=== PATIENT | female | born 1940 ===

== ENCOUNTER 2017-06-01 14:31 | Emergency (ER) | payer MEDICARE, OTHER ==
[2017-06-01 14:39] VITALS: BP 162/76; PULSE 76; RESP 18; TEMP 97.4; O2SAT 98
--- NOTE | 2017-06-01 15:31 | C.PDOC ---
History Of Present Illness A 77 year old female, whose past medical history includes hypertension, asthma, mitral valve prolapse, CHF, COPD, and who denies any chronic kidney disease, presents to the emergency department for ecchymosis and tenderness to the left lateral side of leg. The patient admits to falling from the bed 2 days ago. She denies any fever, chest pain, abdominal pain, or any other complaints at this time. - HPI Time Seen by Provider: 06/01/17 15:23 Chief Complaint (Nursing): Trauma History Per: Patient History/Exam Limitations: no limitations Onset/Duration Of Symptoms: Days (x 2 days ) Past Medical History Vital Signs: Last Vital Signs Temp 97.4 F L 06/01/17 14:35 Pulse 76 06/01/17 14:35 Resp 18 06/01/17 14:35 BP 162/76 H 06/01/17 14:35 Pulse Ox 98 06/01/17 18:50 - Medical History PMH: Asthma, CHF, COPD, HTN, Mitral Valve Prolapse Denies: Chronic Kidney Disease Surgical History: Cholecystectomy, Pacemaker (2008) Family History: States: Unknown Family Hx - Social History Hx Alcohol Use: No Hx Substance Use: No - Immunization History Hx Tetanus Toxoid Vaccination: Yes Hx Influenza Vaccination: Yes Hx Pneumococcal Vaccination: Yes Review Of Systems Except As Marked, All Systems Reviewed And Found Negative. Constitutional: Negative for: Fever Cardiovascular: Negative for: Chest Pain Gastrointestinal: Negative for: Abdominal Pain Skin: Positive for: Other (ecchymosis to left lateral leg ) Physical Exam - Physical Exam Appears: Well, No Acute Distress Skin: Normal Color, Warm, Dry Head: Atraumatic, Normacephalic Eye(s): bilateral: Normal Inspection, PERRL, EOMI Nose: Normal Throat: Normal Neck: Normal Cardiovascular: Rhythm Regular Respiratory: Normal Breath Sounds Gastrointestinal/Abdominal: Normal Exam Back: Normal Inspection, No CVA Tenderness Extremity: Normal ROM, Other (10x20 left ecchymosis on the left lateral high without fluctance ) Neurological/Psych: Oriented x3, Normal Speech, Normal Cognition Gait: Steady ED Course And Treatment O2 Sat by Pulse Oximetry: 98 Medical Decision Making Medical Decision Making: L lateral thigh contusion 2 nights ago normal gait has been maintained. no hip/back tenderness ASA only s/p CABG Defers w/u w informed consent. LOW susp of fx. Disposition Doctor Will See Patient In The: Office Counseled Patient/Family Regarding: Studies Performed, Diagnosis - Disposition Referrals: Tobi Yang Jr., MD [Medical Doctor] - Disposition: HOME/ ROUTINE Disposition Time: 15:31 Condition: GOOD Additional Instructions: bolsa de hielo encima del musculo del pienra, 1/2 hora por hora. nada caliente Sigue con Dr. Yang jules necessario. Instructions: Contusion in Adults (ED) Forms: MDCapsule (Persian) Print Language: YORUBA - Clinical Impression Clinical Impression: Thigh contusion - Scribe Statement The provider has reviewed the documentation as recorded by the Scribe Estrella Aldridge All medical record entries made by the Scribe were at my direction and personally dictated by me. I have reviewed the chart and agree that the record accurately reflects my personal performance of the history, physical exam, medical decision making, and the department course for this patient. I have also personally directed, reviewed, and agree with the discharge instructions and disposition.
== END 2017-06-01 15:42 | disposition home or self-care (01) ==
LOC: C.ER 14:31
DX: S70.12XA Contusion of left thigh, initial encounter (principal); W06.XXXA Fall from bed, initial encounter

== ENCOUNTER 2018-03-11 13:58 | Inpatient (IN) | payer MEDICARE, OTHER ==
[2018-03-11 14:36] VITALS: BMI 26.0
[2018-03-11] MEDS ORDERED: Albuterol-Ipratrop 3 mg / 0.5 (3 ml) UD ONE ×3 (14:43→16:26)
[2018-03-11] MEDS ORDERED: Albuterol-Ipratrop 3 mg / 0.5 (3 ml) UD INH STA ×3 (15:14→16:14)
[2018-03-11] MEDS ORDERED: MethylPREDNISolone 40 mg Vial IVP STA (15:14)
[2018-03-11] MEDS ORDERED: MethylPREDNISolone 40 mg Vial ONE (15:32)
[2018-03-11 15:59] LABS: BASO # 0.1 K/uL (0.0-0.2); BASO % 1.2 % (0.0-2.0); EOS # 0.2 K/uL (0.0-0.7); EOS % 3.4 % (0.0-4.0); HEMOGLOBIN 13.1 g/dL (11.0-16.0); LYMPH # 1.7 K/uL (1.0-4.3); LYMPH % 27.2 % (20.0-40.0); MEAN CELL VOLUME 82.3 fL (81.0-99.0); MEAN CORPUSCULAR HEMOGLOBIN 26.4 pg (27.0-31.0); MEAN CORPUSCULAR HGB CONC 32.1 g/dL (33.0-37.0); MEAN PLATELET VOLUME 10.3 fL (7.2-11.7); MONO # 0.8 K/uL (0.0-0.8); MONO % 11.9 % (0.0-10.0); NEUT # 3.6 K/uL (1.8-7.0); NEUT % 56.3 % (50.0-75.0); NRBC % 0.1 % (0.0-2.0); RBC 4.98 Mil/uL (3.80-5.20); RED CELL DISTRIBUTION WIDTH 16.1 % (11.5-14.5); WHITE BLOOD COUNT 6.4 K/uL (4.8-10.8)
[2018-03-11 16:46] LABS: ALB/GLOB RATIO 1.3 (1.0-2.1); ALBUMIN 3.5 g/dL (3.5-5.0); ALT/SGPT 64 U/L (9-52); AST/SGOT 63 U/L (14-36); BLOOD UREA NITROGEN 15 mg/dL (7-17); CALCIUM 8.7 mg/dl (8.6-10.4); GFR AFRICAN-AMERICAN > 60; GFR NON-AFRICAN AMERICAN 53
[2018-03-11 16:59] LABS: B-TYPE NATRIURETIC PEPTIDE 1240 pg/mL (0-900); CK-MB 1.99 ng/mL (0.0-3.38)
--- NOTE | 2018-03-11 17:05 | C.PDOC ---
History Of Present Illness 78yo female, with history of CHF, hypertension, asthma, AICD placement, presents to ED with complaints of shortness of breath and back pain for the past 5 days. Patient also reports occasional cough and states she used her nebulizer with no relief of cough. Notes the back pain is chronic, no new trauma. Worsens with movement. She denies any fever, palpiations, abdominal pain , n/v, headache, weakness, chest pain. Daughter translated. Time Seen by Provider: 03/11/18 14:57 Chief Complaint (Nursing): Chest Pain History Per: Patient History/Exam Limitations: no limitations Onset/Duration Of Symptoms: Days (5) Current Symptoms Are (Timing): Still Present Additional History Per: Patient Past Medical History Reviewed: Historical Data, Nursing Documentation, Vital Signs Vital Signs: Last Vital Signs Temp 97.4 F L 03/12/18 07:45 Pulse 68 03/12/18 07:45 Resp 20 03/12/18 07:45 BP 160/69 H 03/12/18 09:35 Pulse Ox 97 03/12/18 07:45 - Medical History PMH: Asthma, Bronchitis, CHF, COPD, HTN, Mitral Valve Prolapse Denies: Chronic Kidney Disease Surgical History: Cholecystectomy, Pacemaker (2009) Family History: States: Stroke - Social History Hx Tobacco Use: No Hx Alcohol Use: No Hx Substance Use: No - Immunization History Hx Tetanus Toxoid Vaccination: Yes Hx Influenza Vaccination: Yes Hx Pneumococcal Vaccination: Yes Review Of Systems Except As Marked, All Systems Reviewed And Found Negative. Constitutional: Negative for: Fever, Chills, Weakness Cardiovascular: Negative for: Chest Pain Respiratory: Positive for: Cough, Shortness of Breath Musculoskeletal: Positive for: Back Pain Physical Exam - Physical Exam Appears: Non-toxic, No Acute Distress Skin: Warm, Dry Head: Atraumatic, Normacephalic Eye(s): bilateral: Normal Inspection, EOMI Nose: Normal Oral Mucosa: Moist Neck: Normal ROM, Supple Chest: Symmetrical Cardiovascular: Rhythm Regular Respiratory: Wheezing (bilaterally) Gastrointestinal/Abdominal: Normal Exam, Soft, No Tenderness Back: No Vertebral Tenderness, Paraspinal Tenderness (parathoracic tenderness) Extremity: Normal ROM, No Pedal Edema, No Deformity Neurological/Psych: Oriented x3, Normal Speech, Normal Cognition ED Course And Treatment - Laboratory Results Result Diagrams: 03/12/18 07:22 03/12/18 07:22 ECG: Interpreted By Me, Viewed By Me ECG Rhythm: Sinus Rhythm, R BBB Interpretation Of ECG: Bifascicular block, unchanged from previous EKG on Rate From EC O2 Sat by Pulse Oximetry: 100 (RA) Pulse Ox Interpretation: Normal - Radiology CXR: Viewed By Me CXR Interpretation: No: Infiltrates Progress Note: Labs, CXR and EKG ordered. Patient given Duoneb 3ml INH and solumedrol 80mg IVP. On re-evaluation, patient reports persistent shortness of breath, Duoneb 3ml INH given. On reevaluation, wheezing persists. Case discussed with Dr. Yang and patient admitted under his service. Disposition - Disposition Disposition: HOSPITALIZED Disposition Time: 10:03 Condition: STABLE - Clinical Impression Clinical Impression: SOB (shortness of breath), Back pain - PA / [employer] / Resident Statement MD/DO has reviewed & agrees with the documentation as recorded. - Scribe Statement The provider has reviewed the documentation as recorded by the Scribe (Chloe Huertas) Provider Attestation: All medical record entries made by the Scribe were at my direction and personally dictated by me. I have reviewed the chart and agree that the record accurately reflects my personal performance of the history, physical exam, medical decision making, and the department course for this patient. I have also personally directed, reviewed, and agree with the discharge instructions and disposition.
[2018-03-11] MEDS ORDERED: MELOXICAM PO PRN (19:31)
--- NOTE | 2018-03-11 19:33 | CP.PCM.HP ---
History of Present Illness - History of Present Illness History of Present Illness: Patient is a 78 year old female with a history of asthma, mitral valve replacement, AICD, CHF, gout, arthritis, and DM, who presents with complains of difficulty breathing and dry cough for 5 days. She says she uses her inhaler ( symbicort) 4-5 times per day and 3 nebulizer treatments per day for the past 5 days without much relief. She also complains of chronic back pain, knee pain, and pain with walking. She currently denies chest pain, palpitations, abdominal pain, nausea, vomiting, fevers, headaches, dysuria, hematuria, constipation, diarrhea. PMD: Dr. Yang Messenger Floorperson: Dr. Villalobos PMHX: asthma, mitral valve replacement, AICD, CHF, gout, arthritis, and DM SurgHx: MV replacement 2008, AICD, cholecystectomy over 30 years ago FamHx: mother/father- [place], stroke; Brother- stroke, kidney cancer SocHx: denies alcohol, tobacco, and drug use; lives with daughter in [facility]. Allergies: PCN (respiratory distress, dizzy) Medications: meloxicam 7.5mg po bid, symbicort 160/4.5 daily, gabapentin 100mg 2 tabs HS, certavite senior daily, janumet 50-500mg daily, montelukast 10mg daily, memantine 5mg HS, aspirin 81mg po daily, colcrys 0.6mg BID, diltiazem 30mg BID, lasix 20mg po bid. Present on Admission - Present on Admission Any Indicators Present on Admission: No Review of Systems - Constitutional Constitutional: Weakness. absent: Chills, Fever, Headache - EENT Eyes: absent: Blurred Vision Ears: absent: Dizziness - Respiratory Respiratory: Cough, Dyspnea, Wheezing, Pain on Inspiration, Pain with Coughing ( back pain). absent: Excessive Mucous Production, Change in Mucous Color - Gastrointestinal Gastrointestinal: absent: Abdominal Pain, Constipation, Diarrhea, Hematemesis, Melena, Nausea, Vomiting - Genitourinary Genitourinary: absent: Dysuria, Hematuria, Pyuria - Musculoskeletal Musculoskeletal: Arthralgias, Back Pain - Integumentary Integumentary: absent: Rash - Neurological Neurological: absent: Dizziness, Frequent Falls, Headaches - Endocrine Endocrine: Fatigue. absent: Palpitations Past Patient History - Infectious Disease Hx of Infectious Diseases: None - Past Medical History & Family History Past Medical History?: Yes - Past Social History Smoking Status: Never Smoked - CARDIAC Hx Congestive Heart Failure: Yes Hx Hypertension: Yes Hx Mitral Valve Prolapse: Yes Hx Pacemaker: Yes (2008) - PULMONARY Hx Asthma: Yes Hx Bronchitis: Yes Hx Chronic Obstructive Pulmonary Disease (COPD): Yes - NEUROLOGICAL Hx Neurological Disorder: No - HEENT Hx HEENT Problems: No - RENAL Hx Chronic Kidney Disease: No - ENDOCRINE/METABOLIC Hx Diabetes Mellitus Type 2: Yes - HEMATOLOGICAL/ONCOLOGICAL Hx Blood Disorders: No - INTEGUMENTARY Hx Dermatological Problems: No - MUSCULOSKELETAL/RHEUMATOLOGICAL Hx Falls: Yes - GASTROINTESTINAL Hx Colitis: Yes - GENITOURINARY/GYNECOLOGICAL Hx Genitourinary Disorders: No - PSYCHIATRIC Hx Substance Use: No - SURGICAL HISTORY Hx Cholecystectomy: Yes - ANESTHESIA Hx Anesthesia: Yes Hx Anesthesia Reactions: No Meds Allergies/Adverse Reactions: Allergies Allergy/AdvReac Type Severity Reaction Status Date / Time Penicillins Allergy Severe ANAPHYLAXIS Verified 03/11/18 14:36 Physical Exam - Constitutional Appears: No Acute Distress - Head Exam Head Exam: ATRAUMATIC, NORMAL INSPECTION - Eye Exam Eye Exam: EOMI, PERRL - ENT Exam ENT Exam: Mucous Membranes Moist - Respiratory Exam Respiratory Exam: Decreased Breath Sounds, Prolonged Expiratory Phase, Wheezes. absent: Clear to Auscultation Bilateral - Cardiovascular Exam Cardiovascular Exam: REGULAR RHYTHM, +S1, +S2 Additional comments: AICD placed left chest; midline scar s/p MV replacement - GI/Abdominal Exam GI & Abdominal Exam: Normal Bowel Sounds, Soft. absent: Distended, Firm, Mass, Tenderness - Extremities Exam Extremities exam: Positive for: pedal pulses present. Negative for: calf tenderness, full ROM (decreased ROM (flexion/extension at the knee b/l) due pain ; crepitus b/l knees), pedal edema - Back Exam Back exam: muscle spasm (thoracic), paraspinal tenderness (thoracic). absent: CVA tenderness (L), CVA tenderness (R) - Neurological Exam Neurological exam: Alert, Oriented x3 - Psychiatric Exam Psychiatric exam: Normal Mood - Skin Skin Exam: Dry, Intact, Normal Color, Warm Results - Vital Signs Recent Vital Signs: Last Vital Signs Temp 97.9 F 03/11/18 19:22 Pulse 75 03/11/18 19:22 Resp 18 03/11/18 19:22 BP 142/73 03/11/18 19:22 Pulse Ox 99 03/11/18 19:22 - Labs Result Diagrams: 03/11/18 15:56 03/11/18 15:56 Labs: Laboratory Results - last 24 hr 03/11/18 03/11/18 15:56 15:56 WBC 6.4 RBC 4.98 Hgb 13.1 Hct 41.0 MCV 82.3 MCH 26.4 L MCHC 32.1 L RDW 16.1 H Plt Count 137 MPV 10.3 Neut % (Auto) 56.3 Lymph % (Auto) 27.2 [place] % (Auto) 11.9 H Eos % (Auto) 3.4 Baso % (Auto) 1.2 Neut # (Auto) 3.6 Lymph # (Auto) 1.7 [place] # (Auto) 0.8 Eos # (Auto) 0.2 Baso # (Auto) 0.1 Sodium 143 Potassium 4.2 Chloride 106 Carbon Dioxide 26 Anion Gap 15 BUN 15 Creatinine 1.0 Est GFR ( Amer) > 60 Est GFR (Non-Af Amer) 53 Random Glucose 93 Calcium 8.7 Total Bilirubin 0.7 AST 63 H ALT 64 H Alkaline Phosphatase 149 H D Total Creatine Kinase 250 H CK-MB (Mass) 1.99 Troponin I < 0.0120 NT-Pro-B Natriuret Pep 1240 H Total Protein 6.2 L Albumin 3.5 Globulin 2.7 Albumin/Globulin Ratio 1.3 Assessment & Plan (1) Exacerbation of asthma Assessment and Plan: Patient has been using symbicort 160/4.5 4-5 times daily and nebulizer 3 times daily x5days. Chest xray: f/u report Sputum cx: f/u report Negative for influenza Pulmonology consulted, Dr. Cortes; help appreciated Medications: - Duonebs Q4h - Solumedrol 40mg IV Q8h - Continue home medication Symbicort 160/4.5 - Continue home medication Singulair 10mg PO HS Status: Acute (2) CHF (congestive heart failure) Assessment and Plan: History of MV replacement, AICD, and CHF Admitted to telemetry Chest xray: f/u report BNP 1240, trop negative Continue home medications: - Lasix 20mg PO BID - Cardizem 30mg PO BID - Aspirin 81mg PO daily Status: Chronic (3) Diabetes mellitus Assessment and Plan: Accuchecks Hypoglycemic protocol ISS Status: Acute (4) Arthritis Assessment and Plan: Continue home medication: Meloxicam 7.5mg PO BID, Gabapentin 100mg 2tabs PO HS Status: Acute (5) Gout Assessment and Plan: Continue home medication: Colcrys 0.6mg PO BID Status: Chronic (6) Prophylactic measure Assessment and Plan: DVT: Heparin 5000u SC Q8h, SCDs Heart healthy diet O2 via nc prn Status: Acute
[2018-03-11] MEDS: Albuterol-Ipratrop 3 mg / 0.5 (3 ml) UD INH SCH (19:57)
[2018-03-11] MEDS: (Novolin R) Insulin Human Regular 100 units/ml vial SC SCH (21:38)
[2018-03-12] MEDS: MethylPREDNISolone 40 mg Vial IV SCH ×3 (00:27→16:49)
[2018-03-12] MEDS ORDERED: DiphenhydrAMINE 50 mg/ml Inj IVP STA (02:33)
[2018-03-12] MEDS: Albuterol-Ipratrop 3 mg / 0.5 (3 ml) UD INH SCH ×5 (06:19→19:41)
[2018-03-12 07:36] LABS: BASO % 0.4 % (0.0-2.0); EOS % 0.3 % (0.0-4.0); HEMOGLOBIN 12.9 g/dL (11.0-16.0); LYMPH # 0.5 K/uL (1.0-4.3); LYMPH % 10.2 % (20.0-40.0); MEAN CELL VOLUME 82.2 fL (81.0-99.0); MEAN CORPUSCULAR HEMOGLOBIN 26.6 pg (27.0-31.0); MEAN CORPUSCULAR HGB CONC 32.4 g/dL (33.0-37.0); MEAN PLATELET VOLUME 10.6 fL (7.2-11.7); MONO # 0.1 K/uL (0.0-0.8); NEUT # 4.7 K/uL (1.8-7.0); NEUT % 88.1 % (50.0-75.0); RBC 4.84 Mil/uL (3.80-5.20); RED CELL DISTRIBUTION WIDTH 16.1 % (11.5-14.5); WHITE BLOOD COUNT 5.3 K/uL (4.8-10.8)
--- NOTE | 2018-03-12 07:46 | RAD ---
Chest x-ray single frontal view History: Shortness of breath. Comparison: 08/11/2017 Findings: Biapical pleural thickening. Mild venous congestion. Cardiomegaly. Calcification at the aortic knob. Status post median sternotomy. Tortuous ectatic aorta. Left-sided pacemaker. Degenerative changes in the spine and shoulders. Impression: Biapical pleural thickening. Mild venous congestion. Cardiomegaly. Calcification at the aortic knob. Status post median sternotomy. Tortuous ectatic aorta. Left-sided pacemaker. Degenerative changes in the spine and shoulders.
[2018-03-12 07:52] LABS: ALB/GLOB RATIO 1.4 (1.0-2.1); ALBUMIN 3.9 g/dL (3.5-5.0); ALT/SGPT 47 U/L (9-52); AST/SGOT 56 U/L (14-36); BLOOD UREA NITROGEN 17 mg/dL (7-17); CALCIUM 9.3 mg/dl (8.6-10.4); GFR AFRICAN-AMERICAN > 60; GFR NON-AFRICAN AMERICAN > 60
[2018-03-12] MEDS: (Novolin R) Insulin Human Regular 100 units/ml vial SC SCH ×4 (08:16→22:22)
[2018-03-12] MEDS ORDERED: Home Med 1 UNIT (Budesonide/Formoterol Fumarate [Symbicort 160-4.5 Mcg Inhaler] 1 AER) IH SCH (10:00)
--- NOTE | 2018-03-12 12:53 | CP.PCM.CON ---
History of Present Illness - History of Present Illness History of Present Illness: Reason for Consult - Asthma Patient is a 78 year old female with past medical history of asthma, mitral valve replacement, AICD placement, CHF, gout, arthritis and DM who presents to the ED on 03/11 with complaints of SOB of 5 days' duration. Patient seen and examined in bed and is comfortably conversational, despite complaining of shortness of breath. Patient states she has a chronic cough, which is always there and never productive of sputum. Patient states she feels better and is saturating between 97-100% on 3L oxygen per nasal cannula. Patient states she has a home nebulizer, which she uses often but states she "doesn't always use her Prednisone." Assessment/Plan 1. Asthma Patient has poorly controlled asthma; Exam reveals wheezing in all lung shaver. CXR 03/11 shows pleural thickening, but no other lung disease. Continue Duonebs q4H, Solu-Medrol 40 mg IV q8H and Singulair 10 mg PO QD. . Past Patient History - Infectious Disease Hx of Infectious Diseases: None - Past Medical History & Family History Past Medical History?: Yes - Past Social History Smoking Status: Never Smoked - CARDIAC Hx Congestive Heart Failure: Yes Hx Hypertension: Yes Hx Mitral Valve Prolapse: Yes Hx Pacemaker: Yes (2008) - PULMONARY Hx Asthma: Yes Hx Bronchitis: Yes Hx Chronic Obstructive Pulmonary Disease (COPD): Yes - NEUROLOGICAL Hx Neurological Disorder: No - HEENT Hx HEENT Problems: No - RENAL Hx Chronic Kidney Disease: No - ENDOCRINE/METABOLIC Hx Diabetes Mellitus Type 2: Yes - HEMATOLOGICAL/ONCOLOGICAL Hx Blood Disorders: No - INTEGUMENTARY Hx Dermatological Problems: No - MUSCULOSKELETAL/RHEUMATOLOGICAL Hx Falls: Yes - GASTROINTESTINAL Hx Colitis: Yes - GENITOURINARY/GYNECOLOGICAL Hx Genitourinary Disorders: No - PSYCHIATRIC Hx Substance Use: No - SURGICAL HISTORY Hx Cholecystectomy: Yes - ANESTHESIA Hx Anesthesia: Yes Hx Anesthesia Reactions: No Meds Allergies/Adverse Reactions: Allergies Allergy/AdvReac Type Severity Reaction Status Date / Time Penicillins Allergy Severe ANAPHYLAXIS Verified 03/11/18 14:36 - Medications Medications: Current Medications Albuterol/Ipratropium (Duoneb 3 Mg/0.5 Mg (3 Ml) Ud) 3 ml INH RQ4 TEN Last Admin: 03/12/18 07:35 Dose: 3 ml Aspirin (Ecotrin) 81 mg PO DAILY TEN Last Admin: 03/12/18 09:35 Dose: 81 mg Colchicine (Colocrys) 0.6 mg PO BID [facility] Last Admin: 03/12/18 09:35 Dose: 0.6 mg Diltiazem HCl (Cardizem) 30 mg PO BID [facility] Last Admin: 03/12/18 09:35 Dose: 30 mg Furosemide (Lasix) 20 mg PO BID [facility] Last Admin: 03/12/18 09:35 Dose: 20 mg Gabapentin (Neurontin) 100 mg PO DAILY [facility] Last Admin: 03/12/18 09:36 Dose: 100 mg Heparin Sodium (Porcine) (Heparin) 5,000 units SC Q8 [facility] Last Admin: 03/12/18 06:30 Dose: 5,000 units Home Med (Budesonide/Formoterol Fumarate [Symbicort 160-4.5 Mcg Inhaler]) 1 aer IH DAILY [facility] Home Med (Meloxicam [Mobic]) 1 tab PO BID PRN PRN Reason: Pain, moderate (4-7) Ibuprofen (Motrin Tab) 400 mg PO Q6 PRN PRN Reason: Pain, moderate (4-7) Insulin Human Regular (Novolin R) 0 unit SC ACHS [facility] PRN Reason: Protocol Last Admin: 03/12/18 12:22 Dose: Not Given Memantine (Namenda) 5 mg PO HS [facility] Last Admin: 03/11/18 21:34 Dose: 5 mg Methylprednisolone (Solu-Medrol) 40 mg IV Q8H [facility] Last Admin: 03/12/18 08:20 Dose: 40 mg Montelukast Sodium (Singulair) 10 mg PO DAILY [facility] Results - Vital Signs Recent Vital Signs: Last Vital Signs Temp 97.4 F L 03/12/18 07:45 Pulse 68 03/12/18 07:45 Resp 20 03/12/18 07:45 BP 160/69 H 03/12/18 09:35 Pulse Ox 100 03/12/18 10:05 - Labs Result Diagrams: 03/12/18 07:22 03/12/18 07:22 Labs: Laboratory Results - last 24 hr 03/11/18 03/11/18 03/11/18 15:56 15:56 21:13 WBC 6.4 RBC 4.98 Hgb 13.1 Hct 41.0 MCV 82.3 MCH 26.4 L MCHC 32.1 L RDW 16.1 H Plt Count 137 MPV 10.3 Neut % (Auto) 56.3 Lymph % (Auto) 27.2 [place] % (Auto) 11.9 H Eos % (Auto) 3.4 Baso % (Auto) 1.2 Neut # (Auto) 3.6 Lymph # (Auto) 1.7 [place] # (Auto) 0.8 Eos # (Auto) 0.2 Baso # (Auto) 0.1 Sodium 143 Potassium 4.2 Chloride 106 Carbon Dioxide 26 Anion Gap 15 BUN 15 Creatinine 1.0 Est GFR ( Amer) > 60 Est GFR (Non-Af Amer) 53 POC Glucose (mg/dL) Random Glucose 93 Calcium 8.7 Phosphorus Magnesium Total Bilirubin 0.7 AST 63 H ALT 64 H Alkaline Phosphatase 149 H D Total Creatine Kinase 250 H CK-MB (Mass) 1.99 Troponin I < 0.0120 NT-Pro-B Natriuret Pep 1240 H Total Protein 6.2 L Albumin 3.5 Globulin 2.7 Albumin/Globulin Ratio 1.3 Influenza Typ A,B (EIA) Negative for flu a/b 03/11/18 03/12/18 03/12/18 21:38 06:44 07:22 WBC 5.3 RBC 4.84 Hgb 12.9 Hct 39.8 MCV 82.2 MCH 26.6 L MCHC 32.4 L RDW 16.1 H Plt Count 140 MPV 10.6 Neut % (Auto) 88.1 H Lymph % (Auto) 10.2 L [place] % (Auto) 1.0 Eos % (Auto) 0.3 Baso % (Auto) 0.4 Neut # (Auto) 4.7 Lymph # (Auto) 0.5 L [place] # (Auto) 0.1 Eos # (Auto) 0.0 Baso # (Auto) 0.0 Sodium Potassium Chloride Carbon Dioxide Anion Gap BUN Creatinine Est GFR ( Amer) Est GFR (Non-Af Amer) POC Glucose (mg/dL) 261 H 133 H Random Glucose Calcium Phosphorus Magnesium Total Bilirubin AST ALT Alkaline Phosphatase Total Creatine Kinase CK-MB (Mass) Troponin I NT-Pro-B Natriuret Pep Total Protein Albumin Globulin Albumin/Globulin Ratio Influenza Typ A,B (EIA) 03/12/18 03/12/18 07:22 11:22 WBC RBC Hgb Hct MCV MCH MCHC RDW Plt Count MPV Neut % (Auto) Lymph % (Auto) [place] % (Auto) Eos % (Auto) Baso % (Auto) Neut # (Auto) Lymph # (Auto) [place] # (Auto) Eos # (Auto) Baso # (Auto) Sodium 141 Potassium 5.2 Chloride 105 Carbon Dioxide 26 Anion Gap 15 BUN 17 Creatinine 0.8 Est GFR ( Amer) > 60 Est GFR (Non-Af Amer) > 60 POC Glucose (mg/dL) 149 H Random Glucose 138 H Calcium 9.3 Phosphorus 3.2 Magnesium 1.3 L Total Bilirubin 0.4 AST 56 H ALT 47 Alkaline Phosphatase 105 Total Creatine Kinase CK-MB (Mass) Troponin I NT-Pro-B Natriuret Pep Total Protein 6.7 Albumin 3.9 Globulin 2.9 Albumin/Globulin Ratio 1.4 Influenza Typ A,B (EIA)
--- NOTE | 2018-03-12 13:38 | CP.PCM.PN ---
Subjective - Date & Time of Evaluation Date of Evaluation: 03/12/18 Time of Evaluation: 07:19 - Subjective Subjective: PGY1 Medicine Note for Dr. Yang Patient seen and examined at bedside this morning. No acute events overnight. Patient states that she is still experiencing wheezing. Patient admits to not taking her medications appropriately. She has no other complaints at this time. Denies fevers, chills, nausea, vomiting, diarrhea, constipation, chest pain, abdominal pain, numbness or tingling. Objective - Vital Signs/Intake and Output Vital Signs (last 24 hours): Temp Pulse Resp BP Pulse Ox 97.4 F L 68 20 160/69 H 100 03/12/18 07:45 03/12/18 07:45 03/12/18 07:45 03/12/18 09:35 03/12/18 10:05 Intake and Output: 03/12/18 03/12/18 06:59 18:59 Intake Total 120 Balance 120 - Medications Medications: Current Medications Albuterol/Ipratropium (Duoneb 3 Mg/0.5 Mg (3 Ml) Ud) 3 ml INH RQ4 [facility] Last Admin: 03/12/18 13:15 Dose: 3 ml Aspirin (Ecotrin) 81 mg PO DAILY [facility] Last Admin: 03/12/18 09:35 Dose: 81 mg Colchicine (Colocrys) 0.6 mg PO BID [facility] Last Admin: 03/12/18 09:35 Dose: 0.6 mg Diltiazem HCl (Cardizem) 30 mg PO BID [facility] Last Admin: 03/12/18 09:35 Dose: 30 mg Furosemide (Lasix) 20 mg PO BID [facility] Last Admin: 03/12/18 09:35 Dose: 20 mg Gabapentin (Neurontin) 100 mg PO DAILY [facility] Last Admin: 03/12/18 09:36 Dose: 100 mg Heparin Sodium (Porcine) (Heparin) 5,000 units SC Q8 [facility] Last Admin: 03/12/18 06:30 Dose: 5,000 units Home Med (Budesonide/Formoterol Fumarate [Symbicort 160-4.5 Mcg Inhaler]) 1 aer IH DAILY [facility] Home Med (Meloxicam [Mobic]) 1 tab PO BID PRN PRN Reason: Pain, moderate (4-7) Ibuprofen (Motrin Tab) 400 mg PO Q6 PRN PRN Reason: Pain, moderate (4-7) Insulin Human Regular (Novolin R) 0 unit SC ACHS [facility] PRN Reason: Protocol Last Admin: 03/12/18 12:22 Dose: Not Given Memantine (Namenda) 5 mg PO HS [facility] Last Admin: 03/11/18 21:34 Dose: 5 mg Methylprednisolone (Solu-Medrol) 40 mg IV Q8H [facility] Last Admin: 03/12/18 08:20 Dose: 40 mg Montelukast Sodium (Singulair) 10 mg PO DAILY [facility] - Labs Labs: 03/12/18 07:22 03/12/18 07:22 - Constitutional Appears: Non-toxic, No Acute Distress - Head Exam Head Exam: ATRAUMATIC, NORMOCEPHALIC - Eye Exam Eye Exam: Normal appearance - ENT Exam ENT Exam: Mucous Membranes Moist - Neck Exam Neck Exam: absent: Lymphadenopathy, Tenderness - Respiratory Exam Respiratory Exam: Decreased Breath Sounds, Prolonged Expiratory Phase, Wheezes. absent: Accessory Muscle Use, Clear to Ausculation Bilateral, Rales, Rhonchi, Respiratory Distress, NORMAL BREATHING PATTERN - Cardiovascular Exam Cardiovascular Exam: REGULAR RHYTHM, +S1, +S2 - GI/Abdominal Exam GI & Abdominal Exam: Soft. absent: Distended, Firm, Guarding, Rigid, Tenderness , Hyperactive Bowel Sounds - Extremities Exam Extremities Exam: absent: Calf Tenderness, Pedal Edema - Neurological Exam Neurological Exam: Alert, Awake, CN II-XII Intact, Oriented x3 - Psychiatric Exam Psychiatric exam: Normal Affect, Normal Mood - Skin Skin Exam: Dry, Warm Assessment and Plan - Assessment and Plan (Free Text) Plan: Exacerbation of asthma Patient has been using symbicort 160/4.5 4-5 times daily and nebulizer 3 times daily x5days. Chest xray: Biapical pleural thickening. Mild venous congestion. Cardiomegaly. Calcification at the aortic knob. Status post median sternotomy. Tortuous ectatic aorta. Left-sided pacemaker. Degenerative changes in the spine and shoulders Sputum cx: f/u report Negative for influenza Pulmonology consulted, Dr. Cortes; help appreciated Medications: - Duonebs Q4h - Solumedrol 40mg IV Q8h - Continue home medication Symbicort 160/4.5 - Continue home medication Singulair 10mg PO HS CHF (congestive heart failure) History of MV replacement, AICD, and CHF Admitted to telemetry Chest xray: f/u report BNP 1240, trop negative Continue home medications: - Lasix 20mg PO BID - Cardizem 30mg PO BID - Aspirin 81mg PO daily Diabetes mellitus Accuchecks Hypoglycemic protocol ISS Arthritis Continue home medication: Meloxicam 7.5mg PO BID, Gabapentin 100mg PO HS Gout Continue home medication: Colchicine 0.6mg PO BID Prophylactic measure DVT: Heparin 5000u SC Q8h, SCDs Heart healthy diet O2 via nc prn Case discussed with Dr. Trey Ramos Rosalva PGY1
[2018-03-13] MEDS: Albuterol-Ipratrop 3 mg / 0.5 (3 ml) UD INH SCH ×6 (00:05→19:22)
--- NOTE | 2018-03-13 00:57 | CP.PCM.PN ---
Subjective - Date & Time of Evaluation Date of Evaluation: 03/13/18 Time of Evaluation: 00:54 - Subjective Subjective: Medicine progress note for Dr. Yang Patient was seen and examined at bedside in no acute distress. Patient reports her breathing has improved, as well as her back and knee pain. She complains of difficulty sleeping overnight. She states she had a normal BM and is tolerating her diet, however, has little appetite. Patient denies chest pain, dyspnea, abdominal pain, nausea, vomiting, fevers, headaches, dysuria, diarrhea, constipation. Objective - Vital Signs/Intake and Output Vital Signs (last 24 hours): Temp Pulse Resp BP Pulse Ox 97.8 F 76 20 136/63 98 03/12/18 23:10 03/12/18 23:10 03/12/18 23:10 03/12/18 23:10 03/12/18 23:10 Intake and Output: 03/12/18 03/13/18 18:59 06:59 Intake Total 240 Balance 240 - Medications Medications: Current Medications Albuterol/Ipratropium (Duoneb 3 Mg/0.5 Mg (3 Ml) Ud) 3 ml INH RQ4 [facility] Last Admin: 03/12/18 19:41 Dose: 3 ml Aspirin (Ecotrin) 81 mg PO DAILY [facility] Last Admin: 03/12/18 09:35 Dose: 81 mg Colchicine (Colocrys) 0.6 mg PO BID [facility] Last Admin: 03/12/18 17:50 Dose: 0.6 mg Diltiazem HCl (Cardizem) 30 mg PO BID [facility] Last Admin: 03/12/18 17:50 Dose: 30 mg Furosemide (Lasix) 20 mg PO BID [facility] Last Admin: 03/12/18 17:50 Dose: 20 mg Gabapentin (Neurontin) 100 mg PO DAILY [facility] Last Admin: 03/12/18 09:36 Dose: 100 mg Heparin Sodium (Porcine) (Heparin) 5,000 units SC Q8 [facility] Last Admin: 03/12/18 21:30 Dose: 5,000 units Home Med (Budesonide/Formoterol Fumarate [Symbicort 160-4.5 Mcg Inhaler]) 1 aer IH DAILY [facility] Home Med (Meloxicam [Mobic]) 1 tab PO BID PRN PRN Reason: Pain, moderate (4-7) Ibuprofen (Motrin Tab) 400 mg PO Q6 PRN PRN Reason: Pain, moderate (4-7) Insulin Human Regular (Novolin R) 0 unit SC ACHS [facility] PRN Reason: Protocol Last Admin: 03/12/18 22:22 Dose: Not Given Memantine (Namenda) 5 mg PO HS [facility] Last Admin: 03/12/18 21:30 Dose: 5 mg Methylprednisolone (Solu-Medrol) 40 mg IV Q8H [facility] Last Admin: 03/12/18 16:49 Dose: 40 mg Montelukast Sodium (Singulair) 10 mg PO DAILY [facility] Last Admin: 03/12/18 13:53 Dose: 10 mg - Labs Labs: 03/12/18 07:22 03/12/18 07:22 - Additional Findings Additional findings: - Constitutional Appears: No Acute Distress - Head Exam Head Exam: ATRAUMATIC, NORMAL INSPECTION - Eye Exam Eye Exam: EOMI, PERRL - ENT Exam ENT Exam: Mucous Membranes Moist - Respiratory Exam Respiratory Exam: Decreased Breath Sounds, Prolonged Expiratory Phase, Wheezes. absent: Clear to Auscultation Bilateral - Cardiovascular Exam Cardiovascular Exam: REGULAR RHYTHM, +S1, +S2 Additional comments: AICD placed left chest; midline scar s/p MV replacement - GI/Abdominal Exam GI & Abdominal Exam: Normal Bowel Sounds, Soft. absent: Distended, Firm, Mass, Tenderness - Extremities Exam Extremities exam: Positive for: pedal pulses present. Negative for: calf tenderness, full ROM (decreased ROM (flexion/extension at the knee b/l) due pain ; crepitus b/l knees), pedal edema - Back Exam Back exam: muscle spasm (thoracic), paraspinal tenderness (thoracic). absent: CVA tenderness (L), CVA tenderness (R) - Neurological Exam Neurological exam: Alert, Oriented x3 - Psychiatric Exam Psychiatric exam: Normal Mood - Skin Skin Exam: Dry, Intact, Normal Color, Warm Assessment and Plan (1) Exacerbation of asthma Status: Acute (2) CHF (congestive heart failure) Status: Chronic (3) Diabetes mellitus Status: Acute (4) Arthritis Status: Acute (5) Gout Status: Chronic (6) Prophylactic measure Status: Acute - Assessment and Plan (Free Text) Plan: Exacerbation of asthma Patient has been using symbicort 160/4.5 4-5 times daily and nebulizer 3 times daily x5days. Chest xray: Biapical pleural thickening. Mild venous congestion. Cardiomegaly. Calcification at the aortic knob. Status post median sternotomy. Tortuous ectatic aorta. Left-sided pacemaker. Degenerative changes in the spine and shoulders Negative for influenza Pulmonology consulted, Dr. Cortes; help appreciated Medications: - Duonebs Q4h - Solumedrol 40mg IV Q8h - Continue home medication Symbicort 160/4.5 - Continue home medication Singulair 10mg PO HS CHF (congestive heart failure) History of MV replacement, AICD, and CHF Admitted to telemetry Chest xray: Biapical pleural thickening. Mild venous congestion. Cardiomegaly. Calcification at the aortic knob. Status post median sternotomy. Tortuous ectatic aorta. Left-sided pacemaker. Degenerative changes in the spine and shoulders BNP 1240, trop negative Continue home medications: - Lasix 20mg PO BID - Cardizem 30mg PO BID - Aspirin 81mg PO daily Diabetes mellitus Accuchecks Hypoglycemic protocol ISS Arthritis Continue home medication: Meloxicam 7.5mg PO BID, Gabapentin 100mg PO HS Gout Continue home medication: Colchicine 0.6mg PO BID Prophylactic measure DVT: Heparin 5000u SC Q8h, SCDs Heart healthy diet O2 via nc prn
[2018-03-13] MEDS: MethylPREDNISolone 40 mg Vial IV SCH ×3 (01:15→18:04)
[2018-03-13 07:43] LABS: BASO # 0.1 K/uL (0.0-0.2); BASO % 0.6 % (0.0-2.0); EOS # 0.1 K/uL (0.0-0.7); EOS % 0.9 % (0.0-4.0); HEMOGLOBIN 12.3 g/dL (11.0-16.0); LYMPH # 0.4 K/uL (1.0-4.3); LYMPH % 3.8 % (20.0-40.0); MEAN CELL VOLUME 82.2 fL (81.0-99.0); MEAN CORPUSCULAR HEMOGLOBIN 26.3 pg (27.0-31.0); MEAN PLATELET VOLUME 10.6 fL (7.2-11.7); MONO # 0.2 K/uL (0.0-0.8); MONO % 2.1 % (0.0-10.0); NEUT # 8.8 K/uL (1.8-7.0); NEUT % 92.6 % (50.0-75.0); PLATELET COUNT 129 K/uL (130-400); RBC 4.69 Mil/uL (3.80-5.20); WHITE BLOOD COUNT 9.5 K/uL (4.8-10.8)
[2018-03-13 08:12] LABS: ALB/GLOB RATIO 1.4 (1.0-2.1); ALBUMIN 3.7 g/dL (3.5-5.0); ALT/SGPT 51 U/L (9-52); AST/SGOT 40 U/L (14-36); BLOOD UREA NITROGEN 27 mg/dL (7-17); CALCIUM 9.1 mg/dl (8.6-10.4); GFR AFRICAN-AMERICAN > 60; GFR NON-AFRICAN AMERICAN > 60
[2018-03-13] MEDS: (Novolin R) Insulin Human Regular 100 units/ml vial SC SCH ×4 (08:30→21:31)
[2018-03-13 08:32] LABS: LYMPHOCYTE 2 % (20-40); MONOCYTE 2 % (0-10); NEUTROPHIL 96 % (50-75); PLATELET ESTIMATE NORMAL (NORMAL); TOTAL CELLS COUNTED 100
[2018-03-13 08:33] LABS: LARGE PLATELETS PRESENT
[2018-03-13 08:34] LABS: ANISOCYTOSIS SLIGHT
[2018-03-13 08:35] LABS: HYPOCHROMIC SLIGHT; OVALOCYTES SLIGHT; POLYCHROMIC SLIGHT
--- NOTE | 2018-03-13 12:09 | CARD ---
APPROVED REPORT EKG Measurement Heart [id number] <Conclusion> Normal sinus rhythm with sinus arrhythmia Right bundle branch block Left anterior fascicular block Bifascicular block Voltage criteria for left ventricular hypertrophy Cannot rule out Septal infarct, age undetermined Abnormal ECG
--- NOTE | 2018-03-13 12:20 | CP.PCM.PN ---
Subjective - Date & Time of Evaluation Date of Evaluation: 03/13/18 Time of Evaluation: 10:40 - Subjective Subjective: Patient seen and examined Patient states breathing is slightly better but still wheezing Denies cough, denies fever chills No chest pain Continue IV steroids Continue nebulizer treatment Objective - Vital Signs/Intake and Output Vital Signs (last 24 hours): Temp Pulse Resp BP Pulse Ox 97.5 F L 72 20 127/69 96 03/13/18 08:35 03/13/18 08:35 03/13/18 08:35 03/13/18 10:39 03/13/18 08:35 Intake and Output: 03/13/18 03/13/18 06:59 18:59 Intake Total 240 Balance 240 - Medications Medications: Current Medications Albuterol/Ipratropium (Duoneb 3 Mg/0.5 Mg (3 Ml) Ud) 3 ml INH RQ4 [facility] Last Admin: 03/13/18 11:29 Dose: 3 ml Aspirin (Ecotrin) 81 mg PO DAILY [facility] Last Admin: 03/13/18 10:27 Dose: 81 mg Colchicine (Colocrys) 0.6 mg PO BID [facility] Last Admin: 03/13/18 10:27 Dose: 0.6 mg Diltiazem HCl (Cardizem) 30 mg PO BID [facility] Last Admin: 03/13/18 10:30 Dose: 30 mg Furosemide (Lasix) 20 mg PO BID [facility] Last Admin: 03/13/18 10:39 Dose: 20 mg Gabapentin (Neurontin) 100 mg PO DAILY [facility] Last Admin: 03/13/18 10:26 Dose: 100 mg Heparin Sodium (Porcine) (Heparin) 5,000 units SC Q8 [facility] Last Admin: 03/13/18 06:05 Dose: 5,000 units Home Med (Budesonide/Formoterol Fumarate [Symbicort 160-4.5 Mcg Inhaler]) 1 aer IH DAILY [facility] Home Med (Meloxicam [Mobic]) 1 tab PO BID PRN PRN Reason: Pain, moderate (4-7) Ibuprofen (Motrin Tab) 400 mg PO Q6 PRN PRN Reason: Pain, moderate (4-7) Insulin Human Regular (Novolin R) 0 unit SC ACHS [facility] PRN Reason: Protocol Last Admin: 03/12/18 22:22 Dose: Not Given Memantine (Namenda) 5 mg PO HS [facility] Last Admin: 03/12/18 21:30 Dose: 5 mg Methylprednisolone (Solu-Medrol) 40 mg IV Q8H [facility] Last Admin: 03/13/18 08:26 Dose: 40 mg Montelukast Sodium (Singulair) 10 mg PO DAILY [facility] Last Admin: 03/13/18 10:31 Dose: 10 mg - Labs Labs: 03/13/18 07:25 03/13/18 07:25
[2018-03-13] MEDS ORDERED: Promethazine DM 6.25 mg-15 mg/5 ml Syrup PO PRN (16:22)
[2018-03-14] MEDS: MethylPREDNISolone 40 mg Vial IV SCH (00:15)
[2018-03-14] MEDS: Albuterol-Ipratrop 3 mg / 0.5 (3 ml) UD INH SCH ×6 (00:52→20:22)
[2018-03-14 07:40] LABS: BASO % 0.2 % (0.0-2.0); EOS % 0.2 % (0.0-4.0); HEMOGLOBIN 12.2 g/dL (11.0-16.0); LYMPH # 0.5 K/uL (1.0-4.3); LYMPH % 4.5 % (20.0-40.0); MEAN CELL VOLUME 82.1 fL (81.0-99.0); MEAN CORPUSCULAR HEMOGLOBIN 26.6 pg (27.0-31.0); MEAN CORPUSCULAR HGB CONC 32.4 g/dL (33.0-37.0); MEAN PLATELET VOLUME 10.5 fL (7.2-11.7); MONO # 0.4 K/uL (0.0-0.8); NEUT # 9.5 K/uL (1.8-7.0); NEUT % 91.1 % (50.0-75.0); NRBC % 0.1 % (0.0-2.0); PLATELET COUNT 154 K/uL (130-400); RBC 4.57 Mil/uL (3.80-5.20); RED CELL DISTRIBUTION WIDTH 16.1 % (11.5-14.5); WHITE BLOOD COUNT 10.4 K/uL (4.8-10.8)
[2018-03-14 08:11] LABS: ALB/GLOB RATIO 1.2 (1.0-2.1); ALBUMIN 3.3 g/dL (3.5-5.0); ALT/SGPT 58 U/L (9-52); AST/SGOT 39 U/L (14-36); BLOOD UREA NITROGEN 32 mg/dL (7-17); CALCIUM 8.4 mg/dl (8.6-10.4); GFR AFRICAN-AMERICAN > 60; GFR NON-AFRICAN AMERICAN 53
[2018-03-14] MEDS: (Novolin R) Insulin Human Regular 100 units/ml vial SC SCH ×4 (08:20→22:00)
[2018-03-14 08:49] LABS: LYMPHOCYTE 7 % (20-40); MONOCYTE 5 % (0-10); NEUTROPHIL 88 % (50-75); TOTAL CELLS COUNTED 100
[2018-03-14 08:50] LABS: ANISOCYTOSIS SLIGHT; PLATELET ESTIMATE NORMAL (NORMAL)
--- NOTE | 2018-03-14 09:33 | CP.PCM.CON ---
History of Present Illness - History of Present Illness History of Present Illness: Patient seen and evaluated States feels better in terms of dyspnea and back pain Hx of Chronic systolic CHF s/p AICD HTN S/P MVR (Bio) Patient was told there was some thing in her heart Will check ECHO Past Patient History - Infectious Disease Hx of Infectious Diseases: None - Past Medical History & Family History Past Medical History?: Yes - Past Social History Smoking Status: Never Smoked - CARDIAC Hx Congestive Heart Failure: Yes Hx Hypertension: Yes Hx Mitral Valve Prolapse: Yes Hx Pacemaker: Yes (2008) - PULMONARY Hx Asthma: Yes Hx Bronchitis: Yes Hx Chronic Obstructive Pulmonary Disease (COPD): Yes - NEUROLOGICAL Hx Neurological Disorder: No - HEENT Hx HEENT Problems: No - RENAL Hx Chronic Kidney Disease: No - ENDOCRINE/METABOLIC Hx Diabetes Mellitus Type 2: Yes - HEMATOLOGICAL/ONCOLOGICAL Hx Blood Disorders: No - INTEGUMENTARY Hx Dermatological Problems: No - MUSCULOSKELETAL/RHEUMATOLOGICAL Hx Falls: Yes - GASTROINTESTINAL Hx Colitis: Yes - GENITOURINARY/GYNECOLOGICAL Hx Genitourinary Disorders: No - PSYCHIATRIC Hx Substance Use: No - SURGICAL HISTORY Hx Cholecystectomy: Yes - ANESTHESIA Hx Anesthesia: Yes Hx Anesthesia Reactions: No Meds Allergies/Adverse Reactions: Allergies Allergy/AdvReac Type Severity Reaction Status Date / Time Penicillins Allergy Severe ANAPHYLAXIS Verified 03/11/18 14:36 - Medications Medications: Current Medications Albuterol/Ipratropium (Duoneb 3 Mg/0.5 Mg (3 Ml) Ud) 3 ml INH RQ4 [facility] Last Admin: 03/14/18 08:44 Dose: 3 ml Aspirin (Ecotrin) 81 mg PO DAILY [facility] Last Admin: 03/13/18 10:27 Dose: 81 mg Colchicine (Colocrys) 0.6 mg PO BID [facility] Last Admin: 03/13/18 18:04 Dose: 0.6 mg Diltiazem HCl (Cardizem) 30 mg PO BID [facility] Last Admin: 03/13/18 18:04 Dose: 30 mg Furosemide (Lasix) 20 mg PO BID [facility] Last Admin: 03/13/18 18:03 Dose: 20 mg Gabapentin (Neurontin) 100 mg PO DAILY [facility] Last Admin: 03/13/18 10:26 Dose: 100 mg Heparin Sodium (Porcine) (Heparin) 5,000 units SC Q8 [facility] Last Admin: 03/13/18 22:06 Dose: 5,000 units Home Med (Budesonide/Formoterol Fumarate [Symbicort 160-4.5 Mcg Inhaler]) 1 aer IH DAILY [facility] Home Med (Meloxicam [Mobic]) 1 tab PO BID PRN PRN Reason: Pain, moderate (4-7) Ibuprofen (Motrin Tab) 400 mg PO Q6 PRN PRN Reason: Pain, moderate (4-7) Insulin Human Regular (Novolin R) 0 unit SC ACHS [facility] PRN Reason: Protocol Last Admin: 03/13/18 21:31 Dose: Not Given Memantine (Namenda) 5 mg PO HS [facility] Last Admin: 03/13/18 22:06 Dose: 5 mg Methylprednisolone (Solu-Medrol) 40 mg IV Q12 [facility] Montelukast Sodium (Singulair) 10 mg PO DAILY [facility] Last Admin: 03/13/18 10:31 Dose: 10 mg Promethazine HCl/Dextromethorphan (Phenergan Dm Syrup) 5 ml PO Q6H PRN PRN Reason: Cough Last Admin: 03/13/18 18:03 Dose: 5 ml Results - Vital Signs Recent Vital Signs: Last Vital Signs Temp 98.1 F 03/14/18 08:37 Pulse 80 03/14/18 08:37 Resp 20 03/14/18 08:37 BP 152/89 H 03/14/18 08:37 Pulse Ox 99 03/14/18 08:37 - Labs Result Diagrams: 03/14/18 07:34 03/14/18 07:34 Labs: Laboratory Results - last 24 hr 03/13/18 03/13/18 03/13/18 11:30 16:46 21:01 WBC RBC Hgb Hct MCV MCH MCHC RDW Plt Count MPV Neut % (Auto) Lymph % (Auto) [place] % (Auto) Eos % (Auto) Baso % (Auto) Neut # (Auto) Lymph # (Auto) [place] # (Auto) Eos # (Auto) Baso # (Auto) Neutrophils % (Manual) Lymphocytes % (Manual) Monocytes % (Manual) Platelet Estimate Basophilic Stippling Anisocytosis (manual) Sodium Potassium Chloride Carbon Dioxide Anion Gap BUN Creatinine Est GFR ( Amer) Est GFR (Non-Af Amer) POC Glucose (mg/dL) 175 H 174 H 269 H Random Glucose Calcium Total Bilirubin AST ALT Alkaline Phosphatase Total Protein Albumin Globulin Albumin/Globulin Ratio 06/10/18 06/10/18 07:34 07:34 WBC 10.4 RBC 4.57 Hgb 12.2 Hct 37.5 MCV 82.1 MCH 26.6 L MCHC 32.4 L RDW 16.1 H Plt Count 154 MPV 10.5 Neut % (Auto) 91.1 H Lymph % (Auto) 4.5 L [place] % (Auto) 4.0 Eos % (Auto) 0.2 Baso % (Auto) 0.2 Neut # (Auto) 9.5 H Lymph # (Auto) 0.5 L [place] # (Auto) 0.4 Eos # (Auto) 0.0 Baso # (Auto) 0.0 Neutrophils % (Manual) 88 H Lymphocytes % (Manual) 7 L Monocytes % (Manual) 5 Platelet Estimate Normal Basophilic Stippling Slight Anisocytosis (manual) Slight Sodium 141 Potassium 4.1 Chloride 107 Carbon Dioxide 25 Anion Gap 14 BUN 32 H Creatinine 1.0 Est GFR ( Amer) > 60 Est GFR (Non-Af Amer) 53 POC Glucose (mg/dL) Random Glucose 168 H Calcium 8.4 L Total Bilirubin 0.4 AST 39 H ALT 58 H Alkaline Phosphatase 133 H D Total Protein 6.1 L Albumin 3.3 L Globulin 2.8 Albumin/Globulin Ratio 1.2
[2018-03-14] MEDS ORDERED: MethylPREDNISolone 40 mg Vial IV SCH (10:00)
--- NOTE | 2018-03-14 10:10 | CP.PCM.PN ---
Subjective - Date & Time of Evaluation Date of Evaluation: 03/14/18 Time of Evaluation: 10:01 - Subjective Subjective: PGY2 progress note for Dr. Yang Pt seen and examined at bedside. No acute events overnight. Patient is sitting comfortably in chair. Denies having any SOB, CP, abd pain, N/V/D/C, F/ C. Patient is c/o persistent productive coughing throughout the night. Tolerating diet. Objective - Vital Signs/Intake and Output Vital Signs (last 24 hours): Temp Pulse Resp BP Pulse Ox 98.1 F 80 20 155/80 H 99 03/14/18 08:37 03/14/18 08:37 03/14/18 08:37 03/14/18 09:40 03/14/18 08:37 - Medications Medications: Current Medications Albuterol/Ipratropium (Duoneb 3 Mg/0.5 Mg (3 Ml) Ud) 3 ml INH RQ4 [facility] Last Admin: 03/14/18 08:44 Dose: 3 ml Aspirin (Ecotrin) 81 mg PO DAILY [facility] Last Admin: 03/14/18 09:41 Dose: 81 mg Colchicine (Colocrys) 0.6 mg PO BID [facility] Last Admin: 03/14/18 09:40 Dose: 0.6 mg Diltiazem HCl (Cardizem) 30 mg PO BID [facility] Last Admin: 03/14/18 09:41 Dose: 30 mg Furosemide (Lasix) 20 mg PO BID [facility] Last Admin: 03/14/18 09:40 Dose: 20 mg Gabapentin (Neurontin) 100 mg PO DAILY [facility] Last Admin: 03/14/18 09:42 Dose: 100 mg Heparin Sodium (Porcine) (Heparin) 5,000 units SC Q8 [facility] Last Admin: 03/13/18 22:06 Dose: 5,000 units Home Med (Budesonide/Formoterol Fumarate [Symbicort 160-4.5 Mcg Inhaler]) 1 aer IH DAILY [facility] Home Med (Meloxicam [Mobic]) 1 tab PO BID PRN PRN Reason: Pain, moderate (4-7) Ibuprofen (Motrin Tab) 400 mg PO Q6 PRN PRN Reason: Pain, moderate (4-7) Insulin Human Regular (Novolin R) 0 unit SC ACHS [facility] PRN Reason: Protocol Last Admin: 06/10/18 08:20 Dose: 2 unit Memantine (Namenda) 5 mg PO HS [facility] Last Admin: 03/13/18 22:06 Dose: 5 mg Methylprednisolone (Solu-Medrol) 40 mg IV Q12 [facility] Last Admin: 03/14/18 09:43 Dose: 40 mg Montelukast Sodium (Singulair) 10 mg PO DAILY [facility] Last Admin: 03/14/18 09:41 Dose: 10 mg Promethazine HCl/Dextromethorphan (Phenergan Dm Syrup) 5 ml PO Q6H PRN PRN Reason: Cough Last Admin: 03/13/18 18:03 Dose: 5 ml - Labs Labs: 03/14/18 07:34 03/14/18 07:34 - Constitutional Appears: Non-toxic, No Acute Distress - Head Exam Head Exam: ATRAUMATIC, NORMOCEPHALIC - ENT Exam ENT Exam: Mucous Membranes Moist - Respiratory Exam Respiratory Exam: Clear to Ausculation Bilateral. absent: Accessory Muscle Use , Rales, Rhonchi, Wheezes, Respiratory Distress - Cardiovascular Exam Cardiovascular Exam: REGULAR RHYTHM, +S1, +S2. absent: Gallop, Rubs, Murmur - GI/Abdominal Exam GI & Abdominal Exam: Soft, Normal Bowel Sounds. absent: Distended, Firm, Guarding, Rigid, Tenderness, Organomegaly - Extremities Exam Extremities Exam: absent: Pedal Edema, Tenderness - Neurological Exam Neurological Exam: Alert, Awake, Oriented x3 - Psychiatric Exam Psychiatric exam: Normal Affect, Normal Mood - Skin Skin Exam: Dry, Intact, Normal Color, Warm Assessment and Plan - Assessment and Plan (Free Text) Assessment: COPD exacerbation Improving Patient has been using symbicort 160/4.5 4-5 times daily and nebulizer 3 times daily x5days. Chest xray: Biapical pleural thickening. Mild venous congestion. Cardiomegaly. Calcification at the aortic knob. Status post median sternotomy. Tortuous ectatic aorta. Left-sided pacemaker. Degenerative changes in the spine and shoulders Negative for influenza Pulmonology consulted, Dr. Cortes; help appreciated Medications: - Duonebs Q4h - Solumedrol 40mg IV daily. Will titrate down daily - Continue home medication Symbicort 160/4.5 - Continue home medication Singulair 10mg PO HS CHF (congestive heart failure) History of MV replacement, AICD, and CHF Admitted to telemetry Chest xray: Biapical pleural thickening. Mild venous congestion. Cardiomegaly. Calcification at the aortic knob. Status post median sternotomy. Tortuous ectatic aorta. Left-sided pacemaker. Degenerative changes in the spine and shoulders BNP 1240, trop negative Cardiology, Dr. Villalobos is consulted. Echo ordered Continue home medications: - Lasix 20mg PO BID - Cardizem 30mg PO BID - Aspirin 81mg PO daily Diabetes mellitus Accuchecks Hypoglycemic protocol ISS Will check HgbA1c and lipid panel Gabapentin for neuropathy Arthritis Continue home medication: Meloxicam 7.5mg PO BID Gout Continue home medication: Colchicine 0.6mg PO BID D[facility] Continue home medication: Namenda Prophylactic measure DVT: Heparin 5000u SC Q8h, SCDs Heart healthy diet Protonix O2 via nc prn Case will be discussed with attending, Dr. Yang
[2018-03-14] MEDS ORDERED: Pantoprazole 40 mg EC Tab PO SCH (10:15)
[2018-03-14 12:15] LABS: HDL CHOLESTEROL 66 mg/dL (30-70)
[2018-03-14 12:26] LABS: LDL CHOLESTEROL 80 mg/dL (0-129)
--- NOTE | 2018-03-14 17:05 | CP.PCM.PN ---
Subjective - Date & Time of Evaluation Date of Evaluation: 03/14/18 Time of Evaluation: 14:00 - Subjective Subjective: patient seen and examined Complaining of productive cough Still wheezing Afebrile no chest pain Continue nebulizer treatment Continue steroids Objective - Vital Signs/Intake and Output Vital Signs (last 24 hours): Temp Pulse Resp BP Pulse Ox 98.1 F 71 20 155/80 H 99 03/14/18 08:37 03/14/18 11:16 03/14/18 08:37 03/14/18 09:40 03/14/18 08:37 - Medications Medications: Current Medications Albuterol/Ipratropium (Duoneb 3 Mg/0.5 Mg (3 Ml) Ud) 3 ml INH RQ4 [facility] Last Admin: 03/14/18 15:57 Dose: 3 ml Aspirin (Ecotrin) 81 mg PO DAILY [facility] Last Admin: 03/14/18 09:41 Dose: 81 mg Colchicine (Colocrys) 0.6 mg PO BID [facility] Last Admin: 03/14/18 09:40 Dose: 0.6 mg Diltiazem HCl (Cardizem) 30 mg PO BID [facility] Last Admin: 03/14/18 09:41 Dose: 30 mg Famotidine (Pepcid) 20 mg PO ONCE ONE Stop: 03/14/18 17:16 Furosemide (Lasix) 20 mg PO BID [facility] Last Admin: 03/14/18 09:40 Dose: 20 mg Gabapentin (Neurontin) 100 mg PO DAILY [facility] Last Admin: 03/14/18 09:42 Dose: 100 mg Heparin Sodium (Porcine) (Heparin) 5,000 units SC Q8 [facility] Last Admin: 03/14/18 13:43 Dose: 5,000 units Home Med (Budesonide/Formoterol Fumarate [Symbicort 160-4.5 Mcg Inhaler]) 1 aer IH DAILY [facility] Home Med (Meloxicam [Mobic]) 1 tab PO BID PRN PRN Reason: Pain, moderate (4-7) Insulin Human Regular (Novolin R) 0 unit SC ACHS [facility] PRN Reason: Protocol Last Admin: 03/14/18 12:10 Dose: Not Given Memantine (Namenda) 5 mg PO HS [facility] Last Admin: 03/13/18 22:06 Dose: 5 mg Methylprednisolone (Solu-Medrol) 40 mg IV DAILY [facility] Montelukast Sodium (Singulair) 10 mg PO DAILY [facility] Last Admin: 03/14/18 09:41 Dose: 10 mg Pantoprazole Sodium (Protonix Ec Tab) 40 mg PO DAILY [facility] Last Admin: 03/14/18 10:55 Dose: 40 mg Promethazine HCl/Dextromethorphan (Phenergan Dm Syrup) 5 ml PO Q6H PRN PRN Reason: Cough Last Admin: 03/13/18 18:03 Dose: 5 ml - Labs Labs: 03/14/18 07:34 03/14/18 07:34
[2018-03-14] MEDS ORDERED: Acetaminophen-Codeine 300/30 mg Tab PO PRN (18:29)
[2018-03-14] MEDS ORDERED: Promethazine/Cod 6.25mg-10mg/5ml Syr UD PO PRN (18:45)
--- NOTE | 2018-03-14 22:08 | CP.PCM.PN ---
Subjective - Date & Time of Evaluation Date of Evaluation: 03/14/18 Time of Evaluation: 16:10 - Subjective Subjective: Patient seen and evaluated Denies chest pain and dyspnea ECHO pending Objective - Vital Signs/Intake and Output Vital Signs (last 24 hours): Temp Pulse Resp BP Pulse Ox 97.6 F 78 18 140/70 96 03/14/18 15:40 03/14/18 15:40 03/14/18 15:40 03/14/18 17:23 03/14/18 15:40 - Medications Medications: Current Medications Albuterol/Ipratropium (Duoneb 3 Mg/0.5 Mg (3 Ml) Ud) 3 ml INH RQ4 [facility] [place] Last Admin: 03/14/18 20:22 Dose: 3 ml Aspirin (Ecotrin) 81 mg PO DAILY [facility] [place] Last Admin: 03/14/18 09:41 Dose: 81 mg Colchicine (Colocrys) 0.6 mg PO BID [facility] [place] Last Admin: 03/14/18 17:23 Dose: 0.6 mg Diltiazem HCl (Cardizem) 30 mg PO BID [facility] Last Admin: 03/14/18 17:23 Dose: 30 mg Furosemide (Lasix) 20 mg PO BID [facility] Last Admin: 03/14/18 17:23 Dose: 20 mg Gabapentin (Neurontin) 100 mg PO DAILY [facility] [place] Last Admin: 03/14/18 09:42 Dose: 100 mg Heparin Sodium (Porcine) (Heparin) 5,000 units SC Q8 [facility] Last Admin: 03/14/18 13:43 Dose: 5,000 units Home Med (Budesonide/Formoterol Fumarate [Symbicort 160-4.5 Mcg Inhaler]) 1 aer IH DAILY [facility] [place] Home Med (Meloxicam [Mobic]) 1 tab PO BID PRN PRN Reason: Pain, moderate (4-7) Insulin Human Regular (Novolin R) 0 unit SC ACHS [facility] [place] PRN Reason: Protocol Last Admin: 03/14/18 12:10 Dose: Not Given Memantine (Namenda) 5 mg PO HS [facility] Last Admin: 03/13/18 22:06 Dose: 5 mg Methylprednisolone (Solu-Medrol) 40 mg IV DAILY [facility] Montelukast Sodium (Singulair) 10 mg PO DAILY [facility] [place] Last Admin: 03/14/18 09:41 Dose: 10 mg Pantoprazole Sodium (Protonix Ec Tab) 40 mg PO DAILY [facility] Last Admin: 03/14/18 10:55 Dose: 40 mg Promethazine HCl/Codeine (Phenergan/Codeine Oral Syrup) 5 ml PO Q4 PRN PRN Reason: Cough - Labs Labs: 03/14/18 07:34 03/14/18 07:34
[2018-03-15] MEDS: Albuterol-Ipratrop 3 mg / 0.5 (3 ml) UD INH SCH ×7 (00:50→23:46)
[2018-03-15] MEDS: (Novolin R) Insulin Human Regular 100 units/ml vial SC SCH ×4 (07:54→21:37)
[2018-03-15 07:56] LABS: BASO % 0.2 % (0.0-2.0); EOS % 0.1 % (0.0-4.0); HEMOGLOBIN 12.1 g/dL (11.0-16.0); LYMPH # 0.5 K/uL (1.0-4.3); LYMPH % 4.4 % (20.0-40.0); MEAN CORPUSCULAR HEMOGLOBIN 26.3 pg (27.0-31.0); MEAN CORPUSCULAR HGB CONC 32.1 g/dL (33.0-37.0); MEAN PLATELET VOLUME 11.1 fL (7.2-11.7); MONO # 1.3 K/uL (0.0-0.8); MONO % 10.9 % (0.0-10.0); NEUT # 9.8 K/uL (1.8-7.0); NEUT % 84.4 % (50.0-75.0); PLATELET COUNT 139 K/uL (130-400); RBC 4.59 Mil/uL (3.80-5.20); RED CELL DISTRIBUTION WIDTH 16.4 % (11.5-14.5); WHITE BLOOD COUNT 11.5 K/uL (4.8-10.8)
[2018-03-15 08:24] LABS: ANISOCYTOSIS SLIGHT; LYMPHOCYTE 5 % (20-40); MONOCYTE 8 % (0-10); NEUTROPHIL 87 % (50-75); PLATELET ESTIMATE NORMAL (NORMAL); POIKILOCYTOSIS SLIGHT; TOTAL CELLS COUNTED 100
[2018-03-15 08:36] LABS: ALB/GLOB RATIO 1.2 (1.0-2.1); ALBUMIN 3.1 g/dL (3.5-5.0); ALT/SGPT 65 U/L (9-52); AST/SGOT 42 U/L (14-36); BLOOD UREA NITROGEN 27 mg/dL (7-17); CALCIUM 7.6 mg/dl (8.6-10.4); GFR AFRICAN-AMERICAN > 60; GFR NON-AFRICAN AMERICAN > 60
[2018-03-15] MEDS: MethylPREDNISolone 40 mg Vial IV SCH (10:27)
--- NOTE | 2018-03-15 13:53 | CP.PCM.PN ---
Subjective - Date & Time of Evaluation Date of Evaluation: 03/15/18 Time of Evaluation: 13:53 - Subjective Subjective: patient seen and examined at bedside. Doing well. Breathing improved but still wheezing. OOB to chair today. tolerating diet without difficulty. Objective - Vital Signs/Intake and Output Vital Signs (last 24 hours): Temp Pulse Resp BP Pulse Ox 97.4 F L 87 20 123/73 98 03/15/18 07:50 03/15/18 12:21 03/15/18 07:50 03/15/18 10:23 03/15/18 07:50 - Medications Medications: Current Medications Albuterol/Ipratropium (Duoneb 3 Mg/0.5 Mg (3 Ml) Ud) 3 ml INH RQ4 [facility] Last Admin: 03/15/18 11:14 Dose: Not Given Aspirin (Ecotrin) 81 mg PO DAILY [facility] Last Admin: 03/15/18 10:23 Dose: 81 mg Colchicine (Colocrys) 0.6 mg PO BID [facility] Last Admin: 03/15/18 12:16 Dose: 0.6 mg Diltiazem HCl (Cardizem) 30 mg PO BID [facility] Last Admin: 03/15/18 10:27 Dose: 30 mg Furosemide (Lasix) 20 mg PO BID [facility] Last Admin: 03/15/18 10:23 Dose: 20 mg Gabapentin (Neurontin) 100 mg PO DAILY [facility] Last Admin: 03/15/18 10:27 Dose: 100 mg Heparin Sodium (Porcine) (Heparin) 5,000 units SC Q8 [facility] Last Admin: 03/15/18 13:52 Dose: 5,000 units Home Med (Budesonide/Formoterol Fumarate [Symbicort 160-4.5 Mcg Inhaler]) 1 aer IH DAILY [facility] Home Med (Meloxicam [Mobic]) 1 tab PO BID PRN PRN Reason: Pain, moderate (4-7) Insulin Human Regular (Novolin R) 0 unit SC ACHS [facility] PRN Reason: Protocol Last Admin: 03/15/18 12:09 Dose: Not Given Memantine (Namenda) 5 mg PO HS [facility] Last Admin: 03/14/18 23:00 Dose: 5 mg Methylprednisolone (Solu-Medrol) 40 mg IV DAILY [facility] Last Admin: 03/15/18 10:27 Dose: 40 mg Montelukast Sodium (Singulair) 10 mg PO DAILY [facility] Last Admin: 03/15/18 10:23 Dose: 10 mg Promethazine HCl/Codeine (Phenergan/Codeine Oral Syrup) 5 ml PO Q4 PRN PRN Reason: Cough - Labs Labs: 03/15/18 07:51 03/15/18 07:51 - Constitutional Appears: Well - Head Exam Head Exam: ATRAUMATIC, NORMAL INSPECTION, NORMOCEPHALIC - Eye Exam Eye Exam: EOMI, Normal appearance, PERRL Pupil Exam: NORMAL ACCOMODATION, PERRL - ENT Exam ENT Exam: Mucous Membranes Moist, Normal Exam - Neck Exam Neck Exam: Full ROM, Normal Inspection. absent: Lymphadenopathy - Respiratory Exam Respiratory Exam: Wheezes, NORMAL BREATHING PATTERN - Cardiovascular Exam Cardiovascular Exam: REGULAR RHYTHM, +S1, +S2. absent: Murmur - GI/Abdominal Exam GI & Abdominal Exam: Soft, Normal Bowel Sounds. absent: Tenderness - Extremities Exam Extremities Exam: Full ROM, Normal Capillary Refill, Normal Inspection. absent : Joint Swelling, Pedal Edema - Back Exam Back Exam: NORMAL INSPECTION - Neurological Exam Neurological Exam: Alert, Awake, CN II-XII Intact, Normal Gait, Oriented x3 - Psychiatric Exam Psychiatric exam: Normal Affect, Normal Mood - Skin Skin Exam: Dry, Intact, Normal Color, Warm Assessment and Plan (1) Asthma exacerbation Assessment & Plan: patient still wheezing. Will continue breathing treatments and IV steroids at this time. Her breathing is much improved compared to her inital presentation. Dr. Cortes is the facility manager histology. Dr. Villalobos is the service attendant. She had EKG that showed RBBB. TTE may be show vegetations. Will follow up Cardio reccs. Patient on ASA, cardizem, lasix, singulair, and promethazine. Status: Acute
--- NOTE | 2018-03-15 17:25 | CP.PCM.PN ---
Subjective - Date & Time of Evaluation Date of Evaluation: 03/15/18 Time of Evaluation: 09:00 - Subjective Subjective: Patient seen and examined. Patient still coughing and wheezing, but clinically improved. Assessment/Plan 1. Asthma Patient poorly controlled at admission, but currently improved saturating 98% on RA. Continue Duonebs q4H, Solu-medrol 40mg IV QD and Singulair 10 mg PO QD. Importance of follow up with outpatient record librarian stressed. Objective - Vital Signs/Intake and Output Vital Signs (last 24 hours): Temp Pulse Resp BP Pulse Ox 98.0 F 76 20 152/77 H 98 03/15/18 15:10 03/15/18 15:10 03/15/18 15:10 03/15/18 15:10 03/15/18 15:10 Intake and Output: 03/15/18 03/15/18 06:59 18:59 Intake Total 600 Output Total 0 Balance 600 - Medications Medications: Current Medications Albuterol/Ipratropium (Duoneb 3 Mg/0.5 Mg (3 Ml) Ud) 3 ml INH RQ4 [facility] Last Admin: 03/15/18 11:14 Dose: Not Given Aspirin (Ecotrin) 81 mg PO DAILY [facility] Last Admin: 03/15/18 10:23 Dose: 81 mg Colchicine (Colocrys) 0.6 mg PO BID [facility] Last Admin: 03/15/18 12:16 Dose: 0.6 mg Diltiazem HCl (Cardizem) 30 mg PO BID [facility] Last Admin: 03/15/18 10:27 Dose: 30 mg Furosemide (Lasix) 20 mg PO BID [facility] Last Admin: 03/15/18 10:23 Dose: 20 mg Gabapentin (Neurontin) 100 mg PO DAILY [facility] Last Admin: 03/15/18 10:27 Dose: 100 mg Heparin Sodium (Porcine) (Heparin) 5,000 units SC Q8 [facility] Last Admin: 03/15/18 13:52 Dose: 5,000 units Home Med (Budesonide/Formoterol Fumarate [Symbicort 160-4.5 Mcg Inhaler]) 1 aer IH DAILY [facility] Home Med (Meloxicam [Mobic]) 1 tab PO BID PRN PRN Reason: Pain, moderate (4-7) Insulin Human Regular (Novolin R) 0 unit SC ACHS [facility] PRN Reason: Protocol Last Admin: 03/15/18 12:09 Dose: Not Given Memantine (Namenda) 5 mg PO HS [facility] Last Admin: 03/14/18 23:00 Dose: 5 mg Methylprednisolone (Solu-Medrol) 40 mg IV DAILY [facility] Last Admin: 03/15/18 10:27 Dose: 40 mg Montelukast Sodium (Singulair) 10 mg PO DAILY [facility] Last Admin: 03/15/18 10:23 Dose: 10 mg Promethazine HCl/Codeine (Phenergan/Codeine Oral Syrup) 5 ml PO Q4 PRN PRN Reason: Cough - Labs Labs: 03/15/18 07:51 03/15/18 07:51
--- NOTE | 2018-03-15 17:55 | CP.PCM.PN ---
Subjective - Date & Time of Evaluation Date of Evaluation: 03/15/18 Time of Evaluation: 17:54 - Subjective Subjective: ? LV mass for ANGUS in am Objective - Vital Signs/Intake and Output Vital Signs (last 24 hours): Temp Pulse Resp BP Pulse Ox 98.0 F 76 20 152/77 H 98 03/15/18 15:10 03/15/18 15:10 03/15/18 15:10 03/15/18 15:10 03/15/18 15:10 Intake and Output: 03/15/18 03/15/18 06:59 18:59 Intake Total 600 Output Total 0 Balance 600 - Medications Medications: Current Medications Albuterol/Ipratropium (Duoneb 3 Mg/0.5 Mg (3 Ml) Ud) 3 ml INH RQ4 [facility] Last Admin: 03/15/18 11:14 Dose: Not Given Aspirin (Ecotrin) 81 mg PO DAILY [facility] Last Admin: 03/15/18 10:23 Dose: 81 mg Colchicine (Colocrys) 0.6 mg PO BID [facility] Last Admin: 03/15/18 12:16 Dose: 0.6 mg Diltiazem HCl (Cardizem) 30 mg PO BID [facility] Last Admin: 03/15/18 10:27 Dose: 30 mg Furosemide (Lasix) 20 mg PO BID [facility] Last Admin: 03/15/18 10:23 Dose: 20 mg Gabapentin (Neurontin) 100 mg PO DAILY [facility] Last Admin: 03/15/18 10:27 Dose: 100 mg Heparin Sodium (Porcine) (Heparin) 5,000 units SC Q8 [facility] Last Admin: 03/15/18 13:52 Dose: 5,000 units Home Med (Budesonide/Formoterol Fumarate [Symbicort 160-4.5 Mcg Inhaler]) 1 aer IH DAILY [facility] Home Med (Meloxicam [Mobic]) 1 tab PO BID PRN PRN Reason: Pain, moderate (4-7) Insulin Human Regular (Novolin R) 0 unit SC ACHS [facility] PRN Reason: Protocol Last Admin: 03/15/18 12:09 Dose: Not Given Memantine (Namenda) 5 mg PO HS [facility] Last Admin: 03/14/18 23:00 Dose: 5 mg Methylprednisolone (Solu-Medrol) 40 mg IV DAILY [facility] Last Admin: 03/15/18 10:27 Dose: 40 mg Montelukast Sodium (Singulair) 10 mg PO DAILY [facility] Last Admin: 03/15/18 10:23 Dose: 10 mg Promethazine HCl/Codeine (Phenergan/Codeine Oral Syrup) 5 ml PO Q4 PRN PRN Reason: Cough - Labs Labs: 03/15/18 07:51 03/15/18 07:51
[2018-03-15] MEDS ORDERED: Bisacodyl 5mg EC Tab PO ONE (19:25)
[2018-03-15] MEDS ORDERED: POLYETHYLENE GLYCOL 3350 17 GM/Dose PACKET PO ONE (19:26)
[2018-03-15] MEDS ORDERED: DiphenhydrAMINE 12.5 mg/5 ml LIQ UD (5 ml) PO STA (22:32)
[2018-03-16] MEDS: Albuterol-Ipratrop 3 mg / 0.5 (3 ml) UD INH SCH ×4 (03:20→15:47)
[2018-03-16 07:37] LABS: BASO % 0.2 % (0.0-2.0); EOS % 0.2 % (0.0-4.0); HEMOGLOBIN 12.2 g/dL (11.0-16.0); LYMPH # 0.6 K/uL (1.0-4.3); LYMPH % 5.4 % (20.0-40.0); MEAN CELL VOLUME 81.7 fL (81.0-99.0); MEAN CORPUSCULAR HEMOGLOBIN 26.5 pg (27.0-31.0); MEAN CORPUSCULAR HGB CONC 32.4 g/dL (33.0-37.0); MEAN PLATELET VOLUME 10.7 fL (7.2-11.7); MONO % 8.9 % (0.0-10.0); NEUT # 9.7 K/uL (1.8-7.0); NEUT % 85.3 % (50.0-75.0); NRBC % 0.1 % (0.0-2.0); PLATELET COUNT 145 K/uL (130-400); RED CELL DISTRIBUTION WIDTH 16.2 % (11.5-14.5); WHITE BLOOD COUNT 11.3 K/uL (4.8-10.8)
[2018-03-16] MEDS: (Novolin R) Insulin Human Regular 100 units/ml vial SC SCH ×2 (07:49→11:30)
[2018-03-16 07:53] LABS: INR 1.1
[2018-03-16 08:10] LABS: ALB/GLOB RATIO 1.3 (1.0-2.1); ALBUMIN 3.1 g/dL (3.5-5.0); ALT/SGPT 65 U/L (9-52); AST/SGOT 38 U/L (14-36); BLOOD UREA NITROGEN 25 mg/dL (7-17); CALCIUM 7.3 mg/dl (8.6-10.4); GFR AFRICAN-AMERICAN > 60; GFR NON-AFRICAN AMERICAN > 60
[2018-03-16 08:58] LABS: ANISOCYTOSIS SLIGHT; LYMPHOCYTE 7 % (20-40); MICROCYTOSIS SLIGHT; MONOCYTE 9 % (0-10); NEUTROPHIL 84 % (50-75); PLATELET ESTIMATE NORMAL (NORMAL); POIKILOCYTOSIS SLIGHT; TOTAL CELLS COUNTED 100
--- NOTE | 2018-03-16 09:26 | CARD ---
APPROVED REPORT EXAM: Two-dimensional and M-mode echocardiogram with Doppler and color Doppler. Other Information Quality : GoodRhythm : INDICATION Congestive Heart Failure Surgery/Intervention Bioprosthetic Type: Annular Ring ICD/Pacemaker: CABD DIMENSIONS IVSd1.2 (0.7-1.1cm)LVDd5.1 (3.9-5.9cm) LVOT Diameter1.7 (1.8-2.4cm)PWd1.2 (0.7-1.1cm) LVDs3.8 (2.5-4.0cm)FS (%) 24.4 % LVEF (%)30.0 (>50%) M-Mode DIMENSIONS Left Atrium (MM)3.35 (2.5-4.0cm)IVSd1.35 (0.7-1.1cm) Aortic Root3.53 (2.2-3.7cm)LVDd5.01 (4.0-5.6cm) Aortic Cusp Exc.1.64 (1.5-2.0cm)PWd1.05 (0.7-1.1cm) FS (%) 18 %LVDs4.10 (2.0-3.8cm) LVEF (%)37 (>50%) Aortic Valve AI P 1/2 [id number] Mitral Valve MV E Sdcwvgbr327.9cm/sMV E Peak Gr.11mmHgMV A Nmgjmnue684.1cm/s MV E Mean Gr.6mmHgMV [id number]/A ratio1.0 MVA (PHT)2.70cm2 TDI E/Lateral E'0.0E/Medial E'0.0 Tricuspid Valve TR Peak Liuimlmc096sd/sTR Peak Gr.[id number] LEFT VENTRICLE The left ventricle is normal size. There is mild concentric left ventricular hypertrophy. Left ventricle systolic function is moderately impaired. The Ejection Fraction is 35-40%. Significant regional wall motion abnormalities noted most profound in the posterior wall. The left ventricular diastolic function is normal. RIGHT VENTRICLE The right ventricle is normal size. There is normal right ventricular wall thickness. Systolic function is moderately reduced. ATRIA The left atrium size is normal. The right atrium size is normal. The interatrial septum is intact with no evidence for an atrial septal defect. AORTIC VALVE The aortic valve is normal in structure. There is mild to moderate aortic regurgitation. There is no aortic valvular stenosis. MITRAL VALVE Mitral regurgitation is mild. There is a bioprosthetic mitral valve. TRICUSPID VALVE The tricuspid valve is normal in structure. There is mild tricuspid regurgitation. Right ventricular systolic pressure is estimated at 30-40 mmHg. There is mild pulmonary hypertension. PULMONIC VALVE The pulmonic valve is not well visualized. There is mild pulmonic valvular regurgitation. GREAT VESSELS The aortic root is normal in size. <Conclusion> Left ventricle systolic function is moderately impaired. The Ejection Fraction is 35-40%. Hypertensive heart disease. There is mild to moderate aortic regurgitation. There is a bioprosthetic mitral valve. Mitral regurgitation is mild. There is mild tricuspid regurgitation. There is mild pulmonary hypertension. There is mild pulmonic valvular regurgitation.
[2018-03-16] MEDS: MethylPREDNISolone 40 mg Vial IV SCH (09:51)
--- NOTE | 2018-03-16 09:59 | CP.PCM.PN ---
Subjective - Date & Time of Evaluation Date of Evaluation: 03/16/18 Time of Evaluation: 14:00 - Subjective Subjective: Pulm Progress Note- Dr. Cortes's service Patient seen and examined in no apparent acute distress. Patient's daughters available bedside. Patient's daughters communicated that patient feels better. They inquired about discharge planning. Objective - Vital Signs/Intake and Output Vital Signs (last 24 hours): Temp Pulse Resp BP Pulse Ox 98.0 F 94 H 20 138/72 100 03/16/18 08:20 03/16/18 08:20 03/16/18 08:20 03/16/18 09:42 03/16/18 08:20 - Medications Medications: Current Medications Albuterol/Ipratropium (Duoneb 3 Mg/0.5 Mg (3 Ml) Ud) 3 ml INH RQ4 [facility] Last Admin: 03/16/18 07:16 Dose: 3 ml Aspirin (Ecotrin) 81 mg PO DAILY [facility] Last Admin: 03/16/18 09:42 Dose: 81 mg Colchicine (Colocrys) 0.6 mg PO BID [facility] Last Admin: 03/16/18 09:41 Dose: 0.6 mg Diltiazem HCl (Cardizem) 30 mg PO BID [facility] Last Admin: 03/16/18 09:46 Dose: 30 mg Furosemide (Lasix) 20 mg PO BID [facility] Last Admin: 03/16/18 09:42 Dose: 20 mg Gabapentin (Neurontin) 100 mg PO DAILY [facility] Last Admin: 03/16/18 09:41 Dose: 100 mg Heparin Sodium (Porcine) (Heparin) 5,000 units SC Q8 [facility] Last Admin: 03/16/18 05:09 Dose: Not Given Home Med (Budesonide/Formoterol Fumarate [Symbicort 160-4.5 Mcg Inhaler]) 1 aer IH DAILY [facility] Home Med (Meloxicam [Mobic]) 1 tab PO BID PRN PRN Reason: Pain, moderate (4-7) Insulin Human Regular (Novolin R) 0 unit SC ACHS [facility] PRN Reason: Protocol Last Admin: 03/16/18 07:49 Dose: Not Given Memantine (Namenda) 5 mg PO HS [facility] Last Admin: 03/15/18 22:08 Dose: 5 mg Methylprednisolone (Solu-Medrol) 40 mg IV DAILY [facility] Last Admin: 03/16/18 09:51 Dose: 40 mg Montelukast Sodium (Singulair) 10 mg PO DAILY [facility] Last Admin: 03/16/18 09:46 Dose: 10 mg Promethazine HCl/Codeine (Phenergan/Codeine Oral Syrup) 5 ml PO Q4 PRN PRN Reason: Cough - Labs Labs: 03/16/18 07:31 03/16/18 07:31 PT 12.0 SECONDS (9.7-12.2) 03/16/18 07:31 INR 1.1 03/16/18 07:31 - Constitutional Appears: Non-toxic, No Acute Distress - Head Exam Head Exam: ATRAUMATIC, NORMAL INSPECTION - Eye Exam Eye Exam: EOMI, Normal appearance - ENT Exam ENT Exam: Mucous Membranes Moist - Neck Exam Neck Exam: Full ROM - Respiratory Exam Respiratory Exam: Wheezes - Cardiovascular Exam Cardiovascular Exam: +S1, +S2 - GI/Abdominal Exam GI & Abdominal Exam: Soft - Extremities Exam Extremities Exam: Full ROM - Back Exam Back Exam: Full ROM - Neurological Exam Neurological Exam: Alert, Awake, Oriented x3 - Psychiatric Exam Psychiatric exam: Normal Affect, Normal Mood - Skin Skin Exam: Normal Color, Warm Assessment and Plan (1) Asthma exacerbation Assessment & Plan: Continue Solumedrol, nebulizer treatments, singulair and symbicort as well. Continue to monitor Recommendations for outpatient followup and medication compliance Status: Acute
[2018-03-16] MEDS ORDERED: Lidocaine 4% (Laryng-O-Jet) Kit MM ONE (10:52)
[2018-03-16] MEDS ORDERED: Midazolam 2 MG/2 ML VIAL ONE (12:00)
[2018-03-16] MEDS ORDERED: Etomidate 20 mg/10ml Inj IV ONE (12:03)
[2018-03-16 16:16] VITALS: BP 134/71; PULSE 73; RESP 18; TEMP 97.4; O2SAT 98
--- NOTE | 2018-03-16 16:31 | CP.PCM.DIS ---
Provider - Provider Date of Admission: 03/11/18 17:06 Attending physician: Tobi Yang Jr, MD Primary care physician: Trey Consults: Pulm: Sebastian Cards: Wilfredo Time Spent in preparation of Discharge (in minutes): 45 Diagnosis - Discharge Diagnosis (1) Asthma exacerbation Status: Acute Hospital Course - Lab Results Lab Results: Most Recent Lab Values WBC 11.3 K/uL (4.8-10.8) H 03/16/18 07:31 RBC 4.60 Mil/uL (3.80-5.20) 03/16/18 07:31 Hgb 12.2 g/dL (11.0-16.0) 03/16/18 07:31 Hct 37.6 % (34.0-47.0) 03/16/18 07:31 MCV 81.7 fL (81.0-99.0) 03/16/18 07:31 MCH 26.5 pg (27.0-31.0) L 03/16/18 07:31 MCHC 32.4 g/dL (33.0-37.0) L 03/16/18 07:31 RDW 16.2 % (11.5-14.5) H 03/16/18 07:31 Plt Count 145 K/uL (130-400) 03/16/18 07:31 MPV 10.7 fL (7.2-11.7) 03/16/18 07:31 Neut % (Auto) 85.3 % (50.0-75.0) H 03/16/18 07:31 Lymph % (Auto) 5.4 % (20.0-40.0) L 03/16/18 07:31 [place] % (Auto) 8.9 % (0.0-10.0) 03/16/18 07:31 Eos % (Auto) 0.2 % (0.0-4.0) 03/16/18 07:31 Baso % (Auto) 0.2 % (0.0-2.0) 03/16/18 07:31 Neut # (Auto) 9.7 K/uL (1.8-7.0) H 03/16/18 07:31 Lymph # (Auto) 0.6 K/uL (1.0-4.3) L 03/16/18 07:31 [place] # (Auto) 1.0 K/uL (0.0-0.8) H 03/16/18 07:31 Eos # (Auto) 0.0 K/uL (0.0-0.7) 03/16/18 07:31 Baso # (Auto) 0.0 K/uL (0.0-0.2) 03/16/18 07:31 Neutrophils % (Manual) 84 % (50-75) H 03/16/18 07:31 Lymphocytes % (Manual) 7 % (20-40) L 03/16/18 07:31 Monocytes % (Manual) 9 % (0-10) 03/16/18 07:31 Platelet Estimate Normal (NORMAL) 03/16/18 07:31 Large Platelets Present 03/13/18 07:25 Polychromasia Slight 03/13/18 07:25 Hypochromasia (manual) Slight 03/13/18 07:25 Poikilocytosis (manual Slight 03/16/18 07:31 Basophilic Stippling Slight 03/14/18 07:34 Anisocytosis (manual) Slight 03/16/18 07:31 Microcytosis (manual) Slight 03/16/18 07:31 Ovalocytes Slight 03/13/18 07:25 PT 12.0 SECONDS (9.7-12.2) 03/16/18 07:31 INR 1.1 03/16/18 07:31 Sodium 139 mmol/L (132-148) 03/16/18 07:31 Potassium 4.0 mmol/L (3.6-5.2) 03/16/18 07:31 Chloride 102 mmol/L (98-107) 03/16/18 07:31 Carbon Dioxide 28 mmol/L (22-30) 03/16/18 07:31 Anion Gap 12 (10-20) 03/16/18 07:31 BUN 25 mg/dL (7-17) H 03/16/18 07:31 Creatinine 0.8 mg/dL (0.7-1.2) 03/16/18 07:31 Est GFR ( Amer) > 60 03/16/18 07:31 Est GFR (Non-Af Amer) > 60 03/16/18 07:31 POC Glucose (mg/dL) 236 mg/dL (65-110) H 03/16/18 16:06 Random Glucose 124 mg/dL (65-105) H 03/16/18 07:31 Hemoglobin A1c 5.8 % (4.2-6.5) 03/14/18 11:51 Calcium 7.3 mg/dl (8.6-10.4) L 03/16/18 07:31 Phosphorus 3.2 mg/dL (2.5-4.5) 03/12/18 07:22 Magnesium 1.3 mg/dL (1.6-2.3) L 03/12/18 07:22 Total Bilirubin 0.5 mg/dL (0.2-1.3) 03/16/18 07:31 AST 38 U/L (14-36) H 03/16/18 07:31 ALT 65 U/L (9-52) H 03/16/18 07:31 Alkaline Phosphatase 151 U/L (38-126) H 03/16/18 07:31 Total Creatine Kinase 250 U/L (30-135) H 03/11/18 15:56 CK-MB (Mass) 1.99 ng/mL (0.0-3.38) 03/11/18 15:56 Troponin I < 0.0120 ng/mL (0.00-0.120) 03/11/18 15:56 NT-Pro-B Natriuret Pep 1240 pg/mL (0-900) H 03/11/18 15:56 Total Protein 5.6 g/dL (6.3-8.3) L 03/16/18 07:31 Albumin 3.1 g/dL (3.5-5.0) L 03/16/18 07:31 Globulin 2.5 gm/dL (2.2-3.9) 03/16/18 07:31 Albumin/Globulin Ratio 1.3 (1.0-2.1) 03/16/18 07:31 Triglycerides 68 mg/dL (0-149) D 03/14/18 11:51 Cholesterol 158 mg/dL (0-199) 03/14/18 11:51 LDL Cholesterol Direct 80 mg/dL (0-129) 03/14/18 11:51 HDL Cholesterol 66 mg/dL (30-70) 03/14/18 11:51 Influenza Typ A,B (EIA) Negative for flu a/b (NEGATIVE) 03/11/18 21:13 - Hospital Course Hospital Course: On Admission: Patient is a 78 year old female with a history of asthma, mitral valve replacement, AICD, CHF, gout, arthritis, and DM, who presents with complains of difficulty breathing and dry cough for 5 days. She says she uses her inhaler ( symbicort) 4-5 times per day and 3 nebulizer treatments per day for the past 5 days without much relief. She also complains of chronic back pain, knee pain, and pain with walking. She currently denies chest pain, palpitations, abdominal pain, nausea, vomiting, fevers, headaches, dysuria, hematuria, constipation, diarrhea. Hospital Course: Patient treated with IV steroids and duonebs. No infection. No abx needed. Breathing status quickly resolved. Echo was done showed possible vegetations. Dr. Villalobos did ANGUS. Negative for endocarditis. Patient instructed to follow up with Dr. Cortes as outpatient. Discharge Exam - Head Exam Head Exam: ATRAUMATIC, NORMAL INSPECTION - Eye Exam Eye Exam: EOMI, Normal appearance, PERRL Pupil Exam: NORMAL ACCOMODATION, PERRL - Respiratory Exam Respiratory Exam: Clear to PA & Lateral, UNREMARKABLE. absent: Wheezes - Cardiovascular Exam Cardiovascular Exam: REGULAR RHYTHM. absent: Tachycardia - GI/Abdominal Exam GI & Abdominal Exam: Normal Bowel Sounds, Soft, Unremarkable. absent: Tenderness - Neurological Exam Neurological exam: Alert, CN II-XII Intact, Normal Gait, Oriented x3, Reflexes Normal - Psychiatric Exam Psychiatric exam: Normal Affect, Normal Mood - Skin Skin Exam: Dry, Intact, Normal Color, Warm Discharge Plan - Follow Up Plan Condition: STABLE Disposition: HOME/ ROUTINE Instructions: Heart Healthy Diet, Diabetes Exchange Diet, Asthma, Adult (DC), Heart Failure, Adult (DC), Cardiac Catheterization (DC), Diabetes and Diet, Back Pain (GEN) Additional Instructions: Please follow up with Dr. Cortes in one week after discharge. It is imperative that you follow up with a med surg rn for control of your asthma. I have attached his office information. Please call to make an appointment. Please follow up with Dr. Yang in one week. Please come back to ED if symptoms return. Referrals: Vamshi Cortes MD [Staff Provider] - Tobi Yang Jr., MD [Medical Doctor] -
--- NOTE | 2018-03-16 18:03 | CP.PCM.PN ---
Subjective - Date & Time of Evaluation Date of Evaluation: 03/16/18 Time of Evaluation: 07:00 - Subjective Subjective: Pulmonary Follow up, Covering Dr. Cortes The patient was Seen and examined by me at the bedside, Events reviewed Patient feeling better, Cough and Dyspnea improved, She currently denies chest pain, palpitations. Patient stable from respiratory status for discharge, Please follow up with Dr. Cortes as outpatient in one week. Objective - Vital Signs/Intake and Output Vital Signs (last 24 hours): Temp Pulse Resp BP Pulse Ox 97.4 F L 73 18 134/71 98 03/16/18 15:16 03/16/18 15:16 03/16/18 15:16 03/16/18 15:16 03/16/18 15:16 - Labs Labs: 03/16/18 07:31 03/16/18 07:31 PT 12.0 SECONDS (9.7-12.2) 03/16/18 07:31 INR 1.1 03/16/18 07:31 - Head Exam Head Exam: ATRAUMATIC, NORMAL INSPECTION - Eye Exam Eye Exam: absent: Conjunctival injection - ENT Exam ENT Exam: Mucous Membranes Moist - Neck Exam Neck Exam: Full ROM - Respiratory Exam Respiratory Exam: Clear to Ausculation Bilateral, Prolonged Expiratory Phase. absent: Wheezes - Cardiovascular Exam Cardiovascular Exam: REGULAR RHYTHM, RRR, +S1, +S2. absent: JVD - GI/Abdominal Exam GI & Abdominal Exam: Normal Bowel Sounds - Rectal Exam Rectal Exam: NORMAL INSPECTION - Neurological Exam Neurological Exam: Alert, Awake Assessment and Plan (1) Asthma exacerbation Status: Acute (2) Cough Status: Acute (3) Leucocytosis Status: Acute (4) CHF (congestive heart failure) Status: Chronic
--- NOTE | 2018-03-17 23:18 | CARD ---
APPROVED REPORT EXAM: Transesophageal echocardiogram with color flow Doppler. INDICATION Infection : Rule out subacute bacterial endocarditis Mitral Valve E/A ratio0.0 TDI E/Lateral E'0.0E/Medial E'0.0 Reason For Test : Rule out endocarditis. PROCEDURE After obtaining informed consent, patient underwent transesophageal echo in the [facility]. Type of Sedation : Conscious Sedation Sedation was achieved with intravenously. The ANGUS was performed complications. Throughout the procedure, the blood pressure, pulse oximetry, cardiac rhythm, and rate were monitored. The patient tolerated the procedure without adverse effects. Recovery from conscious sedation was uneventful and vital signs were stable. LEFT VENTRICLE The left ventricle is normal size. There is normal left ventricular wall thickness. Left ventricle systolic function is mildly to moderately impaired. The Ejection Fraction is 35-40%. No left ventricle thrombus noted on this study. There is no ventricular septal defect visualized. There is no left ventricular aneurysm. RIGHT VENTRICLE The right ventricle is normal size. The right ventricular systolic function is normal. ATRIA The left atrium size is normal. The right atrium size is normal. The interatrial septum is intact with no evidence for an atrial septal defect. AORTIC VALVE Aortic valve is fibrosclerotic There is mild to moderate aortic regurgitation. There is mild to moderate valvular aortic stenosis. There is no aortic valvular vegetation. MITRAL VALVE Bioprosthetic Mitral valve There is no mitral valve stenosis. There is no mitral valve regurgitation noted. TRICUSPID VALVE The tricuspid valve is normal in structure. There is mild tricuspid regurgitation. There is no tricuspid valve stenosis. PULMONIC VALVE The pulmonary valve is normal in structure. There is no pulmonic valvular stenosis. GREAT VESSELS The aortic root is normal in size. <Conclusion> Left ventricle systolic function is mildly to moderately impaired. The Ejection Fraction is 35-40%. Aortic valve is fibrosclerotic There is mild to moderate aortic regurgitation. There is mild to moderate valvular aortic stenosis. Bioprosthetic Mitral valve There is no mitral valve stenosis. There is no mitral valve regurgitation noted. No vegetations noted Thoracic aorta has maild atherosclerosis
== END 2018-03-16 16:50 | disposition home or self-care (01) | DRG 289 ==
LOC: C.ER 13:58 → C.9E 17:06 → C.6T 19:02
PROVIDERS: ADMIT Internal Medicine; ATTEND Internal Medicine
DX: I33.0 Acute and subacute infective endocarditis (principal); J44.1 Chronic obstructive pulmonary disease with (acute) exacerbation; J45.901 Unspecified asthma with (acute) exacerbation; I50.22 Chronic systolic (congestive) heart failure; I11.0 Hypertensive heart disease with heart failure; I34.1 Nonrheumatic mitral (valve) prolapse; E11.9 Type 2 diabetes mellitus without complications; D72.829 Elevated white blood cell count, unspecified; G89.29 Other chronic pain; M10.9 Gout, unspecified; M19.90 Unspecified osteoarthritis, unspecified site; Z95.0 Presence of cardiac pacemaker; Z95.2 Presence of prosthetic heart valve; Z95.810 Presence of automatic (implantable) cardiac defibrillator

== ENCOUNTER 2018-04-05 18:20 | Emergency (ER) | payer MEDICARE, OTHER ==
[2018-04-05 18:20] VITALS: BMI 26.0
[2018-04-05] MEDS ORDERED: Sodium Chloride 0.9% 1,000 ML IV ONE (20:03)
--- NOTE | 2018-04-05 20:05 | C.PDOC ---
Chief Complaint (Nursing): Dizziness/Lightheaded Past Medical History Vital Signs: Last Vital Signs Temp 98.1 F 04/05/18 18:30 Pulse 92 H 04/05/18 18:30 Resp 16 04/05/18 18:30 BP 146/74 04/05/18 18:30 Pulse Ox 98 04/05/18 18:30 - Medical History PMH: Asthma, Bronchitis, CHF, COPD, HTN, Mitral Valve Prolapse Denies: Chronic Kidney Disease Surgical History: Cholecystectomy, Pacemaker (2008) Family History: States: Unknown Family Hx, Stroke - Social History Hx Tobacco Use: No Hx Alcohol Use: No Hx Substance Use: No - Immunization History Hx Tetanus Toxoid Vaccination: Yes Hx Influenza Vaccination: Yes Hx Pneumococcal Vaccination: Yes ED Course And Treatment O2 Sat by Pulse Oximetry: 98 Disposition - Disposition
--- NOTE | 2018-04-05 20:06 | C.PDOC ---
History Of Present Illness 78 y/o female presents to ED for complaints of dizziness that began last night. Patient also reports lightheadedness sensation and mild headache. Denies nausea , vomiting or any other physical complaints. Chief Complaint (Nursing): Dizziness/Lightheaded History Per: Patient History/Exam Limitations: no limitations Onset/Duration Of Symptoms: Days (1) Current Symptoms Are (Timing): Still Present Activity At Onset Of Symptoms: Sitting, Standing Associated Symptoms Preceding Syncopal Episode: denies: No Predromal Symptoms ( Sudden Onset) Seizure Or Post-ictal Symptoms: None Fall Associated With With Symptoms: No - Symptoms Of CVA Associated Symptoms: denies: Impaired Speech, Seizure Activity, New Vision Deficit(Left), New Vision Deficit(Right), Decreased Ability To Walk, New Confusion Recent Aspirin Use: Unknown Current Coumadin Use?: Unknown Recent Head Trauma: No Past Medical History Reviewed: Historical Data, Nursing Documentation, Vital Signs Vital Signs: Last Vital Signs Temp 98.9 F 04/05/18 22:57 Pulse 83 04/05/18 22:46 Resp 16 04/05/18 22:46 BP 122/66 04/05/18 22:46 Pulse Ox 98 04/05/18 22:59 - Medical History PMH: Asthma, Bronchitis, CHF, COPD, HTN, Mitral Valve Prolapse Surgical History: Cholecystectomy, Pacemaker (2008) Family History: States: Unknown Family Hx, Stroke - Social History Hx Tobacco Use: No Hx Alcohol Use: No Hx Substance Use: No - Immunization History Hx Tetanus Toxoid Vaccination: Yes Hx Influenza Vaccination: Yes Hx Pneumococcal Vaccination: Yes Review Of Systems Constitutional: Negative for: Fever, Chills Gastrointestinal: Negative for: Nausea, Vomiting, Abdominal Pain, Diarrhea Skin: Negative for: Rash Neurological: Positive for: Headache (Mild), Dizziness. Negative for: Weakness , Numbness Physical Exam - Physical Exam Appears: Well, Non-toxic, No Acute Distress Skin: Normal Color, Warm, Dry Head: Atraumatic, Normacephalic Eye(s): bilateral: Other (Nystagmus) Nose: Normal, No Discharge Oral Mucosa: Moist Neck: Normal, Normal ROM, Trachea Midline, No Midline Cervical Tenderness, No Paracervical Tenderness, Supple Chest: Symmetrical, No Tenderness Cardiovascular: Rhythm Regular, No Murmur Respiratory: Normal Breath Sounds, No Decreased Breath Sounds, No Rales, No Rhonchi, No Wheezing Gastrointestinal/Abdominal: Soft, No Tenderness Extremity: Normal ROM, No Deformity Extremity: Bilateral: Atraumatic, Normal Color And Temperature, Normal ROM Neurological/Psych: Oriented x3 (Awake and alert), Normal Speech (Speaking in full sentences ), Other (No focal deficits ) Gait: Steady ED Course And Treatment - Laboratory Results Result Diagrams: 04/05/18 20:13 04/05/18 20:13 O2 Sat by Pulse Oximetry: 98 (RA) Pulse Ox Interpretation: Normal - CT Scan/US Head CT Other Rad Studies (CT/US): Read By Radiologist, Radiology Report Reviewed CT/US Interpretation: EXAM: CT Head Without Intravenous Contrast. CLINICAL HISTORY: 78 years old, female; Condition or disease; Headache; Headache not. specified. TECHNIQUE: Axial computed tomography images of the head/brain without intravenous contrast. All CT scans at this facility use at least one of these dose optimization techniques: automated. exposure control; mA and/or kV adjustment per patient size (includes targeted exams where dose is. matched to clinical indication); or iterative reconstruction. COMPARISON: No relevant prior studies available. FINDINGS: Brain: Mild cerebral and cerebellar atrophy. Mild small vessel ischemic/degenerative changes. Physiologic basal ganglia calcifications. No hemorrhage. Ventricles: Unremarkable. No ventriculomegaly. Bones/joints: Unremarkable. No acute fracture. Soft tissues : Unremarkable. Vasculature: Intracranial arterial calcifications. Sinuses: Unremarkable as visualized. No acute sinusitis. Mastoid air cells: Unremarkable as visualized. No mastoid effusion. IMPRESSION: 1. Mild cerebral and cerebellar atrophy. 2. Mild small vessel ischemic/degenerative changes. Medical Decision Making Medical Decision Making: Administered Antivert, Ativan and IV fluids. Ordered blood work, EKG, Head CT. Re-evaluation: - Patient states she feels better and is no longer having vertigo - Patient is stable for discharge Disposition Counseled Patient/Family Regarding: Diagnosis - Disposition Referrals: Tobi Yang Jr., MD [Medical Doctor] - Disposition: HOME/ ROUTINE Disposition Time: 22:57 Condition: IMPROVED Prescriptions: Meclizine [Antivert] 12.5 mg PO Q6 #20 tab Instructions: Vertigo (a Type of Dizziness) (DC) Forms: [facility] (Swedish), Gen Discharge Inst Greek Print Language: THAI - POA Present On Arrival: None - Clinical Impression Clinical Impression: Vertigo, Dizziness - Scribe Statement The provider has reviewed the documentation as recorded by the Binaibharshil Briseno All medical record entries made by the Binaibharshil were at my direction and personally dictated by me. I have reviewed the chart and agree that the record accurately reflects my personal performance of the history, physical exam, medical decision making, and the department course for this patient. I have also personally directed, reviewed, and agree with the discharge instructions and disposition.
[2018-04-05 20:24] LABS: BASO # 0.1 K/uL (0.0-0.2); BASO % 1.3 % (0.0-2.0); EOS # 0.5 K/uL (0.0-0.7); EOS % 7.3 % (0.0-4.0); HEMOGLOBIN 11.7 g/dL (11.0-16.0); LYMPH # 1.2 K/uL (1.0-4.3); LYMPH % 18.9 % (20.0-40.0); MEAN CELL VOLUME 81.8 fL (81.0-99.0); MEAN CORPUSCULAR HEMOGLOBIN 26.4 pg (27.0-31.0); MEAN CORPUSCULAR HGB CONC 32.3 g/dL (33.0-37.0); MEAN PLATELET VOLUME 10.4 fL (7.2-11.7); MONO # 0.9 K/uL (0.0-0.8); MONO % 13.6 % (0.0-10.0); NEUT # 3.8 K/uL (1.8-7.0); NEUT % 58.9 % (50.0-75.0); NRBC % 0.1 % (0.0-2.0); RBC 4.43 Mil/uL (3.80-5.20); RED CELL DISTRIBUTION WIDTH 17.1 % (11.5-14.5); WHITE BLOOD COUNT 6.4 K/uL (4.8-10.8)
[2018-04-05 20:53] LABS: ALB/GLOB RATIO 1.3 (1.0-2.1); ALBUMIN 3.5 g/dL (3.5-5.0); ALT/SGPT 46 U/L (9-52); AST/SGOT 40 U/L (14-36); BLOOD UREA NITROGEN 14 mg/dL (7-17); CALCIUM 9.2 mg/dl (8.6-10.4); GFR AFRICAN-AMERICAN > 60; GFR NON-AFRICAN AMERICAN > 60
[2018-04-05 22:47] VITALS: BP 122/66; PULSE 83; RESP 16
[2018-04-05 22:58] VITALS: TEMP 98.9
[2018-04-05 22:59] VITALS: O2SAT 98
--- NOTE | 2018-04-06 07:33 | CT ---
PROCEDURE: CT HEAD WITHOUT CONTRAST. HISTORY: Headache COMPARISON: None available. TECHNIQUE: Axial computed tomography images were obtained through the head/brain without intravenous contrast. Radiation dose: Total exam DLP = 746 mGy-cm. This CT exam was performed using one or more of the following dose reduction techniques: Automated exposure control, adjustment of the mA and/or kV according to patient size, and/or use of iterative reconstruction technique. FINDINGS: HEMORRHAGE: No intracranial hemorrhage. BRAIN: Mild cerebral and cerebellar atrophy. Mild small vessel ischemic/degenerative changes. Physiologic basal ganglia calcifications. Mild bifrontal prominence of the CSF extra-axial spaces. VENTRICLES: Unremarkable. No hydrocephalus. CALVARIUM: Unremarkable. Small bony protuberance emanating from the right frontal cortex on series 2, image 16. PARANASAL SINUSES: Unremarkable as visualized. No significant inflammatory changes. MASTOID AIR CELLS: Unremarkable as visualized. No inflammatory changes. OTHER FINDINGS: Intracranial arterial calcifications. IMPRESSION: Mild cerebral and cerebellar atrophy. Chronic microvascular ischemic changes. If symptoms persists, consider correlation with MRI. These findings were preliminarily reported at 8:44 p.[address]. on 04/05/[address] Lio Gonsalez from [facility].
--- NOTE | 2018-04-06 23:24 | CARD ---
APPROVED REPORT EKG Measurement Heart [id number] <Conclusion> Normal sinus rhythm with sinus arrhythmia Right bundle branch block Left anterior fascicular block Bifascicular block Left ventricular hypertrophy with repolarization abnormality Abnormal ECG
== END 2018-04-05 23:27 | disposition home or self-care (01) ==
LOC: C.ER 18:20
DX: R42 Dizziness and giddiness (principal); I50.9 Heart failure, unspecified; I10 Essential (primary) hypertension
CPT/HCPCS: 70450; 80053; 85025; 93005; 96374; 99285; J2060; J7030

== ENCOUNTER 2018-06-17 21:01 | Emergency (ER) | payer MEDICARE, OTHER ==
[2018-06-17 21:21] VITALS: BMI 25.0
[2018-06-17 21:24] VITALS: O2SAT 100
--- NOTE | 2018-06-17 21:30 | C.PDOC ---
History Of Present Illness 78 y/o female presents to the ED complaining of ongoing left foot pain for one day localized to the proximal foot. She admits to having a Hx of gout and she states the pain now is similar to previous gout attacks. The patient denies any trauma, injury, skin change to foot, fever, weakness or numbness. She reports being compliant with her medication but she says she has not taken any new medication for her recent foot pain. Time Seen by Provider: 06/17/18 21:24 Chief Complaint (Nursing): Lower Extremity Problem/Injury History Per: Patient History/Exam Limitations: no limitations Onset/Duration Of Symptoms: Days Current Symptoms Are (Timing): Still Present Recent travel outside of the [place]: No Past Medical History Reviewed: Historical Data, Nursing Documentation, Vital Signs Vital Signs: Last Vital Signs Temp 98 F 06/17/18 23:06 Pulse 89 06/17/18 23:06 Resp 17 06/17/18 23:06 BP 120/80 06/17/18 23:06 Pulse Ox 100 06/17/18 23:06 - Medical History PMH: Asthma, Bronchitis, CHF, COPD, HTN, Mitral Valve Prolapse Denies: Chronic Kidney Disease Surgical History: Cholecystectomy, Pacemaker (2008) Family History: States: Unknown Family Hx, Stroke - Social History Hx Tobacco Use: No Hx Alcohol Use: No Hx Substance Use: No - Immunization History Hx Tetanus Toxoid Vaccination: Yes Hx Influenza Vaccination: Yes Hx Pneumococcal Vaccination: Yes Review Of Systems Constitutional: Negative for: Fever Musculoskeletal: Positive for: Foot Pain (left foot pain) Skin: Negative for: Other (skin changes ) Neurological: Negative for: Weakness, Numbness Physical Exam - Physical Exam Appears: Non-toxic, Other (acute painful distress, mild) Extremity: Tenderness (to palpatation of dorsum left foot below ankle), Capillary Refill (>2 seconds), No Deformity (to left foot ), No Swelling, No Other (Impression: foot pain) Extremity: Bilateral: Other (plantar and dorsal flexion intact. B/l knees are normal) Pulses: Left Dorsalis Pedis: Normal, Right Dorsalis Pedis: Normal ED Course And Treatment O2 Sat by Pulse Oximetry: 100 (RA) Pulse Ox Interpretation: Normal - Other Rad Foot X-Ray X-Ray: Interpreted by Me Interpretation: No acute findings Medical Decision Making Medical Decision Making: Impression: foot pain Differential diagnosis include but are not limited to: gout, arthritis or foot strain 6236- LEFT foot xray: no fx/dislocation. DW family findings and plan of care. HEMALATHA wrap to LEFT foot. NSAIDs prescribed. Patient is stable for discharge and advised to follow up with PMD. 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 - Scribe Statement The provider has reviewed the documentation as recorded by the Scribe (Dahiana Mcpherson) All medical record entries made by the Scribe were at my direction and personally dictated by me. I have reviewed the chart and agree that the record accurately reflects my personal performance of the history, physical exam, medical decision making, and the department course for this patient. I have also personally directed, reviewed, and agree with the discharge instructions and disposition.
[2018-06-17 23:07] VITALS: BP 120/80; PULSE 89; RESP 17; TEMP 98
--- NOTE | 2018-06-18 08:35 | RAD ---
Date of service: 06/17/2018 PROCEDURE: Left Foot Radiographs. HISTORY: Pain COMPARISON: None. FINDINGS: BONES: Bone alignment and mineralization are normal. There is no acute displaced fracture or bone destruction. JOINTS: Normal. SOFT TISSUES: Normal. OTHER FINDINGS: There are atherosclerotic vascular calcifications. IMPRESSION: No acute fracture or dislocation.
== END 2018-06-17 23:06 | disposition home or self-care (01) ==
LOC: C.ER 21:01
DX: M19.072 Primary osteoarthritis, left ankle and foot (principal); I50.9 Heart failure, unspecified; J44.9 Chronic obstructive pulmonary disease, unspecified; I10 Essential (primary) hypertension
CPT/HCPCS: 73630; 96372; 99283; J1885

== ENCOUNTER 2018-07-02 16:53 | Inpatient (IN) | payer MEDICARE, OTHER ==
[2018-07-02 17:02] VITALS: BMI 24.0
[2018-07-02 17:45] LABS: BASO # 0.1 K/uL (0.0-0.2); BASO % 1.3 % (0.0-2.0); EOS # 0.2 K/uL (0.0-0.7); EOS % 2.5 % (0.0-4.0); HEMOGLOBIN 11.8 g/dL (11.0-16.0); LYMPH # 1.4 K/uL (1.0-4.3); LYMPH % 18.3 % (20.0-40.0); MEAN CELL VOLUME 81.9 fL (81.0-99.0); MEAN CORPUSCULAR HEMOGLOBIN 26.2 pg (27.0-31.0); MEAN PLATELET VOLUME 10.3 fL (7.2-11.7); MONO # 0.8 K/uL (0.0-0.8); MONO % 11.2 % (0.0-10.0); NEUT # 4.9 K/uL (1.8-7.0); NEUT % 66.7 % (50.0-75.0); RBC 4.5 Mil/uL (3.80-5.20); RED CELL DISTRIBUTION WIDTH 17.2 % (11.5-14.5); WHITE BLOOD COUNT 7.4 K/uL (4.8-10.8)
--- NOTE | 2018-07-02 17:49 | C.PDOC ---
History Of Present Illness 78 y/o F p/w shortness of breath x 3 days. States worse when laying down. Also reports an "odd" feeling in the chest for the same duration. Denies fever, chills, cough, vomiting, recent travel. PMD Trey Villalobos Time Seen by Provider: 07/02/18 17:12 Chief Complaint (Nursing): Shortness Of Breath Past Medical History Vital Signs: Last Vital Signs Temp 98 F 07/02/18 17:15 Pulse 91 H 07/02/18 17:14 Resp 22 07/02/18 17:34 BP 126/53 L 07/02/18 17:14 Pulse Ox 97 07/02/18 17:34 - Medical History PMH: Asthma, Bronchitis, CHF, COPD, HTN, Mitral Valve Prolapse Denies: Chronic Kidney Disease Surgical History: Cholecystectomy, Pacemaker (2008) Family History: States: Unknown Family Hx, Stroke - Social History Hx Tobacco Use: No Hx Alcohol Use: No Hx Substance Use: No - Immunization History Hx Tetanus Toxoid Vaccination: Yes Hx Influenza Vaccination: Yes Hx Pneumococcal Vaccination: Yes Review Of Systems Except As Marked, All Systems Reviewed And Found Negative. Constitutional: Negative for: Fever Gastrointestinal: Negative for: Vomiting Physical Exam - Physical Exam Additional Physical Exam Comments: Constitutional: No acute distress. Head: Normocephalic. Atraumatic. Eyes: PERRL. ENT: Moist mucous membranes. Neck: Supple. Cardiovascular: Regular rate. Radial pulse 2+ bilaterally. Chest: No tenderness. Respiratory: Mild end expiratory wheeze. GI: Soft. Nontender. Nondistended. Back: No CVA tenderness. Musculoskeletal: No tenderness or swelling of extremities. Bilateral pitting edema. Skin: No rash. Neurologic: Alert, no focal deficit. ED Course And Treatment - Laboratory Results Result Diagrams: 07/02/18 17:42 07/02/18 17:42 O2 Sat by Pulse Oximetry: 97 Medical Decision Making Medical Decision Making: EKG Sinus rhythm, RBBB, no ST elevations CXR FINDINGS: LUNGS: Any vascular congestion. No focal consolidation. PLEURA: No significant pleural effusion identified, no pneumothorax apparent. CARDIOVASCULAR: Left subclavian access AICD/pacemaker redemonstrated. Prior sternotomy with sternal wires and surgical clips redemonstrated. Atherosclerotic aortic calcifications. Cardiomediastinal silhouette stably enlarged OSSEOUS STRUCTURES: Unchanged. VISUALIZED UPPER ABDOMEN: Normal. OTHER FINDINGS: None. IMPRESSION: Pulmonary vascular congestion. No focal consolidation or pleural effusion. Lasix administered. accepts to his service. resident services director hand off given. Disposition - Disposition Disposition: HOSPITALIZED Disposition Time: 00:17 Condition: FAIR - Clinical Impression Clinical Impression: CHF exacerbation
[2018-07-02 17:58] LABS: ALB/GLOB RATIO 1.4 (1.0-2.1); ALBUMIN 3.9 g/dL (3.5-5.0); ALT/SGPT 54 U/L (9-52); AST/SGOT 55 U/L (14-36); BLOOD UREA NITROGEN 18 mg/dL (7-17); CALCIUM 9.8 mg/dl (8.6-10.4); GFR NON-AFRICAN AMERICAN > 60
[2018-07-02 18:06] LABS: B-TYPE NATRIURETIC PEPTIDE 6790 pg/mL (0-900)
[2018-07-02 18:10] LABS: CK-MB 2.36 ng/mL (0.0-3.38); TROPONIN I 0.035 ng/mL (0.00-0.120)
--- NOTE | 2018-07-02 18:12 | RAD ---
Date of service: 07/02/2018 HISTORY: R/O CHF COMPARISON: Chest radiograph dated 03/11/2018. FINDINGS: LUNGS: Any vascular congestion. No focal consolidation. PLEURA: No significant pleural effusion identified, no pneumothorax apparent. CARDIOVASCULAR: Left subclavian access AICD/pacemaker redemonstrated. Prior sternotomy with sternal wires and surgical clips redemonstrated. Atherosclerotic aortic calcifications. Cardiomediastinal silhouette stably enlarged OSSEOUS STRUCTURES: Unchanged. VISUALIZED UPPER ABDOMEN: Normal. OTHER FINDINGS: None. IMPRESSION: Pulmonary vascular congestion. No focal consolidation or pleural effusion.
[2018-07-02] MEDS ORDERED: Iodixanol 320 MG/ML 100 ML BOTTLE IV ONE (18:42)
--- NOTE | 2018-07-02 23:32 | CP.PCM.HP ---
History of Present Illness - History of Present Illness History of Present Illness: Patient is a 78 year old female with PMHx asthma, MVP w/ replacement, AICD, CHF, gout, arthritis, and DM2, who presents to ED w/ complaints of chest pressure, discomfort and shortness of breath for the past 3 days. Patient reports chest pain is worse with exertion and non-positional. She said these symptoms were inconsistent with other episodes she's had in the past, and did not use her nebulizers, but has been using oxygen with some relief. She currently denies chest pain, palpitations, abdominal pain, nausea, vomiting, fevers, headaches, dysuria, hematuria, constipation, diarrhea. PMD: Dr. Yang Cardio: Dr. Villalobos PMHX: asthma, MVP w/ replacement, AICD, CHF, gout, arthritis, and DM2 SurgHx: MV replacement 2008, AICD, cholecystectomy over 30 years ago FamHx: mother/father- [place], stroke; Brother- stroke, kidney cancer SocHx: denies alcohol, tobacco, and drug use; lives with daughter in [facility]. Allergies: PCN-anaphylaxis Present on Admission - Present on Admission Any Indicators Present on Admission: No Review of Systems - Constitutional Constitutional: Fatigue, Weakness - EENT Eyes: absent: Change in Vision Nose/Mouth/Throat: absent: Sore Throat - Cardiovascular Cardiovascular: Chest Pain, Dyspnea. absent: Claudication, Pedal Edema - Respiratory Respiratory: Dyspnea. absent: Chest Congestion - Gastrointestinal Gastrointestinal: absent: Diarrhea, Nausea, Vomiting - Genitourinary Genitourinary: absent: Dysuria - Neurological Neurological: absent: Dizziness Past Patient History - Infectious Disease Hx of Infectious Diseases: None - Past Medical History & Family History Past Medical History?: Yes - Past Social History Smoking Status: Never Smoked - CARDIAC Hx Congestive Heart Failure: Yes Hx Hypertension: Yes Hx Mitral Valve Prolapse: Yes Hx Pacemaker: Yes (2008) - PULMONARY Hx Asthma: Yes Hx Bronchitis: Yes Hx Chronic Obstructive Pulmonary Disease (COPD): Yes - NEUROLOGICAL Hx Neurological Disorder: No - HEENT Hx HEENT Problems: No - RENAL Hx Chronic Kidney Disease: No - ENDOCRINE/METABOLIC Hx Diabetes Mellitus Type 2: Yes - HEMATOLOGICAL/ONCOLOGICAL Hx Blood Disorders: No - INTEGUMENTARY Hx Dermatological Problems: No - MUSCULOSKELETAL/RHEUMATOLOGICAL Hx Falls: Yes Hx Gout: Yes - GASTROINTESTINAL Hx Colitis: Yes - GENITOURINARY/GYNECOLOGICAL Hx Genitourinary Disorders: No - PSYCHIATRIC Hx Substance Use: No - SURGICAL HISTORY Hx Cholecystectomy: Yes - ANESTHESIA Hx Anesthesia: Yes Hx Anesthesia Reactions: No Meds Allergies/Adverse Reactions: Allergies Allergy/AdvReac Type Severity Reaction Status Date / Time Penicillins Allergy Severe ANAPHYLAXIS Verified 07/02/18 17:01 Physical Exam - Constitutional Appears: Non-toxic, No Acute Distress - Head Exam Head Exam: ATRAUMATIC, NORMAL INSPECTION, NORMOCEPHALIC - Eye Exam Eye Exam: EOMI, Normal appearance - ENT Exam ENT Exam: Mucous Membranes Moist, Normal Exam - Neck Exam Neck exam: Positive for: Normal Inspection. Negative for: Lymphadenopathy - Respiratory Exam Respiratory Exam: Clear to Auscultation Bilateral, NORMAL BREATHING PATTERN. absent: Rales, Rhonchi, Wheezes - Cardiovascular Exam Cardiovascular Exam: REGULAR RHYTHM, Systolic Murmur. absent: Tachycardia - GI/Abdominal Exam GI & Abdominal Exam: Normal Bowel Sounds, Soft. absent: Distended, Tenderness - Extremities Exam Extremities exam: Positive for: normal capillary refill, normal inspection, pedal pulses present. Negative for: calf tenderness, pedal edema - Neurological Exam Neurological exam: Alert, Oriented x3 - Psychiatric Exam Psychiatric exam: Normal Affect, Normal Mood - Skin Skin Exam: Dry, Intact, Normal Color, Warm Results - Vital Signs Recent Vital Signs: Last Vital Signs Temp 98.1 F 07/02/18 22:10 Pulse 92 H 07/02/18 22:10 Resp 20 07/02/18 22:10 BP 150/75 07/02/18 22:10 Pulse Ox 94 L 07/02/18 22:10 - Labs Result Diagrams: 07/02/18 17:42 07/02/18 17:42 Labs: Laboratory Results - last 24 hr 07/02/18 07/02/18 07/02/18 17:24 17:42 17:42 WBC 7.4 RBC 4.50 Hgb 11.8 Hct 36.9 MCV 81.9 MCH 26.2 L MCHC 32.0 L RDW 17.2 H Plt Count 215 MPV 10.3 Neut % (Auto) 66.7 Lymph % (Auto) 18.3 L [place] % (Auto) 11.2 H Eos % (Auto) 2.5 Baso % (Auto) 1.3 Neut # (Auto) 4.9 Lymph # (Auto) 1.4 [place] # (Auto) 0.8 Eos # (Auto) 0.2 Baso # (Auto) 0.1 D-Dimer, Quantitative Sodium 138 Potassium 4.4 Chloride 105 Carbon Dioxide 23 Anion Gap 15 BUN 18 H Creatinine 0.9 Est GFR ( Amer) > 60 Est GFR (Non-Af Amer) > 60 POC Glucose (mg/dL) 98 Random Glucose 94 Calcium 9.8 Total Bilirubin 0.7 AST 55 H D ALT 54 H Alkaline Phosphatase 207 H Total Creatine Kinase CK-MB (Mass) Troponin I NT-Pro-B Natriuret Pep 6790 H Total Protein 6.6 Albumin 3.9 Globulin 2.8 Albumin/Globulin Ratio 1.4 Influenza Typ A,B (EIA) 07/02/18 07/02/18 07/02/18 17:47 17:52 17:52 WBC RBC Hgb Hct MCV MCH MCHC RDW Plt Count MPV Neut % (Auto) Lymph % (Auto) [place] % (Auto) Eos % (Auto) Baso % (Auto) Neut # (Auto) Lymph # (Auto) [place] # (Auto) Eos # (Auto) Baso # (Auto) D-Dimer, Quantitative 287 H Sodium Potassium Chloride Carbon Dioxide Anion Gap BUN Creatinine Est GFR ( Amer) Est GFR (Non-Af Amer) POC Glucose (mg/dL) Random Glucose Calcium Total Bilirubin AST ALT Alkaline Phosphatase Total Creatine Kinase 147 H CK-MB (Mass) 2.36 Troponin I 0.0350 NT-Pro-B Natriuret Pep Total Protein Albumin Globulin Albumin/Globulin Ratio Influenza Typ A,B (EIA) Negative for flu a/b Assessment & Plan - Assessment and Plan (Free Text) Assessment: 78 yo F admitted w/ SOB, chest discomfort x3 days r/o ACS -CE negative to date -EKG unchanged from prior visit 03/22 r/o PE -D-dimer 287 -f/u CTA per protocol CHF -pBNP 6790 -echo 03/22 LVEF 30-35% -lasix 40mg q12 -cardizem 30mg BID -ASA 81mg COPD -duonebs q6 -solu-medrol 40mg iv q12 DM2 -accuichecks achs -ISS high risk Ppx -protonix 40mg -heparin 5000 sc q8 -HH diet
--- NOTE | 2018-07-03 02:52 | CP.PCM.PN ---
Subjective - Date & Time of Evaluation Date of Evaluation: 07/03/18 Time of Evaluation: 02:50 - Subjective Subjective: Pt examined at bedside. No acute events. Pt reports her chest pain has improved since admission, as well as her shortness of breath. Objective - Vital Signs/Intake and Output Vital Signs (last 24 hours): Temp Pulse Resp BP Pulse Ox 98.0 F 87 20 137/81 97 07/02/18 23:15 07/02/18 23:50 07/02/18 23:15 07/02/18 23:15 07/03/18 00:18 - Medications Medications: Current Medications Albuterol/Ipratropium (Duoneb 3 Mg/0.5 Mg (3 Ml) Ud) 3 ml INH RQ6 TEN Aspirin (Ecotrin) 81 mg PO DAILY TEN Diltiazem HCl (Cardizem) 30 mg PO BID TEN Furosemide (Lasix) 40 mg IVP Q12 TEN Heparin Sodium (Porcine) (Heparin) 5,000 units SC Q8 [facility] Home Med (Budesonide/Formoterol Fumarate [Symbicort 160-4.5 Mcg Inhaler]) 1 aer IH PRN PRN PRN Reason: asthma Insulin Aspart (Novolog) 0 unit SC ACHS [facility]; Protocol Memantine (Namenda) 5 mg PO HS TEN Methylprednisolone (Solu-Medrol) 40 mg IVP Q12 TEN Pantoprazole Sodium (Protonix Inj) 40 mg IVP DAILY TEN Temazepam (Restoril) 15 mg PO HS TEN - Labs Labs: 07/02/18 17:42 07/02/18 17:42 - Constitutional Appears: Non-toxic - Head Exam Head Exam: ATRAUMATIC, NORMAL INSPECTION, NORMOCEPHALIC - Eye Exam Eye Exam: EOMI, Normal appearance - ENT Exam ENT Exam: Mucous Membranes Moist, Normal Exam - Neck Exam Neck Exam: Normal Inspection - Respiratory Exam Respiratory Exam: Clear to Ausculation Bilateral, NORMAL BREATHING PATTERN. absent: Rhonchi, Wheezes - Cardiovascular Exam Cardiovascular Exam: REGULAR RHYTHM, +S1, +S2. absent: Tachycardia - GI/Abdominal Exam GI & Abdominal Exam: Soft, Normal Bowel Sounds. absent: Distended, Tenderness - Extremities Exam Extremities Exam: Normal Capillary Refill, Normal Inspection. absent: Calf Tenderness, Pedal Edema - Psychiatric Exam Psychiatric exam: Normal Affect, Normal Mood - Skin Skin Exam: Dry, Intact, Normal Color, Warm Assessment and Plan - Assessment and Plan (Free Text) Assessment: 78 yo F admitted w/ SOB, chest discomfort x3 days r/o ACS -CE negative to date -EKG unchanged from prior visit 03/22 r/o PE -D-dimer 287 -f/u CTA per protocol CHF -pBNP 6790 -echo 03/22 LVEF 30-35% -lasix 40mg q12 -cardizem 30mg BID -ASA 81mg COPD -2L NC -duonebs q6 -solu-medrol 40mg iv q12 DM2 -accuichecks achs -ISS high risk Ppx -protonix 40mg -heparin 5000 sc q8 -HH diet
[2018-07-03] MEDS ORDERED: Influenza Vaccine 60 MCG/0.5 ML SYR (3 yr & up) IM ONE (03:31)
[2018-07-03 07:06] LABS: BASO # 0.1 K/uL (0.0-0.2); BASO % 1.6 % (0.0-2.0); EOS # 0.3 K/uL (0.0-0.7); EOS % 4.9 % (0.0-4.0); HEMOGLOBIN 12.1 g/dL (11.0-16.0); LYMPH # 1.3 K/uL (1.0-4.3); LYMPH % 23.3 % (20.0-40.0); MEAN CELL VOLUME 81.4 fL (81.0-99.0); MEAN CORPUSCULAR HEMOGLOBIN 26.3 pg (27.0-31.0); MEAN CORPUSCULAR HGB CONC 32.4 g/dL (33.0-37.0); MONO # 0.8 K/uL (0.0-0.8); MONO % 13.5 % (0.0-10.0); NEUT # 3.2 K/uL (1.8-7.0); NEUT % 56.7 % (50.0-75.0); RBC 4.59 Mil/uL (3.80-5.20); RED CELL DISTRIBUTION WIDTH 17.2 % (11.5-14.5); WHITE BLOOD COUNT 5.6 K/uL (4.8-10.8)
[2018-07-03 07:08] LABS: ALB/GLOB RATIO 1.3 (1.0-2.1); ALBUMIN 3.8 g/dL (3.5-5.0); ALT/SGPT 59 U/L (9-52); AST/SGOT 57 U/L (14-36); BLOOD UREA NITROGEN 16 mg/dL (7-17); CALCIUM 9.8 mg/dl (8.6-10.4); GFR NON-AFRICAN AMERICAN > 60
[2018-07-03] MEDS: (Novolog) Insulin Aspart, Recombinant 100 u/ml 10 ml vial SC SCH ×4 (07:34→23:07)
[2018-07-03] MEDS: Albuterol-Ipratrop 3 mg / 0.5 (3 ml) UD INH SCH ×3 (07:57→19:28)
[2018-07-03] MEDS: MethylPREDNISolone 40 mg Vial IVP SCH ×2 (09:41→22:31)
[2018-07-03] MEDS ORDERED: Fluticasone-Vilanterol 100/25mcg Diskus INH SCH (10:00)
--- NOTE | 2018-07-03 10:45 | CT ---
Date of service: 07/02/2018 PROCEDURE: CT Chest with contrast (Pulmonary Angiogram) HISTORY: Dyspnea COMPARISON: Comparison made with chest radiograph dated 07/02/2018. TECHNIQUE: Contiguous helical/transaxial computed tomography images were obtained of the chest in the pulmonary arterial phase of enhancement. Coronal and sagittal reformatted images were created and reviewed. Intravenous contrast dose: 100 cc Visipaque 320 Radiation dose: Total exam DLP = 335.17 mGy-cm. This CT exam was performed using one or more of the following dose reduction techniques: Automated exposure control, adjustment of the mA and/or kV according to patient size, and/or use of iterative reconstruction technique. FINDINGS: PULMONARY ARTERIES: Pulmonary trunk measures approximately 3.36 cm. Visualized pulmonary trunk, right and left main, lobar, segmental and proximal subsegmental branches of the pulmonary arteries are well opacified with no definitive filling defects seen to suggest acute central pulmonary embolus. AORTA: There is aneurysmal dilatation of the ascending thoracic aorta measuring approximately 4.5 cm in transverse dimension. Descending thoracic aorta measures approximately 2.25 cm. LUNGS: There are diffuse ground-glass opacity seen throughout the upper and lower lobes which may represent a pulmonary venous congestive changes. Common air trapping may contribute. PLEURAL SPACES: Bilateral small to medium-sized effusions right larger than left. HEART: Heart remains enlarged with multi chamber dilatation.. No significant pericardial effusion. LYMPH NODES: Few small nonspecific mediastinal lymph nodes are present. No significant hilar adenopathy. BONES, CHEST WALL: Mild multilevel degenerative spondylosis of the thoracic spine most notably affecting the T11 and T12 level. There is also slight kyphotic angulation deformities centered at this level. No acute compression fractures no retropulsed fragments. OTHER FINDINGS: Unremarkable. IMPRESSION: No evidence of central pulmonary embolus. Marked cardiomegaly with multi chamber dilatation.. There is aneurysmal dilatation of the ascending thoracic aorta.
[2018-07-04] MEDS: Albuterol-Ipratrop 3 mg / 0.5 (3 ml) UD INH SCH ×4 (02:46→19:29)
[2018-07-04] MEDS ORDERED: Promethazine DM 6.25 mg-15 mg/5 ml Syrup PO STA (03:21)
--- NOTE | 2018-07-04 07:17 | CP.PCM.CON ---
History of Present Illness - History of Present Illness History of Present Illness: Patient is a 78 year old female with PMHx asthma, MVP w/ replacement, AICD, CHF, gout, arthritis, and DM2, who presents to ED w/ complaints of chest pressure, discomfort and shortness of breath for the past 3 days. Patient reports chest pain is worse with exertion and non-positional. She said these symptoms were inconsistent with other episodes she's had in the past, and did not use her nebulizers, but has been using oxygen with some relief. She currently denies chest pain, palpitations, abdominal pain, nausea, vomiting, fevers, headaches, dysuria, hematuria, constipation, diarrhea. PMD: Dr. Yang Cardio: Dr. Villalobos PMHX: asthma, MVP w/ replacement, AICD, CHF, gout, arthritis, and DM2 SurgHx: MV replacement 2008, AICD, cholecystectomy over 30 years ago FamHx: mother/father- [place], stroke; Brother- stroke, kidney cancer SocHx: denies alcohol, tobacco, and drug use; lives with daughter in [facility]. Allergies: PCN-anaphylaxis Present on Admission - Present on Admission Any Indicators Present on Admission: No Review of Systems - Constitutional Constitutional: Fatigue, Weakness - EENT Eyes: absent: Change in Vision Nose/Mouth/Throat: absent: Sore Throat - Cardiovascular Cardiovascular: Chest Pain, Dyspnea. absent: Claudication, Pedal Edema - Respiratory Respiratory: Dyspnea. absent: Chest Congestion - Gastrointestinal Gastrointestinal: absent: Diarrhea, Nausea, Vomiting - Genitourinary Genitourinary: absent: Dysuria - Neurological Neurological: absent: Dizziness Past Patient History - Infectious Disease Hx of Infectious Diseases: None - Past Medical History & Family History Past Medical History?: Yes - Past Social History Smoking Status: Never Smoked - CARDIAC Hx Congestive Heart Failure: Yes Hx Hypertension: Yes Hx Mitral Valve Prolapse: Yes Hx Pacemaker: Yes (2008) - PULMONARY Hx Asthma: Yes Hx Bronchitis: Yes Hx Chronic Obstructive Pulmonary Disease (COPD): Yes - NEUROLOGICAL Hx Neurological Disorder: No - HEENT Hx HEENT Problems: No - RENAL Hx Chronic Kidney Disease: No - ENDOCRINE/METABOLIC Hx Diabetes Mellitus Type 2: Yes - HEMATOLOGICAL/ONCOLOGICAL Hx Blood Disorders: No - INTEGUMENTARY Hx Dermatological Problems: No - MUSCULOSKELETAL/RHEUMATOLOGICAL Hx Falls: Yes Hx Gout: Yes - GASTROINTESTINAL Hx Colitis: Yes - GENITOURINARY/GYNECOLOGICAL Hx Genitourinary Disorders: No - PSYCHIATRIC Hx Substance Use: No - SURGICAL HISTORY Hx Cholecystectomy: Yes - ANESTHESIA Hx Anesthesia: Yes Hx Anesthesia Reactions: No Meds Allergies/Adverse Reactions: Allergies Allergy/AdvReac Type Severity Reaction Status Date / Time Penicillins Allergy Severe ANAPHYLAXIS Verified 07/02/18 17:01 Physical Exam - Constitutional Appears: Non-toxic, No Acute Distress - Head Exam Head Exam: ATRAUMATIC, NORMAL INSPECTION, NORMOCEPHALIC - Eye Exam Eye Exam: EOMI, Normal appearance - ENT Exam ENT Exam: Mucous Membranes Moist, Normal Exam - Neck Exam Neck exam: Positive for: Normal Inspection. Negative for: Lymphadenopathy - Respiratory Exam Respiratory Exam: Clear to Auscultation Bilateral, NORMAL BREATHING PATTERN. absent: Rales, Rhonchi, Wheezes - Cardiovascular Exam Cardiovascular Exam: REGULAR RHYTHM, Systolic Murmur. absent: Tachycardia - GI/Abdominal Exam GI & Abdominal Exam: Normal Bowel Sounds, Soft. absent: Distended, Tenderness - Extremities Exam Extremities exam: Positive for: normal capillary refill, normal inspection, pedal pulses present. Negative for: calf tenderness, pedal edema - Neurological Exam Neurological exam: Alert, Oriented x3 - Psychiatric Exam Psychiatric exam: Normal Affect, Normal Mood - Skin Skin Exam: Dry, Intact, Normal Color, Warm Past Patient History - Infectious Disease Hx of Infectious Diseases: None - Past Medical History & Family History Past Medical History?: Yes - Past Social History Smoking Status: Never Smoked - CARDIAC Hx Congestive Heart Failure: Yes Hx Hypertension: Yes - PULMONARY Hx Chronic Obstructive Pulmonary Disease (COPD): Yes - NEUROLOGICAL Hx Neurological Disorder: No - HEENT Hx HEENT Problems: No - RENAL Hx Chronic Kidney Disease: No - ENDOCRINE/METABOLIC Hx Diabetes Mellitus Type 2: Yes - HEMATOLOGICAL/ONCOLOGICAL Hx Blood Disorders: No - INTEGUMENTARY Hx Dermatological Problems: No - MUSCULOSKELETAL/RHEUMATOLOGICAL Hx Falls: Yes Hx Gout: Yes - GASTROINTESTINAL Hx Colitis: Yes - GENITOURINARY/GYNECOLOGICAL Hx Genitourinary Disorders: No - PSYCHIATRIC Hx Substance Use: No - SURGICAL HISTORY Hx Cholecystectomy: Yes - ANESTHESIA Hx Anesthesia: Yes Hx Anesthesia Reactions: No Meds Allergies/Adverse Reactions: Allergies Allergy/AdvReac Type Severity Reaction Status Date / Time Penicillins Allergy Severe ANAPHYLAXIS Verified 07/02/18 17:01 - Medications Medications: Current Medications Albuterol/Ipratropium (Duoneb 3 Mg/0.5 Mg (3 Ml) Ud) 3 ml INH RQ6 [facility] Last Admin: 07/04/18 02:46 Dose: Not Given Aspirin (Ecotrin) 81 mg PO DAILY [facility] Last Admin: 07/03/18 09:40 Dose: 81 mg Diltiazem HCl (Cardizem) 30 mg PO BID [facility] Last Admin: 07/03/18 20:23 Dose: 30 mg Furosemide (Lasix) 40 mg IVP Q12 [facility] Last Admin: 07/03/18 22:34 Dose: 40 mg Heparin Sodium (Porcine) (Heparin) 5,000 units SC Q8 [facility] Last Admin: 07/04/18 06:10 Dose: 5,000 units Influenza Virus Vaccine (Fluzone Quad [id number]) 60 mcg IM .ONCE ONE Stop: 07/04/18 14:01 Insulin Aspart (Novolog) 0 unit SC [facility]; Protocol Last Admin: 07/03/18 23:07 Dose: Not Given Memantine (Namenda) 5 mg PO HS [facility] Last Admin: 07/03/18 22:34 Dose: 5 mg Methylprednisolone (Solu-Medrol) 40 mg IVP Q12 [facility] Last Admin: 07/03/18 22:31 Dose: 40 mg Pantoprazole Sodium (Protonix Inj) 40 mg IVP DAILY [facility] Last Admin: 07/03/18 09:40 Dose: 40 mg Temazepam (Restoril) 15 mg PO HS [facility] Last Admin: 07/03/18 22:30 Dose: 15 mg Results - Vital Signs Recent Vital Signs: Last Vital Signs Temp 97.9 F 07/04/18 04:05 Pulse 81 07/04/18 04:05 Resp 20 07/04/18 04:05 BP 128/88 07/04/18 04:05 Pulse Ox 96 07/04/18 04:05 - Labs Result Diagrams: 07/03/18 06:46 07/03/18 06:46 Labs: Laboratory Results - last 24 hr 07/03/18 07/03/18 07/03/18 06:24 11:09 17:05 POC Glucose (mg/dL) 75 172 H 205 H Assessment & Plan - Assessment and Plan (Free Text) Assessment: 78 yo F admitted w/ SOB, chest discomfort x3 days Negative for Pulmonary Embolism Acute on Chronic systolic CHF s/p AICD s/p MVR (Bio) Hx of COPD and Pulmonary HTN Continue IV Lasix as needed Cardizem for rate control
[2018-07-04 07:35] LABS: BASO % 0.2 % (0.0-2.0); LYMPH # 0.4 K/uL (1.0-4.3); LYMPH % 6.5 % (20.0-40.0); MEAN CELL VOLUME 81.7 fL (81.0-99.0); MEAN CORPUSCULAR HEMOGLOBIN 26.3 pg (27.0-31.0); MEAN CORPUSCULAR HGB CONC 32.2 g/dL (33.0-37.0); MEAN PLATELET VOLUME 10.9 fL (7.2-11.7); MONO # 0.1 K/uL (0.0-0.8); MONO % 1.5 % (0.0-10.0); NEUT # 5.5 K/uL (1.8-7.0); NEUT % 91.8 % (50.0-75.0); PLATELET COUNT 191 K/uL (130-400); RBC 4.57 Mil/uL (3.80-5.20); RED CELL DISTRIBUTION WIDTH 17.1 % (11.5-14.5)
--- NOTE | 2018-07-04 07:38 | CP.PCM.PN ---
Subjective - Date & Time of Evaluation Date of Evaluation: 07/04/18 Time of Evaluation: 05:00 - Subjective Subjective: Pt examined at bedside. No acute events overnight. Patient reports that she has been been coughing a bit. She is requesting her own home inhalers however does not recall the name, or a cough suppressant. As it was time for her neb t reatment, I suggested she have that and gave her a 1x dose of phengan DM. S/p treatment and medication, patient reports feeling much better. She denies chest pain, cough, SOB, nausea, diarrhea. Objective - Vital Signs/Intake and Output Vital Signs (last 24 hours): Temp Pulse Resp BP Pulse Ox 97.9 F 81 20 128/88 96 07/04/18 04:05 07/04/18 04:05 07/04/18 04:05 07/04/18 04:05 07/04/18 04:05 - Medications Medications: Current Medications Albuterol/Ipratropium (Duoneb 3 Mg/0.5 Mg (3 Ml) Ud) 3 ml INH RQ6 [facility] Last Admin: 07/04/18 07:33 Dose: 3 ml Aspirin (Ecotrin) 81 mg PO DAILY [facility] Last Admin: 07/03/18 09:40 Dose: 81 mg Diltiazem HCl (Cardizem) 30 mg PO BID [facility] Last Admin: 07/03/18 20:23 Dose: 30 mg Furosemide (Lasix) 40 mg IVP Q12 [facility] Last Admin: 07/03/18 22:34 Dose: 40 mg Heparin Sodium (Porcine) (Heparin) 5,000 units SC Q8 [facility] Last Admin: 07/04/18 06:10 Dose: 5,000 units Influenza Virus Vaccine (Fluzone Quad [id number]) 60 mcg IM .ONCE ONE Stop: 07/04/18 14:01 Insulin Aspart (Novolog) 0 unit SC ACHS [facility]; Protocol Last Admin: 07/03/18 23:07 Dose: Not Given Memantine (Namenda) 5 mg PO HS [facility] Last Admin: 07/03/18 22:34 Dose: 5 mg Methylprednisolone (Solu-Medrol) 40 mg IVP Q12 [facility] Last Admin: 07/03/18 22:31 Dose: 40 mg Pantoprazole Sodium (Protonix Inj) 40 mg IVP DAILY [facility] Last Admin: 07/03/18 09:40 Dose: 40 mg Temazepam (Restoril) 15 mg PO HS [facility] Last Admin: 07/03/18 22:30 Dose: 15 mg - Labs Labs: 07/03/18 06:46 07/03/18 06:46 - Constitutional Appears: Non-toxic, No Acute Distress - Head Exam Head Exam: ATRAUMATIC, NORMAL INSPECTION, NORMOCEPHALIC - Eye Exam Eye Exam: EOMI, Normal appearance - ENT Exam ENT Exam: Mucous Membranes Moist, Normal Exam - Neck Exam Neck Exam: Normal Inspection - Respiratory Exam Respiratory Exam: Wheezes, NORMAL BREATHING PATTERN. absent: Rales, Respiratory Distress - Cardiovascular Exam Cardiovascular Exam: REGULAR RHYTHM, +S1, +S2, Murmur. absent: Tachycardia - GI/Abdominal Exam GI & Abdominal Exam: Soft, Normal Bowel Sounds. absent: Distended, Tenderness - Extremities Exam Extremities Exam: Normal Inspection. absent: Calf Tenderness, Pedal Edema - Neurological Exam Neurological Exam: Alert, Awake, Oriented x3 - Psychiatric Exam Psychiatric exam: Normal Affect, Normal Mood - Skin Skin Exam: Dry, Intact, Normal Color, Warm Assessment and Plan - Assessment and Plan (Free Text) Assessment: 78 yo F admitted w/ CHF exacerbation CHF -pBNP 6790 -echo 03/22 LVEF 30-35% -lasix 40mg q12 -cardizem 30mg BID -ASA 81mg -cardio consult Dr. Villalobos-recommends cardizem for rate control and lasix for volume control COPD -2L NC -duonebs q6 -solu-medrol 40mg iv q12 -pulmonology consult Dr. Cortes DM2 -accuichevu achs -ISS high risk Ppx -protonix 40mg iv qd -heparin 5000 sc q8 -HH diet -OT/PT
[2018-07-04] MEDS ORDERED: Fluticasone-Salmeterol 250-50mcg Diskus INH SCH (08:00)
[2018-07-04] MEDS: (Novolog) Insulin Aspart, Recombinant 100 u/ml 10 ml vial SC SCH ×4 (08:17→21:04)
[2018-07-04 08:28] LABS: ALB/GLOB RATIO 1.3 (1.0-2.1); ALBUMIN 3.9 g/dL (3.5-5.0); CALCIUM 9.9 mg/dl (8.6-10.4)
[2018-07-04 10:16] LABS: BANDS 1 % (0-2); LYMPHOCYTE 8 % (20-40); MONOCYTE 1 % (0-10); NEUTROPHIL 90 % (50-75); PLATELET ESTIMATE NORMAL (NORMAL); TOTAL CELLS COUNTED 100
[2018-07-04 10:17] LABS: ANISOCYTOSIS SLIGHT; HYPOCHROMIC SLIGHT; OVALOCYTES SLIGHT; POIKILOCYTOSIS SLIGHT
[2018-07-04] MEDS ORDERED: POLYETHYLENE GLYCOL 3350 17 GM/Dose PACKET PO ONE (11:12)
[2018-07-04] MEDS: MethylPREDNISolone 40 mg Vial IVP SCH ×2 (11:38→21:02)
[2018-07-04] MEDS ORDERED: Influenza Vaccine 60 MCG/0.5 ML SYR (3 yr & up) IM ONE (14:00)
--- NOTE | 2018-07-04 21:40 | CP.PCM.PN ---
Subjective - Date & Time of Evaluation Date of Evaluation: 07/04/18 Time of Evaluation: 11:30 - Subjective Subjective: Patient seen and evaluated Denies chest pain and dyspnea some cough Review of Systems - Constitutional Constitutional: Fatigue, Weakness - EENT Eyes: absent: Change in Vision Nose/Mouth/Throat: absent: Sore Throat - Cardiovascular Cardiovascular: Chest Pain, Dyspnea. absent: Claudication, Pedal Edema - Respiratory Respiratory: Dyspnea. absent: Chest Congestion - Gastrointestinal Gastrointestinal: absent: Diarrhea, Nausea, Vomiting - Genitourinary Genitourinary: absent: Dysuria - Neurological Neurological: absent: Dizziness Physical Exam - Constitutional Appears: Non-toxic, No Acute Distress - Head Exam Head Exam: ATRAUMATIC, NORMAL INSPECTION, NORMOCEPHALIC - Eye Exam Eye Exam: EOMI, Normal appearance - ENT Exam ENT Exam: Mucous Membranes Moist, Normal Exam - Neck Exam Neck exam: Positive for: Normal Inspection. Negative for: Lymphadenopathy - Respiratory Exam Respiratory Exam: Clear to Auscultation Bilateral, NORMAL BREATHING PATTERN. absent: Rales, Rhonchi, Wheezes - Cardiovascular Exam Cardiovascular Exam: REGULAR RHYTHM, Systolic Murmur. absent: Tachycardia - GI/Abdominal Exam GI & Abdominal Exam: Normal Bowel Sounds, Soft. absent: Distended, Tenderness - Extremities Exam Extremities exam: Positive for: normal capillary refill, normal inspection, pedal pulses present. Negative for: calf tenderness, pedal edema - Neurological Exam Neurological exam: Alert, Oriented x3 - Psychiatric Exam Psychiatric exam: Normal Affect, Normal Mood - Skin Skin Exam: Dry, Intact, Normal Color, Warm Assessment & Plan - Assessment and Plan (Free Text) Assessment: 78 yo F admitted w/ SOB, chest discomfort x3 days Negative for Pulmonary Embolism Acute on Chronic systolic CHF s/p AICD s/p MVR (Bio) Hx of COPD and Pulmonary HTN Continue IV Lasix as needed Cardizem for rate control Objective - Vital Signs/Intake and Output Vital Signs (last 24 hours): Temp Pulse Resp BP Pulse Ox 98 F 101 H 20 140/70 95 07/04/18 15:30 07/04/18 16:38 07/04/18 15:30 07/04/18 21:02 07/04/18 15:30 Intake and Output: 07/04/18 07/05/18 18:59 06:59 Intake Total 510 Balance 510 - Medications Medications: Current Medications Albuterol/Ipratropium (Duoneb 3 Mg/0.5 Mg (3 Ml) Ud) 3 ml INH RQ6 TEN Last Admin: 07/04/18 19:29 Dose: 3 ml Aspirin (Ecotrin) 81 mg PO DAILY [facility] Last Admin: 07/04/18 09:58 Dose: 81 mg Diltiazem HCl (Cardizem) 30 mg PO BID [facility] Last Admin: 07/04/18 17:48 Dose: 30 mg Furosemide (Lasix) 40 mg IVP Q12 [facility]EN Last Admin: 07/04/18 21:02 Dose: 40 mg Heparin Sodium (Porcine) (Heparin) 5,000 units SC Q8 [facility]EN Last Admin: 07/04/18 21:02 Dose: 5,000 units Insulin Aspart (Novolog) 0 unit SC ACHS [facility]; Protocol Last Admin: 07/04/18 21:04 Dose: Not Given Memantine (Namenda) 5 mg PO HS [facility] Last Admin: 07/04/18 21:04 Dose: 5 mg Methylprednisolone (Solu-Medrol) 40 mg IVP Q12 [facility] Last Admin: 07/04/18 21:02 Dose: 40 mg Pantoprazole Sodium (Protonix Inj) 40 mg IVP DAILY [facility] Last Admin: 07/04/18 09:58 Dose: 40 mg Temazepam (Restoril) 15 mg PO HS [facility] Last Admin: 07/04/18 21:01 Dose: 15 mg - Labs Labs: 07/04/18 07:23 07/04/18 07:23
[2018-07-05] MEDS: Albuterol-Ipratrop 3 mg / 0.5 (3 ml) UD INH SCH ×4 (03:00→19:42)
[2018-07-05 06:44] LABS: BASO % 0.1 % (0.0-2.0); LYMPH # 0.5 K/uL (1.0-4.3); LYMPH % 5.1 % (20.0-40.0); MEAN CELL VOLUME 81.4 fL (81.0-99.0); MEAN CORPUSCULAR HEMOGLOBIN 26.3 pg (27.0-31.0); MEAN CORPUSCULAR HGB CONC 32.3 g/dL (33.0-37.0); MEAN PLATELET VOLUME 10.1 fL (7.2-11.7); MONO # 0.3 K/uL (0.0-0.8); MONO % 2.6 % (0.0-10.0); NEUT # 9.3 K/uL (1.8-7.0); NEUT % 92.2 % (50.0-75.0); PLATELET COUNT 205 K/uL (130-400); RBC 4.58 Mil/uL (3.80-5.20); RED CELL DISTRIBUTION WIDTH 17.7 % (11.5-14.5); WHITE BLOOD COUNT 10.1 K/uL (4.8-10.8)
[2018-07-05 07:36] LABS: ALB/GLOB RATIO 1.3 (1.0-2.1); ALBUMIN 3.8 g/dL (3.5-5.0); CALCIUM 9.9 mg/dl (8.6-10.4)
[2018-07-05] MEDS: (Novolog) Insulin Aspart, Recombinant 100 u/ml 10 ml vial SC SCH ×4 (07:37→23:01)
[2018-07-05] MEDS ORDERED: Albuterol-Ipratrop 3 mg / 0.5 (3 ml) UD INH PRN (08:19)
[2018-07-05] MEDS ORDERED: Promethazine DM 6.25 mg-15 mg/5 ml Syrup PO ONE (08:20)
[2018-07-05 08:30] LABS: BANDS 1 % (0-2); LYMPHOCYTE 8 % (20-40); MONOCYTE 3 % (0-10); NEUTROPHIL 88 % (50-75); PLATELET ESTIMATE NORMAL (NORMAL); TOTAL CELLS COUNTED 100
[2018-07-05 08:31] LABS: ANISOCYTOSIS SLIGHT; POIKILOCYTOSIS SLIGHT
[2018-07-05] MEDS ORDERED: POLYETHYLENE GLYCOL 3350 17 GM/Dose PACKET PO ONE (08:38)
--- NOTE | 2018-07-05 10:07 | CARD ---
APPROVED REPORT Date of service: 07/02/2018 EKG Measurement Heart [id number] ME 80P [id number] <Conclusion> Sinus rhythm with short ME with premature supraventricular complexes Right bundle branch block Left anterior fascicular block Bifascicular block Voltage criteria for left ventricular hypertrophy Cannot rule out Septal infarct, age undetermined T wave abnormality, consider lateral ischemia Abnormal ECG
[2018-07-05] MEDS: MethylPREDNISolone 40 mg Vial IVP SCH ×2 (10:30→22:02)
--- NOTE | 2018-07-05 15:45 | CP.PCM.CON ---
History of Present Illness - History of Present Illness History of Present Illness: Darren Calderon is a 78 year old female with a PMHx of asthma, MVP with replacement, AICD, CHF, gout, arthritis, and DM type II who presented to the ED with complaints of chest pain, difficulty and shortness of breath and cough for the past 5 days. Patient reports the cough is constant and nonproductive. She reports she has been using her nebulizers and oxygen with some relief. She currently denies chest pain. Admits to wheezing and cough. PMHx: Asthma, MVP with replacement, AICD, CHF, gout, arthritis, and DM type II Surg Hx: MV replacement 2008, AICD, cholecystectomy over 30 years ago FamHx: mother/father [place], stroke; Brother stroke and kidney cancer Social Hx: Denies alcohol, tobacco, and drug use; lives with daughter in [place] Allergies: Penicillin Anaphylaxis Review of Systems - Review of Systems All systems: reviewed and no additional remarkable complaints except (shortness of breath and cough) Past Patient History - Infectious Disease Hx of Infectious Diseases: None - Past Medical History & Family History Past Medical History?: Yes - Past Social History Smoking Status: Never Smoked - CARDIAC Hx Congestive Heart Failure: Yes Hx Hypertension: Yes - PULMONARY Hx Chronic Obstructive Pulmonary Disease (COPD): Yes - NEUROLOGICAL Hx Neurological Disorder: No - HEENT Hx HEENT Problems: No - RENAL Hx Chronic Kidney Disease: No - ENDOCRINE/METABOLIC Hx Diabetes Mellitus Type 2: Yes - HEMATOLOGICAL/ONCOLOGICAL Hx Blood Disorders: No - INTEGUMENTARY Hx Dermatological Problems: No - MUSCULOSKELETAL/RHEUMATOLOGICAL Hx Arthritis: Yes - GASTROINTESTINAL Hx Colitis: Yes - GENITOURINARY/GYNECOLOGICAL Hx Genitourinary Disorders: No - PSYCHIATRIC Hx Substance Use: No - SURGICAL HISTORY Hx Cholecystectomy: Yes - ANESTHESIA Hx Anesthesia: Yes Hx Anesthesia Reactions: No Meds Allergies/Adverse Reactions: Allergies Allergy/AdvReac Type Severity Reaction Status Date / Time Penicillins Allergy Severe ANAPHYLAXIS Verified 07/02/18 17:01 - Medications Medications: Current Medications Albuterol/Ipratropium (Duoneb 3 Mg/0.5 Mg (3 Ml) Ud) 3 ml INH RQ6 TEN Last Admin: 07/05/18 13:37 Dose: 3 ml Albuterol/Ipratropium (Duoneb 3 Mg/0.5 Mg (3 Ml) Ud) 3 ml INH RQ4 PRN PRN Reason: Shortness of Breath Aspirin (Ecotrin) 81 mg PO DAILY [facility] Last Admin: 07/05/18 10:29 Dose: 81 mg Diltiazem HCl (Cardizem) 30 mg PO BID [facility] Last Admin: 07/05/18 10:29 Dose: 30 mg Furosemide (Lasix) 40 mg PO DAILY [facility] Heparin Sodium (Porcine) (Heparin) 5,000 units SC Q8 [facility] Last Admin: 07/05/18 13:10 Dose: 5,000 units Insulin Aspart (Novolog) 0 unit SC ACHS [facility]; Protocol Last Admin: 07/05/18 11:43 Dose: Not Given Memantine (Namenda) 5 mg PO HS [facility] Last Admin: 07/04/18 21:04 Dose: 5 mg Methylprednisolone (Solu-Medrol) 40 mg IVP Q12 [facility] Last Admin: 07/05/18 10:30 Dose: 40 mg Pantoprazole Sodium (Protonix Inj) 40 mg IVP DAILY [facility] Last Admin: 07/05/18 10:30 Dose: 40 mg Temazepam (Restoril) 15 mg PO HS [facility] Last Admin: 07/04/18 21:01 Dose: 15 mg Physical Exam - Head Exam Head Exam: ATRAUMATIC, NORMOCEPHALIC - ENT Exam ENT Exam: Mucous Membranes Moist - Neck Exam Neck exam: Positive for: Normal Inspection - Respiratory Exam Respiratory Exam: Decreased Breath Sounds - Cardiovascular Exam Cardiovascular Exam: REGULAR RHYTHM - GI/Abdominal Exam GI & Abdominal Exam: Normal Bowel Sounds, Soft Results - Vital Signs Recent Vital Signs: Last Vital Signs Temp 98.4 F 07/05/18 10:01 Pulse 69 07/05/18 10:01 Resp 20 07/05/18 10:01 BP 131/65 07/05/18 10:30 Pulse Ox 98 07/05/18 10:01 - Labs Result Diagrams: 07/05/18 06:35 07/05/18 06:35 Labs: Laboratory Results - last 24 hr 07/04/18 07/04/18 07/05/18 16:31 20:55 06:32 WBC RBC Hgb Hct MCV MCH MCHC RDW Plt Count MPV Neut % (Auto) Lymph % (Auto) [place] % (Auto) Eos % (Auto) Baso % (Auto) Neut # (Auto) Lymph # (Auto) [place] # (Auto) Eos # (Auto) Baso # (Auto) Neutrophils % (Manual) Band Neutrophils % Lymphocytes % (Manual) Monocytes % (Manual) Platelet Estimate Poikilocytosis (manual Anisocytosis (manual) Sodium Potassium Chloride Carbon Dioxide Anion Gap BUN Creatinine Est GFR ( Amer) Est GFR (Non-Af Amer) POC Glucose (mg/dL) 148 H 283 H 144 H Random Glucose Calcium Phosphorus Magnesium Total Bilirubin AST ALT Alkaline Phosphatase Total Protein Albumin Globulin Albumin/Globulin Ratio 07/05/18 07/05/18 07/05/18 06:35 06:35 11:21 WBC 10.1 D RBC 4.58 Hgb 12.0 Hct 37.3 MCV 81.4 MCH 26.3 L MCHC 32.3 L RDW 17.7 H Plt Count 205 MPV 10.1 Neut % (Auto) 92.2 H Lymph % (Auto) 5.1 L [place] % (Auto) 2.6 Eos % (Auto) 0.0 Baso % (Auto) 0.1 Neut # (Auto) 9.3 H Lymph # (Auto) 0.5 L [place] # (Auto) 0.3 Eos # (Auto) 0.0 Baso # (Auto) 0.0 Neutrophils % (Manual) 88 H Band Neutrophils % 1 Lymphocytes % (Manual) 8 L Monocytes % (Manual) 3 Platelet Estimate Normal Poikilocytosis (manual Slight Anisocytosis (manual) Slight Sodium 140 Potassium 4.6 Chloride 99 Carbon Dioxide 28 Anion Gap 18 BUN 46 H Creatinine 1.6 H Est GFR ( Amer) 38 Est GFR (Non-Af Amer) 31 POC Glucose (mg/dL) 108 Random Glucose 149 H Calcium 9.9 Phosphorus 5.1 H Magnesium 1.6 Total Bilirubin 0.4 AST 28 ALT 48 Alkaline Phosphatase 152 H Total Protein 6.6 Albumin 3.8 Globulin 2.8 Albumin/Globulin Ratio 1.3 Assessment & Plan (1) Exacerbation of asthma Status: Acute Comment: agree with nebulizer treatment and steroids. ccardiology workup (2) CHF exacerbation Status: Acute
--- NOTE | 2018-07-05 19:32 | CP.PCM.PN ---
Subjective - Date & Time of Evaluation Date of Evaluation: 07/05/18 Time of Evaluation: 11:00 - Subjective Subjective: Saman Lieberman PGY-1, Medicine progress note for Dr. Yang Pt was seen and examined at bedside. No acute events overnight. Pt is resting comfortably. She reports that her SOb is al little better but still has a cough that is not productive. Pt states that she has pain in the left side of ribs when she cough. Pt would like a cough suppressant, like she takes at time. Pt denies fever, chills, chest pain, palpitations, abdominal pain, n/v/d, dizziness, lightheadedness. Objective - Vital Signs/Intake and Output Vital Signs (last 24 hours): Temp Pulse Resp BP Pulse Ox 97.9 F 82 20 131/67 98 07/05/18 16:00 07/05/18 16:34 07/05/18 16:00 07/05/18 16:00 07/05/18 16:00 - Medications Medications: Current Medications Albuterol/Ipratropium (Duoneb 3 Mg/0.5 Mg (3 Ml) Ud) 3 ml INH RQ6 TEN Last Admin: 07/05/18 13:37 Dose: 3 ml Albuterol/Ipratropium (Duoneb 3 Mg/0.5 Mg (3 Ml) Ud) 3 ml INH RQ4 PRN PRN Reason: Shortness of Breath Aspirin (Ecotrin) 81 mg PO DAILY [facility] Last Admin: 07/05/18 10:29 Dose: 81 mg Diltiazem HCl (Cardizem) 30 mg PO BID [facility] Last Admin: 07/05/18 18:19 Dose: 30 mg Furosemide (Lasix) 40 mg PO DAILY [facility] Heparin Sodium (Porcine) (Heparin) 5,000 units SC Q8 [facility] Last Admin: 07/05/18 13:10 Dose: 5,000 units Insulin Aspart (Novolog) 0 unit SC ACHS [facility]; Protocol Last Admin: 07/05/18 18:18 Dose: 2 u Memantine (Namenda) 5 mg PO HS [facility] Last Admin: 07/04/18 21:04 Dose: 5 mg Methylprednisolone (Solu-Medrol) 40 mg IVP Q12 [facility] Last Admin: 07/05/18 10:30 Dose: 40 mg Pantoprazole Sodium (Protonix Inj) 40 mg IVP DAILY [facility] Last Admin: 07/05/18 10:30 Dose: 40 mg Temazepam (Restoril) 15 mg PO HS [facility] Last Admin: 07/04/18 21:01 Dose: 15 mg - Labs Labs: 07/05/18 06:35 07/05/18 06:35 - Constitutional Appears: Non-toxic, No Acute Distress - Head Exam Head Exam: NORMAL INSPECTION, NORMOCEPHALIC - Eye Exam Eye Exam: EOMI, Normal appearance - ENT Exam ENT Exam: Mucous Membranes Moist - Neck Exam Neck Exam: Normal Inspection - Respiratory Exam Respiratory Exam: Chest Wall Tenderness (left sided rib pain on palpation), W heezes (scattered), NORMAL BREATHING PATTERN. absent: Rales, Rhonchi, Respiratory Distress - Cardiovascular Exam Cardiovascular Exam: REGULAR RHYTHM, +S1, +S2 - GI/Abdominal Exam GI & Abdominal Exam: Soft, Tenderness (mild diffuse abdominal pain), Normal Bowel Sounds - Extremities Exam Extremities Exam: Normal Inspection. absent: Calf Tenderness, Pedal Edema, Tenderness - Back Exam Back Exam: NORMAL INSPECTION - Neurological Exam Neurological Exam: Alert, Awake, Oriented x3 - Psychiatric Exam Psychiatric exam: Normal Affect, Normal Mood - Skin Skin Exam: Dry, Normal Color, Warm Assessment and Plan - Assessment and Plan (Free Text) Assessment: This is a 78 year old female with a PMHx of asthma, MVP with replacement, AICD, CHF, gout, arthritis, and DM type II who presented to the ED with complaints of chest pain, difficulty and shortness of breath and cough for the past 5 days. Patient reports the cough is constant and nonproductive. She reports she has been using her nebulizers and oxygen with some relief. She currently denies chest pain. Admits to wheezing and cough. Plan: CHF exacerbation -pBNP 6790 -echo 03/22 LVEF 30-35% -Lasix 40 mg PO daily - down from 40 mg IVP Q12 -cardizem 30mg BID -ASA 81mg -cardio consult marcie Roper appreciated -recommends cardizem for rate control and lasix for volume control COPD exacerbation -2L NC prn -duonebs q6h, duonebs q4 prn -solu-medrol 40mg iv q12 -pulmonology consult marcie Ojeda appreciated - phenergan x 1 given for cough LESLIE -BUN/Cr is 46/1.6, up from 29/1.2 yesterday (07/04) -likely due to lasix -lasix regimen was changes as per above Constipation - miralax 1 packet given once - will continue to monitor TAA - chest ct done on admission due to ddimer of 287 on adimission - negative for PE, marked cardiomegaly with multichamber dilatation - 4.5 cm ascending thoracic arotic dilatation DM2 -accuchecks achs -ISS SC high PPX/Diet -protonix 40mg iv qd -heparin 5000 sc q8 -HH diet -OT/PT Case discussed and reviewed with attending physician, Dr. Yang All medical management as per Dr. Trey Lieberman PGY-1
--- NOTE | 2018-07-06 00:07 | CP.PCM.PN ---
Subjective - Date & Time of Evaluation Date of Evaluation: 07/05/18 Time of Evaluation: 15:00 - Subjective Subjective: Patient seen and evaluated Feels better improved breathing Objective - Vital Signs/Intake and Output Vital Signs (last 24 hours): Temp Pulse Resp BP Pulse Ox 97.9 F 98 H 20 131/67 98 07/05/18 16:00 07/05/18 20:22 07/05/18 16:00 07/05/18 16:00 07/05/18 16:00 - Medications Medications: Current Medications Albuterol/Ipratropium (Duoneb 3 Mg/0.5 Mg (3 Ml) Ud) 3 ml INH RQ6 TEN Last Admin: 07/05/18 19:42 Dose: 3 ml Albuterol/Ipratropium (Duoneb 3 Mg/0.5 Mg (3 Ml) Ud) 3 ml INH RQ4 PRN PRN Reason: Shortness of Breath Aspirin (Ecotrin) 81 mg PO DAILY [facility] Last Admin: 07/05/18 10:29 Dose: 81 mg Diltiazem HCl (Cardizem) 30 mg PO BID [facility] Last Admin: 07/05/18 18:19 Dose: 30 mg Furosemide (Lasix) 40 mg PO DAILY [facility] Heparin Sodium (Porcine) (Heparin) 5,000 units SC Q8 [facility] Last Admin: 07/05/18 22:02 Dose: 5,000 units Insulin Aspart (Novolog) 0 unit SC ACHS [facility]; Protocol Last Admin: 07/05/18 23:01 Dose: Not Given Memantine (Namenda) 5 mg PO HS [facility] Last Admin: 07/05/18 22:02 Dose: 5 mg Methylprednisolone (Solu-Medrol) 40 mg IVP Q12 [facility] Last Admin: 07/05/18 22:02 Dose: 40 mg Pantoprazole Sodium (Protonix Inj) 40 mg IVP DAILY [facility] Last Admin: 07/05/18 10:30 Dose: 40 mg Temazepam (Restoril) 15 mg PO HS [facility] Last Admin: 07/05/18 22:02 Dose: 15 mg - Labs Labs: 07/05/18 06:35 07/05/18 06:35
[2018-07-06] MEDS: Albuterol-Ipratrop 3 mg / 0.5 (3 ml) UD INH SCH ×4 (02:22→19:52)
[2018-07-06 07:18] LABS: BASO % 0.2 % (0.0-2.0); HEMOGLOBIN 11.4 g/dL (11.0-16.0); LYMPH # 0.5 K/uL (1.0-4.3); MEAN CELL VOLUME 81.3 fL (81.0-99.0); MEAN CORPUSCULAR HEMOGLOBIN 26.6 pg (27.0-31.0); MEAN CORPUSCULAR HGB CONC 32.8 g/dL (33.0-37.0); MEAN PLATELET VOLUME 10.3 fL (7.2-11.7); MONO # 0.3 K/uL (0.0-0.8); MONO % 3.3 % (0.0-10.0); NEUT # 8.4 K/uL (1.8-7.0); NEUT % 91.5 % (50.0-75.0); PLATELET COUNT 182 K/uL (130-400); RBC 4.29 Mil/uL (3.80-5.20); RED CELL DISTRIBUTION WIDTH 17.6 % (11.5-14.5); WHITE BLOOD COUNT 9.2 K/uL (4.8-10.8)
[2018-07-06 08:12] LABS: ALB/GLOB RATIO 1.3 (1.0-2.1); ALBUMIN 3.4 g/dL (3.5-5.0); CALCIUM 9.4 mg/dl (8.6-10.4)
[2018-07-06 08:26] LABS: ANISOCYTOSIS SLIGHT; LYMPHOCYTE 5 % (20-40); MONOCYTE 3 % (0-10); NEUTROPHIL 92 % (50-75); PLATELET ESTIMATE NORMAL (NORMAL); TOTAL CELLS COUNTED 100
[2018-07-06 08:27] LABS: HYPOCHROMIC SLIGHT; OVALOCYTES SLIGHT; POIKILOCYTOSIS SLIGHT; TEARDROP CELLS SLIGHT
[2018-07-06] MEDS: (Novolog) Insulin Aspart, Recombinant 100 u/ml 10 ml vial SC SCH ×4 (08:41→21:21)
[2018-07-06] MEDS: MethylPREDNISolone 40 mg Vial IVP SCH ×2 (09:37→23:02)
--- NOTE | 2018-07-06 11:40 | CP.PCM.PN ---
Subjective - Date & Time of Evaluation Date of Evaluation: 07/06/18 Time of Evaluation: 11:40 - Subjective Subjective: Saman Lieberman PGY-1, Medicine progress note for Dr. Yang Pt was seen and examined at bedside. No acute events overnight. Pt is resting comfortably. She reports that her SOB is much improved, as well as her cough. Pt denies fever, chills, chest pain, sob, palpitations, abdominal pain, n/v/d, dizziness, lightheadedness. Objective - Vital Signs/Intake and Output Vital Signs (last 24 hours): Temp Pulse Resp BP Pulse Ox 98.3 F 78 18 124/61 96 07/06/18 07:00 07/06/18 07:00 07/06/18 07:00 07/06/18 09:37 07/06/18 07:00 - Medications Medications: Current Medications Albuterol/Ipratropium (Duoneb 3 Mg/0.5 Mg (3 Ml) Ud) 3 ml INH RQ6 [facility] Last Admin: 07/06/18 08:52 Dose: 3 ml Albuterol/Ipratropium (Duoneb 3 Mg/0.5 Mg (3 Ml) Ud) 3 ml INH RQ4 PRN PRN Reason: Shortness of Breath Aspirin (Ecotrin) 81 mg PO DAILY [facility] Last Admin: 07/06/18 09:37 Dose: 81 mg Diltiazem HCl (Cardizem) 30 mg PO BID [facility] Last Admin: 07/06/18 09:37 Dose: 30 mg Furosemide (Lasix) 40 mg PO DAILY [facility] Last Admin: 07/06/18 09:37 Dose: 40 mg Heparin Sodium (Porcine) (Heparin) 5,000 units SC Q8 [facility] Last Admin: 07/06/18 05:29 Dose: 5,000 units Insulin Aspart (Novolog) 0 unit SC ACHS [facility]; Protocol Last Admin: 07/06/18 08:41 Dose: 4 u Memantine (Namenda) 5 mg PO HS [facility] Last Admin: 07/05/18 22:02 Dose: 5 mg Methylprednisolone (Solu-Medrol) 40 mg IVP Q12 [facility] Last Admin: 07/06/18 09:37 Dose: 40 mg Pantoprazole Sodium (Protonix Inj) 40 mg IVP DAILY [facility] Last Admin: 07/06/18 09:37 Dose: 40 mg Temazepam (Restoril) 15 mg PO HS [facility] Last Admin: 07/05/18 22:02 Dose: 15 mg - Labs Labs: 07/06/18 07:11 07/06/18 07:11 - Constitutional Appears: Non-toxic, No Acute Distress - Head Exam Head Exam: NORMAL INSPECTION, NORMOCEPHALIC - Eye Exam Eye Exam: EOMI, Normal appearance - ENT Exam ENT Exam: Mucous Membranes Moist - Neck Exam Neck Exam: Normal Inspection - Respiratory Exam Respiratory Exam: Clear to Ausculation Bilateral, NORMAL BREATHING PATTERN. absent: Rales, Rhonchi, Wheezes, Respiratory Distress - Cardiovascular Exam Cardiovascular Exam: REGULAR RHYTHM, +S1, +S2 - GI/Abdominal Exam GI & Abdominal Exam: Soft, Normal Bowel Sounds. absent: Firm, Guarding, Rigid, Tenderness - Extremities Exam Extremities Exam: Normal Inspection. absent: Calf Tenderness, Pedal Edema, Tenderness - Back Exam Back Exam: NORMAL INSPECTION - Neurological Exam Neurological Exam: Awake, Oriented x3 - Psychiatric Exam Psychiatric exam: Normal Affect, Normal Mood - Skin Skin Exam: Dry, Normal Color, Warm Assessment and Plan - Assessment and Plan (Free Text) Assessment: This is a 78 year old female with a PMHx of asthma, MVP with replacement, AICD, CHF, gout, arthritis, and DM type II who presented to the ED with complaints of chest pain, difficulty and shortness of breath and cough for the past 5 days. Patient reports the cough is constant and nonproductive. She reports she has been using her nebulizers and oxygen with some relief. She currently denies chest pain. Admits to wheezing and cough. Plan: CHF exacerbation -pBNP 6790 -echo 03/22 LVEF 30-35% -Lasix 40 mg PO daily (07/05) - down from 40 mg IVP Q12 -cardizem 30mg BID -ASA 81mg -cardio consult marcie Roper appreciated -recommends cardizem for rate control and lasix for volume control COPD exacerbation - 2L NC prn - duonebs q6h, duonebs q4 prn - solu-medrol 40mg iv q12 - pulmonology consult marcie Ojeda appreciated - phenergan x 1 given for cough - improvement of cough LESLIE - BUN/Cr is downtrending - continue to monitor Constipation - continue miralax 17 gm PO daily - will continue to monitor TAA (incidental finding) - chest CTA done on admission due to ddimer of 287 - negative for PE, marked cardiomegaly with multichamber dilatation - 4.5 cm ascending thoracic aortic dilatation - Coreg 3.125 mg PO BID started (07/06) - Crestor 5 mg PO QHS started (07/06) - cardiology is aware, will follow up outpatient DM2 - accuchecks achs - ISS SC high - will start crestor as above PPX/Diet - protonix 40mg iv qd - heparin 5000 sc q8 - HH diet - OT/PT Case discussed and reviewed with attending physician, Dr. Yang All medical management as per Dr. Trey Lieberman PGY-1
[2018-07-06 16:40] VITALS: RESP 20
[2018-07-06] MEDS: POLYETHYLENE GLYCOL 3350 17 GM/Dose PACKET PO SCH (17:52)
--- NOTE | 2018-07-06 23:18 | CP.PCM.PN ---
Subjective - Date & Time of Evaluation Date of Evaluation: 07/06/18 Time of Evaluation: 14:15 - Subjective Subjective: Patient seen and evaluated denies chest pain and dyspnea Review of Systems - Constitutional Constitutional: Fatigue, Weakness - EENT Eyes: absent: Change in Vision Nose/Mouth/Throat: absent: Sore Throat - Cardiovascular Cardiovascular: Chest Pain, Dyspnea. absent: Claudication, Pedal Edema - Respiratory Respiratory: Dyspnea. absent: Chest Congestion - Gastrointestinal Gastrointestinal: absent: Diarrhea, Nausea, Vomiting - Genitourinary Genitourinary: absent: Dysuria - Neurological Neurological: absent: Dizziness Physical Exam - Constitutional Appears: Non-toxic, No Acute Distress - Head Exam Head Exam: ATRAUMATIC, NORMAL INSPECTION, NORMOCEPHALIC - Eye Exam Eye Exam: EOMI, Normal appearance - ENT Exam ENT Exam: Mucous Membranes Moist, Normal Exam - Neck Exam Neck exam: Positive for: Normal Inspection. Negative for: Lymphadenopathy - Respiratory Exam Respiratory Exam: Clear to Auscultation Bilateral, NORMAL BREATHING PATTERN. absent: Rales, Rhonchi, Wheezes - Cardiovascular Exam Cardiovascular Exam: REGULAR RHYTHM, Systolic Murmur. absent: Tachycardia - GI/Abdominal Exam GI & Abdominal Exam: Normal Bowel Sounds, Soft. absent: Distended, Tenderness - Extremities Exam Extremities exam: Positive for: normal capillary refill, normal inspection, pedal pulses present. Negative for: calf tenderness, pedal edema - Neurological Exam Neurological exam: Alert, Oriented x3 - Psychiatric Exam Psychiatric exam: Normal Affect, Normal Mood - Skin Skin Exam: Dry, Intact, Normal Color, Warm Assessment & Plan - Assessment and Plan (Free Text) Assessment: 78 yo F admitted w/ SOB, chest discomfort x3 days Negative for Pulmonary Embolism Acute on Chronic systolic CHF s/p AICD s/p MVR (Bio) Hx of COPD and Pulmonary HTN Continue IV Lasix as needed Cardizem for rate control Objective - Vital Signs/Intake and Output Vital Signs (last 24 hours): Temp Pulse Resp BP Pulse Ox 98.2 F 92 H 20 144/76 96 07/06/18 15:00 07/06/18 15:45 07/06/18 15:00 07/06/18 15:00 07/06/18 15:00 - Medications Medications: Current Medications Albuterol/Ipratropium (Duoneb 3 Mg/0.5 Mg (3 Ml) Ud) 3 ml INH RQ6 TEN Last Admin: 07/06/18 19:52 Dose: 3 ml Albuterol/Ipratropium (Duoneb 3 Mg/0.5 Mg (3 Ml) Ud) 3 ml INH RQ4 PRN PRN Reason: Shortness of Breath Aspirin (Ecotrin) 81 mg PO DAILY [facility] Last Admin: 07/06/18 09:37 Dose: 81 mg Carvedilol (Coreg) 3.125 mg PO BID [facility] Last Admin: 07/06/18 17:52 Dose: 3.125 mg Diltiazem HCl (Cardizem) 30 mg PO BID [facility] Last Admin: 07/06/18 17:52 Dose: 30 mg Furosemide (Lasix) 40 mg PO DAILY [facility] Last Admin: 07/06/18 09:37 Dose: 40 mg Heparin Sodium (Porcine) (Heparin) 5,000 units SC Q8 [facility] Last Admin: 07/06/18 21:50 Dose: 5,000 units Insulin Aspart (Novolog) 0 unit SC ACHS [facility]; Protocol Last Admin: 07/06/18 21:21 Dose: Not Given Memantine (Namenda) 5 mg PO HS [facility] Last Admin: 07/06/18 21:50 Dose: 5 mg Methylprednisolone (Solu-Medrol) 40 mg IVP Q12 [facility] Last Admin: 07/06/18 23:02 Dose: 40 mg Pantoprazole Sodium (Protonix Inj) 40 mg IVP DAILY [facility] Last Admin: 07/06/18 09:37 Dose: 40 mg Polyethylene Glycol (Miralax) 17 gm PO DAILY [facility] Last Admin: 07/06/18 17:52 Dose: 17 gm Rosuvastatin Calcium (Crestor) 5 mg PO HS [facility] Last Admin: 07/06/18 21:50 Dose: 5 mg Temazepam (Restoril) 15 mg PO HS [facility] Last Admin: 07/06/18 21:50 Dose: 15 mg - Labs Labs: 07/06/18 07:11 07/06/18 07:11
[2018-07-07] MEDS: Albuterol-Ipratrop 3 mg / 0.5 (3 ml) UD INH SCH ×3 (05:31→13:51)
[2018-07-07 06:50] LABS: HEMOGLOBIN 11.2 g/dL (11.0-16.0)
[2018-07-07 07:00] LABS: BASO % 0.2 % (0.0-2.0); LYMPH # 0.3 K/uL (1.0-4.3); LYMPH % 3.5 % (20.0-40.0); MEAN CORPUSCULAR HEMOGLOBIN 26.6 pg (27.0-31.0); MEAN CORPUSCULAR HGB CONC 32.9 g/dL (33.0-37.0); MONO # 0.3 K/uL (0.0-0.8); MONO % 3.5 % (0.0-10.0); NEUT # 8.8 K/uL (1.8-7.0); NEUT % 92.8 % (50.0-75.0); PLATELET COUNT 171 K/uL (130-400); RED CELL DISTRIBUTION WIDTH 17.1 % (11.5-14.5); WHITE BLOOD COUNT 9.5 K/uL (4.8-10.8)
[2018-07-07] MEDS: (Novolog) Insulin Aspart, Recombinant 100 u/ml 10 ml vial SC SCH ×3 (07:40→17:46)
[2018-07-07 08:00] VITALS: TEMP 97.9
[2018-07-07 08:21] LABS: ALB/GLOB RATIO 1.2 (1.0-2.1); ALBUMIN 3.2 g/dL (3.5-5.0); CALCIUM 9.4 mg/dl (8.6-10.4)
[2018-07-07 08:27] LABS: LYMPHOCYTE 4 % (20-40); MONOCYTE 4 % (0-10); NEUTROPHIL 92 % (50-75); PLATELET ESTIMATE NORMAL (NORMAL); TOTAL CELLS COUNTED 100
[2018-07-07 08:28] LABS: ANISOCYTOSIS SLIGHT; HYPOCHROMIC SLIGHT; MICROCYTOSIS SLIGHT; OVALOCYTES SLIGHT; POIKILOCYTOSIS SLIGHT
[2018-07-07] MEDS: POLYETHYLENE GLYCOL 3350 17 GM/Dose PACKET PO SCH (10:03)
[2018-07-07] MEDS: MethylPREDNISolone 40 mg Vial IVP SCH (10:04)
--- NOTE | 2018-07-07 13:34 | CP.PCM.DIS ---
Provider - Provider Date of Admission: 07/02/18 20:22 Attending physician: Tobi Yang Jr, MD Time Spent in preparation of Discharge (in minutes): 35 Diagnosis - Discharge Diagnosis (1) CHF exacerbation Status: Acute (2) COPD exacerbation Status: Acute (3) Thoracic ascending aortic aneurysm Status: Acute (4) Acute kidney injury Status: Resolved (5) Constipation Status: Chronic (6) Diabetes mellitus Status: Chronic Hospital Course - Lab Results Lab Results: Most Recent Lab Values WBC 9.5 K/uL (4.8-10.8) 07/07/18 06:40 RBC 4.20 Mil/uL (3.80-5.20) 07/07/18 06:40 Hgb 11.2 g/dL (11.0-16.0) 07/07/18 06:40 Hct 34.0 % (34.0-47.0) 07/07/18 06:40 MCV 81.0 fL (81.0-99.0) 07/07/18 06:40 MCH 26.6 pg (27.0-31.0) L 07/07/18 06:40 MCHC 32.9 g/dL (33.0-37.0) L 07/07/18 06:40 RDW 17.1 % (11.5-14.5) H 07/07/18 06:40 Plt Count 171 K/uL (130-400) 07/07/18 06:40 MPV 11.0 fL (7.2-11.7) 07/07/18 06:40 Neut % (Auto) 92.8 % (50.0-75.0) H 07/07/18 06:40 Lymph % (Auto) 3.5 % (20.0-40.0) L 07/07/18 06:40 [place] % (Auto) 3.5 % (0.0-10.0) 07/07/18 06:40 Eos % (Auto) 0.0 % (0.0-4.0) 07/07/18 06:40 Baso % (Auto) 0.2 % (0.0-2.0) 07/07/18 06:40 Neut # (Auto) 8.8 K/uL (1.8-7.0) H 07/07/18 06:40 Lymph # (Auto) 0.3 K/uL (1.0-4.3) L 07/07/18 06:40 [place]bon # (Auto) 0.3 K/uL (0.0-0.8) 07/07/18 06:40 Eos # (Auto) 0.0 K/uL (0.0-0.7) 07/07/18 06:40 Baso # (Auto) 0.0 K/uL (0.0-0.2) 07/07/18 06:40 Neutrophils % (Manual) 92 % (50-75) H 07/07/18 06:40 Band Neutrophils % 1 % (0-2) 07/05/18 06:35 Lymphocytes % (Manual) 4 % (20-40) L 07/07/18 06:40 Monocytes % (Manual) 4 % (0-10) 07/07/18 06:40 Platelet Estimate Normal (NORMAL) 07/07/18 06:40 Hypochromasia (manual) Slight 07/07/18 06:40 Poikilocytosis (manual Slight 07/07/18 06:40 Anisocytosis (manual) Slight 07/07/18 06:40 Microcytosis (manual) Slight 07/07/18 06:40 Tear Drop Cells Slight 07/06/18 07:11 Ovalocytes Slight 07/07/18 06:40 D-Dimer, Quantitative 287 ng/mlDDU (0-243) H 07/02/18 17:52 Sodium 139 mmol/L (132-148) 07/07/18 06:40 Potassium 4.2 mmol/L (3.6-5.2) 07/07/18 06:40 Chloride 101 mmol/L (98-107) 07/07/18 06:40 Carbon Dioxide 27 mmol/L (22-30) 07/07/18 06:40 Anion Gap 15 (10-20) 07/07/18 06:40 BUN 58 mg/dL (7-17) H 07/07/18 06:40 Creatinine 1.2 mg/dL (0.7-1.2) 07/07/18 06:40 Est GFR ( Amer) 52 07/07/18 06:40 Est GFR (Non-Af Amer) 43 07/07/18 06:40 POC Glucose (mg/dL) 134 mg/dL (65-110) H 07/07/18 11:47 Random Glucose 241 mg/dL (65-105) H 07/07/18 06:40 Calcium 9.4 mg/dl (8.6-10.4) 07/07/18 06:40 Phosphorus 3.7 mg/dL (2.5-4.5) 07/07/18 06:40 Magnesium 1.8 mg/dL (1.6-2.3) 07/07/18 06:40 Total Bilirubin 0.3 mg/dL (0.2-1.3) 07/07/18 06:40 AST 16 U/L (14-36) 07/07/18 06:40 ALT 41 U/L (9-52) 07/07/18 06:40 Alkaline Phosphatase 169 U/L (38-126) H 07/07/18 06:40 Total Creatine Kinase 147 U/L (30-135) H 07/02/18 17:47 CK-MB (Mass) 2.36 ng/mL (0.0-3.38) 07/02/18 17:47 Troponin I 0.0520 ng/mL (0.00-0.120) 07/03/18 01:38 NT-Pro-B Natriuret Pep 6790 pg/mL (0-900) H 07/02/18 17:42 Total Protein 5.7 g/dL (6.3-8.3) L 07/07/18 06:40 Albumin 3.2 g/dL (3.5-5.0) L 07/07/18 06:40 Globulin 2.6 gm/dL (2.2-3.9) 07/07/18 06:40 Albumin/Globulin Ratio 1.2 (1.0-2.1) 07/07/18 06:40 Influenza Typ A,B (EIA) Negative for flu a/b (NEGATIVE) 07/02/18 17:52 - Hospital Course Hospital Course: On admission: Patient is a 78 year old female with PMHx asthma, MVP w/ replacement, AICD, CHF, gout, arthritis, and DM2, who presents to ED w/ complaints of chest pressure, discomfort and shortness of breath for the past 3 days. Patient reports chest pain is worse with exertion and non-positional. She said these symptoms were inconsistent with other episodes she's had in the past, and did not use her nebulizers, but has been using oxygen with some relief. She currently denies chest pain, palpitations, abdominal pain, nausea, vomiting, fevers, headaches, dysuria, hematuria, constipation, diarrhea. Hospital course: Pt admitted for CHF exacerbation. Started on Lasix 40 mg IV Q12, and continuation of home medications for hx of COPD, DM2. Pt was started on Solu- medrol 40 mg 12 IVP Q12. Cardiology, Dr. Villalobos, was consulted for CHF. Pulmonology, Dr. Cortes, was consulted for COPD. DDimer was elevated in the ED, and since pt presented with CP and SOB, Chest CTA was ordered. Chest CTA was negative for PE but showed marked cardiomegaly with multichamber dilation, and a 4.5 cm ascending thoracic aortic aneursym. Cardiology was made aware of the aneurysm, pt was started on carvedilol 3.125 mg PO BID and Crestor 5 mg PO QHS. Pt had a cough during her stay, which caused her enough discomfort to have rib pain secondary to the coughing. Phenergan was given with relief of cough. Pt was started on miralax for constipation during her admission. Pt's shortness of breath steadily improved. Pt has been afebrile during the course of admission. On 07/07, pt's breathing was much improved with resolution of wheezing and rales. Pt was seen and examined at bedside. Pt has no complaints at this time. She denies fever, chills, headache, chest pain, SOB, abdominal pain, N/V/D, paresthesias. Pt is medically stable and safe for discharge home. This is a summary of the hospital course, please see chart for full details. Discharge Exam - Head Exam Head Exam: NORMAL INSPECTION, NORMOCEPHALIC - Eye Exam Eye Exam: EOMI, Normal appearance - ENT Exam ENT Exam: Mucous Membranes Moist - Neck Exam Neck exam: Normal Inspection - Respiratory Exam Respiratory Exam: NORMAL BREATHING PATTERN. absent: Rales, Rhonchi, Wheezes, Respiratory Distress - Cardiovascular Exam Cardiovascular Exam: REGULAR RHYTHM - GI/Abdominal Exam GI & Abdominal Exam: Normal Bowel Sounds, Soft. absent: Tenderness - Extremities Exam Extremities exam: normal inspection Additional comments: no pedal edema - Back Exam Back exam: NORMAL INSPECTION - Neurological Exam Neurological exam: Alert, Oriented x3 - Psychiatric Exam Psychiatric exam: Normal Affect, Normal Mood - Skin Skin Exam: Dry, Intact, Normal Color Discharge Plan - Discharge Medications Prescriptions: Carvedilol [Coreg] 3.125 mg PO BID 30 Days #60 tab Rosuvastatin Calcium [Crestor] 5 mg PO HS 30 Days #30 tab - Follow Up Plan Condition: FAIR Disposition: HOME/ ROUTINE Instructions: Heart Healthy Diet, Heart Failure, Adult (DC), Carvedilol, Rosuvastatin Additional Instructions: Patient is medically stable and safe for discharge home. Pt should start continue her home medications as prescribed by her primary care physician. In addition to patient's home medications, she should start: Carvedilol 3.125 mg by mouth twice daily, Crestor 5 mg by mouth once at night time. Patient should follow up with her PMD, Dr. Yang, in 1 week, her motorcycle technician, Dr. Villalobos, in 2 weeks and pulmonology, Dr. Cortes, in 2 weeks. If symptoms worsen, please return to the nearest Emergency Department for evaluation. Instructions explained to the patient, who understands and agrees with discharge plan. El paciente es mdicamente estable y seguro para el [facility] hospital[facility]. Pt debe comenzar a continuar con sudhir medicamentos en el [facility] lo prescrito por huff mdico de atencin primaria. Adems de los medicamentos caseros de la paciente, debe comenzar: Carvedilol 3.125 mg por va oral dos veces al da, Crestor 5 mg por va oral leigh vez por la noche. La paciente debe realizar un seguimiento con huff PMD, el Dr. Yang, en 1 semana, huff cardilogo, el Dr. Villalobos, en 2 semanas y la pulmonologa, el Dr. Cortes, en 2 semanas. Si los sntomas empeoran, regrese al [facility] ms cercano para huff evaluacin. Instrucciones explicadas al paciente, que entiende y est de acuerdo con el plan de [place]. Referrals: Tobi Yang Jr., MD [Medical Doctor] - Suman iVllalobos MD [Staff Provider] - Vamshi Cortes MD [Staff Provider] -
--- NOTE | 2018-07-07 15:52 | CP.PCM.PN ---
Subjective - Date & Time of Evaluation Date of Evaluation: 07/07/18 Time of Evaluation: 12:25 - Subjective Subjective: patient seen and examined Breathing much improved Afebrile No chest pain Stable from pulmonary standpoint Follow-up in the office Objective - Vital Signs/Intake and Output Vital Signs (last 24 hours): Temp Pulse Resp BP Pulse Ox 97.9 F 70 20 154/65 H 97 07/07/18 07:00 07/07/18 07:10 07/07/18 07:00 07/07/18 10:04 07/07/18 07:00 - Medications Medications: Current Medications Albuterol/Ipratropium (Duoneb 3 Mg/0.5 Mg (3 Ml) Ud) 3 ml INH RQ6 [facility] Last Admin: 07/07/18 13:51 Dose: 3 ml Albuterol/Ipratropium (Duoneb 3 Mg/0.5 Mg (3 Ml) Ud) 3 ml INH RQ4 PRN PRN Reason: Shortness of Breath Aspirin (Ecotrin) 81 mg PO DAILY [facility] Last Admin: 07/07/18 10:04 Dose: 81 mg Carvedilol (Coreg) 3.125 mg PO BID [facility] Last Admin: 07/07/18 10:04 Dose: 3.125 mg Diltiazem HCl (Cardizem) 30 mg PO BID [facility] Last Admin: 07/07/18 10:12 Dose: 30 mg Furosemide (Lasix) 40 mg PO DAILY [facility] Last Admin: 07/07/18 10:04 Dose: 40 mg Heparin Sodium (Porcine) (Heparin) 5,000 units SC Q8 [facility] Last Admin: 07/07/18 15:16 Dose: 5,000 units Insulin Aspart (Novolog) 0 unit SC ACHS [facility]; Protocol Last Admin: 07/07/18 14:54 Dose: Not Given Memantine (Namenda) 5 mg PO HS [facility] Last Admin: 07/06/18 21:50 Dose: 5 mg Methylprednisolone (Solu-Medrol) 40 mg IVP Q12 [facility] Last Admin: 07/07/18 10:04 Dose: 40 mg Pantoprazole Sodium (Protonix Inj) 40 mg IVP DAILY [facility] Last Admin: 07/07/18 10:04 Dose: 40 mg Polyethylene Glycol (Miralax) 17 gm PO DAILY [facility] Last Admin: 07/07/18 10:03 Dose: 17 gm Rosuvastatin Calcium (Crestor) 5 mg PO HS [facility] Last Admin: 07/06/18 21:50 Dose: 5 mg Temazepam (Restoril) 15 mg PO [facility] Last Admin: 07/06/18 21:50 Dose: 15 mg - Labs Labs: 07/07/18 06:40 07/07/18 06:40 Assessment and Plan (1) Exacerbation of asthma Status: Acute (2) CHF exacerbation Status: Acute
[2018-07-07 16:32] VITALS: PULSE 78
[2018-07-07 17:36] VITALS: BP 125/61; O2SAT 96
[2018-07-08] MEDS ORDERED: Pantoprazole 40 mg EC Tab PO SCH (10:00)
--- NOTE | 2018-07-09 16:15 | IP.NPCORE ---
Heart Failure Core Measure - Heart Failure Ejection Fraction: Less Than 40 % HEMALATHA Inhibitor Prescribed: No Contraindication/Reason for not providing: AICD Beta-Durga Prescribed: Carvedilol Angiotensin II Receptor Durga Prescribed: No Contraindication/Reason for not providing: AICD AnticoagulationTherapy for Atrial Fibrillation/Atrialflutter: No Contraindication/Reason for not providing: NO AFIB Aldosterone Antagonist Prescribed: No Contraindication/Reason for not providing: AICD Hydralazine Nitrate Prescribed: No Contraindication/Reason for not providing: AICD Implantable Cardioverter Defibrillator Therapy: Yes Contraindication/Reason for not providing: AICD Cardiac Resynchronization Therapy Prescribed: No Contraindication/Reason for not providing: AICD - Follow up Will be discharged to: Home Follow Up Date (must be within 7 days from discharge): 07/13/18 Follow Up Time: 09:00
== END 2018-07-07 19:07 | disposition home or self-care (01) | DRG 190 ==
LOC: C.ER 16:53 → C.9E 20:22 → C.6T 21:18
PROVIDERS: ADMIT Internal Medicine; ATTEND Internal Medicine
DX: J44.1 Chronic obstructive pulmonary disease with (acute) exacerbation (principal); I50.23 Acute on chronic systolic (congestive) heart failure; J45.901 Unspecified asthma with (acute) exacerbation; N17.9 Acute kidney failure, unspecified; I11.0 Hypertensive heart disease with heart failure; E11.9 Type 2 diabetes mellitus without complications; I27.20 Pulmonary hypertension, unspecified; I34.1 Nonrheumatic mitral (valve) prolapse; Z95.0 Presence of cardiac pacemaker; Z95.2 Presence of prosthetic heart valve; Z95.810 Presence of automatic (implantable) cardiac defibrillator; M10.9 Gout, unspecified; Z88.0 Allergy status to penicillin; I71.2 Thoracic aortic aneurysm, without rupture; K59.00 Constipation, unspecified

== ENCOUNTER 2018-07-28 15:13 | Inpatient (IN) | payer MEDICARE, OTHER ==
[2018-07-28 15:13] VITALS: BMI 24.0
[2018-07-28 16:03] LABS: BASO # 0.1 K/uL (0.0-0.2); EOS # 0.2 K/uL (0.0-0.7); EOS % 2.3 % (0.0-4.0); LYMPH # 1.2 K/uL (1.0-4.3); LYMPH % 17.8 % (20.0-40.0); MEAN CELL VOLUME 82.1 fL (81.0-99.0); MEAN CORPUSCULAR HEMOGLOBIN 26.4 pg (27.0-31.0); MEAN CORPUSCULAR HGB CONC 32.1 g/dL (33.0-37.0); MEAN PLATELET VOLUME 9.6 fL (7.2-11.7); MONO # 0.6 K/uL (0.0-0.8); MONO % 9.4 % (0.0-10.0); NEUT # 4.7 K/uL (1.8-7.0); NEUT % 69.5 % (50.0-75.0); RBC 4.19 Mil/uL (3.80-5.20); RED CELL DISTRIBUTION WIDTH 17.7 % (11.5-14.5); WHITE BLOOD COUNT 6.8 K/uL (4.8-10.8)
[2018-07-28 16:16] LABS: ALB/GLOB RATIO 1.3 (1.0-2.1); ALBUMIN 3.8 g/dL (3.5-5.0); ALT/SGPT 38 U/L (9-52); AST/SGOT 26 U/L (14-36); BLOOD UREA NITROGEN 15 mg/dL (7-17); CALCIUM 9.8 mg/dl (8.6-10.4); GFR NON-AFRICAN AMERICAN > 60
--- NOTE | 2018-07-28 16:16 | RAD ---
Date of service: 07/28/2018 PROCEDURE: CHEST RADIOGRAPH, 1 VIEW HISTORY: SOB COMPARISON: Portable chest 07/02/2018. FINDINGS: LUNGS: No interval pulmonary disease appreciated bilaterally. PLEURA: No definite right pleural effusion. No pneumothorax bilaterally. Trace of pleural effusion difficult to exclude. CARDIOVASCULAR: Cardiomegaly stable. No definite pulmonary vascular congestion. AICD/permanent cardiac pacemaker reiterated as well as sternotomy wires. OSSEOUS STRUCTURES: No significant abnormalities. VISUALIZED UPPER ABDOMEN: Normal. OTHER FINDINGS: None. IMPRESSION: Stable cardiomegaly. No definite pulmonary vascular congestion. No airspace disease bilaterally. Trace of pleural effusion in question. AICD pacemaker reiterated.
[2018-07-28 16:28] LABS: B-TYPE NATRIURETIC PEPTIDE 14400 pg/mL (0-900)
--- NOTE | 2018-07-28 16:36 | C.PDOC ---
History Of Present Illness 78 year old female with PMHx of CHF, COPD/asthma, MVP with replacement, AICD, DM2, and arthritis who presents to ED for shortness of breath and dry cough for the last 3 days. Symptoms worsen with exertion. States she has been using home oxygen on 2L at bedtime, which she usually does not use. Time Seen by Provider: 07/28/18 15:46 Chief Complaint (Nursing): Shortness Of Breath Past Medical History Vital Signs: Last Vital Signs Temp 97.5 F L 07/28/18 15:17 Pulse 98 H 07/28/18 15:17 Resp 30 H 07/28/18 15:38 BP 141/90 07/28/18 15:17 Pulse Ox 99 07/28/18 15:38 - Medical History PMH: Arthritis, Asthma, Bronchitis, CHF, COPD, HTN, Mitral Valve Prolapse Denies: Chronic Kidney Disease Surgical History: Cholecystectomy, Pacemaker (2008) Family History: States: Unknown Family Hx, Stroke - Social History Hx Tobacco Use: No Hx Alcohol Use: No Hx Substance Use: No - Immunization History Hx Tetanus Toxoid Vaccination: Yes Hx Influenza Vaccination: Yes Hx Pneumococcal Vaccination: Yes ED Course And Treatment - Laboratory Results Result Diagrams: 07/28/18 16:00 07/28/18 16:00 O2 Sat by Pulse Oximetry: 99 Medical Decision Making Medical Decision Making: Plan: CBC CMP Troponin- negative BNP: 39061 CXR: vascular congestion, blunting of costophrenic angles, cardiomegaly, AICD L chest, sternotomy EKG:Sinus rhythm with occasional PVCs and PACs, RBBB, L anterior fascicular block, LVH, T wave abnormality; EKG unchanged from 07/02/18 Disposition - Disposition
--- NOTE | 2018-07-28 16:37 | C.PDOC ---
History Of Present Illness 78 year old female with PMHx of CHF, COPD/asthma, MVP with replacement, AICD, DM2, and arthritis who presents to ED for shortness of breath and dry cough for the last 3 days. Associated with generalized weakness and vague epigastric "bothersome discomfort." Symptoms worsen with exertion. States she has been needing to use home oxygen on 2L at bedtime for the last 3 days, which she usually does not use. Patient denies fever, chills, chest pain, abdominal pain, nausea, vomiting, diaphoresis, leg swelling. <Dahiana Mario P - Last Filed: 07/28/18 17:06> <Dima Mitchell E - Last Filed: 07/28/18 16:34> <Dahiana Mario P - Last Filed: 07/28/18 17:06> Time Seen by Provider: 07/28/18 15:46 Chief Complaint (Nursing): Shortness Of Breath Past Medical History Vital Signs: Last Vital Signs Temp 97.5 F L 07/28/18 15:17 Pulse 98 H 07/28/18 15:17 Resp 30 H 07/28/18 15:38 BP 141/90 07/28/18 15:17 Pulse Ox 99 07/28/18 15:38 - Medical History PMH: Arthritis, Asthma, Bronchitis, CHF, COPD, HTN, Mitral Valve Prolapse Denies: Chronic Kidney Disease Surgical History: Cholecystectomy, Pacemaker (2008) Family History: States: Unknown Family Hx, Stroke - Social History Hx Tobacco Use: No Hx Alcohol Use: No Hx Substance Use: No - Immunization History Hx Tetanus Toxoid Vaccination: Yes Hx Influenza Vaccination: Yes Hx Pneumococcal Vaccination: Yes <Dima Mitchell E - Last Filed: 07/28/18 16:34> Vital Signs: Last Vital Signs Temp 97.9 F 07/28/18 16:36 Pulse 91 H 07/28/18 16:36 Resp 28 H 07/28/18 16:36 BP 125/82 07/28/18 16:36 Pulse Ox 99 07/28/18 16:50 <Dahiana Mario P - Last Filed: 07/28/18 17:06> Review Of Systems Constitutional: Positive for: Weakness. Negative for: Fever, Chills, Sweats ENT: Positive for: Other (nose bleed) Cardiovascular: Negative for: Chest Pain, Palpitations Respiratory: Positive for: Cough (dry), Shortness of Breath, SOB with Excertion. Negative for: Hemoptysis Gastrointestinal: Negative for: Nausea, Vomiting, Abdominal Pain, Diarrhea Genitourinary: Negative for: Dysuria, Frequency Musculoskeletal: Negative for: Neck Pain Neurological: Negative for: Weakness, Numbness, Dizziness <Dahiana Mario P - Last Filed: 07/28/18 17:06> Physical Exam - Physical Exam Appears: No Acute Distress, Other (thin) Skin: Normal Color, Warm Head: Atraumatic, Normacephalic Eye(s): bilateral: Normal Inspection (arcus senilis bilaterally), PERRL, EOMI Nose: No Flaring, Other (dry nasal mucosa) Oral Mucosa: Moist Throat: Normal Neck: Normal ROM, Supple Cardiovascular: Rhythm Regular, No Rhythm Irregular, No Edema, No Friction Rub, JVD Respiratory: Rales (bibasilar), Wheezing (expiratory, in all shaver) Gastrointestinal/Abdominal: Bowel Sounds, Soft, No Tenderness, Other (ecchymoses noted to lower abdomen) Extremity: Normal ROM, No Tenderness, No Pedal Edema, No Calf Tenderness, Capillary Refill (normal) Pulses: Left Dorsalis Pedis: Normal, Right Dorsalis Pedis: Normal Neurological/Psych: Oriented x3, Normal Speech, Normal Cognition, Normal Cranial Nerves (grossly), Normal Motor <Dahiana Mario P - Last Filed: 07/28/18 17:06> ED Course And Treatment - Laboratory Results Result Diagrams: 07/28/18 16:00 07/28/18 16:00 Lab Interpretation: Abnormal (bnp [id number], trop neg.) ECG: Interpreted By [place] ECG Rhythm: Sinus Rhythm, R BBB ECG Interpretation: Normal O2 Sat by Pulse Oximetry: 99 Pulse Ox Interpretation: Normal - Radiology CXR: Interpreted by [place] CXR Interpretation: Yes: Heart Size, Other (+ mild congestion, no pna/pnx) Progress Note: lasix IV Reevaluation Time: 16:37 Reassessment Condition: Improved - Physician Consult Information Outcome Of Conversation: 1630: d/w crystal Holcomb to admit. 1630: d/w Medicine prabha Clay for Dr Yang <Dima Mitchell E - Last Filed: 07/28/18 16:34> - Laboratory Results Result Diagrams: 07/28/18 16:00 07/28/18 16:00 <Dahiana Mario P - Last Filed: 07/28/18 17:06> Medical Decision Making Medical Decision Making: baseline chf/copd <Dima Mitchell E - Last Filed: 07/28/18 16:34> Medical Decision Making: Plan: CBC CMP Troponin- negative BNP: [id number] CXR: vascular congestion, blunting of costophrenic angles, cardiomegaly, AICD L chest, sternotomy EKG:Sinus rhythm with occasional PVCs and PACs, RBBB, L anterior fascicular block, LVH, T wave abnormality; EKG unchanged from 07/02/18 Lasix 40mg IV <Dahiana Mario P - Last Filed: 07/28/18 17:06> Disposition Doctor Will See Patient In The: Hospital Counseled Patient/Family Regarding: Studies Performed, Diagnosis - Disposition Disposition Time: 16:38 <Dima Mitchell E - Last Filed: 07/28/18 16:34> <Dahiana Mario P - Last Filed: 07/28/18 17:06> - Disposition Forms: [employer] (Chinese) - Clinical Impression Clinical Impression: COPD exacerbation, CHF exacerbation
[2018-07-28] MEDS ORDERED: Albuterol-Ipratrop 3 mg / 0.5 (3 ml) UD INH PRN ×2 (17:15→18:43)
[2018-07-28 17:20] LABS: SQUAMOUS EPITHIAL 2 /hpf (0-5); URINE BACTERIA RARE (<OCC); URINE BILIRUBIN NEGATIVE (NEGATIVE); URINE BLOOD NEGATIVE (NEGATIVE); URINE CLARITY Clear (Clear); URINE COLOR Yellow (YELLOW); URINE GLUCOSE (UA) NORMAL (Normal); URINE LEUKOCYTE ESTERASE NEG Leu/uL (Negative); URINE PROTEIN 1+ mg/dL (NEGATIVE); URINE UROBILINOGEN NORMAL mg/dL (0.2-1.0)
[2018-07-28] MEDS ORDERED: MethylPREDNISolone 40 mg Vial IVP SCH ×2 (18:00→19:00)
--- NOTE | 2018-07-28 18:02 | CP.PCM.HP ---
History of Present Illness - History of Present Illness History of Present Illness: Medicine H & P for Dr. Yang Patient is a 78 year old female with PMH of asthma, MVP s/p valve replacement, AICD, CHF, gout, arthritis, and DM2, presenting with shortness of breath for the past 3 days. She also complains of a non-productive cough that started 3 days ago. Patient states that her symptoms are worse with exertion. Patint states that she has been using her home oxygen with some relief. Patient was recently discharged from [facility] for CHF exacerbation on 07/07/2018. Patient denies chest pain, palpitations, abdominal pain, nausea, vomiting, fevers, headaches, dysuria, hematuria, constipation, diarrhea, or any other complaints. PMD: Dr. Yang Cardio: Dr. Villalobos PMHX: asthma, MVP w/ replacement, AICD, CHF, gout, arthritis, and DM2 SurgHx: MV replacement 2008, AICD, cholecystectomy over 30 years ago FamHx: mother/father- [place], stroke; Brother- stroke, kidney cancer SocHx: denies alcohol, tobacco, and drug use; lives with daughter in [facility]. Allergies: PCN-anaphylaxis Present on Admission - Present on Admission Any Indicators Present on Admission: No History of DVT/PE: No History of Uncontrolled Diabetes: No Urinary Catheter: No Decubitus Ulcer Present: No Review of Systems - Review of Systems All systems: reviewed and no additional remarkable complaints except Past Patient History - Infectious Disease Hx of Infectious Diseases: None - Past Medical History & Family History Past Medical History?: Yes - Past Social History Smoking Status: Never Smoked - CARDIAC Hx Congestive Heart Failure: Yes Hx Hypertension: Yes Hx Mitral Valve Prolapse: Yes Hx Pacemaker: Yes (2008) - PULMONARY Hx Asthma: Yes Hx Bronchitis: Yes Hx Chronic Obstructive Pulmonary Disease (COPD): Yes - NEUROLOGICAL Hx Neurological Disorder: No - HEENT Hx HEENT Problems: No - RENAL Hx Chronic Kidney Disease: No - ENDOCRINE/METABOLIC Hx Diabetes Mellitus Type 2: Yes - HEMATOLOGICAL/ONCOLOGICAL Hx Blood Disorders: No - INTEGUMENTARY Hx Dermatological Problems: No - MUSCULOSKELETAL/RHEUMATOLOGICAL Hx Arthritis: Yes - GASTROINTESTINAL Hx Colitis: Yes - GENITOURINARY/GYNECOLOGICAL Hx Genitourinary Disorders: No - PSYCHIATRIC Hx Substance Use: No - SURGICAL HISTORY Hx Cholecystectomy: Yes - ANESTHESIA Hx Anesthesia: Yes Hx Anesthesia Reactions: No Meds Allergies/Adverse Reactions: Allergies Allergy/AdvReac Type Severity Reaction Status Date / Time Penicillins Allergy Severe ANAPHYLAXIS Verified 07/28/18 15:22 Physical Exam - Constitutional Appears: Well, Non-toxic, No Acute Distress - Head Exam Head Exam: ATRAUMATIC, NORMOCEPHALIC - Eye Exam Eye Exam: Normal appearance - ENT Exam ENT Exam: Mucous Membranes Moist - Respiratory Exam Respiratory Exam: Wheezes (Expiratory wheezes bilaterally, more on the right compared to the left). absent: Accessory Muscle Use, Rales, Rhonchi, Respiratory Distress - Cardiovascular Exam Cardiovascular Exam: REGULAR RHYTHM, +S1, +S2. absent: Rubs, Systolic Murmur - GI/Abdominal Exam GI & Abdominal Exam: Normal Bowel Sounds, Soft. absent: Distended, Firm, G uarding, Tenderness - Extremities Exam Extremities exam: Positive for: normal inspection. Negative for: calf tenderness, pedal edema, tenderness - Neurological Exam Neurological exam: Alert, CN II-XII Intact, Oriented x3 - Psychiatric Exam Psychiatric exam: Normal Affect, Normal Mood - Skin Skin Exam: Dry, Intact, Normal Color, Warm Results - Vital Signs Recent Vital Signs: Last Vital Signs Temp 97.9 F 07/28/18 16:36 Pulse 91 H 07/28/18 16:36 Resp 28 H 07/28/18 16:36 BP 125/82 07/28/18 16:36 Pulse Ox 99 07/28/18 16:38 - Labs Result Diagrams: 07/28/18 16:00 07/28/18 16:00 Labs: Laboratory Results - last 24 hr 07/28/18 07/28/18 07/28/18 16:00 16:00 16:48 WBC 6.8 RBC 4.19 Hgb 11.0 Hct 34.3 MCV 82.1 MCH 26.4 L MCHC 32.1 L RDW 17.7 H Plt Count 221 MPV 9.6 Neut % (Auto) 69.5 Lymph % (Auto) 17.8 L [place] % (Auto) 9.4 Eos % (Auto) 2.3 Baso % (Auto) 1.0 Neut # (Auto) 4.7 Lymph # (Auto) 1.2 [place] # (Auto) 0.6 Eos # (Auto) 0.2 Baso # (Auto) 0.1 Sodium 141 Potassium 4.0 Chloride 107 Carbon Dioxide 24 Anion Gap 14 BUN 15 Creatinine 0.8 Est GFR ( Amer) > 60 Est GFR (Non-Af Amer) > 60 Random Glucose 98 Calcium 9.8 Total Bilirubin 0.7 AST 26 ALT 38 Alkaline Phosphatase 164 H Troponin I 0.0370 NT-Pro-B Natriuret Pep 62017 H Total Protein 6.7 Albumin 3.8 Globulin 3.0 Albumin/Globulin Ratio 1.3 Urine Color Yellow Urine Clarity Clear Urine pH 5.0 Ur Specific [place] 1.014 Urine Protein 1+ H Urine Glucose (UA) Normal Urine Ketones Negative Urine Blood Negative Urine Nitrate Negative Urine Bilirubin Negative Urine Urobilinogen Normal Ur Leukocyte Esterase Neg Urine WBC (Auto) 1 Urine RBC (Auto) 1 Ur Squamous Epith Cells 2 Urine Bacteria Rare Assessment & Plan - Assessment and Plan (Free Text) Assessment: Patient is a 78 year old female with PMH of asthma, MVP s/p valve replacement, AICD, CHF, gout, arthritis, and DM2, presenting with shortness of breath for the past 3 days. Plan: CHF exacerbation - pBNP: 90259 - CXR: vascular congestion, blunting of costophrenic angles, cardiomegaly, AICD L chest, sternotomy - Lasix 40 mg IV daily - Continue home medications: Cardizem 30mg BID, ASA 81mg - Cardiology consulted, Dr. Villalobos - Echo (03/22): LVEF 30-35% - EKG:Sinus rhythm with occasional PVCs and PACs, RBBB, L anterior fascicular block, LVH, T wave abnormality; EKG unchanged from 07/02/18 COPD exacerbation - 2L NC PRN - Started Duonebs Q6h, Duonebs Q4 PRN - Started Solu-medrol 40mg iv Q12 - Pulmonology consulted, Dr. Sebastian OSMAN2 - Accuchecks ACHS - ISS medium - Hypoglycemia protocol Insomnia - Continue home medication Restoril 15mg PO HS PPX/Diet - Protonix 40mg iv qd - Heparin 5000 sc q8 - HH diet Case discussed and reviewed with attending physician, Dr. Trey Leyva PGY-1
[2018-07-28] MEDS ORDERED: Albuterol-Ipratrop 3 mg / 0.5 (3 ml) UD ONE (18:39)
[2018-07-28] MEDS ORDERED: Glucagon Recombinant 1 mg Inj IM PRN (19:26)
[2018-07-28] MEDS ORDERED: Dextrose 50% SYRINGE Inj (50 ml) IV PRN (19:26)
[2018-07-28] MEDS: (Novolin R) Insulin Human Regular 100 units/ml vial SC SCH (22:13)
[2018-07-28] MEDS: Albuterol-Ipratrop 3 mg / 0.5 (3 ml) UD INH SCH (22:45)
[2018-07-29] MEDS: Albuterol-Ipratrop 3 mg / 0.5 (3 ml) UD INH SCH ×4 (01:44→19:20)
[2018-07-29] MEDS: (Novolin R) Insulin Human Regular 100 units/ml vial SC SCH ×4 (08:06→21:17)
[2018-07-29 08:30] LABS: BASO % 1.1 % (0.0-2.0); HEMOGLOBIN 11.1 g/dL (11.0-16.0); LYMPH # 0.6 K/uL (1.0-4.3); LYMPH % 17.6 % (20.0-40.0); MEAN CELL VOLUME 81.6 fL (81.0-99.0); MEAN CORPUSCULAR HEMOGLOBIN 26.5 pg (27.0-31.0); MEAN CORPUSCULAR HGB CONC 32.4 g/dL (33.0-37.0); MEAN PLATELET VOLUME 9.4 fL (7.2-11.7); MONO # 0.1 K/uL (0.0-0.8); MONO % 2.7 % (0.0-10.0); NEUT # 2.7 K/uL (1.8-7.0); NEUT % 78.6 % (50.0-75.0); RBC 4.21 Mil/uL (3.80-5.20); RED CELL DISTRIBUTION WIDTH 17.4 % (11.5-14.5); WHITE BLOOD COUNT 3.5 K/uL (4.8-10.8)
[2018-07-29 08:48] LABS: ALB/GLOB RATIO 1.3 (1.0-2.1); ALBUMIN 3.7 g/dL (3.5-5.0); ALT/SGPT 37 U/L (9-52); AST/SGOT 27 U/L (14-36); BLOOD UREA NITROGEN 18 mg/dL (7-17); CALCIUM 9.9 mg/dl (8.6-10.4); GFR NON-AFRICAN AMERICAN > 60
--- NOTE | 2018-07-29 11:23 | CP.PCM.PN ---
Subjective - Date & Time of Evaluation Date of Evaluation: 07/29/18 Time of Evaluation: 10:00 - Subjective Subjective: PGY-1 Medicine Progress Note for Dr. Yang Patient was seen and examined today sitting up at bedside in no acute distress. Nurse reports no overnight events. Patient reports improvement of shortness of breath, but still requires 3L O2 on NC. She hasn't coughed since last night and reports improvement of her overall condition. Denies chest pain, palpitations, abdominal pain, nausea, vomiting, constipation, diarrhea. Objective - Vital Signs/Intake and Output Vital Signs (last 24 hours): Temp Pulse Resp BP Pulse Ox 97.3 F L 80 20 133/89 100 07/29/18 08:00 07/29/18 08:00 07/29/18 08:00 07/29/18 09:45 07/29/18 08:00 Intake and Output: 07/29/18 07/29/18 06:59 18:59 Intake Total 120 Balance 120 - Medications Medications: Current Medications Albuterol/Ipratropium (Duoneb 3 Mg/0.5 Mg (3 Ml) Ud) 3 ml INH RQ6 [facility] Last Admin: 07/29/18 07:57 Dose: Not Given Albuterol/Ipratropium (Duoneb 3 Mg/0.5 Mg (3 Ml) Ud) 3 ml INH RQ4 PRN PRN Reason: Shortness of Breath Aspirin (Ecotrin) 81 mg PO DAILY [facility] Last Admin: 07/29/18 09:46 Dose: 81 mg Dextrose (Dextrose 50% Inj) 0 ml IV STAT PRN; Protocol PRN Reason: Hypoglycemia Protocol Dextrose (Glutose 15) 0 gm PO ONCE PRN; Protocol PRN Reason: Hypoglycemia Protocol Diltiazem HCl (Cardizem) 30 mg PO BID [facility] Last Admin: 07/29/18 09:46 Dose: 30 mg Furosemide (Lasix) 40 mg IVP DAILY [facility] Last Admin: 07/29/18 09:45 Dose: 40 mg Glucagon (Glucagen Diagnostic Kit) 1 mg IM STAT PRN; Protocol PRN Reason: Hypoglycemia Protocol Heparin Sodium (Porcine) (Heparin) 5,000 units SC Q8 [facility] Last Admin: 07/29/18 05:56 Dose: 5,000 units Dextrose (Dextrose 5% In Water 1000 Ml) 1,000 mls @ 0 mls/hr IV .Q0M PRN; Protocol PRN Reason: Hypoglycemia Protocol Insulin Human Regular (Novolin R) 0 unit SC ACHS [facility]; Protocol Last Admin: 07/29/18 08:06 Dose: 2 u Memantine (Namenda) 5 mg PO HS [facility] Last Admin: 07/28/18 21:52 Dose: 5 mg Methylprednisolone (Solu-Medrol) 40 mg IVP Q12H [facility] Pantoprazole Sodium (Protonix Inj) 40 mg IVP DAILY [facility] Last Admin: 07/29/18 09:46 Dose: 40 mg Temazepam (Restoril) 15 mg PO HS [facility] Last Admin: 07/28/18 21:52 Dose: 15 mg - Labs Labs: 07/29/18 08:18 07/29/18 08:18 - Constitutional Appears: Non-toxic, No Acute Distress - Head Exam Head Exam: ATRAUMATIC, NORMOCEPHALIC - Eye Exam Eye Exam: EOMI - ENT Exam ENT Exam: Mucous Membranes Moist - Respiratory Exam Respiratory Exam: Decreased Breath Sounds, Rales, Wheezes, NORMAL BREATHING PATTERN. absent: Accessory Muscle Use, Rhonchi Additional comments: diffuse expiratory wheezes (R>L) bilaterally basilar rales 3L O2 on NC - Cardiovascular Exam Cardiovascular Exam: Clicks, +S1, +S2, +S4, Murmur Additional comments: irregularly irregular audible click during systole - GI/Abdominal Exam GI & Abdominal Exam: Soft, Normal Bowel Sounds. absent: Tenderness - Extremities Exam Extremities Exam: Normal Capillary Refill. absent: Joint Swelling, Pedal Edema Additional comments: peripheral pulses palpable bilaterally (radial, DP) IV access in L hand, good flow - Neurological Exam Neurological Exam: Alert, Awake - Psychiatric Exam Psychiatric exam: Normal Affect, Normal Mood - Skin Skin Exam: Intact, Normal Color, Warm Assessment and Plan - Assessment and Plan (Free Text) Assessment: Ms. Banks is a 78 year old female with PMH of asthma, MVP s/p valve replacement, AICD, CHF, gout, arthritis, and DM2 here at [facility] for CHF vs. COPD exacerbation. Plan: CHF exacerbation - BNP: 00792 on admission (BNP on previous admission 07/02 6790) - CXR (07/28): vascular congestion, blunting of costophrenic angles, cardiomegaly, AICD L chest, sternotomy - Last ECHO (03/15/18): LVEF 30-35% - EKG on admission: Sinus rhythm with occasional PVCs and PACs, RBBB, L anterior fascicular block, LVH, T wave abnormality; EKG unchanged from 07/02/18 - Lasix 40mg IV daily - home Cardizem 30mg po bid - home ASA 81mg po daily - Cardio consulted: Dr. Villalobos - help appreciated COPD exacerbation - 2L O2 NC prn - patient is requesting 3L - Duonebs q6 jaimee, Duonebs q4 prn - Solu-medrol 40mg IV q12 - Guaifenesin 200mg po q4 prn - Pulmonology consulted: Dr. Cortes - help appreciated DM2 - Accuchecks ACHS - ISS medium - Hypoglycemia protocol Insomnia - home Restoril 15mg po HS Dementia - home Memantine 5mg po HS PPx - DVT: Heparin 5000 sc q8, SCDs CI for CHF - GI: Protonix 40mg IV daily - Diet: HHD d/w Dr. Yang. All medical management per Dr. Trey Hester PGY-1
--- NOTE | 2018-07-29 17:20 | CP.PCM.CON ---
History of Present Illness - History of Present Illness History of Present Illness: Patient is a 78 y/o female with PMHx of asthma, MVP s/p valve replacement, AICD, and CHF, who presented to the ED on 07/28/18 with complaint of shortness of breath and non-productive cough. She states the shortness of breath has been there since discharge from her last admission on 07/07/18, but her symptoms became significantly worse the past couple days. Pt. states she was unable to breathe yesterday. She states she went to the outpatient office last Lucas (07/23), but was not seen due to insurance issues. She states she uses her oxygen machine at home that gives her some relief. Currently, she complains of shortness of breath on exertion (only able to walk 3-4 steps), non-productive cough, rib pain due to coughing, and left LE pain due to gout. Denies chest pain, hemoptysis. PMHx: asthma, MVP s/p valve replacement, AICD, CHF, gout, arthritis, and DM2 SHx: MVR (2008), AICD, cholecystectomy (+30 yrs. ago) FHx: mother/father-[place], stroke; brother-stroke, kidney cancer Allergies: PCN (anaphylaxis) Social: denies tobaccco, alcohol, drug use; lives with daughter in [place] CXR (07/28): stable cardiomegaly; no definite pulmonary vascular congestion; no airspace disease bilaterally; trace of pleural effusion in question; AICD pacemaker reiterated. Review of Systems - Review of Systems All systems: reviewed and no additional remarkable complaints except Past Patient History - Infectious Disease Hx of Infectious Diseases: None - Past Medical History & Family History Past Medical History?: Yes - Past Social History Smoking Status: Never Smoked - CARDIAC Hx Cardiac Disorders: Yes Hx Congestive Heart Failure: Yes Hx Hypertension: Yes Hx Mitral Valve Prolapse: Yes Hx Pacemaker: Yes (2008) - PULMONARY Hx Respiratory Disorders: Yes Hx Asthma: Yes Hx Bronchitis: Yes Hx Chronic Obstructive Pulmonary Disease (COPD): Yes - NEUROLOGICAL Hx Neurological Disorder: No - HEENT Hx HEENT Problems: No - RENAL Hx Chronic Kidney Disease: No - ENDOCRINE/METABOLIC Hx Endocrine Disorders: Yes Hx Diabetes Mellitus Type 2: Yes - HEMATOLOGICAL/ONCOLOGICAL Hx Blood Disorders: No - INTEGUMENTARY Hx Dermatological Problems: No - MUSCULOSKELETAL/RHEUMATOLOGICAL Hx Musculoskeletal Disorders: Yes Hx Arthritis: Yes Hx Falls: Yes ("years ago") - GASTROINTESTINAL Hx Gastrointestinal Disorders: Yes Hx Colitis: Yes - GENITOURINARY/GYNECOLOGICAL Hx Genitourinary Disorders: No - PSYCHIATRIC Hx Psychophysiologic Disorder: No Hx Substance Use: No - SURGICAL HISTORY Hx Surgeries: Yes Hx Cholecystectomy: Yes - ANESTHESIA Hx Anesthesia: Yes Hx Anesthesia Reactions: No Hx Malignant Hyperthermia: No Has any member of the family had a problem w/ anesthesia?: No Meds Allergies/Adverse Reactions: Allergies Allergy/AdvReac Type Severity Reaction Status Date / Time Penicillins Allergy Severe ANAPHYLAXIS Verified 07/28/18 15:22 - Medications Medications: Current Medications Albuterol/Ipratropium (Duoneb 3 Mg/0.5 Mg (3 Ml) Ud) 3 ml INH RQ6 [facility] Last Admin: 07/29/18 13:24 Dose: 3 ml Albuterol/Ipratropium (Duoneb 3 Mg/0.5 Mg (3 Ml) Ud) 3 ml INH RQ4 PRN PRN Reason: Shortness of Breath Aspirin (Ecotrin) 81 mg PO DAILY [facility] Last Admin: 07/29/18 09:46 Dose: 81 mg Dextrose (Dextrose 50% Inj) 0 ml IV STAT PRN; Protocol PRN Reason: Hypoglycemia Protocol Dextrose (Glutose 15) 0 gm PO ONCE PRN; Protocol PRN Reason: Hypoglycemia Protocol Diltiazem HCl (Cardizem) 30 mg PO BID [facility] Last Admin: 07/29/18 09:46 Dose: 30 mg Furosemide (Lasix) 40 mg IVP DAILY [facility] Last Admin: 07/29/18 09:45 Dose: 40 mg Glucagon (Glucagen Diagnostic Kit) 1 mg IM STAT PRN; Protocol PRN Reason: Hypoglycemia Protocol Guaifenesin (Robitussin) 200 mg PO Q4H PRN PRN Reason: Cough and congestion Heparin Sodium (Porcine) (Heparin) 5,000 units SC Q8 [facility] Last Admin: 07/29/18 13:19 Dose: 5,000 units Dextrose (Dextrose 5% In Water 1000 Ml) 1,000 mls @ 0 mls/hr IV .Q0M PRN; Jenise col PRN Reason: Hypoglycemia Protocol Insulin Human Regular (Novolin R) 0 unit SC ACHS [facility]; Protocol Last Admin: 07/29/18 12:04 Dose: Not Given Memantine (Namenda) 5 mg PO HS [facility] Last Admin: 07/28/18 21:52 Dose: 5 mg Methylprednisolone (Solu-Medrol) 40 mg IVP Q12H [facility] Pantoprazole Sodium (Protonix Inj) 40 mg IVP DAILY [facility] Last Admin: 07/29/18 09:46 Dose: 40 mg Temazepam (Restoril) 15 mg PO HS [facility] Last Admin: 07/28/18 21:52 Dose: 15 mg Physical Exam - Head Exam Head Exam: ATRAUMATIC, NORMOCEPHALIC - ENT Exam ENT Exam: Mucous Membranes Moist - Neck Exam Neck exam: Positive for: Normal Inspection - Respiratory Exam Respiratory Exam: Decreased Breath Sounds - Cardiovascular Exam Cardiovascular Exam: REGULAR RHYTHM Results - Vital Signs Recent Vital Signs: Last Vital Signs Temp 97.5 F L 07/29/18 15:00 Pulse 84 07/29/18 16:00 Resp 20 07/29/18 15:00 BP 128/66 07/29/18 15:00 Pulse Ox 99 07/29/18 15:00 - Labs Result Diagrams: 07/30/18 06:32 07/30/18 06:32 Labs: Laboratory Results - last 24 hr 07/28/18 07/28/18 07/29/18 16:48 21:58 06:11 WBC RBC Hgb Hct MCV MCH MCHC RDW Plt Count MPV Neut % (Auto) Lymph % (Auto) [place] % (Auto) Eos % (Auto) Baso % (Auto) Neut # (Auto) Lymph # (Auto) [place] # (Auto) Eos # (Auto) Baso # (Auto) Sodium Potassium Chloride Carbon Dioxide Anion Gap BUN Creatinine Est GFR ( Amer) Est GFR (Non-Af Amer) POC Glucose (mg/dL) 216 H 181 H Random Glucose Calcium Phosphorus Magnesium Total Bilirubin AST ALT Alkaline Phosphatase Total Protein Albumin Globulin Albumin/Globulin Ratio Urine Color Yellow Urine Clarity Clear Urine pH 5.0 Ur Specific [place] 1.014 Urine Protein 1+ H Urine Glucose (UA) Normal Urine Ketones Negative Urine Blood Negative Urine Nitrate Negative Urine Bilirubin Negative Urine Urobilinogen Normal Ur Leukocyte Esterase Neg Urine WBC (Auto) 1 Urine RBC (Auto) 1 Ur Squamous Epith Cells 2 Urine Bacteria Rare 07/29/18 07/29/18 07/29/18 08:18 08:18 11:51 WBC 3.5 L RBC 4.21 Hgb 11.1 Hct 34.4 MCV 81.6 MCH 26.5 L MCHC 32.4 L RDW 17.4 H Plt Count 207 MPV 9.4 Neut % (Auto) 78.6 H Lymph % (Auto) 17.6 L [place] % (Auto) 2.7 Eos % (Auto) 0.0 Baso % (Auto) 1.1 Neut # (Auto) 2.7 Lymph # (Auto) 0.6 L [place] # (Auto) 0.1 Eos # (Auto) 0.0 Baso # (Auto) 0.0 Sodium 141 Potassium 4.3 Chloride 106 Carbon Dioxide 26 Anion Gap 13 BUN 18 H Creatinine 0.8 Est GFR ( Amer) > 60 Est GFR (Non-Af Amer) > 60 POC Glucose (mg/dL) 147 H Random Glucose 166 H Calcium 9.9 Phosphorus 4.8 H Magnesium 1.7 Total Bilirubin 0.5 AST 27 ALT 37 Alkaline Phosphatase 139 H Total Protein 6.6 Albumin 3.7 Globulin 2.9 Albumin/Globulin Ratio 1.3 Urine Color Urine Clarity Urine pH Ur Specific [place] Urine Protein Urine Glucose (UA) Urine Ketones Urine Blood Urine Nitrate Urine Bilirubin Urine Urobilinogen Ur Leukocyte Esterase Urine WBC (Auto) Urine RBC (Auto) Ur Squamous Epith Cells Urine Bacteria 07/29/18 16:29 WBC RBC Hgb Hct MCV MCH MCHC RDW Plt Count MPV Neut % (Auto) Lymph % (Auto) [place] % (Auto) Eos % (Auto) Baso % (Auto) Neut # (Auto) Lymph # (Auto) [place] # (Auto) Eos # (Auto) Baso # (Auto) Sodium Potassium Chloride Carbon Dioxide Anion Gap BUN Creatinine Est GFR ( Amer) Est GFR (Non-Af Amer) POC Glucose (mg/dL) 141 H Random Glucose Calcium Phosphorus Magnesium Total Bilirubin AST ALT Alkaline Phosphatase Total Protein Albumin Globulin Albumin/Globulin Ratio Urine Color Urine Clarity Urine pH Ur Specific [place] Urine Protein Urine Glucose (UA) Urine Ketones Urine Blood Urine Nitrate Urine Bilirubin Urine Urobilinogen Ur Leukocyte Esterase Urine WBC (Auto) Urine RBC (Auto) Ur Squamous Epith Cells Urine Bacteria Assessment & Plan (1) COPD exacerbation Assessment and Plan: continue IV steroids Nebulizer treatment anxiolytic Cardiology eval Status: Acute
[2018-07-29] MEDS: MethylPREDNISolone 40 mg Vial IVP SCH (18:11)
[2018-07-29] MEDS: guaiFENesin 200 mg/10 ml Syrup UD PO PRN (19:52)
--- NOTE | 2018-07-30 | CP.PCM.CON ---
History of Present Illness - History of Present Illness History of Present Illness: Patient seen and evaluated admitted for acute on Chronic systolic CHF Continue heart failure therapy Past Patient History - Infectious Disease Hx of Infectious Diseases: None - Past Medical History & Family History Past Medical History?: Yes - Past Social History Smoking Status: Never Smoked - CARDIAC Hx Cardiac Disorders: Yes Hx Congestive Heart Failure: Yes Hx Hypertension: Yes Hx Mitral Valve Prolapse: Yes Hx Pacemaker: Yes (2008) - PULMONARY Hx Respiratory Disorders: Yes Hx Asthma: Yes Hx Bronchitis: Yes Hx Chronic Obstructive Pulmonary Disease (COPD): Yes - NEUROLOGICAL Hx Neurological Disorder: No - HEENT Hx HEENT Problems: No - RENAL Hx Chronic Kidney Disease: No - ENDOCRINE/METABOLIC Hx Endocrine Disorders: Yes Hx Diabetes Mellitus Type 2: Yes - HEMATOLOGICAL/ONCOLOGICAL Hx Blood Disorders: No - INTEGUMENTARY Hx Dermatological Problems: No - MUSCULOSKELETAL/RHEUMATOLOGICAL Hx Musculoskeletal Disorders: Yes Hx Arthritis: Yes Hx Falls: Yes ("years ago") - GASTROINTESTINAL Hx Gastrointestinal Disorders: Yes Hx Colitis: Yes - GENITOURINARY/GYNECOLOGICAL Hx Genitourinary Disorders: No - PSYCHIATRIC Hx Psychophysiologic Disorder: No Hx Substance Use: No - SURGICAL HISTORY Hx Surgeries: Yes Hx Cholecystectomy: Yes - ANESTHESIA Hx Anesthesia: Yes Hx Anesthesia Reactions: No Hx Malignant Hyperthermia: No Has any member of the family had a problem w/ anesthesia?: No Meds Allergies/Adverse Reactions: Allergies Allergy/AdvReac Type Severity Reaction Status Date / Time Penicillins Allergy Severe ANAPHYLAXIS Verified 07/28/18 15:22 - Medications Medications: Current Medications Albuterol/Ipratropium (Duoneb 3 Mg/0.5 Mg (3 Ml) Ud) 3 ml INH RQ6 [facility] Last Admin: 07/29/18 19:20 Dose: 3 ml Albuterol/Ipratropium (Duoneb 3 Mg/0.5 Mg (3 Ml) Ud) 3 ml INH RQ4 PRN PRN Reason: Shortness of Breath Aspirin (Ecotrin) 81 mg PO DAILY [facility] Last Admin: 07/29/18 09:46 Dose: 81 mg Dextrose (Dextrose 50% Inj) 0 ml IV STAT PRN; Protocol PRN Reason: Hypoglycemia Protocol Dextrose (Glutose 15) 0 gm PO ONCE PRN; Protocol PRN Reason: Hypoglycemia Protocol Diltiazem HCl (Cardizem) 30 mg PO BID [facility] Last Admin: 07/29/18 18:15 Dose: 30 mg Furosemide (Lasix) 40 mg IVP DAILY [facility] Last Admin: 07/29/18 09:45 Dose: 40 mg Glucagon (Glucagen Diagnostic Kit) 1 mg IM STAT PRN; Protocol PRN Reason: Hypoglycemia Protocol Guaifenesin (Robitussin) 200 mg PO Q4H PRN PRN Reason: Cough and congestion Last Admin: 07/29/18 19:52 Dose: 200 mg Heparin Sodium (Porcine) (Heparin) 5,000 units SC Q8 [facility] Last Admin: 07/29/18 21:13 Dose: 5,000 units Dextrose (Dextrose 5% In Water 1000 Ml) 1,000 mls @ 0 mls/hr IV .Q0M PRN; Protocol PRN Reason: Hypoglycemia Protocol Insulin Human Regular (Novolin R) 0 unit SC ACHS [facility]; Protocol Last Admin: 07/29/18 21:17 Dose: Not Given Memantine (Namenda) 5 mg PO HS [facility] Last Admin: 07/29/18 21:13 Dose: 5 mg Methylprednisolone (Solu-Medrol) 40 mg IVP Q12H [facility] Last Admin: 07/29/18 18:11 Dose: 40 mg Pantoprazole Sodium (Protonix Inj) 40 mg IVP DAILY [facility] Last Admin: 07/29/18 09:46 Dose: 40 mg Temazepam (Restoril) 15 mg PO HS [facility] Last Admin: 07/29/18 21:13 Dose: 15 mg Results - Vital Signs Recent Vital Signs: Last Vital Signs Temp 97.5 F L 07/29/18 15:00 Pulse 95 H 07/29/18 18:15 Resp 20 07/29/18 15:00 BP 143/86 07/29/18 18:15 Pulse Ox 99 07/29/18 15:00 - Labs Result Diagrams: 07/29/18 08:18 07/29/18 08:18 Labs: Laboratory Results - last 24 hr 07/29/18 07/29/18 07/29/18 06:11 08:18 08:18 WBC 3.5 L RBC 4.21 Hgb 11.1 Hct 34.4 MCV 81.6 MCH 26.5 L MCHC 32.4 L RDW 17.4 H Plt Count 207 MPV 9.4 Neut % (Auto) 78.6 H Lymph % (Auto) 17.6 L [place] % (Auto) 2.7 Eos % (Auto) 0.0 Baso % (Auto) 1.1 Neut # (Auto) 2.7 Lymph # (Auto) 0.6 L [place] # (Auto) 0.1 Eos # (Auto) 0.0 Baso # (Auto) 0.0 Sodium 141 Potassium 4.3 Chloride 106 Carbon Dioxide 26 Anion Gap 13 BUN 18 H Creatinine 0.8 Est GFR ( Amer) > 60 Est GFR (Non-Af Amer) > 60 POC Glucose (mg/dL) 181 H Random Glucose 166 H Calcium 9.9 Phosphorus 4.8 H Magnesium 1.7 Total Bilirubin 0.5 AST 27 ALT 37 Alkaline Phosphatase 139 H Total Protein 6.6 Albumin 3.7 Globulin 2.9 Albumin/Globulin Ratio 1.3 07/29/18 07/29/18 07/29/18 11:51 16:29 20:54 WBC RBC Hgb Hct MCV MCH MCHC RDW Plt Count MPV Neut % (Auto) Lymph % (Auto) [place] % (Auto) Eos % (Auto) Baso % (Auto) Neut # (Auto) Lymph # (Auto) [place] # (Auto) Eos # (Auto) Baso # (Auto) Sodium Potassium Chloride Carbon Dioxide Anion Gap BUN Creatinine Est GFR ( Amer) Est GFR (Non-Af Amer) POC Glucose (mg/dL) 147 H 141 H 193 H Random Glucose Calcium Phosphorus Magnesium Total Bilirubin AST ALT Alkaline Phosphatase Total Protein Albumin Globulin Albumin/Globulin Ratio
[2018-07-30] MEDS: MethylPREDNISolone 40 mg Vial IVP SCH ×2 (06:08→17:48)
[2018-07-30 06:43] LABS: BASO % 0.5 % (0.0-2.0); HEMOGLOBIN 11.1 g/dL (11.0-16.0); LYMPH # 0.7 K/uL (1.0-4.3); LYMPH % 10.4 % (20.0-40.0); MEAN CELL VOLUME 81.6 fL (81.0-99.0); MEAN CORPUSCULAR HEMOGLOBIN 26.7 pg (27.0-31.0); MEAN CORPUSCULAR HGB CONC 32.7 g/dL (33.0-37.0); MEAN PLATELET VOLUME 9.7 fL (7.2-11.7); MONO # 0.2 K/uL (0.0-0.8); MONO % 2.1 % (0.0-10.0); NEUT # 6.2 K/uL (1.8-7.0); NRBC % 0.1 % (0.0-2.0); RBC 4.16 Mil/uL (3.80-5.20); RED CELL DISTRIBUTION WIDTH 17.2 % (11.5-14.5); WHITE BLOOD COUNT 7.1 K/uL (4.8-10.8)
[2018-07-30 07:02] LABS: ALB/GLOB RATIO 1.3 (1.0-2.1); ALBUMIN 3.6 g/dL (3.5-5.0); CALCIUM 9.6 mg/dl (8.6-10.4)
[2018-07-30] MEDS: Albuterol-Ipratrop 3 mg / 0.5 (3 ml) UD INH SCH ×3 (07:44→19:23)
[2018-07-30] MEDS: (Novolin R) Insulin Human Regular 100 units/ml vial SC SCH ×4 (08:38→22:24)
[2018-07-30] MEDS: guaiFENesin 200 mg/10 ml Syrup UD PO PRN ×2 (10:05→21:19)
--- NOTE | 2018-07-30 14:10 | CP.PCM.PN ---
Subjective - Date & Time of Evaluation Date of Evaluation: 07/30/18 Time of Evaluation: 09:20 - Subjective Subjective: Patient was seen and examined at beside, lying down comfortably. Afebrile and in no acute distress. Patient complains of bouts of strong non-productive cough and occasionally, sudden episodes of shortness of breath; r/o anxiety/panic attack--already taking temazepam 15mg PO HS If no improvement in SOB, consider BiPAP. Objective - Vital Signs/Intake and Output Vital Signs (last 24 hours): Temp Pulse Resp BP Pulse Ox 97.6 F 78 18 148/80 100 07/30/18 07:57 07/30/18 10:03 07/30/18 07:57 07/30/18 10:05 07/30/18 07:57 - Medications Medications: Current Medications Albuterol/Ipratropium (Duoneb 3 Mg/0.5 Mg (3 Ml) Ud) 3 ml INH RQ6 [facility] Last Admin: 07/30/18 13:31 Dose: 3 ml Albuterol/Ipratropium (Duoneb 3 Mg/0.5 Mg (3 Ml) Ud) 3 ml INH RQ4 PRN PRN Reason: Shortness of Breath Aspirin (Ecotrin) 81 mg PO DAILY [facility] Last Admin: 07/30/18 10:05 Dose: 81 mg Dextrose (Dextrose 50% Inj) 0 ml IV STAT PRN; Protocol PRN Reason: Hypoglycemia Protocol Dextrose (Glutose 15) 0 gm PO ONCE PRN; Protocol PRN Reason: Hypoglycemia Protocol Diltiazem HCl (Cardizem) 30 mg PO BID [facility] Last Admin: 07/30/18 10:05 Dose: 30 mg Furosemide (Lasix) 40 mg IVP DAILY [facility] Last Admin: 07/30/18 10:05 Dose: 40 mg Glucagon (Glucagen Diagnostic Kit) 1 mg IM STAT PRN; Protocol PRN Reason: Hypoglycemia Protocol Guaifenesin (Robitussin) 200 mg PO Q4H PRN PRN Reason: Cough and congestion Last Admin: 07/30/18 10:05 Dose: 200 mg Heparin Sodium (Porcine) (Heparin) 5,000 units SC Q8 [facility] Last Admin: 07/30/18 13:02 Dose: 5,000 units Dextrose (Dextrose 5% In Water 1000 Ml) 1,000 mls @ 0 mls/hr IV .Q0M PRN; Protocol PRN Reason: Hypoglycemia Protocol Insulin Human Regular (Novolin R) 0 unit SC ACHS [facility]; Protocol Last Admin: 07/30/18 13:01 Dose: 4 u Memantine (Namenda) 5 mg PO HS [facility] Last Admin: 07/29/18 21:13 Dose: 5 mg Methylprednisolone (Solu-Medrol) 40 mg IVP Q12H [facility] Last Admin: 07/30/18 06:08 Dose: 40 mg Pantoprazole Sodium (Protonix Inj) 40 mg IVP DAILY [facility] Last Admin: 07/30/18 10:05 Dose: 40 mg Temazepam (Restoril) 15 mg PO HS [facility] Last Admin: 07/29/18 21:13 Dose: 15 mg - Labs Labs: 07/30/18 06:32 07/30/18 06:32 - Head Exam Head Exam: ATRAUMATIC, NORMOCEPHALIC - ENT Exam ENT Exam: Mucous Membranes Moist - Neck Exam Neck Exam: Normal Inspection - Respiratory Exam Respiratory Exam: Rhonchi, Wheezes - Cardiovascular Exam Cardiovascular Exam: REGULAR RHYTHM - GI/Abdominal Exam GI & Abdominal Exam: Soft, Normal Bowel Sounds Assessment and Plan (1) COPD exacerbation Assessment & Plan: patient seen by cardiology Continue present treatment BiPAP if needed Status: Acute
[2018-07-30 16:06] VITALS: RESP 20
--- NOTE | 2018-07-30 16:55 | CP.PCM.PN ---
Subjective - Date & Time of Evaluation Date of Evaluation: 07/30/18 Time of Evaluation: 09:10 - Subjective Subjective: PGY-1 Medicine Progress Note for Dr. Yang Patient was seen and examined today at bedside in no acute distress in the middle of a Duoneb treatment. Nurse reports no overnight events. However, patient still complains of shortness of breath, even after Duoneb treatment finished. Denies chest pain, headache, dizziness, nausea, vomiting, c onstipation, diarrhea. Objective - Vital Signs/Intake and Output Vital Signs (last 24 hours): Temp Pulse Resp BP Pulse Ox 98.2 F 83 20 121/63 100 07/30/18 16:00 07/30/18 16:00 07/30/18 16:00 07/30/18 16:00 07/30/18 16:00 - Medications Medications: Current Medications Albuterol/Ipratropium (Duoneb 3 Mg/0.5 Mg (3 Ml) Ud) 3 ml INH RQ6 [facility] Last Admin: 07/30/18 13:31 Dose: 3 ml Albuterol/Ipratropium (Duoneb 3 Mg/0.5 Mg (3 Ml) Ud) 3 ml INH RQ4 PRN PRN Reason: Shortness of Breath Aspirin (Ecotrin) 81 mg PO DAILY [facility] Last Admin: 07/30/18 10:05 Dose: 81 mg Dextrose (Dextrose 50% Inj) 0 ml IV STAT PRN; Protocol PRN Reason: Hypoglycemia Protocol Dextrose (Glutose 15) 0 gm PO ONCE PRN; Protocol PRN Reason: Hypoglycemia Protocol Diltiazem HCl (Cardizem) 30 mg PO BID [facility] Last Admin: 07/30/18 10:05 Dose: 30 mg Furosemide (Lasix) 40 mg IVP DAILY [facility] Last Admin: 07/30/18 10:05 Dose: 40 mg Glucagon (Glucagen Diagnostic Kit) 1 mg IM STAT PRN; Protocol PRN Reason: Hypoglycemia Protocol Guaifenesin (Robitussin) 200 mg PO Q4H PRN PRN Reason: Cough and congestion Last Admin: 07/30/18 10:05 Dose: 200 mg Heparin Sodium (Porcine) (Heparin) 5,000 units SC Q8 [facility] Last Admin: 07/30/18 13:02 Dose: 5,000 units Dextrose (Dextrose 5% In Water 1000 Ml) 1,000 mls @ 0 mls/hr IV .Q0M PRN; Protocol PRN Reason: Hypoglycemia Protocol Insulin Human Regular (Novolin R) 0 unit SC ACHS [facility]; Protocol Last Admin: 07/30/18 13:01 Dose: 4 u Memantine (Namenda) 5 mg PO HS [facility] Last Admin: 07/29/18 21:13 Dose: 5 mg Methylprednisolone (Solu-Medrol) 40 mg IVP Q12H [facility] Last Admin: 07/30/18 06:08 Dose: 40 mg Pantoprazole Sodium (Protonix Inj) 40 mg IVP DAILY [facility] Last Admin: 07/30/18 10:05 Dose: 40 mg Temazepam (Restoril) 15 mg PO HS [facility] Last Admin: 07/29/18 21:13 Dose: 15 mg - Labs Labs: 07/30/18 06:32 07/30/18 06:32 - Constitutional Appears: Non-toxic, No Acute Distress - Head Exam Head Exam: ATRAUMATIC, NORMOCEPHALIC - ENT Exam ENT Exam: Mucous Membranes Moist - Respiratory Exam Respiratory Exam: Decreased Breath Sounds, Wheezes, NORMAL BREATHING PATTERN. absent: Accessory Muscle Use, Rales Additional comments: diffuse expiratory wheezes rales resolved 2L O2 on NC - Cardiovascular Exam Cardiovascular Exam: Clicks, +S1, +S2, +S4, Murmur Additional comments: irregularly irregular audible click during systole - GI/Abdominal Exam GI & Abdominal Exam: Soft, Normal Bowel Sounds. absent: Tenderness - Extremities Exam Extremities Exam: Normal Capillary Refill. absent: Joint Swelling, Pedal Edema Additional comments: peripheral pulses palpable bilaterally (radial, DP) IV access in L hand, good flow - Neurological Exam Neurological Exam: Alert, Awake - Psychiatric Exam Psychiatric exam: Normal Affect, Normal Mood - Skin Skin Exam: Intact, Normal Color, Warm Assessment and Plan - Assessment and Plan (Free Text) Assessment: Ms. Banks is a 78 year old female with PMH of asthma, MVP s/p valve replacement, AICD, CHF, gout, arthritis, and DM2 here at [facility] for CHF vs. COPD exacerbation. Plan: CHF exacerbation - BNP: 58950 on admission (BNP on previous admission 07/02 6790) - CXR (07/28): vascular congestion, blunting of costophrenic angles, cardiomegal y, AICD L chest, sternotomy - Last ECHO (03/15/18): LVEF 30-35% - EKG on admission: Sinus rhythm with occasional PVCs and PACs, RBBB, L anterior fascicular block, LVH, T wave abnormality; EKG unchanged from 07/02/18 - Lasix 40mg IV daily - home Cardizem 30mg po bid - home ASA 81mg po daily - Cardio consulted: Dr. Wilfredo jack appreciated cont HF therapy not cleared for discharge yet COPD exacerbation - 2L O2 NC prn - patient is requesting 3L - Duonebs q6 jaimee, Duonebs q4 prn - Solu-medrol 40mg IV q12 - Guaifenesin 200mg po q4 prn - Pulmonology consulted: Dr. Sebastian jack appreciated agree with current plan not cleared for discharge yet consider BiPAP if not improving DM2 - Accuchecks ACHS - ISS medium - Hypoglycemia protocol Insomnia - home Restoril 15mg po HS Dementia - home Memantine 5mg po HS PPx - DVT: Heparin 5000 sc q8, SCDs CI for CHF - GI: Protonix 40mg IV daily - Diet: HHD d/w Dr. Yang. All medical management per Dr. Trey Hester PGY-1
--- NOTE | 2018-07-30 19:42 | CP.PCM.PN ---
Subjective - Date & Time of Evaluation Date of Evaluation: 07/30/18 Time of Evaluation: 10:15 - Subjective Subjective: Patient was seen and evaluated feels better today Physical Examination - Constitutional Appears: Non-toxic, No Acute Distress - Head Exam Head Exam: ATRAUMATIC, NORMOCEPHALIC - ENT Exam ENT Exam: Mucous Membranes Moist - Respiratory Exam Respiratory Exam: Decreased Breath Sounds, Wheezes, NORMAL BREATHING PATTERN. absent: Accessory Muscle Use, Rales Additional comments: diffuse expiratory wheezes rales resolved 2L O2 on NC - Cardiovascular Exam Cardiovascular Exam: Clicks, +S1, +S2, +S4, Murmur Additional comments: irregularly irregular audible click during systole - GI/Abdominal Exam GI & Abdominal Exam: Soft, Normal Bowel Sounds. absent: Tenderness - Extremities Exam Extremities Exam: Normal Capillary Refill. absent: Joint Swelling, Pedal Edema Additional comments: peripheral pulses palpable bilaterally (radial, DP) IV access in L hand, good flow - Neurological Exam Neurological Exam: Alert, Awake - Psychiatric Exam Psychiatric exam: Normal Affect, Normal Mood - Skin Skin Exam: Intact, Normal Color, Warm Assessment and Plan - Assessment and Plan (Free Text) Assessment: Ms. Banks is a 78 year old female with PMH of asthma, MVP s/p Mitral valve replacement, AICD, CHF, gout, arthritis, and DM2 here at [facility] for CHF vs. COPD exacerbation. Plan: CHF exacerbation Patient s/p AICD Continue IV Lasix Monitor lytes CHF herapy COPD exacerbation - 2L O2 NC prn - patient is requesting 3L - Duonebs q6 jaimee, Duonebs q4 prn - Solu-medrol 40mg IV q12 - Guaifenesin 200mg po q4 prn - Pulmonology consulted: Dr. Cortes - recs appreciated agree with current plan not cleared for discharge yet consider BiPAP if not improving DM2 - Accuchecks ACHS - ISS medium - Hypoglycemia protocol Insomnia - home Restoril 15mg po HS Dementia - home Memantine 5mg po HS PPx - DVT: Heparin 5000 sc q8, SCDs CI for CHF - GI: Protonix 40mg IV daily - Diet: HHD Objective - Vital Signs/Intake and Output Vital Signs (last 24 hours): Temp Pulse Resp BP Pulse Ox 98.2 F 83 20 121/63 100 07/30/18 16:00 07/30/18 16:00 07/30/18 16:00 07/30/18 16:00 07/30/18 16:00 - Medications Medications: Current Medications Albuterol/Ipratropium (Duoneb 3 Mg/0.5 Mg (3 Ml) Ud) 3 ml INH RQ6 [facility] Last Admin: 07/30/18 19:23 Dose: 3 ml Albuterol/Ipratropium (Duoneb 3 Mg/0.5 Mg (3 Ml) Ud) 3 ml INH RQ4 PRN PRN Reason: Shortness of Breath Aspirin (Ecotrin) 81 mg PO DAILY [facility] Last Admin: 07/30/18 10:05 Dose: 81 mg Dextrose (Dextrose 50% Inj) 0 ml IV STAT PRN; Protocol PRN Reason: Hypoglycemia Protocol Dextrose (Glutose 15) 0 gm PO ONCE PRN; Protocol PRN Reason: Hypoglycemia Protocol Diltiazem HCl (Cardizem) 30 mg PO BID [facility] Last Admin: 07/30/18 17:48 Dose: 30 mg Furosemide (Lasix) 40 mg IVP DAILY [facility] Last Admin: 07/30/18 10:05 Dose: 40 mg Glucagon (Glucagen Diagnostic Kit) 1 mg IM STAT PRN; Protocol PRN Reason: Hypoglycemia Protocol Guaifenesin (Robitussin) 200 mg PO Q4H PRN PRN Reason: Cough and congestion Last Admin: 07/30/18 10:05 Dose: 200 mg Heparin Sodium (Porcine) (Heparin) 5,000 units SC Q8 [facility] Last Admin: 07/30/18 13:02 Dose: 5,000 units Dextrose (Dextrose 5% In Water 1000 Ml) 1,000 mls @ 0 mls/hr IV .Q0M PRN; Protocol PRN Reason: Hypoglycemia Protocol Insulin Human Regular (Novolin R) 0 unit SC ACHS [facility]; Protocol Last Admin: 07/30/18 17:03 Dose: Not Given Memantine (Namenda) 5 mg PO HS [facility] Last Admin: 07/29/18 21:13 Dose: 5 mg Methylprednisolone (Solu-Medrol) 40 mg IVP Q12H [facility] Last Admin: 07/30/18 17:48 Dose: 40 mg Pantoprazole Sodium (Protonix Inj) 40 mg IVP DAILY [facility] Last Admin: 07/30/18 10:05 Dose: 40 mg Temazepam (Restoril) 15 mg PO HS [facility] Last Admin: 07/29/18 21:13 Dose: 15 mg - Labs Labs: 07/30/18 06:32 07/30/18 06:32
--- NOTE | 2018-07-31 00:44 | CP.PCM.PN ---
Subjective - Date & Time of Evaluation Date of Evaluation: 07/31/18 Time of Evaluation: 00:42 - Subjective Subjective: PGY-1 Medicine Progress Note for Dr. Yang Patient was seen and examined today at bedside in no acute distress and is resting comfortably. Nurse reports no acute events. Denies chest pain, headache, dizziness, nausea, vomiting, constipation, diarrhea. Objective - Vital Signs/Intake and Output Vital Signs (last 24 hours): Temp Pulse Resp BP Pulse Ox 97.7 F 79 20 131/70 97 07/31/18 00:00 07/31/18 00:00 07/31/18 00:00 07/31/18 00:00 07/31/18 00:00 - Medications Medications: Current Medications Albuterol/Ipratropium (Duoneb 3 Mg/0.5 Mg (3 Ml) Ud) 3 ml INH RQ6 [facility] Last Admin: 07/30/18 19:23 Dose: 3 ml Albuterol/Ipratropium (Duoneb 3 Mg/0.5 Mg (3 Ml) Ud) 3 ml INH RQ4 PRN PRN Reason: Shortness of Breath Aspirin (Ecotrin) 81 mg PO DAILY [facility] Last Admin: 07/30/18 10:05 Dose: 81 mg Dextrose (Dextrose 50% Inj) 0 ml IV STAT PRN; Protocol PRN Reason: Hypoglycemia Protocol Dextrose (Glutose 15) 0 gm PO ONCE PRN; Protocol PRN Reason: Hypoglycemia Protocol Diltiazem HCl (Cardizem) 30 mg PO BID [facility] Last Admin: 07/30/18 17:48 Dose: 30 mg Furosemide (Lasix) 40 mg IVP DAILY [facility] Last Admin: 07/30/18 10:05 Dose: 40 mg Glucagon (Glucagen Diagnostic Kit) 1 mg IM STAT PRN; Protocol PRN Reason: Hypoglycemia Protocol Guaifenesin (Robitussin) 200 mg PO Q4H PRN PRN Reason: Cough and congestion Last Admin: 07/30/18 21:19 Dose: 200 mg Heparin Sodium (Porcine) (Heparin) 5,000 units SC Q8 [facility] Last Admin: 07/30/18 21:19 Dose: 5,000 units Dextrose (Dextrose 5% In Water 1000 Ml) 1,000 mls @ 0 mls/hr IV .Q0M PRN; Protocol PRN Reason: Hypoglycemia Protocol Insulin Human Regular (Novolin R) 0 unit SC ACHS [facility]; Protocol Last Admin: 07/30/18 22:24 Dose: Not Given Memantine (Namenda) 5 mg PO [facility] Last Admin: 07/30/18 21:19 Dose: 5 mg Methylprednisolone (Solu-Medrol) 40 mg IVP Q12H [facility] Last Admin: 07/30/18 17:48 Dose: 40 mg Pantoprazole Sodium (Protonix Inj) 40 mg IVP DAILY [facility] Last Admin: 07/30/18 10:05 Dose: 40 mg Temazepam (Restoril) 15 mg PO [facility] Last Admin: 07/30/18 21:19 Dose: 15 mg - Labs Labs: 07/30/18 06:32 07/30/18 06:32 - Constitutional Appears: Non-toxic, No Acute Distress - Head Exam Head Exam: ATRAUMATIC, NORMAL INSPECTION - Eye Exam Eye Exam: EOMI, Normal appearance Pupil Exam: NORMAL ACCOMODATION, PERRL - ENT Exam ENT Exam: Mucous Membranes Moist - Respiratory Exam Respiratory Exam: Decreased Breath Sounds, Wheezes, NORMAL BREATHING PATTERN Additional comments: diffuse expiratory wheezes 2L O2 on NC - Cardiovascular Exam Additional comments: irregularly irregular audible click during systole - GI/Abdominal Exam GI & Abdominal Exam: Soft, Normal Bowel Sounds. absent: Tenderness - Extremities Exam Additional comments: peripheral pulses palpable bilaterally (radial, DP) IV access in L hand, good flow - Neurological Exam Neurological Exam: Alert, Awake, CN II-XII Intact, Oriented x3 - Psychiatric Exam Psychiatric exam: Normal Affect, Normal Mood - Skin Skin Exam: Dry, Intact, Normal Color, Warm Assessment and Plan - Assessment and Plan (Free Text) Assessment: Assessment: Ms. Banks is a 78 year old female with PMH of asthma, MVP s/p valve replacement, AICD, CHF, gout, arthritis, and DM2 here at [facility] for CHF vs. COPD exacerbation. Plan: CHF exacerbation - BNP: 80879 on admission (BNP on previous admission 07/02 6790) - CXR (07/28): vascular congestion, blunting of costophrenic angles, cardiomegaly, AICD L chest, sternotomy - Last ECHO (03/15/18): LVEF 30-35% - EKG on admission: Sinus rhythm with occasional PVCs and PACs, RBBB, L anterior fascicular block, LVH, T wave abnormality; EKG unchanged from 07/02/18 - Lasix 40mg IV daily - home Cardizem 30mg po bid - home ASA 81mg po daily - Cardio consulted: Dr. Wilfredo jack appreciated cont HF therapy not cleared for discharge yet COPD exacerbation - 2L O2 NC prn - patient is requesting 3L - Duonebs q6 jaimee, Duonebs q4 prn - Solu-medrol 40mg IV q12 - Guaifenesin 200mg po q4 prn - Pulmonology consulted: Dr. Sebastian jack appreciated agree with current plan not cleared for discharge yet consider BiPAP if not improving DM2 - Accuchecks ACHS - ISS medium - Hypoglycemia protocol Insomnia - home Restoril 15mg po HS Dementia - home Memantine 5mg po HS PPx - DVT: Heparin 5000 sc q8, SCDs CI for CHF - GI: Protonix 40mg IV daily - Diet: HHD d/w Dr. Yang. All medical management per Dr. Trey Rosen PGY-1
[2018-07-31] MEDS: Albuterol-Ipratrop 3 mg / 0.5 (3 ml) UD INH SCH ×4 (01:14→20:25)
[2018-07-31] MEDS: MethylPREDNISolone 40 mg Vial IVP SCH ×4 (06:02→21:17)
[2018-07-31 07:31] LABS: BASO % 0.3 % (0.0-2.0); HEMOGLOBIN 10.6 g/dL (11.0-16.0); LYMPH # 0.7 K/uL (1.0-4.3); LYMPH % 7.4 % (20.0-40.0); MEAN CELL VOLUME 81.2 fL (81.0-99.0); MEAN CORPUSCULAR HEMOGLOBIN 26.6 pg (27.0-31.0); MEAN CORPUSCULAR HGB CONC 32.7 g/dL (33.0-37.0); MEAN PLATELET VOLUME 9.8 fL (7.2-11.7); MONO # 0.3 K/uL (0.0-0.8); MONO % 2.8 % (0.0-10.0); NEUT # 8.1 K/uL (1.8-7.0); NEUT % 89.5 % (50.0-75.0); PLATELET COUNT 231 K/uL (130-400); RED CELL DISTRIBUTION WIDTH 17.7 % (11.5-14.5)
[2018-07-31 07:48] LABS: ALB/GLOB RATIO 1.2 (1.0-2.1); ALBUMIN 3.3 g/dL (3.5-5.0); CALCIUM 9.8 mg/dl (8.6-10.4)
[2018-07-31] MEDS: (Novolin R) Insulin Human Regular 100 units/ml vial SC SCH ×4 (08:55→22:00)
--- NOTE | 2018-07-31 09:59 | CP.PCM.PN ---
Subjective - Date & Time of Evaluation Date of Evaluation: 07/31/18 Time of Evaluation: 08:20 - Subjective Subjective: patient still wheezing, shortness of breath and coughing Afebrile Could not sleep last night No chest pain Objective - Vital Signs/Intake and Output Vital Signs (last 24 hours): Temp Pulse Resp BP Pulse Ox 97.6 F 79 20 135/70 100 07/31/18 07:20 07/31/18 07:20 07/31/18 07:20 07/31/18 07:20 07/31/18 07:20 - Medications Medications: Current Medications Albuterol/Ipratropium (Duoneb 3 Mg/0.5 Mg (3 Ml) Ud) 3 ml INH RQ6 [facility] Last Admin: 07/31/18 08:57 Dose: 3 ml Albuterol/Ipratropium (Duoneb 3 Mg/0.5 Mg (3 Ml) Ud) 3 ml INH RQ4 PRN PRN Reason: Shortness of Breath Aspirin (Ecotrin) 81 mg PO DAILY [facility] Last Admin: 07/30/18 10:05 Dose: 81 mg Dextrose (Dextrose 50% Inj) 0 ml IV STAT PRN; Protocol PRN Reason: Hypoglycemia Protocol Dextrose (Glutose 15) 0 gm PO ONCE PRN; Protocol PRN Reason: Hypoglycemia Protocol Diltiazem HCl (Cardizem) 30 mg PO BID [facility] Last Admin: 07/30/18 17:48 Dose: 30 mg Furosemide (Lasix) 40 mg IVP DAILY [facility] Last Admin: 07/30/18 10:05 Dose: 40 mg Glucagon (Glucagen Diagnostic Kit) 1 mg IM STAT PRN; Protocol PRN Reason: Hypoglycemia Protocol Guaifenesin (Robitussin) 200 mg PO Q4H PRN PRN Reason: Cough and congestion Last Admin: 07/30/18 21:19 Dose: 200 mg Heparin Sodium (Porcine) (Heparin) 5,000 units SC Q8 [facility] Last Admin: 07/31/18 06:02 Dose: 5,000 units Dextrose (Dextrose 5% In Water 1000 Ml) 1,000 mls @ 0 mls/hr IV .Q0M PRN; Protocol PRN Reason: Hypoglycemia Protocol Insulin Human Regular (Novolin R) 0 unit SC ACHS [facility]; Protocol Last Admin: 07/31/18 08:55 Dose: 3 u Memantine (Namenda) 5 mg PO HS [facility] Last Admin: 07/30/18 21:19 Dose: 5 mg Pantoprazole Sodium (Protonix Inj) 40 mg IVP DAILY [facility] Last Admin: 07/30/18 10:05 Dose: 40 mg Temazepam (Restoril) 15 mg PO [facility] Last Admin: 07/30/18 21:19 Dose: 15 mg - Labs Labs: 07/31/18 07:14 07/31/18 07:14 - Head Exam Head Exam: ATRAUMATIC, NORMOCEPHALIC - ENT Exam ENT Exam: Mucous Membranes Moist - Neck Exam Neck Exam: Normal Inspection - Respiratory Exam Respiratory Exam: Rhonchi, Wheezes - Cardiovascular Exam Cardiovascular Exam: REGULAR RHYTHM - GI/Abdominal Exam GI & Abdominal Exam: Soft, Normal Bowel Sounds - Extremities Exam Extremities Exam: Normal Inspection - Neurological Exam Neurological Exam: Alert Assessment and Plan (1) COPD exacerbation Assessment & Plan: increase Solu-Medrol Nebulizer treatment spirive Continue Lasix Followup chest x-ray Status: Acute (2) CHF exacerbation Status: Acute
[2018-07-31] MEDS: guaiFENesin 200 mg/10 ml Syrup UD PO PRN ×2 (10:13→21:17)
[2018-07-31 10:52] LABS: BANDS 1 % (0-2); LYMPHOCYTE 7 % (20-40); MONOCYTE 2 % (0-10); NEUTROPHIL 90 % (50-75); TOTAL CELLS COUNTED 100
[2018-07-31 10:53] LABS: ANISOCYTOSIS SLIGHT; MICROCYTOSIS SLIGHT; PLATELET ESTIMATE NORMAL (NORMAL); POIKILOCYTOSIS SLIGHT
[2018-07-31 10:54] LABS: HYPOCHROMIC SLIGHT; OVALOCYTES SLIGHT; POLYCHROMIC SLIGHT
[2018-07-31 10:55] LABS: TEARDROP CELLS SLIGHT
--- NOTE | 2018-07-31 19:03 | CP.PCM.PN ---
Subjective - Date & Time of Evaluation Date of Evaluation: 07/31/18 Time of Evaluation: 11:20 - Subjective Subjective: Patient was seen and evaluated Feels better Objective - Vital Signs/Intake and Output Vital Signs (last 24 hours): Temp Pulse Resp BP Pulse Ox 97.7 F 79 20 131/70 97 07/31/18 00:00 07/31/18 00:00 07/31/18 00:00 07/31/18 00:00 07/31/18 00:00 - Medications Medications: Current Medications Albuterol/Ipratropium (Duoneb 3 Mg/0.5 Mg (3 Ml) Ud) 3 ml INH RQ6 [facility] Last Admin: 07/30/18 19:23 Dose: 3 ml Albuterol/Ipratropium (Duoneb 3 Mg/0.5 Mg (3 Ml) Ud) 3 ml INH RQ4 PRN PRN Reason: Shortness of Breath Aspirin (Ecotrin) 81 mg PO DAILY [facility] Last Admin: 07/30/18 10:05 Dose: 81 mg Dextrose (Dextrose 50% Inj) 0 ml IV STAT PRN; Protocol PRN Reason: Hypoglycemia Protocol Dextrose (Glutose 15) 0 gm PO ONCE PRN; Protocol PRN Reason: Hypoglycemia Protocol Diltiazem HCl (Cardizem) 30 mg PO BID [facility] Last Admin: 07/30/18 17:48 Dose: 30 mg Furosemide (Lasix) 40 mg IVP DAILY [facility] Last Admin: 07/30/18 10:05 Dose: 40 mg Glucagon (Glucagen Diagnostic Kit) 1 mg IM STAT PRN; Protocol PRN Reason: Hypoglycemia Protocol Guaifenesin (Robitussin) 200 mg PO Q4H PRN PRN Reason: Cough and congestion Last Admin: 07/30/18 21:19 Dose: 200 mg Heparin Sodium (Porcine) (Heparin) 5,000 units SC Q8 [facility] Last Admin: 07/30/18 21:19 Dose: 5,000 units Dextrose (Dextrose 5% In Water 1000 Ml) 1,000 mls @ 0 mls/hr IV .Q0M PRN; Protocol PRN Reason: Hypoglycemia Protocol Insulin Human Regular (Novolin R) 0 unit SC ACHS [facility]; Protocol Last Admin: 07/30/18 22:24 Dose: Not Given Memantine (Namenda) 5 mg PO HS [facility] Last Admin: 07/30/18 21:19 Dose: 5 mg Methylprednisolone (Solu-Medrol) 40 mg IVP Q12H [facility] Last Admin: 07/30/18 17:48 Dose: 40 mg Pantoprazole Sodium (Protonix Inj) 40 mg IVP DAILY [facility] Last Admin: 07/30/18 10:05 Dose: 40 mg Temazepam (Restoril) 15 mg PO HS [facility] Last Admin: 07/30/18 21:19 Dose: 15 mg - Labs Labs: 07/30/18 06:32 07/30/18 06:32 - Constitutional Appears: Non-toxic, No Acute Distress - Head Exam Head Exam: ATRAUMATIC, NORMAL INSPECTION - Eye Exam Eye Exam: EOMI, Normal appearance Pupil Exam: NORMAL ACCOMODATION, PERRL - ENT Exam ENT Exam: Mucous Membranes Moist - Respiratory Exam Respiratory Exam: Decreased Breath Sounds, Wheezes, NORMAL BREATHING PATTERN Additional comments: diffuse expiratory wheezes 2L O2 on NC - Cardiovascular Exam Additional comments: irregularly irregular audible click during systole - GI/Abdominal Exam GI & Abdominal Exam: Soft, Normal Bowel Sounds. absent: Tenderness - Extremities Exam Additional comments: peripheral pulses palpable bilaterally (radial, DP) IV access in L hand, good flow - Neurological Exam Neurological Exam: Alert, Awake, CN II-XII Intact, Oriented x3 - Psychiatric Exam Psychiatric exam: Normal Affect, Normal Mood - Skin Skin Exam: Dry, Intact, Normal Color, Warm Assessment and Plan Objective - Vital Signs/Intake and Output Vital Signs (last 24 hours): Temp Pulse Resp BP Pulse Ox 97.8 F 89 20 137/67 100 07/31/18 15:15 07/31/18 17:33 07/31/18 15:15 07/31/18 17:33 07/31/18 15:15 - Medications Medications: Current Medications Albuterol/Ipratropium (Duoneb 3 Mg/0.5 Mg (3 Ml) Ud) 3 ml INH RQ6 [facility] Last Admin: 07/31/18 13:47 Dose: 3 ml Albuterol/Ipratropium (Duoneb 3 Mg/0.5 Mg (3 Ml) Ud) 3 ml INH RQ4 PRN PRN Reason: Shortness of Breath Aspirin (Ecotrin) 81 mg PO DAILY [facility] Last Admin: 07/31/18 10:13 Dose: 81 mg Dextrose (Dextrose 50% Inj) 0 ml IV STAT PRN; Protocol PRN Reason: Hypoglycemia Protocol Dextrose (Glutose 15) 0 gm PO ONCE PRN; Protocol PRN Reason: Hypoglycemia Protocol Diltiazem HCl (Cardizem) 30 mg PO BID [facility] Last Admin: 07/31/18 17:34 Dose: 30 mg Furosemide (Lasix) 20 mg IVP DAILY [facility] Glucagon (Glucagen Diagnostic Kit) 1 mg IM STAT PRN; Protocol PRN Reason: Hypoglycemia Protocol Guaifenesin (Robitussin) 200 mg PO Q4H PRN PRN Reason: Cough and congestion Last Admin: 07/31/18 10:13 Dose: 200 mg Heparin Sodium (Porcine) (Heparin) 5,000 units SC Q8 [facility] Last Admin: 07/31/18 13:28 Dose: 5,000 units Dextrose (Dextrose 5% In Water 1000 Ml) 1,000 mls @ 0 mls/hr IV .Q0M PRN; Protocol PRN Reason: Hypoglycemia Protocol Insulin Human Regular (Novolin R) 0 unit SC ACHS [facility]; Protocol Last Admin: 07/31/18 12:19 Dose: 6 u Memantine (Namenda) 5 mg PO HS [facility] Last Admin: 07/30/18 21:19 Dose: 5 mg Methylprednisolone (Solu-Medrol) 40 mg IVP Q8 [facility] Montelukast Sodium (Singulair) 10 mg PO HS [facility] Pantoprazole Sodium (Protonix Inj) 40 mg IVP DAILY [facility] Last Admin: 07/31/18 10:14 Dose: 40 mg Temazepam (Restoril) 15 mg PO HS [facility] Last Admin: 07/30/18 21:19 Dose: 15 mg Tiotropium [place] (Spiriva) 18 mcg INH RQ24 [facility] - Labs Labs: 07/31/18 07:14 07/31/18 07:14 Assessment and Plan - Assessment and Plan (Free Text) Assessment: Ms. Banks is a 78 year old female with PMH of asthma, MVP s/p Mitral valve replacement, AICD, CHF, gout, arthritis, and DM2 here at [facility] for CHF vs. COPD exacerbation. Plan: CHF exacerbation Patient s/p AICD Continue IV Lasix Monitor lytes CHF herapy COPD exacerbation - 2L O2 [place] prn - patient is requesting 3L - Duonebs q6 jaimee, Duonebs q4 prn - Solu-medrol 40mg IV q12 - Guaifenesin 200mg po q4 prn - Pulmonology consulted: Dr. Cortes - recs appreciated agree with current plan not cleared for discharge yet consider BiPAP if not improving DM2 - Accuchecks ACHS - ISS medium - Hypoglycemia protocol Insomnia - home Restoril 15mg po HS Dementia - home Memantine 5mg po HS PPx - DVT: Heparin 5000 sc q8, SCDs CI for CHF - GI: Protonix 40mg IV daily - Diet: HHD
[2018-08-01] MEDS: Albuterol-Ipratrop 3 mg / 0.5 (3 ml) UD INH SCH ×4 (02:40→19:13)
[2018-08-01] MEDS: MethylPREDNISolone 40 mg Vial IVP SCH ×3 (05:37→21:50)
[2018-08-01 07:32] LABS: BASO % 0.3 % (0.0-2.0); HEMOGLOBIN 10.6 g/dL (11.0-16.0); LYMPH # 0.4 K/uL (1.0-4.3); LYMPH % 4.7 % (20.0-40.0); MEAN CELL VOLUME 81.7 fL (81.0-99.0); MEAN CORPUSCULAR HEMOGLOBIN 26.2 pg (27.0-31.0); MONO # 0.3 K/uL (0.0-0.8); MONO % 3.5 % (0.0-10.0); NEUT # 7.7 K/uL (1.8-7.0); NEUT % 91.5 % (50.0-75.0); NRBC % 0.1 % (0.0-2.0); PLATELET COUNT 213 K/uL (130-400); RBC 4.05 Mil/uL (3.80-5.20); RED CELL DISTRIBUTION WIDTH 17.2 % (11.5-14.5); WHITE BLOOD COUNT 8.4 K/uL (4.8-10.8)
[2018-08-01 07:50] LABS: ALB/GLOB RATIO 1.2 (1.0-2.1); ALBUMIN 3.1 g/dL (3.5-5.0); CALCIUM 9.4 mg/dl (8.6-10.4)
[2018-08-01] MEDS: Tiotropium 18 mcg Cap For Inhalation INH SCH (08:41)
[2018-08-01] MEDS: (Novolin R) Insulin Human Regular 100 units/ml vial SC SCH ×4 (09:06→21:49)
[2018-08-01 09:11] LABS: TOTAL CELLS COUNTED 100
[2018-08-01 09:12] LABS: ANISOCYTOSIS SLIGHT; BANDS 1 % (0-2); LYMPHOCYTE 5 % (20-40); MONOCYTE 3 % (0-10); NEUTROPHIL 91 % (50-75); PLATELET ESTIMATE NORMAL (NORMAL)
[2018-08-01 09:13] LABS: HYPOCHROMIC SLIGHT; MICROCYTOSIS SLIGHT; OVALOCYTES SLIGHT; POIKILOCYTOSIS SLIGHT; POLYCHROMIC SLIGHT; SCHISTOCYTES SLIGHT
[2018-08-01 09:14] LABS: SPHEROCYTES SLIGHT
[2018-08-01] MEDS: guaiFENesin 200 mg/10 ml Syrup UD PO PRN (09:14)
--- NOTE | 2018-08-01 11:55 | CP.PCM.PN ---
Subjective - Date & Time of Evaluation Date of Evaluation: 08/01/18 Time of Evaluation: 11:54 - Subjective Subjective: Pulmonary Follow up, Covering Dr Cortes The patient was Seen/interviewed and examined by me at the bedside, Medical records reviewed and Management issues were discussed and formulated with the house staff. Events reviewed 78 Years old female with PMHx of DM2, asthma, CHF, AICD, gout, arthritis, and MVP s/p valve replacement Who presented to the ED on 07/28/18 with complaint of shortness of breath and non-productive cough, she states the shortness of breath has been there since discharge from her last admission on 07/07/18, but her symptoms became significantly worse the past couple days. Pt. states she uses her oxygen machine at home that gives her some relief. CXR (07/28): stable cardiomegaly; no definite pulmonary vascular congestion; no airspace disease bilaterally; trace of pleural effusion in question; AICD pacemaker reiterated. Admitted for COPD exacerbation Felling better today, sitting comfortable in chair, NAD Less shortness of breath Denies chest pain, hemoptysis. Afebrile This morning labs revealed worsening renal function BUN/Cr up to 61/1.7 PMHx: as per H&P SHx: MVR (2008), AICD, cholecystectomy (+30 yrs. ago) FHx: mother/father-[place], stroke; brother-stroke, kidney cancer Allergies: PCN (anaphylaxis) Social: denies tobaccco, alcohol, drug use; lives with daughter in [place] Improved respiratory status Off Antibiotics D/C Lasix Afebrile Continue PRN nebulizer treatment. Continue Singulair 10 mg PO HS Continue Spiriva 18 mcg INH RQ24 Discontinue Oxygen keep SaO2 >94% Objective - Vital Signs/Intake and Output Vital Signs (last 24 hours): Temp Pulse Resp BP Pulse Ox 97.6 F 90 20 154/70 H 98 08/01/18 08:00 08/01/18 09:12 08/01/18 08:00 08/01/18 09:14 08/01/18 08:00 - Medications Medications: Current Medications Albuterol/Ipratropium (Duoneb 3 Mg/0.5 Mg (3 Ml) Ud) 3 ml INH RQ6 [facility] Last Admin: 08/01/18 08:41 Dose: Not Given Albuterol/Ipratropium (Duoneb 3 Mg/0.5 Mg (3 Ml) Ud) 3 ml INH RQ4 PRN PRN Reason: Shortness of Breath Aspirin (Ecotrin) 81 mg PO DAILY [facility] Last Admin: 08/01/18 09:13 Dose: 81 mg Dextrose (Dextrose 50% Inj) 0 ml IV STAT PRN; Protocol PRN Reason: Hypoglycemia Protocol Dextrose (Glutose 15) 0 gm PO ONCE PRN; Protocol PRN Reason: Hypoglycemia Protocol Diltiazem HCl (Cardizem) 30 mg PO BID [facility] Last Admin: 08/01/18 09:14 Dose: 30 mg Furosemide (Lasix) 20 mg IVP DAILY [facility] Last Admin: 08/01/18 09:14 Dose: 20 mg Glucagon (Glucagen Diagnostic Kit) 1 mg IM STAT PRN; Protocol PRN Reason: Hypoglycemia Protocol Guaifenesin (Robitussin) 200 mg PO Q4H PRN PRN Reason: Cough and congestion Last Admin: 08/01/18 09:14 Dose: 200 mg Heparin Sodium (Porcine) (Heparin) 5,000 units SC Q8 [facility] Last Admin: 08/01/18 05:38 Dose: 5,000 units Dextrose (Dextrose 5% In Water 1000 Ml) 1,000 mls @ 0 mls/hr IV .Q0M PRN; Protocol PRN Reason: Hypoglycemia Protocol Insulin Human Regular (Novolin R) 0 unit SC ACHS [facility]; Protocol Last Admin: 08/01/18 09:06 Dose: 3 u Memantine (Namenda) 5 mg PO HS [facility] Last Admin: 07/31/18 21:18 Dose: 5 mg Methylprednisolone (Solu-Medrol) 40 mg IVP Q8 [facility] Last Admin: 08/01/18 05:37 Dose: 40 mg Montelukast Sodium (Singulair) 10 mg PO HS [facility] Last Admin: 07/31/18 21:18 Dose: 10 mg Pantoprazole Sodium (Protonix Inj) 40 mg IVP DAILY [facility] Last Admin: 08/01/18 09:13 Dose: 40 mg Temazepam (Restoril) 15 mg PO HS [facility] Last Admin: 07/31/18 21:18 Dose: 15 mg Tiotropium [place] (Spiriva) 18 mcg INH RQ24 [facility] Last Admin: 08/01/18 08:41 Dose: Not Given - Labs Labs: 08/01/18 07:19 08/01/18 07:19 - Constitutional Appears: Well, Non-toxic - Head Exam Head Exam: ATRAUMATIC, NORMAL INSPECTION - Eye Exam Eye Exam: EOMI, Normal appearance. absent: Conjunctival injection - ENT Exam ENT Exam: Mucous Membranes Moist - Respiratory Exam Respiratory Exam: Decreased Breath Sounds, Clear to Ausculation Bilateral, NORMAL BREATHING PATTERN. absent: Accessory Muscle Use, Chest Wall Tenderness, Rales, Rhonchi, Wheezes - Cardiovascular Exam Cardiovascular Exam: REGULAR RHYTHM, RRR, +S1, +S2. absent: JVD - GI/Abdominal Exam GI & Abdominal Exam: Soft, Normal Bowel Sounds - Neurological Exam Neurological Exam: Alert, Awake, CN II-XII Intact, Oriented x3 Assessment and Plan (1) COPD exacerbation Status: Resolved (2) Pleural effusion Status: Acute (3) Dyspnea Status: Acute
[2018-08-01] MEDS: Sodium Chloride 0.45% 1,000 ML IV SCH (12:35)
[2018-08-01 13:32] VITALS: O2SAT 100
--- NOTE | 2018-08-01 17:27 | CP.PCM.PN ---
Subjective - Date & Time of Evaluation Date of Evaluation: 08/01/18 Time of Evaluation: 13:10 - Subjective Subjective: Patient was seen and evaluated Denies chest pain and dyspnea Family at bedside Physical Examination - Constitutional Appears: Non-toxic, No Acute Distress - Head Exam Head Exam: ATRAUMATIC, NORMAL INSPECTION - Eye Exam Eye Exam: EOMI, Normal appearance Pupil Exam: NORMAL ACCOMODATION, PERRL - ENT Exam ENT Exam: Mucous Membranes Moist - Respiratory Exam Respiratory Exam: Decreased Breath Sounds, Wheezes, NORMAL BREATHING PATTERN Additional comments: diffuse expiratory wheezes 2L O2 on NC - Cardiovascular Exam Additional comments: irregularly irregular audible click during systole - GI/Abdominal Exam GI & Abdominal Exam: Soft, Normal Bowel Sounds. absent: Tenderness - Extremities Exam Additional comments: peripheral pulses palpable bilaterally (radial, DP) IV access in L hand, good flow - Neurological Exam Neurological Exam: Alert, Awake, CN II-XII Intact, Oriented x3 - Psychiatric Exam Psychiatric exam: Normal Affect, Normal Mood - Skin Skin Exam: Dry, Intact, Normal Color, Warm Assessment and Plan - Assessment and Plan (Free Text) Assessment: Ms. Banks is a 78 year old female with PMH of asthma, MVP s/p Mitral valve replacement, AICD, CHF, gout, arthritis, and DM2 here at [facility] for CHF vs. COPD exacerbation. Plan: CHF exacerbation Patient s/p AICD Continue IV Lasix Monitor lytes CHF herapy COPD exacerbation - 2L O2 [place] prn - patient is requesting 3L - Duonebs q6 jaimee, Duonebs q4 prn - Solu-medrol 40mg IV q12 - Guaifenesin 200mg po q4 prn - Pulmonology consulted: Dr. Cortes - recs appreciated agree with current plan not cleared for discharge yet consider BiPAP if not improving DM2 - Accuchecks ACHS - ISS medium - Hypoglycemia protocol Insomnia - home Restoril 15mg po HS Dementia - home Memantine 5mg po HS PPx - DVT: Heparin 5000 sc q8, SCDs CI for CHF - GI: Protonix 40mg IV daily - Diet: HHD Objective - Vital Signs/Intake and Output Vital Signs (last 24 hours): Temp Pulse Resp BP Pulse Ox 97.6 F 77 20 132/71 100 08/01/18 08:00 08/01/18 15:54 08/01/18 08:00 08/01/18 13:22 08/01/18 13:22 Intake and Output: 08/01/18 08/01/18 06:59 18:59 Intake Total 200 Balance 200 - Medications Medications: Current Medications Albuterol/Ipratropium (Duoneb 3 Mg/0.5 Mg (3 Ml) Ud) 3 ml INH RQ6 [facility] Last Admin: 08/01/18 14:04 Dose: 3 ml Albuterol/Ipratropium (Duoneb 3 Mg/0.5 Mg (3 Ml) Ud) 3 ml INH RQ4 PRN PRN Reason: Shortness of Breath Aspirin (Ecotrin) 81 mg PO DAILY [facility] Last Admin: 08/01/18 09:13 Dose: 81 mg Dextrose (Dextrose 50% Inj) 0 ml IV STAT PRN; Protocol PRN Reason: Hypoglycemia Protocol Dextrose (Glutose 15) 0 gm PO ONCE PRN; Protocol PRN Reason: Hypoglycemia Protocol Diltiazem HCl (Cardizem) 30 mg PO BID [facility] Last Admin: 08/01/18 09:14 Dose: 30 mg Furosemide (Lasix) 20 mg IVP DAILY [facility] Last Admin: 08/01/18 09:14 Dose: 20 mg Glucagon (Glucagen Diagnostic Kit) 1 mg IM STAT PRN; Protocol PRN Reason: Hypoglycemia Protocol Guaifenesin (Robitussin) 200 mg PO Q4H PRN PRN Reason: Cough and congestion Last Admin: 08/01/18 09:14 Dose: 200 mg Heparin Sodium (Porcine) (Heparin) 5,000 units SC Q8 [facility] Last Admin: 08/01/18 13:20 Dose: 5,000 units Dextrose (Dextrose 5% In Water 1000 Ml) 1,000 mls @ 0 mls/hr IV .Q0M PRN; Protocol PRN Reason: Hypoglycemia Protocol Sodium Chloride (Sodium Chloride 0.45%) 1,000 mls @ 80 mls/hr IV .[id number] [facility] Last Admin: 08/01/18 12:35 Dose: 80 mls/hr Insulin Human Regular (Novolin R) 0 unit SC ACHS [facility]; Protocol Last Admin: 08/01/18 12:31 Dose: 4 u Memantine (Namenda) 5 mg PO HS [facility] Last Admin: 07/31/18 21:18 Dose: 5 mg Methylprednisolone (Solu-Medrol) 40 mg IVP Q8 [facility] Last Admin: 08/01/18 13:20 Dose: 40 mg Montelukast Sodium (Singulair) 10 mg PO HS [facility] Last Admin: 07/31/18 21:18 Dose: 10 mg Pantoprazole Sodium (Protonix Inj) 40 mg IVP DAILY [facility] Last Admin: 08/01/18 09:13 Dose: 40 mg Temazepam (Restoril) 15 mg PO HS [facility] Last Admin: 07/31/18 21:18 Dose: 15 mg Tiotropium [place] (Spiriva) 18 mcg INH RQ24 [facility] Last Admin: 08/01/18 08:41 Dose: Not Given - Labs Labs: 08/01/18 07:19 08/01/18 07:19
--- NOTE | 2018-08-01 18:42 | CP.PCM.PN ---
Subjective - Date & Time of Evaluation Date of Evaluation: 08/01/18 Time of Evaluation: 18:42 - Subjective Subjective: Medicine Progress Note for Dr. Yang Patient was seen and examined at bedside in no acute distress. Patient reports feeling better today. She denies chest pain, palpitations, dyspnea, wheezing, coughing, nausea, vomiting, fevers, headaches, dizziness, dysuria, constipation, and diarrhea. Objective - Vital Signs/Intake and Output Vital Signs (last 24 hours): Temp Pulse Resp BP Pulse Ox 97.6 F 92 H 20 123/82 100 08/01/18 08:00 08/01/18 18:05 08/01/18 08:00 08/01/18 18:05 08/01/18 13:22 Intake and Output: 08/01/18 08/01/18 06:59 18:59 Intake Total 200 Balance 200 - Medications Medications: Current Medications Albuterol/Ipratropium (Duoneb 3 Mg/0.5 Mg (3 Ml) Ud) 3 ml INH RQ6 [facility] Last Admin: 08/01/18 14:04 Dose: 3 ml Albuterol/Ipratropium (Duoneb 3 Mg/0.5 Mg (3 Ml) Ud) 3 ml INH RQ4 PRN PRN Reason: Shortness of Breath Aspirin (Ecotrin) 81 mg PO DAILY [facility] Last Admin: 08/01/18 09:13 Dose: 81 mg Dextrose (Dextrose 50% Inj) 0 ml IV STAT PRN; Protocol PRN Reason: Hypoglycemia Protocol Dextrose (Glutose 15) 0 gm PO ONCE PRN; Protocol PRN Reason: Hypoglycemia Protocol Diltiazem HCl (Cardizem) 30 mg PO BID [facility] Last Admin: 08/01/18 18:09 Dose: 30 mg Furosemide (Lasix) 20 mg IVP DAILY [facility] Last Admin: 08/01/18 09:14 Dose: 20 mg Glucagon (Glucagen Diagnostic Kit) 1 mg IM STAT PRN; Protocol PRN Reason: Hypoglycemia Protocol Guaifenesin (Robitussin) 200 mg PO Q4H PRN PRN Reason: Cough and congestion Last Admin: 08/01/18 09:14 Dose: 200 mg Heparin Sodium (Porcine) (Heparin) 5,000 units SC Q8 [facility] Last Admin: 08/01/18 13:20 Dose: 5,000 units Dextrose (Dextrose 5% In Water 1000 Ml) 1,000 mls @ 0 mls/hr IV .Q0M PRN; Protocol PRN Reason: Hypoglycemia Protocol Sodium Chloride (Sodium Chloride 0.45%) 1,000 mls @ 80 mls/hr IV .[id number] [facility] Last Admin: 08/01/18 12:35 Dose: 80 mls/hr Insulin Human Regular (Novolin R) 0 unit SC ACHS [facility]; Protocol Last Admin: 08/01/18 18:09 Dose: 2 u Memantine (Namenda) 5 mg PO HS [facility] Last Admin: 07/31/18 21:18 Dose: 5 mg Montelukast Sodium (Singulair) 10 mg PO HS [facility] Last Admin: 07/31/18 21:18 Dose: 10 mg Pantoprazole Sodium (Protonix Inj) 40 mg IVP DAILY [facility] Last Admin: 08/01/18 09:13 Dose: 40 mg Temazepam (Restoril) 15 mg PO HS [facility] Last Admin: 07/31/18 21:18 Dose: 15 mg Tiotropium [place] (Spiriva) 18 mcg INH RQ24 [facility] Last Admin: 08/01/18 08:41 Dose: Not Given - Labs Labs: 08/01/18 07:19 08/01/18 07:19 - Constitutional Appears: No Acute Distress - Head Exam Head Exam: ATRAUMATIC, NORMAL INSPECTION - Eye Exam Eye Exam: EOMI - ENT Exam ENT Exam: Mucous Membranes Moist - Respiratory Exam Respiratory Exam: NORMAL BREATHING PATTERN. absent: Rales, Rhonchi, Wheezes, Respiratory Distress - Cardiovascular Exam Cardiovascular Exam: REGULAR RHYTHM, +S1, +S2 - GI/Abdominal Exam GI & Abdominal Exam: Soft, Normal Bowel Sounds. absent: Distended, Firm, Guarding, Tenderness - Extremities Exam Extremities Exam: Normal Inspection - Neurological Exam Neurological Exam: Alert, Awake, Oriented x3 - Psychiatric Exam Psychiatric exam: Normal Affect, Normal Mood - Skin Skin Exam: Dry, Intact, Normal Color, Warm Assessment and Plan - Assessment and Plan (Free Text) Plan: 78 year old female with PMH of asthma, MVP s/p valve replacement, AICD, CHF, gout, arthritis, and DM2 here at [facility] for CHF vs. COPD exacerbation. Plan: CHF exacerbation - BNP: [id number] on admission (BNP on previous admission 07/02 [id number]) - CXR (07/28): vascular congestion, blunting of costophrenic angles, cardiomegaly, AICD L chest, sternotomy - Last ECHO (03/15/18): LVEF 30-35% - EKG on admission: Sinus rhythm with occasional PVCs and PACs, RBBB, L anterior fascicular block, LVH, T wave abnormality; EKG unchanged from 07/02/18 - Discontinued Lasix 40mg IV daily * discontinued due to increasing BUN/Cr--> started 0.45NS @80cc/hr. - home Cardizem 30mg po bid - home ASA 81mg po daily - Cardio consulted: Dr. Wilfredo jack appreciated COPD exacerbation - 2L O2 [place] prn - patient is requesting 3L - Duonebs q6 jaimee, Duonebs q4 prn - Solu-medrol 40mg IV q12 - Guaifenesin 200mg po q4 prn - Pulmonology consulted: Dr. Sebastian jack appreciated DM2 - Accuchecks ACHS - ISS medium - Hypoglycemia protocol Insomnia - home Restoril 15mg po HS Dementia - home Memantine 5mg po HS PPx - DVT: Heparin 5000 sc q8, SCDs CI for CHF - GI: Protonix 40mg IV daily - Diet: HHD All orders and management per Dr. Yang
[2018-08-02] MEDS: Albuterol-Ipratrop 3 mg / 0.5 (3 ml) UD INH SCH ×2 (02:34→07:20)
[2018-08-02] MEDS: Sodium Chloride 0.45% 1,000 ML IV SCH (04:52)
[2018-08-02] MEDS: Tiotropium 18 mcg Cap For Inhalation INH SCH (07:25)
--- NOTE | 2018-08-02 07:36 | CARD ---
APPROVED REPORT Date of service: 07/28/2018 EKG Measurement Heart [id number] <Conclusion> Sinus rhythm with occasional premature ventricular complexes and premature atrial complexes Right bundle branch block Left anterior fascicular block Bifascicular block Voltage criteria for left ventricular hypertrophy T wave abnormality, consider lateral ischemia Abnormal ECG
--- NOTE | 2018-08-02 07:36 | CP.PCM.DIS ---
Provider - Provider Date of Admission: 07/28/18 16:34 Attending physician: Tobi Yang Jr, MD Time Spent in preparation of Discharge (in minutes): 45 Diagnosis - Discharge Diagnosis (1) CHF exacerbation Status: Resolved (2) COPD exacerbation Status: Resolved (3) Asthma exacerbation Status: Resolved (4) ICD (implantable cardioverter-defibrillator) battery depletion Status: Resolved Hospital Course - Lab Results Lab Results: Most Recent Lab Values WBC 8.4 K/uL (4.8-10.8) 08/01/18 07:19 RBC 4.05 Mil/uL (3.80-5.20) 08/01/18 07:19 Hgb 10.6 g/dL (11.0-16.0) L 08/01/18 07:19 Hct 33.1 % (34.0-47.0) L 08/01/18 07:19 MCV 81.7 fL (81.0-99.0) 08/01/18 07:19 MCH 26.2 pg (27.0-31.0) L 08/01/18 07:19 MCHC 32.0 g/dL (33.0-37.0) L 08/01/18 07:19 RDW 17.2 % (11.5-14.5) H 08/01/18 07:19 Plt Count 213 K/uL (130-400) 08/01/18 07:19 MPV 10.0 fL (7.2-11.7) 08/01/18 07:19 Neut % (Auto) 91.5 % (50.0-75.0) H 08/01/18 07:19 Lymph % (Auto) 4.7 % (20.0-40.0) L 08/01/18 07:19 [place] % (Auto) 3.5 % (0.0-10.0) 08/01/18 07:19 Eos % (Auto) 0.0 % (0.0-4.0) 08/01/18 07:19 Baso % (Auto) 0.3 % (0.0-2.0) 08/01/18 07:19 Neut # (Auto) 7.7 K/uL (1.8-7.0) H 08/01/18 07:19 Lymph # (Auto) 0.4 K/uL (1.0-4.3) L 08/01/18 07:19 [place] # (Auto) 0.3 K/uL (0.0-0.8) 08/01/18 07:19 Eos # (Auto) 0.0 K/uL (0.0-0.7) 08/01/18 07:19 Baso # (Auto) 0.0 K/uL (0.0-0.2) 08/01/18 07:19 Neutrophils % (Manual) 91 % (50-75) H 08/01/18 07:19 Band Neutrophils % 1 % (0-2) 08/01/18 07:19 Lymphocytes % (Manual) 5 % (20-40) L 08/01/18 07:19 Monocytes % (Manual) 3 % (0-10) 08/01/18 07:19 Platelet Estimate Normal (NORMAL) 08/01/18 07:19 Polychromasia Slight 08/01/18 07:19 Hypochromasia (manual) Slight 08/01/18 07:19 Poikilocytosis (manual Slight 08/01/18 07:19 Anisocytosis (manual) Slight 08/01/18 07:19 Microcytosis (manual) Slight 08/01/18 07:19 Spherocytes Slight 08/01/18 07:19 Tear Drop Cells Slight 07/31/18 07:14 Ovalocytes Slight 08/01/18 07:19 Schistocytes Slight 08/01/18 07:19 Sodium 139 mmol/L (132-148) 08/01/18 07:19 Potassium 3.9 mmol/L (3.6-5.2) 08/01/18 07:19 Chloride 104 mmol/L (98-107) 08/01/18 07:19 Carbon Dioxide 26 mmol/L (22-30) 08/01/18 07:19 Anion Gap 13 (10-20) 08/01/18 07:19 BUN 61 mg/dL (7-17) H 08/01/18 07:19 Creatinine 1.7 mg/dL (0.7-1.2) H 08/01/18 07:19 Est GFR ( Amer) 35 08/01/18 07:19 Est GFR (Non-Af Amer) 29 08/01/18 07:19 POC Glucose (mg/dL) 249 mg/dL (65-110) H 07/30/18 21:14 Random Glucose 238 mg/dL (65-105) H 08/01/18 07:19 Calcium 9.4 mg/dl (8.6-10.4) 08/01/18 07:19 Phosphorus 4.4 mg/dL (2.5-4.5) 08/01/18 07:19 Magnesium 1.8 mg/dL (1.6-2.3) 08/01/18 07:19 Total Bilirubin 0.3 mg/dL (0.2-1.3) 08/01/18 07:19 AST 11 U/L (14-36) L 08/01/18 07:19 ALT 34 U/L (9-52) 08/01/18 07:19 Alkaline Phosphatase 137 U/L (38-126) H 08/01/18 07:19 Troponin I 0.0370 ng/mL (0.00-0.120) 07/28/18 16:00 NT-Pro-B Natriuret Pep 72075 pg/mL (0-900) H 07/28/18 16:00 Total Protein 5.6 g/dL (6.3-8.3) L 08/01/18 07:19 Albumin 3.1 g/dL (3.5-5.0) L 08/01/18 07:19 Globulin 2.6 gm/dL (2.2-3.9) 08/01/18 07:19 Albumin/Globulin Ratio 1.2 (1.0-2.1) 08/01/18 07:19 Urine Color Yellow (YELLOW) 07/28/18 16:48 Urine Clarity Clear (Clear) 07/28/18 16:48 Urine pH 5.0 (5.0-8.0) 07/28/18 16:48 Ur Specific [place] 1.014 (1.003-1.030) 07/28/18 16:48 Urine Protein 1+ mg/dL (NEGATIVE) H 07/28/18 16:48 Urine Glucose (UA) Normal mg/dL (Normal) 07/28/18 16:48 Urine Ketones Negative mg/dL (NEGATIVE) 07/28/18 16:48 Urine Blood Negative (NEGATIVE) 07/28/18 16:48 Urine Nitrate Negative (NEGATIVE) 07/28/18 16:48 Urine Bilirubin Negative (NEGATIVE) 07/28/18 16:48 Urine Urobilinogen Normal mg/dL (0.2-1.0) 07/28/18 16:48 Ur Leukocyte Esterase Neg [place]/uL (Negative) 07/28/18 16:48 Urine WBC (Auto) 1 /hpf (0-5) 07/28/18 16:48 Urine RBC (Auto) 1 /hpf (0-3) 07/28/18 16:48 Ur Squamous Epith Cells 2 /hpf (0-5) 07/28/18 16:48 Urine Bacteria Rare (<OCC) 07/28/18 16:48 - Hospital Course Hospital Course: HPI Patient is a 78 year old female with PMH of asthma, MVP s/p valve replacement, AICD, CHF, gout, arthritis, and DM2, presenting with complaints of shortness of breath for the past 3 days. She also complains of a non-productive cough that started 3 days ago. Patient states that her symptoms are worse with exertion. Patient states that she has been using her home oxygen with some relief. Patient was recently discharged from [facility] for CHF exacerbation on 07/07/2018. Patient denies chest pain, palpitations, abdominal pain, nausea, vomiting, fevers, headaches, dysuria, hematuria, constipation, diarrhea, or any other complaints. Hosptial Course Pt is to be discharged home with the following instructions: Pt is to take the Medrol Dose pack as prescribed Pt is to take the Spiriva inhaler as prescribed Pt is to follow up with Dr Yang in office [address] [place] [address], [address], [place] [address] in 7 days call Pt is to follow up with Dr Cortes Pulmonology within 7 days Pt is to follow up with Dr Villalobos Cardiology in office within 7 days Take Care and be well Salazar Hassan DO Discharge Exam - Head Exam Head Exam: ATRAUMATIC, NORMAL INSPECTION Discharge Plan - Discharge Medications Prescriptions: Methylprednisolone [Medrol Dose Pack (21 tabs)] 4 mg PO ASDIR #21 mg Tiotropium [Spiriva] 18 mcg INH RQ24 30 Days #30 cap Tiotropium [place] Inhaler [Spiriva Inhalation Handihaler Device] 1 inhaler INH ONCE #1 inhaler - Follow Up Plan Condition: FAIR Disposition: HOME/ ROUTINE Instructions: Heart Failure, Adult (DC), Exacerbation of COPD (DC) Additional Instructions: Pt is to be discharged home with the following instructions: Pt is to take the Medrol Dose pack as prescribed Pt is to take the Spiriva inhaler as prescribed Pt is to follow up with Dr Yang in office [address] [place] [address], [address] [facility], [place] [address] in 7 days call Pt is to follow up with Dr Cortes Pulmonology within 7 days Pt is to follow up with Dr Villalobos Cardiology in office within 7 days Take Care and be well C Sonya SOLANO Referrals: Vamshi Cortes MD [Staff Provider] - Suman Villalobos MD [Staff Provider] - Tobi Yang Jr., MD [Medical Doctor] -
[2018-08-02 07:47] VITALS: BP 124/64; TEMP 97.4
[2018-08-02 08:17] LABS: BASO % 0.2 % (0.0-2.0); HEMOGLOBIN 10.3 g/dL (11.0-16.0); LYMPH # 0.3 K/uL (1.0-4.3); LYMPH % 4.1 % (20.0-40.0); MEAN CELL VOLUME 81.7 fL (81.0-99.0); MEAN CORPUSCULAR HEMOGLOBIN 26.3 pg (27.0-31.0); MEAN CORPUSCULAR HGB CONC 32.2 g/dL (33.0-37.0); MONO # 0.4 K/uL (0.0-0.8); MONO % 5.6 % (0.0-10.0); NEUT # 6.1 K/uL (1.8-7.0); NEUT % 90.1 % (50.0-75.0); NRBC % 0.1 % (0.0-2.0); PLATELET COUNT 208 K/uL (130-400); RBC 3.92 Mil/uL (3.80-5.20); RED CELL DISTRIBUTION WIDTH 17.3 % (11.5-14.5); WHITE BLOOD COUNT 6.8 K/uL (4.8-10.8)
[2018-08-02 08:24] VITALS: PULSE 79
[2018-08-02 08:38] LABS: ALB/GLOB RATIO 1.2 (1.0-2.1); CALCIUM 9.1 mg/dl (8.6-10.4)
[2018-08-02] MEDS: (Novolin R) Insulin Human Regular 100 units/ml vial SC SCH ×2 (08:48→12:55)
[2018-08-02 09:15] LABS: ANISOCYTOSIS SLIGHT; LYMPHOCYTE 10 % (20-40); MONOCYTE 2 % (0-10); NEUTROPHIL 88 % (50-75); PLATELET ESTIMATE NORMAL (NORMAL); TOTAL CELLS COUNTED 100
[2018-08-02 09:16] LABS: HYPOCHROMIC SLIGHT; POLYCHROMIC SLIGHT
[2018-08-02] MEDS ORDERED: Pantoprazole 40 mg EC Tab PO SCH (10:00)
[2018-08-02] MEDS: MethylPREDNISolone 40 mg Vial IVP SCH (11:10)
--- NOTE | 2018-08-02 14:53 | PCM.HF ---
Heart Failure Core Measure - Heart Failure Ejection Fraction: 40 % or Greater HEMALATHA Inhibitor Prescribed: No Contraindication/Reason for not providing: renal insufficiency Beta-Durga Prescribed: Carvedilol Angiotensin II Receptor Durga Prescribed: No Contraindication/Reason for not providing: renal insufficienecy AnticoagulationTherapy for Atrial Fibrillation/Atrialflutter: No Contraindication/Reason for not providing: no hx of a fib Aldosterone Antagonist Prescribed: No Contraindication/Reason for not providing: risk for hyperkalemia Hydralazine Nitrate Prescribed: No Contraindication/Reason for not providing: on calcium channel durga Implantable Cardioverter Defibrillator Therapy: No Contraindication/Reason for not providing: has AICD Cardiac Resynchronization Therapy Prescribed: No Contraindication/Reason for not providing: has AICD - Follow up Follow Up Date (must be within 7 days from discharge): 08/06/18 Follow Up Time: 13:00
--- NOTE | 2018-08-02 15:53 | CP.PCM.PN ---
Subjective - Date & Time of Evaluation Date of Evaluation: 08/02/18 Time of Evaluation: 08:20 - Subjective Subjective: Patient was seen and examined at bedside, sitting down comfortably. Afebrile and in no acute distress. States SOB, cough much better. For discharge today.? *Needs medications for discharge. Objective - Vital Signs/Intake and Output Vital Signs (last 24 hours): Temp Pulse Resp BP Pulse Ox 97.4 F L 79 20 124/64 100 08/02/18 07:46 08/02/18 08:21 08/02/18 07:46 08/02/18 07:46 08/02/18 07:46 Intake and Output: 08/02/18 08/02/18 06:59 18:59 Intake Total 1160 Balance 1160 - Labs Labs: 08/02/18 08:04 08/02/18 08:04 Assessment and Plan (1) COPD exacerbation Status: Resolved (2) CHF exacerbation Status: Resolved
--- NOTE | 2018-08-02 17:33 | CARD ---
APPROVED REPORT Date of service: 07/30/2018 EKG Measurement Heart [id number] <Conclusion> Sinus rhythm with premature atrial complexes Right bundle branch block Left anterior fascicular block Bifascicular block Left ventricular hypertrophy with repolarization abnormality Abnormal ECG
--- NOTE | 2018-08-02 18:15 | CARD ---
APPROVED REPORT Date of service: 07/29/2018 EKG Measurement Heart [id number] <Conclusion> Sinus rhythm with premature atrial complexes Right bundle branch block Left anterior fascicular block Bifascicular block Left ventricular hypertrophy with repolarization abnormality Abnormal ECG
== END 2018-08-02 13:06 | disposition home or self-care (01) | DRG 190 ==
LOC: C.ER 15:13 → C.9E 16:34 → C.5S 20:01
PROVIDERS: ADMIT Internal Medicine; ATTEND Internal Medicine
DX: J44.1 Chronic obstructive pulmonary disease with (acute) exacerbation (principal); I50.23 Acute on chronic systolic (congestive) heart failure; J45.901 Unspecified asthma with (acute) exacerbation; I11.0 Hypertensive heart disease with heart failure; E11.9 Type 2 diabetes mellitus without complications; M10.9 Gout, unspecified; I34.1 Nonrheumatic mitral (valve) prolapse; M19.90 Unspecified osteoarthritis, unspecified site; Z45.02 Encounter for adjustment and management of automatic implantable cardiac defibrillator; Z95.2 Presence of prosthetic heart valve; Z90.49 Acquired absence of other specified parts of digestive tract; Z80.51 Family history of malignant neoplasm of kidney; Z82.3 Family history of stroke

== ENCOUNTER 2018-08-21 20:42 | Inpatient (IN) | payer MEDICARE, OTHER ==
[2018-08-21 20:42] VITALS: BMI 24.0
[2018-08-21] MEDS ORDERED: Albuterol-Ipratrop 3 mg / 0.5 (3 ml) UD ONE ×2 (20:59→23:05)
[2018-08-21 21:30] LABS: HEMOGLOBIN 10.6 g/dL (11.0-16.0); MEAN CELL VOLUME 81.6 fL (81.0-99.0); MEAN CORPUSCULAR HEMOGLOBIN 26.4 pg (27.0-31.0); MEAN CORPUSCULAR HGB CONC 32.3 g/dL (33.0-37.0); MEAN PLATELET VOLUME 9.2 fL (7.2-11.7); RBC 4.02 Mil/uL (3.80-5.20); RED CELL DISTRIBUTION WIDTH 17.8 % (11.5-14.5)
[2018-08-21 21:38] LABS: ALB/GLOB RATIO 1.3 (1.0-2.1); ALBUMIN 3.7 g/dL (3.5-5.0); ALT/SGPT 48 U/L (9-52); AST/SGOT 34 U/L (14-36); BLOOD UREA NITROGEN 20 mg/dL (7-17); CALCIUM 9.4 mg/dl (8.6-10.4); GFR NON-AFRICAN AMERICAN 53
[2018-08-21] MEDS ORDERED: Albuterol-Ipratrop 3 mg / 0.5 (3 ml) UD INH STA (22:42)
--- NOTE | 2018-08-21 22:51 | C.PDOC ---
History Of Present Illness 78-year-old female, whose past medical history includes asthma, COPD, CHF, and is s/p AICD and MVR, is sent to the ED by Dr. Villalobos for admission. Patient was evaluated by Dr. Villalobos yesterday for complaints of dyspnea on exertion and ti redness. She was advised to present to the ED for evaluation, but was too tired so she came in today. Patient denies fever, chills, chest pain, cough, nausea, vomiting, abdominal pain, extremity numbness/weakness. Time Seen by Provider: 08/21/18 22:15 Chief Complaint (Nursing): Shortness Of Breath History Per: Patient History/Exam Limitations: no limitations Onset/Duration Of Symptoms: Hrs Current Symptoms Are (Timing): Still Present Current Respiratory Medications: See Home Med List Associated Symptoms: denies: Fever, Chills, Chest Pain, Bloody Cough, Productive Cough Additional History Per: Patient Past Medical History Reviewed: Historical Data, Nursing Documentation, Vital Signs Vital Signs: Last Vital Signs Temp 98 F 08/21/18 20:45 Pulse 99 H 08/21/18 22:28 Resp 22 08/21/18 22:28 BP 146/89 08/21/18 22:28 Pulse Ox 98 08/21/18 22:28 - Medical History PMH: Arthritis, Asthma, Bronchitis, CHF, COPD, HTN, Mitral Valve Prolapse Denies: Chronic Kidney Disease Surgical History: CABG, Cholecystectomy, Pacemaker (2008) Family History: States: Stroke - Social History Hx Tobacco Use: No Hx Alcohol Use: No Hx Substance Use: No - Immunization History Hx Tetanus Toxoid Vaccination: Yes Hx Influenza Vaccination: Yes Hx Pneumococcal Vaccination: Yes Review Of Systems Constitutional: Negative for: Fever, Chills Cardiovascular: Negative for: Chest Pain Respiratory: Negative for: Cough Gastrointestinal: Negative for: Nausea, Vomiting, Abdominal Pain Physical Exam - Physical Exam Appears: Non-toxic, No Acute Distress Skin: Normal Color, Warm, Dry Head: Atraumatic, Normacephalic Eye(s): bilateral: Normal Inspection, PERRL, EOMI Oral Mucosa: Moist Neck: Supple Chest: Symmetrical, No Deformity, No Tenderness Cardiovascular: Rhythm Regular, No Murmur Respiratory: No Rales, Rhonchi (scattered ), Wheezing (inspiratory and expiratory ), Other (speaking in complete sentences ) Extremity: Normal ROM, Capillary Refill (less than 2 seconds ), No Other (edema) Neurological/Psych: Oriented x3, Normal Speech, Normal Cognition ED Course And Treatment - Laboratory Results Result Diagrams: 08/25/18 07:11 08/25/18 07:11 ECG: Interpreted By Me, Viewed By Me ECG Rhythm: Sinus Tachycardia ECG Interpretation: No Changes From Prior (07/30/18) Interpretation Of ECG: Sinus Tachycardia at rate 103bpm. First degree AV block. Right bundle branch block. Prolonged QT. LVH. Bifascicular block. Rate From EC O2 Sat by Pulse Oximetry: 98 (on RA ) Pulse Ox Interpretation: Normal Medical Decision Making Medical Decision Making: Progress: Bloodwork, CXR, EKG ordered, reviewed and d/w patient. Albuterol INH and Solu-Medrol IVP given. Patient's peak flow prior to treatment is 150. Plan admit to hospital for further evaluation and management. Pt agreeable w/POC. PCP accepted pt for admission. Disposition Counseled Patient/Family Regarding: Studies Performed, Diagnosis - Disposition Disposition: HOSPITALIZED Disposition Time: 23:33 Condition: STABLE - POA Present On Arrival: None - Clinical Impression Clinical Impression: CHF (congestive heart failure), COPD with acute exacerbation - Scribe Statement The provider has reviewed the documentation as recorded by the Scribe (Nilsa Seth) Provider Attestation: All medical record entries made by the Scribe were at my direction and perso brittany dictated by me. I have reviewed the chart and agree that the record accurately reflects my personal performance of the history, physical exam, medical decision making, and the department course for this patient. I have also personally directed, reviewed, and agree with the discharge instructions and disposition.
[2018-08-21 22:56] LABS: TROPONIN I 0.037 ng/mL (0.00-0.120)
--- NOTE | 2018-08-22 00:51 | CP.PCM.HP ---
History of Present Illness - History of Present Illness History of Present Illness: Dr. Yang Service - Medicine Admission H&P HPI: Ms. Banks is a 78 yo f with PMHx of asthma, COPD, CHF s/p AICD, MVP s/p valve replacement, DM2, presented to the ED referred by Dr. 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 Patient states she was in a regular clinic appt with him and he told her to visit the ER immediately. She did not go yesterday, 08/21, since she felt fatigued. Patient does not know exactly why he wants her to get immediate attention to go to the ER as she has had baseline SOB for many years due to her chronic medical conditions. Patient has been more fatigued and also with SOB at rest, not just walking. It irritates her that she even gets SOB with just sitting down and eating. She denies chest pain, palpitations, fever/chills, night sweats, nausea, vomiting, diarrhea, dysuria. She denies recent illness, recent travels, weight loss/gain, rashes, swelling (she sometimes does but not now). Patient not in pain at the time of evaluation. PMHx: asthma, COPD, CHF s/p AICD, MVP s/p valve replacement, DM2, gout, arthritis PSHx: s/p AICD, MVP s/p valve replacement, pt said a "heart surgery" was done about 7 years ago FH: mom and dad with NC and stroke. Brother with stroke and kidney cancer SocHx: denies EtOH, tob, and drug use. Lives with daughter locally Meds: patient doesn't know the names of meds. She just knows she takes something for high blood pressure. From previous admissions, patient was taking -albuterol, baby aspirin, coreg 3.125 mg bid, colchicine 0.6 mg daily, diltiazem 30 mg PO BID, lasix 20 mg PO BID, memantine 5 mg PO daily, rosuvastatin 5 mg PO qhs, spiriva 18 mcg INH daily Allergies: PCN - anaphylaxis Present on Admission - Present on Admission Any Indicators Present on Admission: Yes Past Patient History - Infectious Disease Hx of Infectious Diseases: None - Past Medical History & Family History Past Medical History?: Yes - Past Social History Smoking Status: Never Smoked - CARDIAC Hx Congestive Heart Failure: Yes Hx Hypertension: Yes Hx Mitral Valve Prolapse: Yes Hx Pacemaker: Yes (2008) - PULMONARY Hx Asthma: Yes Hx Bronchitis: Yes Hx Chronic Obstructive Pulmonary Disease (COPD): Yes - NEUROLOGICAL Hx Neurological Disorder: No - HEENT Hx HEENT Problems: No - RENAL Hx Chronic Kidney Disease: No - ENDOCRINE/METABOLIC Hx Diabetes Mellitus Type 2: Yes - HEMATOLOGICAL/ONCOLOGICAL Hx Blood Disorders: No - INTEGUMENTARY Hx Dermatological Problems: No - MUSCULOSKELETAL/RHEUMATOLOGICAL Hx Arthritis: Yes - GASTROINTESTINAL Hx Colitis: Yes - GENITOURINARY/GYNECOLOGICAL Hx Genitourinary Disorders: No - PSYCHIATRIC Hx Substance Use: No - SURGICAL HISTORY Hx Cholecystectomy: Yes Hx Coronary Artery Bypass Graft: Yes - ANESTHESIA Hx Anesthesia: Yes Hx Anesthesia Reactions: No Meds Allergies/Adverse Reactions: Allergies Allergy/AdvReac Type Severity Reaction Status Date / Time Penicillins Allergy Severe ANAPHYLAXIS Verified 07/28/18 15:22 Physical Exam - Constitutional Appears: Well - Head Exam Head Exam: ATRAUMATIC, NORMAL INSPECTION - Eye Exam Eye Exam: EOMI, Normal appearance Pupil Exam: NORMAL ACCOMODATION - ENT Exam ENT Exam: Mucous Membranes Moist, Normal Exam - Neck Exam Neck exam: Positive for: Normal Inspection. Negative for: Lymphadenopathy - Respiratory Exam Respiratory Exam: Wheezes (mild wheezing only on anterior lung shaver R > L) - Cardiovascular Exam Cardiovascular Exam: Tachycardia, REGULAR RHYTHM - GI/Abdominal Exam GI & Abdominal Exam: Normal Bowel Sounds, Soft. absent: Diminished Bowel Sounds, Distended, Firm, Guarding - Extremities Exam Extremities exam: Positive for: normal inspection. Negative for: calf tenderness, joint swelling, pedal edema, tenderness Additional comments: strong peripheral pulses - Neurological Exam Neurological exam: Alert, CN II-XII Intact, Oriented x3 - Psychiatric Exam Psychiatric exam: Normal Affect, Normal Mood - Skin Skin Exam: Dry, Intact, Normal Color, Warm Results - Vital Signs Recent Vital Signs: Last Vital Signs Temp 98.0 F 08/22/18 00:24 Pulse 84 08/22/18 00:24 Resp 24 08/22/18 00:24 BP 133/67 08/22/18 00:24 Pulse Ox 96 08/22/18 00:24 - Labs Result Diagrams: 08/21/18 21:23 08/21/18 21:23 Labs: Laboratory Results - last 24 hr 08/21/18 08/21/18 08/21/18 21:23 21:23 22:35 WBC 7.0 RBC 4.02 Hgb 10.6 L Hct 32.7 L MCV 81.6 MCH 26.4 L MCHC 32.3 L RDW 17.8 H Plt Count 189 MPV 9.2 Sodium 138 Potassium 4.4 Chloride 105 Carbon Dioxide 24 Anion Gap 13 BUN 20 H Creatinine 1.0 Est GFR ( Amer) > 60 Est GFR (Non-Af Amer) 53 Random Glucose 124 H Calcium 9.4 Magnesium 1.5 L Total Bilirubin 1.0 AST 34 ALT 48 Alkaline Phosphatase 155 H Troponin I 0.0370 NT-Pro-B Natriuret Pep 62033 H Total Protein 6.6 Albumin 3.7 Globulin 2.9 Albumin/Globulin Ratio 1.3 Assessment & Plan - Assessment and Plan (Free Text) Assessment: 78 y/o female with PMHx of COPD, asthma, CHF with AICD, MVP with valve repalcem ent and DM2 presents to the ER per recommendation of her journeyman carpenter Dr. Villalobos. COPD exacerbation -2L NC PRN -duonebs PRN -solumedrol 40 mg IV q12h -f/u CXR -pulmonology consulted, Dr. Cortes CHF -w/ AICD -Monitor for s/sx of fluid overload, patient at the time w/o JVD, edema, or lung crackles -IO's -f/u BNP; last admission Jul 2018 pBNP 77890 -can consider lasix IV if patient w/ fluid overload. Patient currently rx home lasix -ECHO on 03/22: LVEF of 30-35% -cardiology consulted, Dr. Villalobos DM2 -accuchecks ACHS -ISS -hypoglycemic protocol Gout -home colchicine HTN -home meds carvedilol, diltiazem, lasix ASCVD -aspirin 81 mg -crestor 5 mg ppx DVT: SCDs GI: not indicated diet: heart healthy case d/w Dr. Trey Barajas DO PGY1
[2018-08-22] MEDS ORDERED: Dextrose 50% SYRINGE Inj (50 ml) IV PRN (01:06)
[2018-08-22] MEDS ORDERED: Dextrose 50% SYRINGE Inj (50 ml) IVP PRN (01:06)
[2018-08-22] MEDS ORDERED: Glucagon Recombinant 1 mg Inj IM PRN (01:06)
[2018-08-22] MEDS ORDERED: Albuterol-Ipratrop 3 mg / 0.5 (3 ml) UD INH PRN (03:21)
[2018-08-22] MEDS ORDERED: (Novolog) Insulin Aspart, Recombinant 100 u/ml 10 ml vial SC SCH (07:30)
--- NOTE | 2018-08-22 07:33 | RAD ---
Chest x-ray single frontal view HISTORY: Shortness of breath. COMPARISON: None available. FINDINGS: Cardiomegaly. Left-sided pacemaker. Mild venous congestion. Patchy increased markings at the left lung base. Aortic atherosclerotic calcification noted at the aortic knob. Tortuous ectatic aorta. Status post median sternotomy. Degenerative changes in the spine and shoulders. IMPRESSION: Cardiomegaly. Left-sided pacemaker. Mild venous congestion. Patchy increased markings at the left lung base. Aortic atherosclerotic calcification noted at the aortic knob. Tortuous ectatic aorta. Status post median sternotomy.
[2018-08-22] MEDS: Tiotropium 18 mcg Cap For Inhalation INH SCH (08:00)
[2018-08-22] MEDS ORDERED: (Lantus) Insulin Glargine, Recombinant SC SCH (10:00)
[2018-08-22] MEDS: MethylPREDNISolone 40 mg Vial IV SCH ×2 (10:33→21:19)
[2018-08-22 11:41] LABS: BASO % 0.4 % (0.0-2.0); EOS % 0.1 % (0.0-4.0); HEMOGLOBIN 10.7 g/dL (11.0-16.0); LYMPH # 0.7 K/uL (1.0-4.3); LYMPH % 21.3 % (20.0-40.0); MEAN CELL VOLUME 81.8 fL (81.0-99.0); MEAN CORPUSCULAR HEMOGLOBIN 26.4 pg (27.0-31.0); MEAN CORPUSCULAR HGB CONC 32.2 g/dL (33.0-37.0); MEAN PLATELET VOLUME 10.3 fL (7.2-11.7); MONO % 1.2 % (0.0-10.0); NEUT # 2.4 K/uL (1.8-7.0); NRBC % 0.2 % (0.0-2.0); RBC 4.05 Mil/uL (3.80-5.20); RED CELL DISTRIBUTION WIDTH 17.7 % (11.5-14.5)
[2018-08-22 11:43] LABS: WHITE BLOOD COUNT 3.1 K/uL (4.8-10.8)
[2018-08-22 11:49] LABS: ALB/GLOB RATIO 1.3 (1.0-2.1); ALBUMIN 3.7 g/dL (3.5-5.0); CALCIUM 9.5 mg/dl (8.6-10.4)
[2018-08-22] MEDS: (Novolin R) Insulin Human Regular 100 units/ml vial SC SCH ×3 (12:15→22:02)
--- NOTE | 2018-08-22 12:50 | CP.PCM.PN ---
Subjective - Date & Time of Evaluation Date of Evaluation: 08/22/18 Time of Evaluation: 12:45 - Subjective Subjective: Progress note for Dr. Yang's service Patient seen and examined at bedside. She states she feels much better than before. She denies chest pain, palpitations, headaches, nausea, vomiting, diarrhea, abdominal pain, leg pain or swelling. She states her shortness of breath has improved from prior. She is requesting that I put on music for her to listen to. Objective - Vital Signs/Intake and Output Vital Signs (last 24 hours): Temp Pulse Resp BP Pulse Ox 97.4 F L 80 20 120/70 97 08/22/18 07:00 08/22/18 07:00 08/22/18 07:00 08/22/18 10:34 08/22/18 07:00 Intake and Output: 08/22/18 08/22/18 06:59 18:59 Output Total 120 Balance -120 - Medications Medications: Current Medications Albuterol/Ipratropium (Duoneb 3 Mg/0.5 Mg (3 Ml) Ud) 3 ml INH RQ2 PRN PRN Reason: Shortness of Breath Aspirin (Ecotrin) 81 mg PO DAILY [facility] Last Admin: 08/22/18 10:34 Dose: 81 mg Carvedilol (Coreg) 3.125 mg PO BID [facility] Last Admin: 08/22/18 10:35 Dose: 3.125 mg Dextrose (Dextrose 50% Inj) 50 ml IVP ONCE PRN PRN Reason: Hypoglycemia Dextrose (Dextrose 50% Inj) 0 ml IV STAT PRN; Protocol PRN Reason: Hypoglycemia Protocol Dextrose (Glutose 15) 0 gm PO ONCE PRN; Protocol PRN Reason: Hypoglycemia Protocol Diltiazem HCl (Cardizem) 30 mg PO BID [facility] Last Admin: 08/22/18 10:40 Dose: 30 mg Furosemide (Lasix) 20 mg PO BID [facility] Last Admin: 08/22/18 10:34 Dose: 20 mg Gabapentin (Neurontin) 100 mg PO DAILY [facility] Last Admin: 08/22/18 10:34 Dose: 100 mg Glucagon (Glucagen Diagnostic Kit) 0 mg IM STAT PRN; Protocol PRN Reason: Hypoglycemia Protocol Dextrose (Dextrose 5% In Water 1000 Ml) 1,000 mls @ 0 mls/hr IV .Q0M PRN; Protocol PRN Reason: Hypoglycemia Protocol Magnesium Sulfate/Dextrose (Magnesium Sulfate 1 Gm/100 Ml D5w) 1 gm in 100 mls @ 200 mls/hr IVPB ONCE ONE Stop: 08/22/18 12:42 Insulin Human Regular (Novolin R) 0 unit SC ACHS [facility]; Protocol Last Admin: 08/22/18 12:15 Dose: 4 unit Memantine (Namenda) 5 mg PO DAILY TEN Last Admin: 08/22/18 10:42 Dose: 5 mg Methylprednisolone (Solu-Medrol) 40 mg IV Q12 TEN Last Admin: 08/22/18 10:33 Dose: 40 mg Rosuvastatin Calcium (Crestor) 5 mg PO HS TEN Tiotropium [place] (Spiriva) 18 mcg INH RQ24 TEN Last Admin: 08/22/18 08:00 Dose: 18 mcg - Labs Labs: 08/22/18 11:25 08/22/18 11:25 - Constitutional Appears: No Acute Distress - Head Exam Head Exam: ATRAUMATIC, NORMOCEPHALIC - Eye Exam Eye Exam: EOMI - ENT Exam ENT Exam: Mucous Membranes Moist Assessment and Plan - Assessment and Plan (Free Text) Plan: Assessment: 78 y/o female with PMHx of COPD, asthma, CHF with AICD, MVP with valve repalcement and DM2 presents to the ER per recommendation of her upper inspector Dr. Villalobos. COPD exacerbation -2L [place] PRN -duonebs Q2 PRN -solumedrol 40 mg IV q12h -CXR cardiomegaly with venous congestion. left sided pacemaker. patchy increased markings at the left lung base. aortic atherosclerotic calcification at aortic knob. tortuous ectatic aorta. status post median sternotomy. -pulmonology consulted, Dr. Cortes CHF -w/ AICD - EKG ST with RBBB LAFB, unchanged from prior EKG. -Monitor for s/sx of fluid overload, patient at the time w/o JVD, edema, or lung crackles -IO's -BNP 79157; last admission Jul 2018 pBNP 66711 -can consider lasix IV if patient w/ fluid overload. Patient currently rx home lasix -ECHO on 03/22: LVEF of 30-35% -cardiology consulted, Dr. Villalobos DM2 -accuchecks ACHS -ISS -hypoglycemic protocol Gout -home colchicine held for now HTN -home meds carvedilol 3.15mg PO BID, - diltiazem 30 BID - Lasix 20mg PO BID ASCVD -aspirin 81 mg -crestor 5 mg ppx DVT: SCDs GI: not indicated diet: heart healthy Case discussed with Dr. Trey Jeff, PGY1
[2018-08-22] MEDS ORDERED: Magnesium Sulfate 1 gm in D5W 1 GM/100 ML BAG IVPB ONE (13:00)
[2018-08-22] MEDS: Enoxaparin 40 mg Syringe SC SCH (13:41)
[2018-08-22] MEDS ORDERED: DiphenhydrAMINE 12.5 mg/5 ml LIQ UD (5 ml) PO STA (22:56)
[2018-08-23] MEDS: DiphenhydrAMINE 50 mg/ml Inj IVP STA ×2 (03:37→03:40)
[2018-08-23 07:09] LABS: BASO % 0.2 % (0.0-2.0); HEMOGLOBIN 10.1 g/dL (11.0-16.0); LYMPH # 0.7 K/uL (1.0-4.3); LYMPH % 7.8 % (20.0-40.0); MEAN CELL VOLUME 81.3 fL (81.0-99.0); MEAN CORPUSCULAR HEMOGLOBIN 26.5 pg (27.0-31.0); MEAN CORPUSCULAR HGB CONC 32.6 g/dL (33.0-37.0); MEAN PLATELET VOLUME 9.6 fL (7.2-11.7); MONO # 0.2 K/uL (0.0-0.8); NEUT # 7.6 K/uL (1.8-7.0); PLATELET COUNT 204 K/uL (130-400); RBC 3.82 Mil/uL (3.80-5.20); RED CELL DISTRIBUTION WIDTH 17.4 % (11.5-14.5)
[2018-08-23 07:13] LABS: WHITE BLOOD COUNT 8.4 K/uL (4.8-10.8)
[2018-08-23] MEDS: (Novolin R) Insulin Human Regular 100 units/ml vial SC SCH ×4 (07:48→22:40)
[2018-08-23 08:12] LABS: ALB/GLOB RATIO 1.1 (1.0-2.1); ALBUMIN 3.3 g/dL (3.5-5.0); CALCIUM 9.3 mg/dl (8.6-10.4)
--- NOTE | 2018-08-23 08:19 | CP.PCM.CON ---
<Madhuri Gifford - Last Filed: 08/23/18 16:59> History of Present Illness - History of Present Illness History of Present Illness: Cardiology Consult Note This is a 78 year old female with past medical history of systolic heart failure s/p AICD with LVEF 35-40% (03/2018), MVP s/p valve replacement, COPD, asthma, pulmonary hypertension, type 2 diabetes, and gout who was referred to our service by Dr. Yang, for worsening dyspnea, lower extremity swelling and fatigue . She reports she noted increased dyspnea and fatigue 2-3 days prior to admission. She normally can ambulate up her flight of stairs without difficulty but has not been able to recently. She saw Dr. Villalobos in his office one day prior to admission, where he instructed her to come to the ED. She reports she has been drinking more than 1.5 liters of fluids, despite being instructed not to do so. She is compliant with her medication, uses her home O2 as needed, and denies any salt in her diet. She reports she is breathing better today but continues to feel fatigued. Denied fever, chills, cough, chest pain. PMHx: As noted above PSHx: AICD, MV replacement 2008, cholecystectomy over 30 years ago All: PCN-anaphylaxis SHx: denies alcohol, tobacco, and drug use; lives with daughter in [place] FHx: mother/father- [place], stroke; Brother- stroke, kidney cancer Review of Systems - Constitutional Constitutional: absent: Chills, Fever - EENT Eyes: absent: Blurred Vision, Change in Vision Ears: absent: Tinnitus, Dizziness Nose/Mouth/Throat: absent: Nasal Congestion, Nasal Discharge, Dysphagia - Cardiovascular Cardiovascular: Dyspnea, Dyspnea on Exertion, Leg Edema. absent: Chest Pain, Chest Pain at Rest, Chest Pain with Activity, Diaphoresis, Irregular Heart Rhythm, Pain Radiating to Arm/Neck/Jaw, Lightheadedness, Orthopnea, Palpitations, Pedal Edema - Respiratory Respiratory: Cough, Dyspnea, Wheezing. absent: Dyspnea on Exertion, Chest Congestion - Gastrointestinal Gastrointestinal: absent: Abdominal Pain, Constipation, Diarrhea, Nausea, Vomiting - Musculoskeletal Musculoskeletal: absent: Arthralgias, Back Pain, Stiffness, Tingling - Neurological Neurological: absent: Abnormal Gait, Confusion, Headaches, Syncope, Tingling, Weakness - Psychiatric Psychiatric: absent: Anxiety, Depression, Suicidal Ideation - Hematologic/Lymphatic Hematologic: absent: Easy Bleeding, Easy Bruising, Lymphadenopathy Past Patient History - Infectious Disease Hx of Infectious Diseases: None - Past Medical History & Family History Past Medical History?: Yes - Past Social History Smoking Status: Never Smoked - CARDIAC Hx Congestive Heart Failure: Yes Hx Hypertension: Yes Hx Mitral Valve Prolapse: Yes Hx Pacemaker: Yes (2008) - PULMONARY Hx Asthma: Yes Hx Bronchitis: Yes Hx Chronic Obstructive Pulmonary Disease (COPD): Yes - NEUROLOGICAL Hx Neurological Disorder: No - HEENT Hx HEENT Problems: No - RENAL Hx Chronic Kidney Disease: No - ENDOCRINE/METABOLIC Hx Diabetes Mellitus Type 2: Yes - HEMATOLOGICAL/ONCOLOGICAL Hx Blood Disorders: No - INTEGUMENTARY Hx Dermatological Problems: No - MUSCULOSKELETAL/RHEUMATOLOGICAL Hx Arthritis: Yes - GASTROINTESTINAL Hx Colitis: Yes - GENITOURINARY/GYNECOLOGICAL Hx Genitourinary Disorders: No - PSYCHIATRIC Hx Substance Use: No - SURGICAL HISTORY Hx Cholecystectomy: Yes Hx Coronary Artery Bypass Graft: Yes - ANESTHESIA Hx Anesthesia: Yes Hx Anesthesia Reactions: No Meds Allergies/Adverse Reactions: Allergies Allergy/AdvReac Type Severity Reaction Status Date / Time Penicillins Allergy Severe ANAPHYLAXIS Verified 07/28/18 15:22 - Medications Medications: Current Medications Albuterol/Ipratropium (Duoneb 3 Mg/0.5 Mg (3 Ml) Ud) 3 ml INH RQ2 PRN PRN Reason: Shortness of Breath Aspirin (Ecotrin) 81 mg PO DAILY [facility] Last Admin: 08/22/18 10:34 Dose: 81 mg Carvedilol (Coreg) 6.25 mg PO BID [facility] Dextrose (Dextrose 50% Inj) 50 ml IVP ONCE PRN PRN Reason: Hypoglycemia Dextrose (Dextrose 50% Inj) 0 ml IV STAT PRN; Protocol PRN Reason: Hypoglycemia Protocol Dextrose (Glutose 15) 0 gm PO ONCE PRN; Protocol PRN Reason: Hypoglycemia Protocol Docusate Sodium (Colace) 100 mg PO BID [facility] Last Admin: 08/22/18 18:23 Dose: 100 mg Enoxaparin Sodium (Lovenox) 40 mg SC DAILY [facility] Last Admin: 08/22/18 13:41 Dose: 40 mg Furosemide (Lasix) 20 mg PO BID [facility] Last Admin: 08/22/18 18:23 Dose: 20 mg Gabapentin (Neurontin) 100 mg PO DAILY [facility] Last Admin: 08/22/18 10:34 Dose: 100 mg Glucagon (Glucagen Diagnostic Kit) 0 mg IM STAT PRN; Protocol PRN Reason: Hypoglycemia Protocol Dextrose (Dextrose 5% In Water 1000 Ml) 1,000 mls @ 0 mls/hr IV .Q0M PRN; Prot ocol PRN Reason: Hypoglycemia Protocol Insulin Human Regular (Novolin R) 0 unit SC ACHS TEN; Protocol Last Admin: 08/23/18 07:48 Dose: 2 unit Memantine (Namenda) 5 mg PO DAILY [facility] Last Admin: 08/22/18 10:42 Dose: 5 mg Methylprednisolone (Solu-Medrol) 40 mg IV Q12 TEN Last Admin: 08/22/18 21:19 Dose: 40 mg Rosuvastatin Calcium (Crestor) 5 mg PO HS [facility] Last Admin: 08/22/18 21:19 Dose: 5 mg Tiotropium [place] (Spiriva) 18 mcg INH RQ24 [facility] Last Admin: 08/22/18 08:00 Dose: 18 mcg Physical Exam - Constitutional Appears: No Acute Distress - Head Exam Head Exam: NORMAL INSPECTION, NORMOCEPHALIC - Eye Exam Eye Exam: EOMI, Normal appearance Pupil Exam: NORMAL ACCOMODATION - ENT Exam ENT Exam: Mucous Membranes Moist - Respiratory Exam Respiratory Exam: Decreased Breath Sounds, Rales, Wheezes - Cardiovascular Exam Cardiovascular Exam: +S1, +S2 - GI/Abdominal Exam GI & Abdominal Exam: Normal Bowel Sounds, Soft. absent: Distended, Tenderness - Extremities Exam Extremities exam: Positive for: normal inspection, pedal pulses present. Negative for: pedal edema, tenderness - Neurological Exam Neurological exam: Alert, CN II-XII Intact, Oriented x3 - Psychiatric Exam Psychiatric exam: Normal Affect, Normal Mood - Skin Skin Exam: Dry, Intact, Normal Color, Warm Results - Vital Signs Recent Vital Signs: Last Vital Signs Temp 97.5 F L 08/22/18 23:51 Pulse 82 08/22/18 23:51 Resp 20 08/22/18 23:51 BP 126/75 08/22/18 23:51 Pulse Ox 99 08/22/18 23:51 - Labs Result Diagrams: 08/23/18 06:42 08/23/18 06:42 Labs: Laboratory Results - last 24 hr 08/22/18 08/22/18 08/22/18 06:07 11:15 11:25 WBC 3.1 L D RBC 4.05 Hgb 10.7 L Hct 33.1 L MCV 81.8 MCH 26.4 L MCHC 32.2 L RDW 17.7 H Plt Count 201 MPV 10.3 Neut % (Auto) 77.0 H Lymph % (Auto) 21.3 [place] % (Auto) 1.2 Eos % (Auto) 0.1 Baso % (Auto) 0.4 Neut # (Auto) 2.4 Lymph # (Auto) 0.7 L [place] # (Auto) 0.0 Eos # (Auto) 0.0 Baso # (Auto) 0.0 Sodium Potassium Chloride Carbon Dioxide Anion Gap BUN Creatinine Est GFR ( Amer) Est GFR (Non-Af Amer) POC Glucose (mg/dL) 214 H 253 H Random Glucose Calcium Phosphorus Magnesium Total Bilirubin AST ALT Alkaline Phosphatase NT-Pro-B Natriuret Pep Total Protein Albumin Globulin Albumin/Globulin Ratio 08/22/18 08/22/18 08/22/18 11:25 17:09 21:49 WBC RBC Hgb Hct MCV MCH MCHC RDW Plt Count MPV Neut % (Auto) Lymph % (Auto) [place] % (Auto) Eos % (Auto) Baso % (Auto) Neut # (Auto) Lymph # (Auto) [place] # (Auto) Eos # (Auto) Baso # (Auto) Sodium 138 Potassium 4.0 Chloride 99 Carbon Dioxide 25 Anion Gap 17 BUN 21 H Creatinine 1.1 Est GFR ( Amer) 58 Est GFR (Non-Af Amer) 48 POC Glucose (mg/dL) 174 H 231 H Random Glucose 275 H Calcium 9.5 Phosphorus 4.1 Magnesium 1.5 L Total Bilirubin 0.7 AST 28 ALT 47 Alkaline Phosphatase 139 H NT-Pro-B Natriuret Pep Total Protein 6.7 Albumin 3.7 Globulin 2.9 Albumin/Globulin Ratio 1.3 08/23/18 08/23/18 08/23/18 06:26 06:42 06:42 WBC 8.4 D RBC 3.82 Hgb 10.1 L Hct 31.0 L MCV 81.3 MCH 26.5 L MCHC 32.6 L RDW 17.4 H Plt Count 204 MPV 9.6 Neut % (Auto) 90.0 H Lymph % (Auto) 7.8 L [place] % (Auto) 2.0 Eos % (Auto) 0.0 Baso % (Auto) 0.2 Neut # (Auto) 7.6 H Lymph # (Auto) 0.7 L [place] # (Auto) 0.2 Eos # (Auto) 0.0 Baso # (Auto) 0.0 Sodium 139 Potassium 4.2 Chloride 101 Carbon Dioxide 27 Anion Gap 15 BUN 38 H Creatinine 1.3 H Est GFR ( Amer) 48 Est GFR (Non-Af Amer) 40 POC Glucose (mg/dL) 172 H Random Glucose 194 H Calcium 9.3 Phosphorus 4.4 Magnesium 2.1 Total Bilirubin 0.5 AST 22 ALT 40 Alkaline Phosphatase 118 NT-Pro-B Natriuret Pep 21299 H Total Protein 6.2 L Albumin 3.3 L Globulin 2.9 Albumin/Globulin Ratio 1.1 Assessment & Plan - Assessment and Plan (Free Text) Plan: Acute on Chronic Systolic Heart Failure s/p AICD Aortic Insufficiency MVP s/p valve replacement Imaging, Labs: - BNP: this admission 22,000; previous admission 15,000 - EKG ST with RBBB LAFB, unchanged from prior EKG. - CXR: patchy increased markings in left lung base - ECHO (03/2018): LVEF 35-40%, mild aortic insufficiency - Repeat ECHO: ordered, pending results Management: - Measure daily weights, strict I & Os - Reinforced with patient the importance of fluid restriction, salt intake, me dication compliance - Started ASA, Coreg 6.25mg PO BID, lasix 20mg PO BID - Pending repeat ECHO to monitor aortic insufficiency Acute Renal Insufficiency - Monitor, may need to reduce lasix Case discussed with Madhuri Roper DO, PGY2 <Suman Villalobos - Last Filed: 08/23/18 21:53> Meds - Medications Medications: Current Medications Albuterol/Ipratropium (Duoneb 3 Mg/0.5 Mg (3 Ml) Ud) 3 ml INH RQ2 PRN PRN Reason: Shortness of Breath Aspirin (Ecotrin) 81 mg PO DAILY [facility] Last Admin: 08/23/18 09:12 Dose: 81 mg Carvedilol (Coreg) 6.25 mg PO BID [facility] Last Admin: 08/23/18 17:18 Dose: 6.25 mg Dextrose (Dextrose 50% Inj) 50 ml IVP ONCE PRN PRN Reason: Hypoglycemia Dextrose (Dextrose 50% Inj) 0 ml IV STAT PRN; Protocol PRN Reason: Hypoglycemia Protocol Dextrose (Glutose 15) 0 gm PO ONCE PRN; Protocol PRN Reason: Hypoglycemia Protocol Docusate Sodium (Colace) 100 mg PO BID [facility] Last Admin: 08/23/18 17:18 Dose: 100 mg Enoxaparin Sodium (Lovenox) 40 mg SC DAILY [facility] Last Admin: 08/23/18 09:14 Dose: 40 mg Furosemide (Lasix) 20 mg PO BID [facility] Last Admin: 08/23/18 17:18 Dose: 20 mg Gabapentin (Neurontin) 100 mg PO DAILY [facility] Last Admin: 08/23/18 09:14 Dose: 100 mg Glucagon (Glucagen Diagnostic Kit) 0 mg IM STAT PRN; Protocol PRN Reason: Hypoglycemia Protocol Dextrose (Dextrose 5% In Water 1000 Ml) 1,000 mls @ 0 mls/hr IV .Q0M PRN; Jenise col PRN Reason: Hypoglycemia Protocol Insulin Human Regular (Novolin R) 0 unit SC ACHS [facility]; Protocol Last Admin: 08/23/18 17:19 Dose: Not Given Memantine (Namenda) 5 mg PO DAILY [facility] Last Admin: 08/23/18 11:00 Dose: 5 mg Methylprednisolone (Solu-Medrol) 40 mg IV Q12 [facility] Last Admin: 08/23/18 21:42 Dose: 40 mg Rosuvastatin Calcium (Crestor) 5 mg PO HS [facility] Last Admin: 08/23/18 21:42 Dose: 5 mg Tiotropium [place] (Spiriva) 18 mcg INH RQ24 [facility] Last Admin: 08/23/18 08:44 Dose: 18 mcg Results - Vital Signs Recent Vital Signs: Last Vital Signs Temp 97.9 F 08/23/18 17:08 Pulse 84 08/23/18 17:08 Resp 20 08/23/18 17:08 BP 138/70 08/23/18 17:18 Pulse Ox 100 08/23/18 17:08 - Labs Result Diagrams: 08/23/18 06:42 08/23/18 06:42 Labs: Laboratory Results - last 24 hr 08/22/18 08/23/18 08/23/18 21:49 06:26 06:42 WBC 8.4 D RBC 3.82 Hgb 10.1 L Hct 31.0 L MCV 81.3 MCH 26.5 L MCHC 32.6 L RDW 17.4 H Plt Count 204 MPV 9.6 Neut % (Auto) 90.0 H Lymph % (Auto) 7.8 L [place] % (Auto) 2.0 Eos % (Auto) 0.0 Baso % (Auto) 0.2 Neut # (Auto) 7.6 H Lymph # (Auto) 0.7 L [place] # (Auto) 0.2 Eos # (Auto) 0.0 Baso # (Auto) 0.0 Neutrophils % (Manual) 97 H Lymphocytes % (Manual) 2 L Monocytes % (Manual) 1 Platelet Estimate Normal Polychromasia Slight Hypochromasia (manual) Slight Anisocytosis (manual) Slight Sodium Potassium Chloride Carbon Dioxide Anion Gap BUN Creatinine Est GFR ( Amer) Est GFR (Non-Af Amer) POC Glucose (mg/dL) 231 H 172 H Random Glucose Calcium Phosphorus Magnesium Total Bilirubin AST ALT Alkaline Phosphatase NT-Pro-B Natriuret Pep Total Protein Albumin Globulin Albumin/Globulin Ratio 08/23/18 08/23/18 08/23/18 06:42 11:58 16:25 WBC RBC Hgb Hct MCV MCH MCHC RDW Plt Count MPV Neut % (Auto) Lymph % (Auto) [place] % (Auto) Eos % (Auto) Baso % (Auto) Neut # (Auto) Lymph # (Auto) [place] # (Auto) Eos # (Auto) Baso # (Auto) Neutrophils % (Manual) Lymphocytes % (Manual) Monocytes % (Manual) Platelet Estimate Polychromasia Hypochromasia (manual) Anisocytosis (manual) Sodium 139 Potassium 4.2 Chloride 101 Carbon Dioxide 27 Anion Gap 15 BUN 38 H Creatinine 1.3 H Est GFR ( Amer) 48 Est GFR (Non-Af Amer) 40 POC Glucose (mg/dL) 369 H 94 Random Glucose 194 H Calcium 9.3 Phosphorus 4.4 Magnesium 2.1 Total Bilirubin 0.5 AST 22 ALT 40 Alkaline Phosphatase 118 NT-Pro-B Natriuret Pep 27611 H Total Protein 6.2 L Albumin 3.3 L Globulin 2.9 Albumin/Globulin Ratio 1.1 08/23/18 21:21 WBC RBC Hgb Hct MCV MCH MCHC RDW Plt Count MPV Neut % (Auto) Lymph % (Auto) [place] % (Auto) Eos % (Auto) Baso % (Auto) Neut # (Auto) Lymph # (Auto) [place] # (Auto) Eos # (Auto) Baso # (Auto) Neutrophils % (Manual) Lymphocytes % (Manual) Monocytes % (Manual) Platelet Estimate Polychromasia Hypochromasia (manual) Anisocytosis (manual) Sodium Potassium Chloride Carbon Dioxide Anion Gap BUN Creatinine Est GFR ( Amer) Est GFR (Non-Af Amer) POC Glucose (mg/dL) 217 H Random Glucose Calcium Phosphorus Magnesium Total Bilirubin AST ALT Alkaline Phosphatase NT-Pro-B Natriuret Pep Total Protein Albumin Globulin Albumin/Globulin Ratio Assessment & Plan - Assessment and Plan (Free Text) Plan: Patient seen and evaluated personally by wa Plan of care d/w the resident and as documented Patient for Cardiac cath at 4pm tomorrow
[2018-08-23] MEDS: Tiotropium 18 mcg Cap For Inhalation INH SCH (08:44)
[2018-08-23 09:04] LABS: ANISOCYTOSIS SLIGHT; HYPOCHROMIC SLIGHT; LYMPHOCYTE 2 % (20-40); MONOCYTE 1 % (0-10); NEUTROPHIL 97 % (50-75); PLATELET ESTIMATE NORMAL (NORMAL); TOTAL CELLS COUNTED 100
[2018-08-23 09:05] LABS: POLYCHROMIC SLIGHT
[2018-08-23] MEDS: MethylPREDNISolone 40 mg Vial IV SCH ×2 (09:13→21:42)
[2018-08-23] MEDS: Enoxaparin 40 mg Syringe SC SCH (09:14)
--- NOTE | 2018-08-23 11:06 | CP.PCM.PN ---
Subjective - Date & Time of Evaluation Date of Evaluation: 08/23/18 Time of Evaluation: 08:30 - Subjective Subjective: PGY-1 Medicine progress note for Dr. Yang Pt was seen and examined at bedside. Pt is resting comfortably. No acute events overnight. She reports that he SOB is improving. Pt denies fever, chills, chest pain, palpitations, n/v/d, abdominal pain, leg pain or swelling, difficulty urinating or hematuria. Objective - Vital Signs/Intake and Output Vital Signs (last 24 hours): Temp Pulse Resp BP Pulse Ox 97.4 F L 101 H 20 121/68 100 08/23/18 07:35 08/23/18 07:35 08/23/18 07:35 08/23/18 09:13 08/23/18 07:35 Intake and Output: 08/23/18 08/23/18 06:59 18:59 Intake Total 300 Balance 300 - Medications Medications: Current Medications Albuterol/Ipratropium (Duoneb 3 Mg/0.5 Mg (3 Ml) Ud) 3 ml INH RQ2 PRN PRN Reason: Shortness of Breath Aspirin (Ecotrin) 81 mg PO DAILY [facility] Last Admin: 08/23/18 09:12 Dose: 81 mg Carvedilol (Coreg) 6.25 mg PO BID [facility] Last Admin: 08/23/18 09:12 Dose: 6.25 mg Dextrose (Dextrose 50% Inj) 50 ml IVP ONCE PRN PRN Reason: Hypoglycemia Dextrose (Dextrose 50% Inj) 0 ml IV STAT PRN; Protocol PRN Reason: Hypoglycemia Protocol Dextrose (Glutose 15) 0 gm PO ONCE PRN; Protocol PRN Reason: Hypoglycemia Protocol Docusate Sodium (Colace) 100 mg PO BID [facility] Last Admin: 08/23/18 09:12 Dose: 100 mg Enoxaparin Sodium (Lovenox) 40 mg SC DAILY [facility] Last Admin: 08/23/18 09:14 Dose: 40 mg Furosemide (Lasix) 20 mg PO BID [facility] Last Admin: 08/23/18 09:13 Dose: 20 mg Gabapentin (Neurontin) 100 mg PO DAILY [facility] Last Admin: 08/23/18 09:14 Dose: 100 mg Glucagon (Glucagen Diagnostic Kit) 0 mg IM STAT PRN; Protocol PRN Reason: Hypoglycemia Protocol Dextrose (Dextrose 5% In Water 1000 Ml) 1,000 mls @ 0 mls/hr IV .Q0M PRN; P rotocol PRN Reason: Hypoglycemia Protocol Insulin Human Regular (Novolin R) 0 unit SC ACHS [facility]; Protocol Last Admin: 08/23/18 07:48 Dose: 2 unit Memantine (Namenda) 5 mg PO DAILY [facility] Last Admin: 08/22/18 10:42 Dose: 5 mg Methylprednisolone (Solu-Medrol) 40 mg IV Q12 [facility] Last Admin: 08/23/18 09:13 Dose: 40 mg Rosuvastatin Calcium (Crestor) 5 mg PO HS [facility] Last Admin: 08/22/18 21:19 Dose: 5 mg Tiotropium [place] (Spiriva) 18 mcg INH RQ24 TEN Last Admin: 08/23/18 08:44 Dose: 18 mcg - Labs Labs: 08/23/18 06:42 08/23/18 06:42 - Constitutional Appears: Non-toxic, No Acute Distress - Head Exam Head Exam: ATRAUMATIC, NORMAL INSPECTION - Eye Exam Eye Exam: EOMI - Respiratory Exam Respiratory Exam: Rhonchi, Wheezes (inspiratory and expiratory wheezes in all lung shaver). absent: Rales, Respiratory Distress, Stridor - Cardiovascular Exam Cardiovascular Exam: REGULAR RHYTHM, +S1, +S2 - GI/Abdominal Exam GI & Abdominal Exam: Soft, Normal Bowel Sounds. absent: Distended, Firm, Guarding, Rigid, Tenderness - Extremities Exam Extremities Exam: Normal Capillary Refill, Normal Inspection. absent: Calf T enderness, Pedal Edema - Back Exam Back Exam: NORMAL INSPECTION - Neurological Exam Neurological Exam: Alert, Awake Assessment and Plan - Assessment and Plan (Free Text) Assessment: 78 y/o female with PMHx of COPD, asthma, CHF with AICD, MVP with valve r epalcement and DM2 presents to the ER per recommendation of her stationary equipment mechanic Dr. Villalobos. COPD exacerbation - 2L NC PRN - duonebs Q2 PRN - solumedrol 40 mg IV q12h - CXR cardiomegaly with venous congestion. left sided pacemaker. patchy increased markings at the left lung base. aortic atherosclerotic calcification at aortic knob. tortuous ectatic aorta. status post median sternotomy. - pulmonology consulted, Dr. Cortes CHF - w/ AICD - EKG ST with RBBB LAFB, unchanged from prior EKG. - Monitor for s/sx of fluid overload, patient continues to be w/o JVD, edema, or lung crackles on exam - measure I's [place] O[place] [address], [address] on admission; last admission Jul 2018 pBNP [id number] - will consider lasix IV if patient w/ fluid overload. Continue home lasix 20 mg PO at this time. - ECHO on 03/22: LVEF of 30-35% - f/u echocardiogram DM2 - accuchecks ACHS - ISS - hypoglycemic protocol Gout -home colchicine held for now HTN - home meds carvedilol 3.15mg PO BID, - diltiazem 30 BID - Lasix 20mg PO BID ASCVD -aspirin 81 mg -crestor 5 mg ppx DVT: SCDs GI: not indicated diet: heart healthy All medical management as per Dr. Trey Lieberman, PGY1
--- NOTE | 2018-08-23 17:42 | CP.PCM.CON ---
History of Present Illness - History of Present Illness History of Present Illness: Reason for consultation: shortness of breath 78-year-old female with history of COPD/asthma, CHF, diabetes was referred by her senior staff accountant for shortness of breath. Denies cough, denies fever chills, denies chest pain PMHx: asthma, COPD, CHF s/p AICD, MVP s/p valve replacement, DM2, gout, arthritis PSHx: s/p AICD, MVP s/p valve replacement, pt said a "heart surgery" was done about 7 years ago FH: mom and dad with MS and stroke. Brother with stroke and kidney cancer SocHx: denies EtOH, tob, and drug use. Lives with daughter locally Review of Systems - Review of Systems All systems: reviewed and no additional remarkable complaints except (shortness of breath) Past Patient History - Infectious Disease Hx of Infectious Diseases: None - Past Medical History & Family History Past Medical History?: Yes - Past Social History Smoking Status: Never Smoked - CARDIAC Hx Congestive Heart Failure: Yes Hx Hypertension: Yes Hx Mitral Valve Prolapse: Yes Hx Pacemaker: Yes (2008) - PULMONARY Hx Asthma: Yes Hx Bronchitis: Yes Hx Chronic Obstructive Pulmonary Disease (COPD): Yes - NEUROLOGICAL Hx Neurological Disorder: No - HEENT Hx HEENT Problems: No - RENAL Hx Chronic Kidney Disease: No - ENDOCRINE/METABOLIC Hx Diabetes Mellitus Type 2: Yes - HEMATOLOGICAL/ONCOLOGICAL Hx Blood Disorders: No - INTEGUMENTARY Hx Dermatological Problems: No - MUSCULOSKELETAL/RHEUMATOLOGICAL Hx Arthritis: Yes - GASTROINTESTINAL Hx Colitis: Yes - GENITOURINARY/GYNECOLOGICAL Hx Genitourinary Disorders: No - PSYCHIATRIC Hx Substance Use: No - SURGICAL HISTORY Hx Cholecystectomy: Yes Hx Coronary Artery Bypass Graft: Yes - ANESTHESIA Hx Anesthesia: Yes Hx Anesthesia Reactions: No Meds Allergies/Adverse Reactions: Allergies Allergy/AdvReac Type Severity Reaction Status Date / Time Penicillins Allergy Severe ANAPHYLAXIS Verified 07/28/18 15:22 - Medications Medications: Current Medications Albuterol/Ipratropium (Duoneb 3 Mg/0.5 Mg (3 Ml) Ud) 3 ml INH RQ2 PRN PRN Reason: Shortness of Breath Aspirin (Ecotrin) 81 mg PO DAILY [facility] Last Admin: 08/23/18 09:12 Dose: 81 mg Carvedilol (Coreg) 6.25 mg PO BID [facility] Last Admin: 08/23/18 17:18 Dose: 6.25 mg Dextrose (Dextrose 50% Inj) 50 ml IVP ONCE PRN PRN Reason: Hypoglycemia Dextrose (Dextrose 50% Inj) 0 ml IV STAT PRN; Protocol PRN Reason: Hypoglycemia Protocol Dextrose (Glutose 15) 0 gm PO ONCE PRN; Protocol PRN Reason: Hypoglycemia Protocol Docusate Sodium (Colace) 100 mg PO BID [facility] Last Admin: 08/23/18 17:18 Dose: 100 mg Enoxaparin Sodium (Lovenox) 40 mg SC DAILY [facility] Last Admin: 08/23/18 09:14 Dose: 40 mg Furosemide (Lasix) 20 mg PO BID [facility] Last Admin: 08/23/18 17:18 Dose: 20 mg Gabapentin (Neurontin) 100 mg PO DAILY [facility] Last Admin: 08/23/18 09:14 Dose: 100 mg Glucagon (Glucagen Diagnostic Kit) 0 mg IM STAT PRN; Protocol PRN Reason: Hypoglycemia Protocol Dextrose (Dextrose 5% In Water 1000 Ml) 1,000 mls @ 0 mls/hr IV .Q0M PRN; Pro tocol PRN Reason: Hypoglycemia Protocol Insulin Human Regular (Novolin R) 0 unit SC ACHS [facility]; Protocol Last Admin: 08/23/18 17:19 Dose: Not Given Memantine (Namenda) 5 mg PO DAILY [facility] Last Admin: 08/23/18 11:00 Dose: 5 mg Methylprednisolone (Solu-Medrol) 40 mg IV Q12 [facility] Last Admin: 08/23/18 09:13 Dose: 40 mg Rosuvastatin Calcium (Crestor) 5 mg PO HS [facility] Last Admin: 08/22/18 21:19 Dose: 5 mg Tiotropium [place] (Spiriva) 18 mcg INH RQ24 [facility] Last Admin: 08/23/18 08:44 Dose: 18 mcg Physical Exam - Head Exam Head Exam: ATRAUMATIC, NORMOCEPHALIC - ENT Exam ENT Exam: Mucous Membranes Moist - Neck Exam Neck exam: Positive for: Normal Inspection - Respiratory Exam Respiratory Exam: Decreased Breath Sounds - Cardiovascular Exam Cardiovascular Exam: REGULAR RHYTHM Results - Vital Signs Recent Vital Signs: Last Vital Signs Temp 97.9 F 08/23/18 17:08 Pulse 84 08/23/18 17:08 Resp 20 08/23/18 17:08 BP 138/70 08/23/18 17:18 Pulse Ox 100 08/23/18 17:08 - Labs Result Diagrams: 08/23/18 06:42 08/23/18 06:42 Labs: Laboratory Results - last 24 hr 08/22/18 08/22/18 08/22/18 06:07 17:09 21:49 WBC RBC Hgb Hct MCV MCH MCHC RDW Plt Count MPV Neut % (Auto) Lymph % (Auto) [place] % (Auto) Eos % (Auto) Baso % (Auto) Neut # (Auto) Lymph # (Auto) [place] # (Auto) Eos # (Auto) Baso # (Auto) Neutrophils % (Manual) Lymphocytes % (Manual) Monocytes % (Manual) Platelet Estimate Polychromasia Hypochromasia (manual) Anisocytosis (manual) Sodium Potassium Chloride Carbon Dioxide Anion Gap BUN Creatinine Est GFR ( Amer) Est GFR (Non-Af Amer) POC Glucose (mg/dL) 214 H 174 H 231 H Random Glucose Calcium Phosphorus Magnesium Total Bilirubin AST ALT Alkaline Phosphatase NT-Pro-B Natriuret Pep Total Protein Albumin Globulin Albumin/Globulin Ratio 08/23/18 08/23/18 08/23/18 06:26 06:42 06:42 WBC 8.4 D RBC 3.82 Hgb 10.1 L Hct 31.0 L MCV 81.3 MCH 26.5 L MCHC 32.6 L RDW 17.4 H Plt Count 204 MPV 9.6 Neut % (Auto) 90.0 H Lymph % (Auto) 7.8 L [place] % (Auto) 2.0 Eos % (Auto) 0.0 Baso % (Auto) 0.2 Neut # (Auto) 7.6 H Lymph # (Auto) 0.7 L [place] # (Auto) 0.2 Eos # (Auto) 0.0 Baso # (Auto) 0.0 Neutrophils % (Manual) 97 H Lymphocytes % (Manual) 2 L Monocytes % (Manual) 1 Platelet Estimate Normal Polychromasia Slight Hypochromasia (manual) Slight Anisocytosis (manual) Slight Sodium 139 Potassium 4.2 Chloride 101 Carbon Dioxide 27 Anion Gap 15 BUN 38 H Creatinine 1.3 H Est GFR ( Amer) 48 Est GFR (Non-Af Amer) 40 POC Glucose (mg/dL) 172 H Random Glucose 194 H Calcium 9.3 Phosphorus 4.4 Magnesium 2.1 Total Bilirubin 0.5 AST 22 ALT 40 Alkaline Phosphatase 118 NT-Pro-B Natriuret Pep 37543 H Total Protein 6.2 L Albumin 3.3 L Globulin 2.9 Albumin/Globulin Ratio 1.1 08/23/18 11:58 WBC RBC Hgb Hct MCV MCH MCHC RDW Plt Count MPV Neut % (Auto) Lymph % (Auto) [place] % (Auto) Eos % (Auto) Baso % (Auto) Neut # (Auto) Lymph # (Auto) [place] # (Auto) Eos # (Auto) Baso # (Auto) Neutrophils % (Manual) Lymphocytes % (Manual) Monocytes % (Manual) Platelet Estimate Polychromasia Hypochromasia (manual) Anisocytosis (manual) Sodium Potassium Chloride Carbon Dioxide Anion Gap BUN Creatinine Est GFR ( Amer) Est GFR (Non-Af Amer) POC Glucose (mg/dL) 369 H Random Glucose Calcium Phosphorus Magnesium Total Bilirubin AST ALT Alkaline Phosphatase NT-Pro-B Natriuret Pep Total Protein Albumin Globulin Albumin/Globulin Ratio Assessment & Plan (1) CHF exacerbation Status: Resolved (2) COPD exacerbation Status: Resolved
--- NOTE | 2018-08-23 23:13 | CARD ---
APPROVED REPORT Date of service: 08/21/2018 EKG Measurement Heart [id number] 208P [id number] <Conclusion> Multifocal atrial tachycardia Right bundle branch block Left anterior fascicular block Bifascicular block Left ventricular hypertrophy with repolarization abnormality Abnormal ECG
[2018-08-24] MEDS ORDERED: DiphenhydrAMINE 12.5 mg/5 ml LIQ UD (5 ml) PO STA (00:47)
[2018-08-24] MEDS: Tiotropium 18 mcg Cap For Inhalation INH SCH (07:34)
[2018-08-24 08:27] LABS: BASO % 0.1 % (0.0-2.0); EOS % 0.1 % (0.0-4.0); HEMOGLOBIN 10.1 g/dL (11.0-16.0); LYMPH # 0.4 K/uL (1.0-4.3); LYMPH % 4.5 % (20.0-40.0); MEAN CELL VOLUME 81.5 fL (81.0-99.0); MEAN CORPUSCULAR HEMOGLOBIN 26.2 pg (27.0-31.0); MEAN CORPUSCULAR HGB CONC 32.2 g/dL (33.0-37.0); MEAN PLATELET VOLUME 9.8 fL (7.2-11.7); MONO # 0.2 K/uL (0.0-0.8); MONO % 2.5 % (0.0-10.0); NEUT # 8.2 K/uL (1.8-7.0); NEUT % 92.8 % (50.0-75.0); PLATELET COUNT 233 K/uL (130-400); RBC 3.84 Mil/uL (3.80-5.20); RED CELL DISTRIBUTION WIDTH 18.2 % (11.5-14.5); WHITE BLOOD COUNT 8.9 K/uL (4.8-10.8)
[2018-08-24 08:59] LABS: ALB/GLOB RATIO 1.3 (1.0-2.1); ALBUMIN 3.4 g/dL (3.5-5.0); CALCIUM 9.5 mg/dl (8.6-10.4)
[2018-08-24] MEDS: (Novolin R) Insulin Human Regular 100 units/ml vial SC SCH ×4 (09:18→22:06)
[2018-08-24 10:04] LABS: ANISOCYTOSIS SLIGHT; BURR CELLS SLIGHT; HYPOCHROMIC SLIGHT; LYMPHOCYTE 3 % (20-40); MONOCYTE 6 % (0-10); NEUTROPHIL 91 % (50-75); PLATELET ESTIMATE NORMAL (NORMAL); TOTAL CELLS COUNTED 100
[2018-08-24 10:05] LABS: OVALOCYTES SLIGHT
--- NOTE | 2018-08-24 10:31 | CP.PCM.PN ---
Subjective - Date & Time of Evaluation Date of Evaluation: 08/24/18 Time of Evaluation: 07:35 - Subjective Subjective: PGY-1 Medicine progress note for Dr. Yang Pt was seen and examined at bedside. Pt is resting comfortably. No acute events overnight. She reports that her SOB is improving, but states that she feels a buzzing sensation in her lungs. Pt states that she takes restoril at home for sleep, and is requesting it here. Pt denies fever, chills, chest pain, palpitations, n/v/d, abdominal pain, leg pain or swelling, difficulty urinating or hematuria. Objective - Vital Signs/Intake and Output Vital Signs (last 24 hours): Temp Pulse Resp BP Pulse Ox 97.3 F L 79 18 129/79 100 08/24/18 07:00 08/24/18 09:02 08/24/18 07:00 08/24/18 07:00 08/24/18 07:00 Intake and Output: 08/24/18 08/24/18 06:59 18:59 Intake Total 200 Balance 200 - Medications Medications: Current Medications Albuterol/Ipratropium (Duoneb 3 Mg/0.5 Mg (3 Ml) Ud) 3 ml INH RQ2 PRN PRN Reason: Shortness of Breath Aspirin (Ecotrin) 81 mg PO DAILY [facility] Last Admin: 08/23/18 09:12 Dose: 81 mg Carvedilol (Coreg) 6.25 mg PO BID [facility] [place] Last Admin: 08/23/18 17:18 Dose: 6.25 mg Dextrose (Dextrose 50% Inj) 50 ml IVP ONCE PRN PRN Reason: Hypoglycemia Dextrose (Dextrose 50% Inj) 0 ml IV STAT PRN; Protocol PRN Reason: Hypoglycemia Protocol Dextrose (Glutose 15) 0 gm PO ONCE PRN; Protocol PRN Reason: Hypoglycemia Protocol Docusate Sodium (Colace) 100 mg PO BID [facility] Last Admin: 08/23/18 17:18 Dose: 100 mg Furosemide (Lasix) 20 mg PO BID [facility] [place] Last Admin: 08/23/18 17:18 Dose: 20 mg Gabapentin (Neurontin) 100 mg PO DAILY [facility] [place] Last Admin: 08/23/18 09:14 Dose: 100 mg Glucagon (Glucagen Diagnostic Kit) 0 mg IM STAT PRN; Protocol PRN Reason: Hypoglycemia Protocol Heparin Sodium (Porcine) (Heparin) 5,000 units SC Q8 [facility] Dextrose (Dextrose 5% In Water 1000 Ml) 1,000 mls @ 0 mls/hr IV .Q0M PRN; Protocol PRN Reason: Hypoglycemia Protocol Insulin Human Regular (Novolin R) 0 unit SC ACHS [facility] [place]; Protocol Last Admin: 08/24/18 09:18 Dose: Not Given Memantine (Namenda) 5 mg PO DAILY [facility] [place] Last Admin: 08/23/18 11:00 Dose: 5 mg Methylprednisolone (Solu-Medrol) 40 mg IV Q12 [facility] [place] Last Admin: 08/23/18 21:42 Dose: 40 mg Rosuvastatin Calcium (Crestor) 5 mg PO HS [facility] Last Admin: 08/23/18 21:42 Dose: 5 mg Tiotropium [place] (Spiriva) 18 mcg INH RQ24 [facility] Last Admin: 08/24/18 07:34 Dose: 18 mcg - Labs Labs: 08/24/18 08:21 08/24/18 08:21 - Constitutional Appears: Non-toxic, No Acute Distress - Head Exam Head Exam: ATRAUMATIC, NORMAL INSPECTION - Eye Exam Eye Exam: EOMI - ENT Exam ENT Exam: Mucous Membranes Moist - Respiratory Exam Respiratory Exam: Wheezes (end expiratory wheezes throughout). absent: Rales, Rhonchi, Respiratory Distress - Cardiovascular Exam Cardiovascular Exam: REGULAR RHYTHM, JVD (minimal), +S1, +S2 - GI/Abdominal Exam GI & Abdominal Exam: Soft, Normal Bowel Sounds. absent: Distended, Firm, Guarding, Rigid, Tenderness - Extremities Exam Extremities Exam: Normal Inspection. absent: Calf Tenderness, Pedal Edema, Tenderness - Back Exam Back Exam: NORMAL INSPECTION - Neurological Exam Neurological Exam: Alert, Awake, Oriented x3 - Psychiatric Exam Psychiatric exam: Normal Affect, Normal Mood - Skin Skin Exam: Dry, Normal Color, Warm Assessment and Plan - Assessment and Plan (Free Text) Assessment: 78 y/o female with PMHx of COPD, asthma, CHF with AICD, MVP with valve replacement and DM2 presents to the ER per recommendation of her cloth desizing range operator chief Dr. Villalobos. COPD exacerbation - 2L NC PRN - duonebs Q2 PRN - solumedrol 40 mg IV q12h - CXR shows cardiomegaly with venous congestion. left sided pacemaker. patchy increased markings at the left lung base. aortic atherosclerotic calcification at aortic knob. tortuous ectatic aorta. status post median sternotomy. - pulmonology consulted, Dr. Cortes CHF - w/ AICD - EKG ST with RBBB LAFB, unchanged from prior EKG. - Monitor for s/sx of fluid overload, patient continues to be w/o JVD, edema, or lung crackles on exam - measure I[place] [address], [address] on admission; last admission Jul 2018 pBNP 74551 - will consider lasix IV if patient w/ fluid overload. Continue home lasix 20 mg PO at this time. - ECHO on 03/22: LVEF of 30-35% - Echo (08/22) shows LVEF of about 30-35%, sclerotic trileaflet aortic valve with peak/mean avg of 19/10 mmHg and calculated ALYSHA or 1.4 cm squared. mild AI. Bioprosthetic mitral valve. Aortic root is normal size and mildly sclerotic. - Cardiology, Dr. Villalobos, evaluated the pt yesterday and is concerned about aortic insufficiency. Pt will go for cardiac cath and right heart cath today at 4 pm. Pt is NPO after breakfast. CKD - BUN/Cr is 45/1.3 - eGFR is 40 - will continue to monitor s/p cardiac cath DM2 - accuchecks ACHS - ISS - hypoglycemic protocol Gout -home colchicine held for now HTN - home meds carvedilol 3.15mg PO BID, - diltiazem 30 BID - Lasix 20mg PO BID Insomnia - pt restarted on home Restoril 15 mg PO QHS ASCVD -aspirin 81 mg -crestor 5 mg ppx DVT: SCDs, Heparin 5000 q8h GI: not indicated diet: heart healthy All medical management as per Dr. Trey Lieberman, PGY1
--- NOTE | 2018-08-24 10:35 | CARD ---
APPROVED REPORT Date of service: 08/23/2018 EXAM: LIMITED Two-dimensional and M-mode echocardiogram with Doppler and color Doppler. Other Information Quality : LimitedRhythm : RISK FACTORS Hypertension Hyperlipidemia 2D DIMENSIONS LVOT Diameter2.0 (1.8-2.4cm) M-Mode DIMENSIONS Left Atrium (MM)3.90 (2.5-4.0cm)Aortic Root3.48 (2.2-3.7cm) Aortic Cusp Exc.1.10 (1.5-2.0cm) Aortic Valve AoV Peak Ugnhgjjf677.3cm/sAoV VTI39.5cmAO Peak GR.17mmHg LVOT Peak Vnjkurte839.9cm/sLVOT VTI21.46cmAO Mean GR.10mmHg OLIVE (VMAX)1.39aj6UMS (VTI)1.65cm2 Mitral Valve MV E Peak Gr.19mmHgMV E Mean Gr.8mmHgMV [id number] E/A ratio0.0MVA (PHT)2.19cm2 TDI E/Lateral E'0.0E/Medial E'0.0 <Conclusion> m mode is not available. lv size & wall thickness appears normal. lvef of about 30-35%. la is upper normal size. rv systolic function appears normal. ra size is normal. sclerotic probably trileaflet aortic evelina with peak/mean avg of 19/10mm of hg & calculated olive of 1.4 cmsq, mild ai. bioprosthetic mitral valve. no mr,tr seen. no pericrdial effusion seen. aortic root is normal size & mildly sclerotic.
[2018-08-24] MEDS: MethylPREDNISolone 40 mg Vial IV SCH ×2 (11:25→22:04)
[2018-08-24 12:01] LABS: CALCIUM 9.4 mg/dl (8.6-10.4)
[2018-08-24] MEDS ORDERED: Lidocaine 2% MPF (5 ml) Inj ONE (14:09)
[2018-08-24] MEDS ORDERED: Iodixanol 320 MG/ML 200 ML BOTTLE IV ONE (14:09)
[2018-08-24] MEDS ORDERED: Midazolam 2 MG/2 ML VIAL ONE (14:39)
[2018-08-24 15:26] LABS: ARTERIAL BLOOD GAS HCO3 27.7 mmol/L (21-28); ARTERIAL BLOOD GAS HEMOGLOBIN 10.1 g/dL (11.7-17.4); ARTERIAL BLOOD GAS O2 SAT 99.6 % (95-98); ARTERIAL BLOOD GAS PCO2 40 mm/Hg (35-45); ARTERIAL BLOOD GAS PH 7.45 (7.35-7.45); ARTERIAL BLOOD GAS PO2 88 mm/Hg (80-100)
[2018-08-24 15:29] LABS: VENOUS BLOOD GAS BASE EXCESS 3.7 mmol/L (0.0-2.0); VENOUS BLOOD GAS PCO2 54 mmHg (40-60); VENOUS BLOOD GAS PO2 32 mm/Hg (30-55); VENOUS BLOOD PH 7.36 (7.32-7.43)
--- NOTE | 2018-08-24 17:21 | CP.PCM.PN ---
Subjective - Date & Time of Evaluation Date of Evaluation: 08/24/18 Time of Evaluation: 12:40 - Subjective Subjective: patient seen and examined Complaining of cough Shortness of breath on exertion Afebrile No chest pain Objective - Vital Signs/Intake and Output Vital Signs (last 24 hours): Temp Pulse Resp BP Pulse Ox 97.3 F L 79 18 139/82 100 08/24/18 07:00 08/24/18 09:02 08/24/18 07:00 08/24/18 11:25 08/24/18 07:00 Intake and Output: 08/24/18 08/24/18 06:59 18:59 Intake Total 200 Balance 200 - Medications Medications: Current Medications Albuterol/Ipratropium (Duoneb 3 Mg/0.5 Mg (3 Ml) Ud) 3 ml INH RQ2 PRN PRN Reason: Shortness of Breath Aspirin (Ecotrin) 81 mg PO DAILY [facility] Last Admin: 08/24/18 11:25 Dose: 81 mg Carvedilol (Coreg) 6.25 mg PO BID [facility] Last Admin: 08/24/18 11:25 Dose: 6.25 mg Dextrose (Dextrose 50% Inj) 50 ml IVP ONCE PRN PRN Reason: Hypoglycemia Dextrose (Dextrose 50% Inj) 0 ml IV STAT PRN; Protocol PRN Reason: Hypoglycemia Protocol Dextrose (Glutose 15) 0 gm PO ONCE PRN; Protocol PRN Reason: Hypoglycemia Protocol Docusate Sodium (Colace) 100 mg PO BID [facility] Last Admin: 08/24/18 11:25 Dose: 100 mg Furosemide (Lasix) 20 mg PO BID [facility] Last Admin: 08/24/18 11:25 Dose: 20 mg Gabapentin (Neurontin) 100 mg PO DAILY [facility] Last Admin: 08/24/18 11:25 Dose: 100 mg Glucagon (Glucagen Diagnostic Kit) 0 mg IM STAT PRN; Protocol PRN Reason: Hypoglycemia Protocol Heparin Sodium (Porcine) (Heparin) 5,000 units SC Q8 [facility] Last Admin: 08/24/18 14:14 Dose: Not Given Dextrose (Dextrose 5% In Water 1000 Ml) 1,000 mls @ 0 mls/hr IV .Q0M PRN; Protocol PRN Reason: Hypoglycemia Protocol Insulin Human Regular (Novolin R) 0 unit SC ACHS [facility]; Protocol Last Admin: 08/24/18 11:46 Dose: Not Given Memantine (Namenda) 5 mg PO DAILY [facility] Last Admin: 08/24/18 11:25 Dose: 5 mg Methylprednisolone (Solu-Medrol) 40 mg IV Q12 [facility] Last Admin: 08/24/18 11:25 Dose: 40 mg Rosuvastatin Calcium (Crestor) 5 mg PO HS [facility] Last Admin: 08/23/18 21:42 Dose: 5 mg Temazepam (Restoril) 15 mg PO HS PRN PRN Reason: Insomnia Tiotropium [place] (Spiriva) 18 mcg INH RQ24 [facility] Last Admin: 08/24/18 07:34 Dose: 18 mcg - Labs Labs: 08/24/18 08:21 08/24/18 11:01 - Head Exam Head Exam: ATRAUMATIC, NORMOCEPHALIC - ENT Exam ENT Exam: Mucous Membranes Moist - Neck Exam Neck Exam: Normal Inspection - Respiratory Exam Respiratory Exam: Decreased Breath Sounds - Cardiovascular Exam Cardiovascular Exam: REGULAR RHYTHM - GI/Abdominal Exam GI & Abdominal Exam: Soft, Normal Bowel Sounds Assessment and Plan (1) CHF exacerbation Status: Resolved (2) COPD exacerbation Status: Resolved
--- NOTE | 2018-08-24 20:36 | CP.PCM.PN ---
Subjective - Date & Time of Evaluation Date of Evaluation: 08/24/18 Time of Evaluation: 20:31 - Subjective Subjective: Patient s/p Cath Reason: Multiple recent admissions for Acute on Chronic systiolic CHF 1. Normal Coronaries 2. Dilated Non ischemic CMP. Severe global hypokinesis with EF of of 15-20% 3. Severe Pulmonary HTN (PASP>20xdHj9 4. Elevated EDP (27 mmHg) and PCW 33mmHg 5. Low CO=2.0.3L/Min 6. Moderate to severe AI, Dilated ascending Aorta Poor prognosis without advanced Heart Failure therapies Plan to transfer to [place] for possible LVAD or Milrinone Pump D/W patient and the family Accepting (Heart Failure Therapist) Dr. Pavan Tavera Thank you Objective - Vital Signs/Intake and Output Vital Signs (last 24 hours): Temp Pulse Resp BP Pulse Ox 98.2 F 82 20 135/75 97 08/24/18 17:00 08/24/18 17:00 08/24/18 17:00 08/24/18 18:28 08/24/18 17:00 - Medications Medications: Current Medications Albuterol/Ipratropium (Duoneb 3 Mg/0.5 Mg (3 Ml) Ud) 3 ml INH RQ2 PRN PRN Reason: Shortness of Breath Aspirin (Ecotrin) 81 mg PO DAILY [facility] Last Admin: 08/24/18 11:25 Dose: 81 mg Carvedilol (Coreg) 6.25 mg PO BID [facility] Last Admin: 08/24/18 18:28 Dose: 6.25 mg Dextrose (Dextrose 50% Inj) 50 ml IVP ONCE PRN PRN Reason: Hypoglycemia Dextrose (Dextrose 50% Inj) 0 ml IV STAT PRN; Protocol PRN Reason: Hypoglycemia Protocol Dextrose (Glutose 15) 0 gm PO ONCE PRN; Protocol PRN Reason: Hypoglycemia Protocol Docusate Sodium (Colace) 100 mg PO BID [facility] Last Admin: 08/24/18 18:28 Dose: 100 mg Furosemide (Lasix) 20 mg PO BID [facility] Last Admin: 08/24/18 18:28 Dose: 20 mg Gabapentin (Neurontin) 100 mg PO DAILY [facility] Last Admin: 08/24/18 11:25 Dose: 100 mg Glucagon (Glucagen Diagnostic Kit) 0 mg IM STAT PRN; Protocol PRN Reason: Hypoglycemia Protocol Heparin Sodium (Porcine) (Heparin) 5,000 units SC Q8 [facility] Last Admin: 08/24/18 14:14 Dose: Not Given Dextrose (Dextrose 5% In Water 1000 Ml) 1,000 mls @ 0 mls/hr IV .Q0M PRN; Protocol PRN Reason: Hypoglycemia Protocol Insulin Human Regular (Novolin R) 0 unit SC ACHS [facility]; Protocol Last Admin: 08/24/18 18:11 Dose: Not Given Memantine (Namenda) 5 mg PO DAILY [facility] Last Admin: 08/24/18 11:25 Dose: 5 mg Methylprednisolone (Solu-Medrol) 40 mg IV Q12 [facility] Last Admin: 08/24/18 11:25 Dose: 40 mg Rosuvastatin Calcium (Crestor) 5 mg PO HS [facility] Last Admin: 08/23/18 21:42 Dose: 5 mg Temazepam (Restoril) 15 mg PO HS PRN PRN Reason: Insomnia Tiotropium [place] (Spiriva) 18 mcg INH RQ24 [facility] Last Admin: 08/24/18 07:34 Dose: 18 mcg - Labs Labs: 08/24/18 08:21 08/24/18 11:01
--- NOTE | 2018-08-25 02:11 | CARDCATH ---
PROCEDURE DATE: 08/24/2018 PROCEDURES: 1. Left heart catheterization. 2. Coronary angiogram. 3. Right heart catheterization. 4. Aortic root angiogram. CLINICAL INDICATIONS: 1. Dyspnea. 2. Mdtfa-ru-[id number] systolic heart failure. 3. Pulmonary hypertension. 4. Chest pain. 5. Hypertension. 6. Hyperlipidemia. 7. Status post mitral valve repair. REFERRING PHYSICIAN: Tobi Yang MD PERFORMING PHYSICIAN: Suman Villalobos MD DESCRIPTION OF PROCEDURE: After informed consent, the patient was prepped and draped in the usual sterile fashion. Lidocaine 2% was given on the right groin for local anesthesia. Using micropuncture technique, a 6-Swedish sheath was introduced into the right common femoral artery, 7-Swedish sheath was introduced into the right common femoral vein. Through the 7-Swedish sheath, right heart catheterization was performed. Saturations were taken. PA, RV, RA, PCW pressures were measured. Cardiac output was calculated with thermodilution method. A JL4 6-Swedish diagnostic catheter engaged into left main coronary artery. Contrast injected and left coronary angiogram was done. The catheter was exchanged to JR4 6-Swedish diagnostic catheter. The catheter crossed into left ventricle across the aortic valve. LV diastolic pressure measured. Contrast injected and LV angiogram was done. Then, the catheter was pulled back and gradient across the aortic valve was measured. The same catheter was engaged into the right coronary artery. Contrast injected and right coronary angiogram was done. Then, pigtail catheter inserted into ascending aortic root. Contrast injected with the power injector and ascending aortic root angiogram was performed. Post procedure, Mynx closure device deployed in the right groin with excellent hemostasis. Radiological supervision and radiological interpretation of the coronary imaging were done. FINDINGS OF THE LEFT HEART CATHETERIZATION: 1. Left main coronary artery is patent. 2. LAD and diagonal branches are patent. 3. Left circumflex and obtuse marginal branches are patent. 4. Right coronary artery is dominant and patent. 5. LV ejection fraction is approximately 15% to 20%. Severely dilated heart. Diffuse global hypokinesis. EDP is 27. No gradient across the aortic valve. 6. Aortic root angiogram has confirmed [id number] aortic insufficiency. 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 FINDINGS OF THE RIGHT HEART CATHETERIZATION: Pressures, PCW 33 mmHg, PA 70/35, RV 71/13, RA 24. LV systolic pressure is 140, LV diastolic pressure is 27. Saturations, aorta 88%, PA 61.2%. Cardiac index 2.05 L per minute. Cardiac index is 1.33. IMPRESSION: 1. Normal coronaries. 2. Severely dilated nonischemic cardiomyopathy with ejection fraction of 15% to 20%. 3. Severely elevated left ventricular and diastolic pressures. 4. Severe pulmonary hypertension. 5. 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 PLAN: The patient will be transferred back to the floor, possible transfer to [facility] for further management for heart failure therapy. Suman Villalobos MD
[2018-08-25 07:32] LABS: INR 1.2; PROTHROMBIN TIME 13.2 SECONDS (9.7-12.2)
[2018-08-25] MEDS: Tiotropium 18 mcg Cap For Inhalation INH SCH (07:35)
[2018-08-25 07:37] LABS: BASO % 0.1 % (0.0-2.0); LYMPH # 0.4 K/uL (1.0-4.3); LYMPH % 6.4 % (20.0-40.0); MEAN CELL VOLUME 82.6 fL (81.0-99.0); MEAN CORPUSCULAR HEMOGLOBIN 26.1 pg (27.0-31.0); MEAN CORPUSCULAR HGB CONC 31.6 g/dL (33.0-37.0); MEAN PLATELET VOLUME 9.4 fL (7.2-11.7); MONO # 0.2 K/uL (0.0-0.8); MONO % 3.6 % (0.0-10.0); NEUT # 5.4 K/uL (1.8-7.0); NEUT % 89.9 % (50.0-75.0); PLATELET COUNT 233 K/uL (130-400); RBC 3.82 Mil/uL (3.80-5.20); RED CELL DISTRIBUTION WIDTH 17.9 % (11.5-14.5)
[2018-08-25 07:41] LABS: ALB/GLOB RATIO 1.2 (1.0-2.1); ALBUMIN 3.1 g/dL (3.5-5.0)
--- NOTE | 2018-08-25 08:50 | CP.PCM.PN ---
<Madhuri Gifford - Last Filed: 08/25/18 10:09> Subjective - Date & Time of Evaluation Date of Evaluation: 08/25/18 Time of Evaluation: 08:00 - Subjective Subjective: Cardiology Follow Up Note Patient was seen and examined at bedside. Patient reports her breathing has improved since admission. States she's okay ambulating to the bathroom without oxygen. Denied any chest pain, shortness of breath, or palpitations. Objective - Vital Signs/Intake and Output Vital Signs (last 24 hours): Temp Pulse Resp BP Pulse Ox 97.8 F 79 18 137/83 100 08/25/18 07:00 08/25/18 07:00 08/25/18 07:00 08/25/18 07:00 08/25/18 07:00 - Medications Medications: Current Medications Albuterol/Ipratropium (Duoneb 3 Mg/0.5 Mg (3 Ml) Ud) 3 ml INH RQ2 PRN PRN Reason: Shortness of Breath Aspirin (Ecotrin) 81 mg PO DAILY [facility] Last Admin: 08/24/18 11:25 Dose: 81 mg Carvedilol (Coreg) 6.25 mg PO BID [facility] Last Admin: 08/24/18 18:28 Dose: 6.25 mg Dextrose (Dextrose 50% Inj) 50 ml IVP ONCE PRN PRN Reason: Hypoglycemia Dextrose (Dextrose 50% Inj) 0 ml IV STAT PRN; Protocol PRN Reason: Hypoglycemia Protocol Dextrose (Glutose 15) 0 gm PO ONCE PRN; Protocol PRN Reason: Hypoglycemia Protocol Docusate Sodium (Colace) 100 mg PO BID [facility] Last Admin: 08/24/18 18:28 Dose: 100 mg Furosemide (Lasix) 20 mg PO BID [facility] Last Admin: 08/24/18 18:28 Dose: 20 mg Gabapentin (Neurontin) 100 mg PO DAILY [facility] Last Admin: 08/24/18 11:25 Dose: 100 mg Glucagon (Glucagen Diagnostic Kit) 0 mg IM STAT PRN; Protocol PRN Reason: Hypoglycemia Protocol Heparin Sodium (Porcine) (Heparin) 5,000 units SC Q8 [facility] Last Admin: 08/25/18 06:16 Dose: Not Given Dextrose (Dextrose 5% In Water 1000 Ml) 1,000 mls @ 0 mls/hr IV .Q0M PRN; Protocol PRN Reason: Hypoglycemia Protocol Insulin Human Regular (Novolin R) 0 unit SC ACHS [facility]; Protocol Last Admin: 08/24/18 22:06 Dose: 3 unit Memantine (Namenda) 5 mg PO DAILY [facility] Last Admin: 08/24/18 11:25 Dose: 5 mg Methylprednisolone (Solu-Medrol) 40 mg IV Q12 [facility] Last Admin: 08/24/18 22:04 Dose: 40 mg Rosuvastatin Calcium (Crestor) 5 mg PO HS TEN Last Admin: 08/24/18 22:04 Dose: 5 mg Temazepam (Restoril) 15 mg PO HS PRN PRN Reason: Insomnia Last Admin: 08/24/18 22:04 Dose: 15 mg Tiotropium [place] (Spiriva) 18 mcg INH RQ24 [facility] Last Admin: 08/24/18 07:34 Dose: 18 mcg - Labs Labs: 08/25/18 07:11 08/25/18 07:11 PT 13.2 SECONDS (9.7-12.2) H 08/25/18 07:11 INR 1.2 08/25/18 07:11 APTT 24 SECONDS (21-34) 08/25/18 07:11 - Additional Findings Additional findings: - Constitutional Appears: No Acute Distress - Head Exam Head Exam: NORMAL INSPECTION, NORMOCEPHALIC - Eye Exam Eye Exam: EOMI, Normal appearance Pupil Exam: NORMAL ACCOMODATION - ENT Exam ENT Exam: Mucous Membranes Moist - Respiratory Exam Respiratory Exam: Decreased Breath Sounds, Rales, Wheezes - Cardiovascular Exam Cardiovascular Exam: +S1, +S2 - GI/Abdominal Exam GI & Abdominal Exam: Normal Bowel Sounds, Soft. absent: Distended, Tenderness - Extremities Exam Extremities exam: Positive for: normal inspection, pedal pulses present. Negative for: pedal edema, tenderness - Neurological Exam Neurological exam: Alert, CN II-XII Intact, Oriented x3 - Psychiatric Exam Psychiatric exam: Normal Affect, Normal Mood - Skin Skin Exam: Dry, Intact, Normal Color, Warm Assessment and Plan - Assessment and Plan (Free Text) Plan: Acute on Chronic Systolic Heart Failure s/p AICD Severe Aortic Insufficiency Dilated Cardiomyopathy Severe Pulmonary Hypertension MVP s/p valve replacement Imaging, Labs: - BNP: this admission 22,000; previous admission 15,000 - EKG ST with RBBB LAFB, unchanged from prior EKG. - CXR: patchy increased markings in left lung base - ECHO (03/2018): LVEF 35-40%, mild aortic insufficiency - S/P Cardiac Cath 08/24: Dilated Non ischemic CMP. Severe global hypokinesis with EF of of 15-20%. Severe Pulmonary HTN (PASP>70mmHg). Moderate to severe AI, Dilated ascending Aorta. Management: - Measure daily weights, strict I & Os - Reinforced with patient the importance of fluid restriction, salt intake, medication compliance - Continue ASA, Coreg 6.25mg PO BID, lasix 20mg PO BID - Plan to transfer patient to [place] (Accepting physician - Dr. Pavan Tavera) for LVAD or Milrinone pump; pending bed availability Acute Renal Insufficiency - Monitor Case discussed with Madhuri Roper DO, PGY2 <Suman Villalobos - Last Filed: 08/25/18 19:27> Objective - Vital Signs/Intake and Output Vital Signs (last 24 hours): Temp Pulse Resp BP Pulse Ox 98.6 F 87 20 135/75 98 08/25/18 13:40 08/25/18 13:40 08/25/18 13:40 08/25/18 13:40 08/25/18 15:26 - Labs Labs: 08/25/18 07:11 08/25/18 07:11 PT 13.2 SECONDS (9.7-12.2) H 08/25/18 07:11 INR 1.2 08/25/18 07:11 APTT 24 SECONDS (21-34) 08/25/18 07:11 Assessment and Plan - Assessment and Plan (Free Text) Plan: Patient seen and evaluated personally by me. Plan of care d/w the certified medical records coder and as documented
[2018-08-25] MEDS: MethylPREDNISolone 40 mg Vial IV SCH (09:43)
[2018-08-25] MEDS: (Novolin R) Insulin Human Regular 100 units/ml vial SC SCH ×2 (09:44→12:21)
[2018-08-25 10:00] LABS: ANISOCYTOSIS SLIGHT; BANDS 2 % (0-2); HYPOCHROMIC SLIGHT; LYMPHOCYTE 5 % (20-40); MONOCYTE 1 % (0-10); NEUTROPHIL 92 % (50-75); PLATELET ESTIMATE NORMAL (NORMAL); POLYCHROMIC SLIGHT; TOTAL CELLS COUNTED 100
--- NOTE | 2018-08-25 11:04 | CP.PCM.PN ---
Subjective - Date & Time of Evaluation Date of Evaluation: 08/25/18 Time of Evaluation: 11:04 Objective - Vital Signs/Intake and Output Vital Signs (last 24 hours): Temp Pulse Resp BP Pulse Ox 97.8 F 79 18 132/83 100 08/25/18 07:00 08/25/18 07:00 08/25/18 07:00 08/25/18 10:31 08/25/18 07:00 - Medications Medications: Current Medications Albuterol/Ipratropium (Duoneb 3 Mg/0.5 Mg (3 Ml) Ud) 3 ml INH RQ2 PRN PRN Reason: Shortness of Breath Aspirin (Ecotrin) 81 mg PO DAILY [facility] Last Admin: 08/25/18 09:34 Dose: 81 mg Carvedilol (Coreg) 6.25 mg PO BID [facility] Last Admin: 08/25/18 09:34 Dose: 6.25 mg Dextrose (Dextrose 50% Inj) 50 ml IVP ONCE PRN PRN Reason: Hypoglycemia Dextrose (Dextrose 50% Inj) 0 ml IV STAT PRN; Protocol PRN Reason: Hypoglycemia Protocol Dextrose (Glutose 15) 0 gm PO ONCE PRN; Protocol PRN Reason: Hypoglycemia Protocol Docusate Sodium (Colace) 100 mg PO BID [facility] Last Admin: 08/25/18 09:44 Dose: 100 mg Furosemide (Lasix) 20 mg PO BID [facility] Last Admin: 08/25/18 10:31 Dose: 20 mg Gabapentin (Neurontin) 100 mg PO DAILY [facility] Last Admin: 08/25/18 09:34 Dose: 100 mg Glucagon (Glucagen Diagnostic Kit) 0 mg IM STAT PRN; Protocol PRN Reason: Hypoglycemia Protocol Heparin Sodium (Porcine) (Heparin) 5,000 units SC Q8 [facility] Last Admin: 08/25/18 06:16 Dose: Not Given Dextrose (Dextrose 5% In Water 1000 Ml) 1,000 mls @ 0 mls/hr IV .Q0M PRN; Protocol PRN Reason: Hypoglycemia Protocol Insulin Human Regular (Novolin R) 0 unit SC ACHS [facility]; Protocol Last Admin: 08/25/18 09:44 Dose: 3 unit Memantine (Namenda) 5 mg PO DAILY [facility] Last Admin: 08/24/18 11:25 Dose: 5 mg Methylprednisolone (Solu-Medrol) 40 mg IV Q12 [facility] Last Admin: 08/25/18 09:43 Dose: 40 mg Rosuvastatin Calcium (Crestor) 5 mg PO HS TEN Last Admin: 08/24/18 22:04 Dose: 5 mg Temazepam (Restoril) 15 mg PO HS PRN PRN Reason: Insomnia Last Admin: 08/24/18 22:04 Dose: 15 mg Tiotropium [place] (Spiriva) 18 mcg INH RQ24 [facility] Last Admin: 08/25/18 07:35 Dose: 18 mcg - Labs Labs: 08/25/18 07:11 08/25/18 07:11 PT 13.2 SECONDS (9.7-12.2) H 08/25/18 07:11 INR 1.2 08/25/18 07:11 APTT 24 SECONDS (21-34) 08/25/18 07:11
[2018-08-25 13:40] VITALS: BP 135/75; PULSE 87; RESP 20; TEMP 98.6
[2018-08-25 15:25] VITALS: O2SAT 98
--- NOTE | 2018-08-25 17:55 | CP.PCM.DIS ---
Provider - Provider Date of Admission: 08/21/18 23:40 Attending physician: Tobi Yang Jr, MD Time Spent in preparation of Discharge (in minutes): 35 Diagnosis - Discharge Diagnosis (1) CHF (congestive heart failure) Status: Chronic (2) Constipation Status: Chronic (3) Pacemaker Status: Chronic (4) Aortic insufficiency Status: Acute (5) COPD with acute exacerbation Status: Acute Hospital Course - Lab Results Lab Results: Most Recent Lab Values WBC 6.0 K/uL (4.8-10.8) 08/25/18 07:11 RBC 3.82 Mil/uL (3.80-5.20) 08/25/18 07:11 Hgb 10.0 g/dL (11.0-16.0) L 08/25/18 07:11 Hct 31.5 % (34.0-47.0) L 08/25/18 07:11 MCV 82.6 fL (81.0-99.0) 08/25/18 07:11 MCH 26.1 pg (27.0-31.0) L 08/25/18 07:11 MCHC 31.6 g/dL (33.0-37.0) L 08/25/18 07:11 RDW 17.9 % (11.5-14.5) H 08/25/18 07:11 Plt Count 233 K/uL (130-400) 08/25/18 07:11 MPV 9.4 fL (7.2-11.7) 08/25/18 07:11 Neut % (Auto) 89.9 % (50.0-75.0) H 08/25/18 07:11 Lymph % (Auto) 6.4 % (20.0-40.0) L 08/25/18 07:11 [place] % (Auto) 3.6 % (0.0-10.0) 08/25/18 07:11 Eos % (Auto) 0.0 % (0.0-4.0) 08/25/18 07:11 Baso % (Auto) 0.1 % (0.0-2.0) 08/25/18 07:11 Neut # (Auto) 5.4 K/uL (1.8-7.0) 08/25/18 07:11 Lymph # (Auto) 0.4 K/uL (1.0-4.3) L 08/25/18 07:11 [place] # (Auto) 0.2 K/uL (0.0-0.8) 08/25/18 07:11 Eos # (Auto) 0.0 K/uL (0.0-0.7) 08/25/18 07:11 Baso # (Auto) 0.0 K/uL (0.0-0.2) 08/25/18 07:11 Neutrophils % (Manual) 92 % (50-75) H 08/25/18 07:11 Band Neutrophils % 2 % (0-2) 08/25/18 07:11 Lymphocytes % (Manual) 5 % (20-40) L 08/25/18 07:11 Monocytes % (Manual) 1 % (0-10) 08/25/18 07:11 Platelet Estimate Normal (NORMAL) 08/25/18 07:11 Polychromasia Slight 08/25/18 07:11 Hypochromasia (manual) Slight 08/25/18 07:11 Anisocytosis (manual) Slight 08/25/18 07:11 Ovalocytes Slight 08/24/18 08:21 [place] Cells Slight 08/24/18 08:21 PT 13.2 SECONDS (9.7-12.2) H 08/25/18 07:11 INR 1.2 08/25/18 07:11 APTT 24 SECONDS (21-34) 08/25/18 07:11 Puncture Site Ao 08/24/18 15:20 pCO2 40 mm/Hg (35-45) 08/24/18 15:20 pO2 32 mm/Hg (30-55) 08/24/18 15:25 HCO3 27.7 mmol/L (21-28) 08/24/18 15:20 ABG pH 7.45 (7.35-7.45) 08/24/18 15:20 ABG Total CO2 29.0 mmol/L (22-28) H 08/24/18 15:20 ABG O2 Saturation 99.6 % (95-98) H 08/24/18 15:20 ABG Base Excess 3.5 mmol/L (-2.0-3.0) H 08/24/18 15:20 ABG Hemoglobin 10.1 g/dL (11.7-17.4) L 08/24/18 15:20 ABG Carboxyhemoglobin 2.2 % (0.5-1.5) H 08/24/18 15:20 POC ABG HHb (Measured) 0.4 % (0.0-5.0) 08/24/18 15:20 ABG Methemoglobin 0.6 % (0.0-3.0) 08/24/18 15:20 Crow Test Na 08/24/18 15:20 VBG pH 7.36 (7.32-7.43) 08/24/18 15:25 VBG pCO2 54 mmHg (40-60) 08/24/18 15:25 VBG HCO3 26.8 mmol/L 08/24/18 15:25 VBG Total CO2 32.2 mmol/L (22-28) H 08/24/18 15:25 VBG O2 Sat (Calc) 61.2 % (40-65) 08/24/18 15:25 VBG Base Excess 3.7 mmol/L (0.0-2.0) H 08/24/18 15:25 VBG Potassium 4.0 mmol/L (3.6-5.2) 08/24/18 15:25 A-a O2 Difference 12.0 mm/Hg 08/24/18 15:20 Respiratory Index 0.1 08/24/18 15:20 Hgb O2 Saturation 96.8 % (95.0-98.0) 08/24/18 15:20 Sodium 143.0 mmol/l (132-148) 08/24/18 15:25 Chloride 108.0 mmol/L (98-107) H 08/24/18 15:25 Glucose 178 mg/dl (65-105) H 08/24/18 15:25 Lactate 1.0 mmol/L (0.7-2.1) 08/24/18 15:25 FiO2 21.0 % 08/24/18 15:25 Sodium 143 mmol/L (132-148) 08/25/18 07:11 Potassium 4.2 mmol/L (3.6-5.2) 08/25/18 07:11 Chloride 105 mmol/L (98-107) 08/25/18 07:11 Carbon Dioxide 29 mmol/L (22-30) 08/25/18 07:11 Anion Gap 14 (10-20) 08/25/18 07:11 BUN 53 mg/dL (7-17) H 08/25/18 07:11 Creatinine 1.4 mg/dL (0.7-1.2) H 08/25/18 07:11 Est GFR ( Amer) 44 08/25/18 07:11 Est GFR (Non-Af Amer) 36 08/25/18 07:11 POC Glucose (mg/dL) 334 mg/dL (65-110) H 08/25/18 11:20 Random Glucose 206 mg/dL (65-105) H 08/25/18 07:11 Calcium 9.0 mg/dl (8.6-10.4) 08/25/18 07:11 Phosphorus 4.4 mg/dL (2.5-4.5) 08/25/18 07:11 Magnesium 2.1 mg/dL (1.6-2.3) 08/25/18 07:11 Total Bilirubin 0.4 mg/dL (0.2-1.3) 08/25/18 07:11 AST 21 U/L (14-36) 08/25/18 07:11 ALT 45 U/L (9-52) 08/25/18 07:11 Alkaline Phosphatase 100 U/L (38-126) 08/25/18 07:11 Troponin I 0.0370 ng/mL (0.00-0.120) 08/21/18 22:35 NT-Pro-B Natriuret Pep 49361 pg/mL (0-900) H 08/23/18 06:42 Total Protein 5.7 g/dL (6.3-8.3) L 08/25/18 07:11 Albumin 3.1 g/dL (3.5-5.0) L 08/25/18 07:11 Globulin 2.6 gm/dL (2.2-3.9) 08/25/18 07:11 Albumin/Globulin Ratio 1.2 (1.0-2.1) 08/25/18 07:11 Venous Blood Potassium 4.0 mmol/L (3.6-5.2) 08/24/18 15:25 - Hospital Course Hospital Course: On admission: Ms. Banks is a 78 yo f with PMHx of asthma, COPD, CHF s/p AICD, MVP s/p valve replacement, DM2, presented to the ED referred by Dr. Villalobos, her headlight assembler, two days ago. Patient states she was in a regular clinic appt with him and he told her to visit the ER immediately. She did not go yesterday, 08/21, since she felt fatigued. Patient does not know exactly why he wants her to get immediate attention to go to the ER as she has had baseline SOB for many years due to her chronic medical conditions. Patient has been more fatigued and also with SOB at rest, not just walking. It irritates her that she even gets SOB with just sitting down and eating. She denies chest pain, palpitations, fever/chills, night sweats, nausea, vomiting, diarrhea, dysuria. She denies recent illness, recent travels, weight loss/gain, rashes, swelling (she sometimes does but not now). Patient not in pain at the time of evaluation. Hospital Course: Pt was under the care of Dr. Yang from 08/21-08/25. Pt's COPD exacerbation was managed with solumedrol IV and Duonebs. CXR showed cardiomegaly with venous congestion. left sided pacemaker. patchy increased markings at the left lung base. aortic atherosclerotic calcification at aortic knob. tortuous ectatic aorta. status post median sternotomy. EKG showed ST with RBBB LAFB, unchanged from prior EKG. BNP was elevated on admission, and pt's CHF was managed by cardio with lasix IVP Echo (08/22) shows LVEF of about 30-35%, sclerotic trileaflet aortic valve with peak/mean avg of 19/10 mmHg and calculated ALYSHA or 1.4 cm squared. mild AI. Bioprosthetic mitral valve. Aortic root is normal size and mildly sclerotic. Pt underwent cardiac catheterization by Dr. Villalobos due to Multiple recent admissions for Acute on Chronic systiolic CHF: 1. Normal Coronaries 2. Dilated Non ischemic CMP. Severe global hypokinesis with EF of of 15-20% 3. Severe Pulmonary HTN (PASP>[id number] 4. Elevated EDP (27 mmHg) and PCW 33mmHg 5. Low CO=2.0.3L/Min 6. Moderate to severe AI, Dilated ascending Aorta Dr. Villalobos determined that pt has a poor prognosis without advanced heart failure therapy and pt will be transferred to [facility] for possible LVAD or Milrinone Pump. Accepting (Heart Failure Therapist) Dr. Pavan Tavera On discharge, pt is resting comfortably. Pt reports that she hasn't had a bowel movement in 3 days, and she admits to suffering from chronic constipation. Pt is passing gas. She denies fever, chills, chest pain, cough, palpitations, abdominal pain, n/v/d, hematochezia, melena, lightheadedness, dizziness, visual changess. Consults: Pulmonology: Sebastian Cardiology: Wilfredo This is a summary of the hospital course, please see chart for full details. Discharge Exam - Head Exam Head Exam: ATRAUMATIC, NORMOCEPHALIC - Eye Exam Eye Exam: EOMI, Normal appearance - ENT Exam ENT Exam: Mucous Membranes Moist - Neck Exam Additional comments: mild JVD - Respiratory Exam Respiratory Exam: Rales (scant rales at the bases), Wheezes (end expiratory wheezes throughout). absent: Accessory Muscle Use, Respiratory Distress, Stridor - Cardiovascular Exam Cardiovascular Exam: REGULAR RHYTHM - GI/Abdominal Exam GI & Abdominal Exam: Distended (not tympanic), Normal Bowel Sounds, Soft. absent: Firm, Guarding, Rebound, Rigid, Tenderness - Extremities Exam Extremities exam: normal capillary refill, pedal pulses present Additional comments: no calf tenderness, no edema - Neurological Exam Neurological exam: Alert, Oriented x3 - Psychiatric Exam Psychiatric exam: Normal Affect, Normal Mood - Skin Skin Exam: Dry, Normal Color, Warm Discharge Plan - Follow Up Plan Condition: STABLE Disposition: OTHER INSTITUTION
--- NOTE | 2018-08-27 16:12 | PCM.HF ---
Heart Failure Core Measure - Heart Failure Ejection Fraction: Less Than 40 % HEMALATHA Inhibitor Prescribed: No Contraindication/Reason for not providing: ARF Beta-Durga Prescribed: Carvedilol Angiotensin II Receptor Durga Prescribed: No Contraindication/Reason for not providing: arf AnticoagulationTherapy for Atrial Fibrillation/Atrialflutter: No Contraindication/Reason for not providing: no hx of a fib Aldosterone Antagonist Prescribed: No Contraindication/Reason for not providing: risk fo rhyperkalemia Hydralazine Nitrate Prescribed: No Contraindication/Reason for not providing: on cardizem Implantable Cardioverter Defibrillator Therapy: No Contraindication/Reason for not providing: pt transferred to [facility] Cardiac Resynchronization Therapy Prescribed: No Contraindication/Reason for not providing: pt transferred to [facility] - Follow up Will be discharged to: [facility] (transfered to [facility]) Follow Up Date (must be within 7 days from discharge): 08/25/18
== END 2018-08-25 14:15 | disposition short-term general hospital (02) | DRG 287 ==
LOC: C.ER 20:42 → C.6T 23:40
PROVIDERS: ADMIT Internal Medicine; ATTEND Internal Medicine
PROC: 4A023N8 Measurement of Cardiac Sampling and Pressure, Bilateral, Percutaneous Approach (ICD-10-PCS; principal; 2018-08-24)
PROC: B2161ZZ Fluoroscopy of Right and Left Heart using Low Osmolar Contrast (ICD-10-PCS; 2018-08-24)
PROC: B2111ZZ Fluoroscopy of Multiple Coronary Arteries using Low Osmolar Contrast (ICD-10-PCS; 2018-08-24)
PROC: B2131ZZ Fluoroscopy of Multiple Coronary Artery Bypass Grafts using Low Osmolar Contrast (ICD-10-PCS; 2018-08-24)
PROC: B3101ZZ Fluoroscopy of Thoracic Aorta using Low Osmolar Contrast (ICD-10-PCS; 2018-08-24)
DX: I11.0 Hypertensive heart disease with heart failure (principal); J44.1 Chronic obstructive pulmonary disease with (acute) exacerbation; I50.23 Acute on chronic systolic (congestive) heart failure; I42.0 Dilated cardiomyopathy; I35.1 Nonrheumatic aortic (valve) insufficiency; I45.2 Bifascicular block; I27.20 Pulmonary hypertension, unspecified; E11.9 Type 2 diabetes mellitus without complications; I77.819 Aortic ectasia, unspecified site; K59.00 Constipation, unspecified; M10.9 Gout, unspecified; E78.5 Hyperlipidemia, unspecified; Z95.2 Presence of prosthetic heart valve; Z95.810 Presence of automatic (implantable) cardiac defibrillator; Z95.1 Presence of aortocoronary bypass graft; Z90.49 Acquired absence of other specified parts of digestive tract; Z82.3 Family history of stroke; Z80.51 Family history of malignant neoplasm of kidney; Z88.0 Allergy status to penicillin

== ENCOUNTER 2018-12-28 13:10 | Emergency (ER) | payer MEDICARE, OTHER ==
[2018-12-28 13:11] VITALS: BMI 24.0
[2018-12-28 13:24] VITALS: BP 154/64; PULSE 100; RESP 24; TEMP 98; O2SAT 99
[2018-12-28] MEDS ORDERED: Albuterol 0.083% Inhal Sol (2.5 mg/3 mL) UD ONE (13:29)
== END 2018-12-28 13:24 | disposition left against medical advice (07) ==
LOC: C.ER 13:10
DX: Z02.89 Encounter for other administrative examinations (principal); R06.02 Shortness of breath